=== PATIENT | female | born 1945 | race Caucasian/White ===

== ENCOUNTER 2021-08-21 09:20 | Day surgery (SDC) | payer OTHER ==
[2021-08-21 08:58] LABS: Absolute Lymphocytes (CBC) 2.2 K/uL (0.7-4.9); Basophils % 1.1 % (0-1.3); Hematocrit 39.9 % (36.0-45.0); Lymphocytes % 25.9 % (15.3-44.8); MPV 8.5 fL (7.6-11.3); RBC Red Blood Cell Count 4.46 M/uL (3.86-4.86)
[2021-08-21 09:18] LABS: Potassium 4.3 mmol/L (3.5-5.1)
--- NOTE | 2021-08-21 09:18 | RAD REPORT ---
EXAM DESCRIPTION: RAD - Chest Pa And Lat (2 Views) - 08/21/2021 9:00 am CLINICAL HISTORY: pre-cath procedure COMPARISON: CHEST SINGLE VIEW dated 09/06/2011; CHEST PA AND LAT 2 VIEW dated 12/03/2002 FINDINGS: Lines: None. Lungs: No evidence of edema or pneumonia. Pleural: No significant pleural effusions or pneumothorax. Cardiac: The heart size is within normal limits. Bones: No acute fractures. Other: Atherosclerosis. IMPRESSION: No acute cardiopulmonary disease.
[2021-08-21 09:37] VITALS: TEMP 98
[2021-08-21] MEDS ORDERED: NA CHLORIDE 0.9% 500 ML ONE (10:30)
[2021-08-21] MEDS ORDERED: HEPA 1000U/500MLS 1,000 UNIT/500 ML BAG IV ONE (10:40)
[2021-08-21] MEDS ORDERED: FENTANYL CITR 100 MCG/2 ML ONE (10:45)
[2021-08-21] MEDS ORDERED: MIDAZOLAM HCL 2 MG/2 ML INJ ONE ×2 (10:45→11:23)
[2021-08-21] MEDS ORDERED: ATROPINE SULF 1 MG/10 ML SYR IV ONE (10:45)
--- NOTE | 2021-08-21 11:47 | EKG ---
Test Date: 2021-08-21 Test Time: 07:43:19 Marble Setter Helper: ANUSHKA MEASUREMENT RESULTS: Intervals: Rate: 71 MI: 162 QRSD: 82 QT: 418 QTc: 454 [place]: P: 58 MI: 162 QRS: 28 T: 70 INTERPRETIVE STATEMENTS: Normal sinus rhythm with sinus arrhythmia ST abnormality, possible digitalis effect Abnormal ECG Compared to ECG 09/07/2011 06:51:06 ST (T wave) deviation now present Sinus bradycardia no longer present Electronically Signed On 08-21-21 11:46:00 CDT by Caleb Martell
[2021-08-21 11:56] VITALS: O2SAT 100
[2021-08-21 12:47] VITALS: BP 126/54
--- NOTE | 2021-08-21 15:33 | OP ---
Surgeon: Caleb Martell MD Senior Product Designer: Mr. Juan Gomez. Reason For Admission: Bilateral selective carotid angiograms. Indication: Cerebrovascular disease. Ms. Mckinnon is 76. Has had stents, coronary artery disease, high blood pressure, diabetes, dyslipidemia, abnormal carotid Doppler. Procedure In Detail: Brought to the labor supervisor today as an outpatient, prepped and draped in the routi ne sterile fashion. Given Versed and fentanyl for sedation. A 6-Danish sheath introduced in the rig ht common femoral artery successfully. Angiography there revealed normal common femoral artery and i liac. Angio-Seal was used to close the case. A JR4 catheter was advanced into the carotid. The lef t common carotid and the right common carotid were selected by the JR4. Angiography there showed mod erate plaquing in the left ICA, normal bilateral ECA and CCA. She had an 85% ostial right ICA. Ther e were no complications. Blood Loss: 5 mL. Anesthesia: Total conscious sedation 45 minutes. Postoperative Diagnosis: Severe right ICA stenosis. Plan: For right CEA. The patient will remain in the hospital for 2 hours after bedrest following th e Angio-Seal. She will have a CD with her. I will make an arrangement for her to see a cardiovascular surgeon in [place]. IZABEL/MELLY Voice ID: [id number] Report ID: [id number]
--- NOTE | 2021-08-22 13:15 | EKG ---
Test Date: 2021-08-21 Test Time: 07:43:43 Scrap Picker: ANUSHKA MEASUREMENT RESULTS: Intervals: Rate: 64 IL: 172 QRSD: 82 QT: 408 QTc: 420 [place]: P: 56 IL: 172 QRS: 14 T: 55 INTERPRETIVE STATEMENTS: Normal sinus rhythm Normal ECG Compared to ECG 08/21/2021 07:43:19 Sinus arrhythmia no longer present ST (T wave) deviation no longer present Electronically Signed On 08-22-21 13:10:51 CDT by Caleb Martell
== END 2021-08-21 12:45 | disposition home or self-care (01) ==
LOC: CCL 09:20
DX: I65.23 Occlusion and stenosis of bilateral carotid arteries (principal); I25.10 Atherosclerotic heart disease of native coronary artery without angina pectoris; I34.0 Nonrheumatic mitral (valve) insufficiency; I35.1 Nonrheumatic aortic (valve) insufficiency; I10 Essential (primary) hypertension; I27.21 Secondary pulmonary arterial hypertension; G62.9 Polyneuropathy, unspecified; E78.2 Mixed hyperlipidemia; E11.9 Type 2 diabetes mellitus without complications; E03.9 Hypothyroidism, unspecified; Z95.5 Presence of coronary angioplasty implant and graft; Z87.891 Personal history of nicotine dependence; Z88.6 Allergy status to analgesic agent; Z20.822 Contact with and (suspected) exposure to COVID-19
CPT/HCPCS: 93005; 85025; 80048; 36415; 85610; 85730; 71046; 36222; U0003; C1893; C1760; J2250; J3010; J7040; J1644

== ENCOUNTER 2021-09-16 01:52 | Inpatient (IN) | payer OTHER ==
--- OUTSIDE RECORDS SUMMARY | 2021-09-16 01:55 | XMS REPORT | Continuity of Care Document ---
:1945 Author Organization [facility] t Address [address] [place] [address] Care Team Providers Name Role Phone AMYHAIDERCARROLL Primary Care Physician Unavailable ROBBY NESS Attending Clinician Unavailable JAZIEL MORLEY Attending Clinician Unavailable NOLAN LOPEZ Attending Clinician Unavailable Nurse, Pob Immunization Attending Clinician Unavailable Nolan Lopez DO Attending Clinician Jossie VITAL Attending Clinician Unavailable Juan José NARVAEZ Attending Clinician Unavailable Tete ARGUELLO, L Attending Clinician Dwayne EPSTEIN Attending Clinician Unavailable JAZIEL MORLEY Admitting Clinician Unavailable Payers Payer Name Policy Type Policy Number Effective Date Expiration Date S jorge UNITED MEDICARE HMO [id number] 2020 00:00:00 [facility] [id number] 2020 MEDICARE ADV HMO 00:00:00 Problems This patient has no known problems. Allergies, Adverse Reactions, Alerts Allergy Allergy Status Severity Reaction(s) Onset Inactive Treating Comm ents Source Name Type Date Date Clinician CODEINE Allergy Active N\\T\\V 2020-[address] [facility] OTHER Allergy Active Other 2020-[address] [facility] STATINS- Allergy Active Other 2020-[address] [facility] 10[facility] RED[facility] Medical E 00 Center INHIBITO RS NO KNOWN Drug Active Univers ALLERGIE Class [facility]y of [facility] Social History Social Habit Start Date Stop Date Quantity Comments Source Sex Assigned At [birth year] [facility] 00:00:00 00:00:00 Medical Branch Smoking Status Start Date Stop Date Source Unknown if ever smoked [facility] Medications Ordered Filled Start Stop Current Ordering Indication Dosage Frequency Signature Comments Components Source Medication Medication Date Date Medication? Clinician (SIG) Name Name meloxicam 2020-0 Yes 7.5mg Take 1 Unive rs (MOBIC) 7.5 8-20 tablet by ity of mg tablet 00:00: mouth [place] 00 daily Medical before a Branch meal. MELOXICAM 2020-0 Yes [id number] TAKE 1 Un spencer 7.5 mg 8-20 TABLET BY ity of tablet 00:00: MOUTH ONCE [place] 00 DAILY Medical BEFORE A Branch MEAL FOR 30 DAYS MELOXICAM 2020-0 Yes [id number] TAKE 1 Un spencer 7.5 mg 8-20 TABLET BY ity of tablet 00:00: MOUTH ONCE [place] 00 DAILY Medical BEFORE A Branch MEAL FOR 30 DAYS meloxicam 2020-0 Yes 7.5mg Take 1 Unive rs (MOBIC) 7.5 8-20 tablet by ity of mg tablet 00:00: mouth [place] 00 daily Medical before a Branch meal. meloxicam 2020-0 2020- No 7.5mg Take 1 Univ ers (MOBIC) 7.5 7-23 08-23 tablet by it y of mg tablet 00:00: 04:59 mouth [place] 00 :00 daily Medical before a Branch meal for 30 days. meloxicam 2020-0 2020- No 7.5mg Take 1 Univ ers (MOBIC) 7.5 7-23 08-23 tablet by it y of mg tablet 00:00: 04:59 mouth [place] 00 :00 daily Medical before a Branch meal for 30 days. meloxicam 2020-0 2020- No 7.5mg Take 1 Univ ers (MOBIC) 7.5 7-23 08-23 tablet by it y of mg tablet 00:00: 04:59 mouth [place] 00 :00 daily Medical before a Branch meal for 30 days. meloxicam 2020-0 2020- No 7.5mg Take 1 Univ ers (MOBIC) 7.5 7-23 08-23 tablet by it y of mg tablet 00:00: 04:59 mouth [place] 00 :00 daily Medical before a Branch meal for 30 days. meloxicam 2020-0 2020- No 7.5mg Take 1 Univ ers (MOBIC) 7.5 7- 08-23 tablet by it y of mg tablet 00:00: 04:59 mouth [place] 00 :00 daily Medical before a Branch meal for 30 days. meloxicam 2019-2019- No 7.5mg Take 1 Univ ers (MOBIC) 7.5 7-23 08-23 tablet by it y of mg tablet 00:00: 04:59 mouth [place] 00 :00 daily Medical before a Branch meal for 30 days. meloxicam 2019-2019- No 7.5mg Take 1 Univ ers (MOBIC) 7.5 7- 08-20 tablet by it y of mg tablet 00:00: 00:00 mouth [place] 00 :00 daily Medical before a Branch meal for 30 days. No known No Univers medications [facility] No known No Univers medications [facility] No known No Univers medications [facility] Immunizations Ordered Filled Immunization Date Status Comments [facility] e Immunization Name Name SARS-COV-2 COVID-19 2021-06-29 Completed Unive rsity of MODERNA VACCINE 00:00:00 [facility] SARS-COV-2 COVID-19 2020-11-24 Completed Unive rsity of MODERNA VACCINE 00:00:00 [facility] SARS-COV-2 COVID-19 2020-10-27 Completed Unive rsity of MODERNA VACCINE 00:00:00 [facility] Vital Signs Vital Name Observation Time Observation Value Comments Source HEIGHT 2021-09-03 07:41:00 157.5 cm WEIGHT 2021-09-03 07:41:00 91.7 kg HEIGHT 2021-08-31 10:16:00 157.5 cm WEIGHT 2021-08-31 10:16:00 93.895 kg HEIGHT 2021-09-03 07:41:00 157.5 cm WEIGHT 2021-09-03 07:41:00 91.7 kg HEIGHT 2021-08-31 10:16:00 157.5 cm WEIGHT 2021-08-31 10:16:00 93.895 kg Systolic blood 2020-04-27 13:25:00 156 mm[Hg] Univer sity of pressure [facility] Diastolic blood 2020-04-27 13:25:00 84 mm[Hg] Unive rsity of pressure [facility] Respiratory rate 2020-04-27 13:25:00 18 /min Univ ersity of [facility] Body height 2020-04-27 13:25:00 160 cm [facility] Body weight 2020-04-27 13:25:00 93.895 kg [facility] BMI 2020-04-27 13:25:00 36.67 kg/m2 [facility] Procedures Procedure Date / Time Performed Performing Clinician Sourc e SARS-COV-2 COVID-19 2021-06-29 15:13:39 Doctor Unassigned, No [facility] [place] VACCINE,0.5ML,IM Name [facility] ([facility]) Encounters Start End Encounter Admission Attending Care Care Encounter Source Date/Time Date/Time Type Type Clinicians Facility Department ID 2021-09-03 2021-09-06 Inpatient MIGUEL ESCAMILLA Surgery [id number] [facility] 06:40:00 13:36:00 M[facility] 2021-08-31 2021-08-31 Outpatient [facility] [id number] SLE 10:29:52 23:59:00 2021-06-29 2021-06-29 Outpatient Aiyana LOPEZ [facility] [id number] Univers 10:20:00 10:20:00 BART [facility] 2021-06-29 2021-06-29 Imm/Inj Nurse, Adc Pob Immunization [facility] [id number] Univers 10:12:23 10:12:34 Visit Bart Lopez 350.1.13 .10 [facility] 4.2.7.2.686 [facility] Professio [id number] Mt dical nal [address] 2020-11-24 2020-11-24 Outpatient Aiyana VITAL [facility] [id number] Univers 15:10:00 15:10:00 DAVID [id number] [facility] 2020-11-24 2020-11-24 Outpatient Aiyana VITAL [facility] [id number] Univers 15:10:00 15:10:00 DAVID [facility] 2020-10-27 2020-10-27 Outpatient Aiyana VITAL [facility] [id number] Univers 15:30:00 15:30:00 DAVID [id number] [facility] 2020-10-27 2020-10-27 Outpatient Aiyana AMANUEL [facility] [id number] Univers 15:30:00 15:30:00 DAVID [facility] 2020-10-23 2020-10-23 Outpatient [facility] [id number] [facility] 2020-08-17 2020-08-17 Outpatient [facility] [id number] [facility] 2020-08-10 2020-08-10 Outpatient [facility] [id number] [facility] 2020-08-03 2020-08-03 Outpatient [id number] [facility] 2020-07-19 2020-07-19 Outpatient [facility] [id number] [facility] 2020-07-18 2020-07-18 Outpatient [facility] [id number] [facility] 2020-07-06 2020-07-06 Outpatient [facility] [id number] [facility] 2020-06-12 2020-06-12 Outpatient Aiyana NARVAEZ [facility] [id number] Univers 15:30:00 15:30:00 YUVAL [id number] [facility] 2020-06-12 2020-06-12 Outpatient Aiyana NARVAEZ [facility] [id number] Univers 15:30:00 15:30:00 YUVAL [facility] 2020-06-06 2020-06-06 [facility] [id number] 00:00:00 [facility] [id number] [facility] 4.2.7.2.686 Specialti [id number] es [address] 2020-06-06 2020-06-06 [facility] [id number] 00:00:00 00:00:00 [facility] [id number] Surgical 4.2.7.2.686 Specialti [id number] es [address] 2020-06-06 2020-06-06 [place] [facility] [id number] 00:00:00 00:00:00 [facility] [id number] Surgical 4.2.7.2.686 Specialti [id number] es [address] 2020-06-06 2020-06-06 [facility] [id number] Univers 00:00:00 00:00:00 [facility] [id number] it y of Surgical 4.2.7.2.686 Amandeep as Specialti [id number] Mt dical es 198 [facility] 2020-06-06 2020-06-06 [facility]phone [facility] [id number] Univers 00:00:00 00:00:00 [facility] [id number] it y of Surgical 4.2.7.2.686 Amandeep as Specialti [id number] Mt dical es 198 [facility] 2020-06-06 2020-06-06 [place] [facility] [id number] Univers 00:00:00 00:00:00 [facility] [id number] it y of Surgical 4.2.7.2.686 Amandeep as Specialti [id number] Mt dical es 198 [facility] 2020-06-02 2020-06-02 [facility] [id number] Univers 00:00:00 00:00:00 [facility] [id number] it y of Surgical 4.2.7.2.686 Amandeep as Specialti [id number] Mt dical es 198 [facility] 2020-06-02 2020-06-02 [facility] [id number] 00:00:00 00:00:00 [facility] [id number] Surgical 4.2.7.2.686 Specialti [id number] es [address] 2020-05-26 2020-05-26 [place] [facility] 1.2.840.114 [id number] Univers 00:00:00 00:00:00 [facility] [id number] it y of Surgical 4.2.7.2.686 Amandeep as Specialti [id number] Mt dical es 198 [facility] 2020-05-26 2020-05-26 [place] [facility] [id number] 00:00:00 00:00:00 [facility] [id number] Surgical 4.2.7.2.686 Specialti [id number] es [address] 2020-05-22 2020-05-22 [place] [facility] 1.2.840.114 [id number] Univers 00:00:00 00:00:00 [facility] [id number] it y of Surgical 4.2.7.2.686 Amandeep as Specialti [id number] Mt dical es 198 [facility] 2020-05-22 2020-05-22 [place] [facility] 1.2.840.114 [id number] 00:00:00 00:00:00 [facility] [id number] Surgical 4.2.7.2.686 Specialti [id number] es [address] 2020-05-11 2020-05-11 [place] [facility] 1.2.840.114 [id number] Univers 00:00:00 00:00:00 [facility] [id number] it y of Surgical 4.2.7.2.686 Amandeep as Specialti [id number] Mt dical es 198 [facility] 2020-05-08 2020-05-08 [place] [facility] 1.2.840.114 [id number] Univers 00:00:00 00:00:00 [facility] [id number] it y of Surgical 4.2.7.2.686 Amandeep as Specialti [id number] Me dical es [address] [place] 2020-04-27 2020-04-27 Outpatient R TETE [facility] [id number] Univers 08:45:00 08:45:00 MARTIN lee [facility] 2020-04-27 2020-04-27 Office Tete [facility] [id number] Univers 08:21:06 08:43:58 Visit [facility] [id number] it y of Surgical 4.2.7.2.686 Amandeep as Specialti [id number] Me dical es [address] [place] Results Test Description Test Time Test Comments Results Result Sour e Comments TISSUE EXAM 2021-09-10 Surgical Pathology 18:22:29 Report Case: [id number] Authorizing Provider: Jaret Morley, Collected: 09/03/2021 10:37 AM Ordering Location: [facility] Received: 09/03/2021 01:07 PM PERIOPERATIVE SERVICES Pathologist: David Mabry MD Specimen: Plaque, Right Carotid Plaque ARTERY, LEFT CAROTID, ENDARTERECTOMY:CALCIFI C ATHEROSCLEROTIC PLAQUE Signing Pathologist Direct Phone Line: [phone] ally signed by David Mabry MD on 09/10/2021 at 6:22 [id number]; [id number] stenosis, right PlaqueReceived fresh labeled the patient's name, accession number and "right carotid plaque" is a 3.0 cm in length by 0.5 cm in diameter alexander-yellow, tubular piece of focally calcified plaque. Internal Wholesaler sections are submitted in A1 following decalcification.CINTHYA Gonzalez, HT (ASCP)Performed MAGNESIUM 2021-09-06 05:43:19 Test Item Value Reference Range Interpretation Comme nts MAGNESIUM (BEAKER) (test code = 627) 1.9 mg/dL 1.6-2.6 Extrusion Die Repair Manager ID - VIBHA [id number] 05:43:19 Test Item Value Reference Range Interpretation Comments PHOSPHORUS (BEAKER) (test code = 1.8 mg/dL 2.3-4.7 L 604) Extrusion Die Repair Manager ID - VIBHA MBASIC METABOLIC [id number] 05:43:18 Test Item Value Reference Range Interpretation Comments SODIUM (BEAKER) 139 meq/L 136-145 (test code = 381) POTASSIUM (BEAKER) 4.1 meq/L 3.5-5.1 (test code = 379) CHLORIDE (BEAKER) 106 meq/L 98-107 (test code = 382) CO2 (BEAKER) (test 22 meq/L 22-29 code = 355) BLOOD UREA NITROGEN 17 mg/dL 7-21 (BEAKER) (test code = 354) CREATININE (BEAKER) 0.90 mg/dL 0.57-1.25 (test code = 358) GLUCOSE RANDOM 112 mg/dL 70-105 H (BEAKER) (test code = 652) CALCIUM (BEAKER) 9.8 mg/dL 8.4-10.2 (test code = 697) EGFR (BEAKER) (test 61 mL/min/1.73 ESTIMA RAZIA GFR IS code = 1092) sq m NOT ACCURATE CREATININE CLEARANCE IN PREDICTING GLOMERULAR FILTRATION RATE . ESTIMATED GFR I S NOT APPLICABLE FOR DIALYSIS PATIEN TS. Extrusion Die Repair Manager ID - VIBHA [facility] (HEMOGRAM ONLY)2021-09-06 05:17:48 Test Item Value Reference Range Interpretation Comments WHITE BLOOD CELL COUNT (BEAKER) 11.3 K/ L 3.5-10.5 H (test code = 775) RED BLOOD CELL COUNT (BEAKER) 4.01 M/ L 3.93-5.22 (test code = 761) HEMOGLOBIN (BEAKER) (test code = 11.6 GM/DL 11.2-15.7 410) HEMATOCRIT (BEAKER) (test code = 36.7 % 34.1-44.9 411) MEAN CORPUSCULAR VOLUME (BEAKER) 91.5 fL 79.4-94.8 (test code = 753) MEAN CORPUSCULAR HEMOGLOBIN 28.9 pg 25.6-32.2 (BEAKER) (test code = 751) MEAN CORPUSCULAR HEMOGLOBIN CONC 31.6 GM/DL 32.2-35.5 L (BEAKER) (test code = 752) RED CELL DISTRIBUTION WIDTH 13.8 % 11.7-14.4 (BEAKER) (test code = 412) PLATELET COUNT (BEAKER) (test 258 K/CU MM 150-450 code = 756) MEAN PLATELET VOLUME (BEAKER) 11.2 fL 9.4-12.3 (test code = 754) NUCLEATED RED BLOOD CELLS 0 /100 WBC 0-0 (BEAKER) (test code = 413) BASIC METABOLIC [id number] 05:10:16 Test Item Value Reference Range Interpretation Comments SODIUM (BEAKER) 137 meq/L 136-145 (test code = 381) POTASSIUM (BEAKER) 4.5 meq/L 3.5-5.1 Specimen slightly (test code = 379) hemolyzed CHLORIDE (BEAKER) 105 meq/L 98-107 (test code = 382) CO2 (BEAKER) (test 24 meq/L 22-29 code = 355) BLOOD UREA NITROGEN 22 mg/dL 7-21 H (BEAKER) (test code = 354) CREATININE (BEAKER) 0.95 mg/dL 0.57-1.25 Specimen slightly (test code = 358) hemolyzed GLUCOSE RANDOM 106 mg/dL 70-105 H (BEAKER) (test code = 652) CALCIUM (BEAKER) 9.0 mg/dL 8.4-10.2 (test code = 697) EGFR (BEAKER) (test 57 mL/min/1.73 ESTIMA RAZIA GFR IS code = 1092) sq m NOT ACCURATE CREATININE CLEARANCE IN PREDICTING GLOMERULAR FILTRATION RATE . ESTIMATED GFR I S NOT APPLICABLE FOR DIALYSIS PATIEN TS. Extrusion Die Repair Manager ID - VIBHA [id number] 05:10:15 Test Item Value Reference Range Interpretation Comments MAGNESIUM (BEAKER) 1.8 mg/dL 1.6-2.6 Specimen slightly (test code = 627) hemolyzed Extrusion Die Repair Manager ID - VIBHA [id number] 05:10:15 Test Item Value Reference Range Interpretation Comments PHOSPHORUS (BEAKER) 2.7 mg/dL 2.3-4.7 Specimen slightly (test code = 604) hemolyzed Extrusion Die Repair Manager ID - VIBHA [facility] (HEMOGRAM ONLY)2021-09-05 04:58:52 Test Item Value Reference Range Interpretation Comments WHITE BLOOD CELL COUNT (BEAKER) 9.8 K/ L 3.5-10.5 (test code = 775) RED BLOOD CELL COUNT (BEAKER) 3.60 M/ L 3.93-5.22 L (test code = 761) HEMOGLOBIN (BEAKER) (test code = 10.5 GM/DL 11.2-15.7 L 410) HEMATOCRIT (BEAKER) (test code = 33.6 % 34.1-44.9 L 411) MEAN CORPUSCULAR VOLUME (BEAKER) 93.3 fL 79.4-94.8 (test code = 753) MEAN CORPUSCULAR HEMOGLOBIN 29.2 pg 25.6-32.2 (BEAKER) (test code = 751) MEAN CORPUSCULAR HEMOGLOBIN CONC 31.3 GM/DL 32.2-35.5 L (BEAKER) (test code = 752) RED CELL DISTRIBUTION WIDTH 13.8 % 11.7-14.4 (BEAKER) (test code = 412) PLATELET COUNT (BEAKER) (test 251 K/CU MM 150-450 code = 756) MEAN PLATELET VOLUME (BEAKER) 11.1 fL 9.4-12.3 (test code = 754) NUCLEATED RED BLOOD CELLS 0 /100 WBC 0-0 (BEAKER) (test code = 413) HEMOGLOBIN [id number] 19:10:23 Test Item Value Reference Range Interpretation Comments HEMOGLOBIN A1C (BEAKER) (test code = 6.3 % 4.3-6.1 H 368) [id number] 18:45:54 Test Item Value Reference Range Interpretation Comments THYROID STIMULATING HORMONE 1.192 uIU/mL 0.350-4.940 (BEAKER) (test code = 772) Extrusion Die Repair Manager ID - [id number], [id number] 18:45:53 Test Item Value Reference Range Interpretation Comments FREE T4 (BEAKER) (test code = 655) 1.24 ng/dL 0.70-1.48 Extrusion Die Repair Manager ID - BSB-TYPE NATRIURETIC FACTOR (BNP)2021-09-04 18:31:07 Test Item Value Reference Range Interpretation Comments B-TYPE NATRIURETIC PEPTIDE (BEAKER) 212 pg/mL 0-100 H (test code = 700) Extrusion Die Repair Manager ID - BSLIPID [id number] 18:25:33 Test Item Value Reference Range Interpretation Comments TRIGLYCERIDES (BEAKER) (test code = 106 mg/dL 540) CHOLESTEROL (BEAKER) (test code = 143 mg/dL 631) HDL CHOLESTEROL (BEAKER) (test code 44 mg/dL = 976) LDL CHOLESTEROL CALCULATED (BEAKER) 78 mg/dL (test code = 633) Triglyceride Reference Range: Low Risk <150 Borderline 150-199 High Risk 200-499 Very High Risk >=500Cholesterol Reference Range: Low Risk <200 Borderline 200-239 High Risk >240HDL Cholesterol Reference Range: Low Risk >=60 High Risk <40LDL Cholesterol Reference Range: Optimal <100 Near Optimal 100-129 Borderline 130-159 High 160-189 Very High >=190 Extrusion Die Repair Manager ID - [id number] 06:58:37 Test Item Value Reference Range Interpretation Comments PHOSPHORUS (BEAKER) (test code = 4.6 mg/dL 2.3-4.7 604) Extrusion Die Repair Manager ID - VIBHA MBASIC METABOLIC [id number] 06:58:36 Test Item Value Reference Range Interpretation Comments SODIUM (BEAKER) 138 meq/L 136-145 (test code = 381) POTASSIUM (BEAKER) 4.1 meq/L 3.5-5.1 (test code = 379) CHLORIDE (BEAKER) 104 meq/L 98-107 (test code = 382) CO2 (BEAKER) (test 22 meq/L 22-29 code = 355) BLOOD UREA NITROGEN 26 mg/dL 7-21 H (BEAKER) (test code = 354) CREATININE (BEAKER) 1.24 mg/dL 0.57-1.25 (test code = 358) GLUCOSE RANDOM 103 mg/dL 70-105 (BEAKER) (test code = 652) CALCIUM (BEAKER) 9.4 mg/dL 8.4-10.2 (test code = 697) EGFR (BEAKER) (test 42 mL/min/1.73 ESTIMA RAZIA GFR IS code = 1092) sq m NOT ACCURATE CREATININE CLEARANCE IN PREDICTING GLOMERULAR FILTRATION RATE . ESTIMATED GFR I S NOT APPLICABLE FOR DIALYSIS PATIEN TS. Extrusion Die Repair Manager ID - VIBHA [id number] 06:58:36 Test Item Value Reference Range Interpretation Comments MAGNESIUM (BEAKER) (test code = 1.9 mg/dL 1.6-2.6 627) Extrusion Die Repair Manager ID - VIBHA [facility] (HEMOGRAM ONLY)2021-09-04 06:39:51 Test Item Value Reference Range Interpretation Comments WHITE BLOOD CELL COUNT (BEAKER) 12.9 K/ L 3.5-10.5 H (test code = 775) RED BLOOD CELL COUNT (BEAKER) 3.98 M/ L 3.93-5.22 (test code = 761) HEMOGLOBIN (BEAKER) (test code = 11.7 GM/DL 11.2-15.7 410) HEMATOCRIT (BEAKER) (test code = 38.1 % 34.1-44.9 411) MEAN CORPUSCULAR VOLUME (BEAKER) 95.7 fL 79.4-94.8 H (test code = 753) MEAN CORPUSCULAR HEMOGLOBIN 29.4 pg 25.6-32.2 (BEAKER) (test code = 751) MEAN CORPUSCULAR HEMOGLOBIN CONC 30.7 GM/DL 32.2-35.5 L (BEAKER) (test code = 752) RED CELL DISTRIBUTION WIDTH 13.9 % 11.7-14.4 (BEAKER) (test code = 412) PLATELET COUNT (BEAKER) (test 264 K/CU MM 150-450 code = 756) MEAN PLATELET VOLUME (BEAKER) 11.1 fL 9.4-12.3 (test code = 754) NUCLEATED RED BLOOD CELLS 0 /100 WBC 0-0 (BEAKER) (test code = 413) CALCIUM, [id number] 06:34:10 Test Item Value Reference Range Interpretation Comments CALCIUM IONIZED (BEAKER) (test 1.19 mmol/L 1.12-1.27 code = 698) PH, BLOOD (BEAKER) (test code = 7.30 1810) [id number] 22:06:41 Test Item Value Reference Range Interpretation Comments POTASSIUM (BEAKER) 5.0 meq/L 3.5-5.1 Specimen slightly (test code = 379) hemolyzed Extrusion Die Repair Manager ID - [id number] AND [id number] 21:57:38 Test Item Value Reference Range Interpretation Comments HEMOGLOBIN (BEAKER) (test code = 10.9 GM/DL 11.2-15.7 L 410) HEMATOCRIT (BEAKER) (test code = 34.5 % 34.1-44.9 411) Extrusion Die Repair Manager ID - [id number] METABOLIC [id number] 18:58:49 Test Item Value Reference Range Interpretation Comments SODIUM (BEAKER) 140 meq/L 136-145 (test code = 381) POTASSIUM (BEAKER) 5.2 meq/L 3.5-5.1 H (test code = 379) CHLORIDE (BEAKER) 105 meq/L 98-107 (test code = 382) CO2 (BEAKER) (test 24 meq/L 22-29 code = 355) BLOOD UREA NITROGEN 30 mg/dL 7-21 H (BEAKER) (test code = 354) CREATININE (BEAKER) 1.29 mg/dL 0.57-1.25 H (test code = 358) GLUCOSE RANDOM 122 mg/dL 70-105 H (BEAKER) (test code = 652) CALCIUM (BEAKER) 10.1 mg/dL 8.4-10.2 (test code = 697) EGFR (BEAKER) (test 40 mL/min/1.73 ESTIMA RAZIA GFR IS code = 1092) sq m NOT ACCURATE CREATININE CLEARANCE IN PREDICTING GLOMERULAR FILTRATION RATE . ESTIMATED GFR I S NOT APPLICABLE FOR DIALYSIS PATIEN TS. Extrusion Die Repair Manager ID - [id number] (HEMOGRAM ONLY)2021-09-03 18:29:02 Test Item Value Reference Range Interpretation Comments WHITE BLOOD CELL COUNT (BEAKER) 15.8 K/ L 3.5-10.5 H (test code = 775) RED BLOOD CELL COUNT (BEAKER) 3.84 M/ L 3.93-5.22 L (test code = 761) HEMOGLOBIN (BEAKER) (test code = 11.3 GM/DL 11.2-15.7 410) HEMATOCRIT (BEAKER) (test code = 36.7 % 34.1-44.9 411) MEAN CORPUSCULAR VOLUME (BEAKER) 95.6 fL 79.4-94.8 H (test code = 753) MEAN CORPUSCULAR HEMOGLOBIN 29.4 pg 25.6-32.2 (BEAKER) (test code = 751) MEAN CORPUSCULAR HEMOGLOBIN CONC 30.8 GM/DL 32.2-35.5 L (BEAKER) (test code = 752) RED CELL DISTRIBUTION WIDTH 13.8 % 11.7-14.4 (BEAKER) (test code = 412) PLATELET COUNT (BEAKER) (test 292 K/CU MM 150-450 code = 756) MEAN PLATELET VOLUME (BEAKER) 10.9 fL 9.4-12.3 (test code = 754) NUCLEATED RED BLOOD CELLS 0 /100 WBC 0-0 (BEAKER) (test code = 413) GLUCOSE-STAT [id number] 12:35:04 Test Item Value Reference Range Interpretation Comments GLUCOSE RANDOM (BEAKER) (test code 141 mg/dL 70-110 H = 652) HGB/HCT (H&H) - STAT [id number] 12:34:26 Test Item Value Reference Range Interpretation Comments HEMOGLOBIN (BEAKER) (test code = 12.9 GM/DL 12.0-15.0 410) HEMATOCRIT (BEAKER) (test code = 38.0 % 36.0-45.0 411) SODIUM NA-STAT [id number] 12:34:25 Test Item Value Reference Range Interpretation Comments SODIUM (BEAKER) (test code = 381) 138 meq/L 136-145 POTASSIUM-STAT [id number] 12:34:25 Test Item Value Reference Range Interpretation Comments POTASSIUM (BEAKER) (test code = 3.9 meq/L 3.6-5.5 379) [id number] 11:41:17 Test Item Value Reference Range Interpretation Comments ACTIVATED CLOTTING TIME 131 sec : 74 -137 seconds, (BEAKER) (test code = Baseli ne: TESTED AT 441) [address], [facility] 30: 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 ID = [id number] for BERNIE HUBER [id number] 11:41:16 Test Item Value Reference Range Interpretation Comments ACTIVATED CLOTTING TIME 241 sec : 74 -137 seconds, (BEAKER) (test code = Baseli ne: TESTED AT 441) [address], [facility] 30: 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 ID = [id number] for BERNIE HUBER [employer] [id number] 08:34:00 Test Item Value Reference Range Interpretation Comments SODIUM (BEAKER) 139 meq/L 136-145 (test code = 381) POTASSIUM (BEAKER) 5.0 meq/L 3.5-5.1 (test code = 379) CHLORIDE (BEAKER) 101 meq/L 98-107 (test code = 382) CO2 (BEAKER) (test 27 meq/L 22-29 code = 355) BLOOD UREA NITROGEN 23 mg/dL 7-21 H (BEAKER) (test code = 354) CREATININE (BEAKER) 1.10 mg/dL 0.57-1.25 (test code = 358) GLUCOSE RANDOM 118 mg/dL 70-105 H (BEAKER) (test code = 652) CALCIUM (BEAKER) 10.1 mg/dL 8.4-10.2 (test code = 697) EGFR (BEAKER) (test 48 mL/min/1.73 ESTIMA RAZIA GFR IS code = 1092) sq m NOT ACCURATE CREATININE CLEARANCE IN PREDICTING GLOMERULAR FILTRATION RATE . ESTIMATED GFR I S NOT APPLICABLE FOR DIALYSIS PATIEN TS. [employer] Die Repair Manager ID - [id number] 08:27:18 Test Item Value Reference Range Interpretation Comments PARTIAL THROMBOPLASTIN TIME 34.0 seconds 22.5-36.0 (BEAKER) (test code = 760) PROTHROMBIN TIME/[id number] 08:26:40 Test Item Value Reference Range Interpretation Comments PROTIME (BEAKER) 13.7 seconds 11.9-14.2 (test code = 759) INR (BEAKER) (test 1.06 See_Comment [Automat ed message] code = 370) The system [employer] generated this result transmitted ref erence range: <=5.90. The reference range was not used to int erpret this result as normal/abnormal . RECOMMENDED COUMADIN/WARFARIN INR THERAPY RANGESSTANDARD DOSE: 2.0 - 3.0 Includes: PROPHYLAXIS forvenous thrombosis, systemic embolization; TREATMENT for venous thrombosis and/or pulmonary embolus.HIGH RISK: Target INR is 2.5-3.5 for patients with mechanical heart valves.CBC W/PLT COUNT & AUTO DIFFERENTIAL 2021-09-03 08:16:39 Test Item Value Reference Range Interpretation Comments WHITE BLOOD CELL COUNT (BEAKER) 10.1 K/ L 3.5-10.5 (test code = 775) RED BLOOD CELL COUNT (BEAKER) 4.65 M/ L 3.93-5.22 (test code = 761) HEMOGLOBIN (BEAKER) (test code = 13.7 GM/DL 11.2-15.7 410) HEMATOCRIT (BEAKER) (test code = 42.9 % 34.1-44.9 411) MEAN CORPUSCULAR VOLUME (BEAKER) 92.3 fL 79.4-94.8 (test code = 753) MEAN CORPUSCULAR HEMOGLOBIN 29.5 pg 25.6-32.2 (BEAKER) (test code = 751) MEAN CORPUSCULAR HEMOGLOBIN CONC 31.9 GM/DL 32.2-35.5 L (BEAKER) (test code = 752) RED CELL DISTRIBUTION WIDTH 13.6 % 11.7-14.4 (BEAKER) (test code = 412) PLATELET COUNT (BEAKER) (test 323 K/CU MM 150-450 code = 756) MEAN PLATELET VOLUME (BEAKER) 10.5 fL 9.4-12.3 (test code = 754) NUCLEATED RED BLOOD CELLS 0 /100 WBC 0-0 (BEAKER) (test code = 413) NEUTROPHILS RELATIVE PERCENT 65 % (BEAKER) (test code = 429) LYMPHOCYTES RELATIVE PERCENT 25 % (BEAKER) (test code = 430) MONOCYTES RELATIVE PERCENT 8 % (BEAKER) (test code = 431) EOSINOPHILS RELATIVE PERCENT 1 % (BEAKER) (test code = 432) BASOPHILS RELATIVE PERCENT 1 % (BEAKER) (test code = 437) NEUTROPHILS ABSOLUTE COUNT 6.51 K/ L 1.56-6.13 H (BEAKER) (test code = 670) LYMPHOCYTES ABSOLUTE COUNT 2.51 K/ L 1.18-3.74 (BEAKER) (test code = 414) MONOCYTES ABSOLUTE COUNT (BEAKER) 0.80 K/ L 0.24-0.36 H (test code = 415) EOSINOPHILS ABSOLUTE COUNT 0.14 K/ L 0.04-0.36 (BEAKER) (test code = 416) BASOPHILS ABSOLUTE COUNT (BEAKER) 0.09 K/ L 0.01-0.08 H (test code = 417) IMMATURE GRANULOCYTES-RELATIVE 0 % 0-1 PERCENT (BEAKER) (test code = 6171)
[2021-09-16 02:38] LABS: Absolute Lymphocytes (CBC) 1.9 K/uL (0.7-4.9); Lymphocytes % 15.3 % (15.3-44.8); MPV 9.2 fL (7.6-11.3); RBC Red Blood Cell Count 4.07 M/uL (3.86-4.86)
[2021-09-16 02:39] LABS: Protime INR 1.29
[2021-09-16 02:40] LABS: Arterial Blood Carboxyhemoglob 0.8 % (0-1.5); Blood Gas Oxyhemoglobin 94.6 % (94-97); Blood O2 Saturation 96.9 % (92-98.5)
[2021-09-16] MEDS ORDERED: propofoL 500 MG/50 ML ML IV ONE ×3 (02:40→14:58)
[2021-09-16 02:54] LABS: Urine Blood 1+ (Negative); Urine Glucose Negative (Negative); Urine Protein 3+ (Negative); Urine Specific Gravity >=1.030 (1.005-1.030); Urine pH 5.5 (5.0-7.0)
[2021-09-16 03:03] LABS: Urine Bacteria >50 /HPF (<20); Urine Mucus 3+ /HPF (NONE SEEN)
[2021-09-16 03:05] LABS: ALT/SGPT 107 U/L (12-78); AST/SGOT 47 U/L (15-37); Albumin 3.3 g/dL (3.4-5.0); Alkaline Phosphatase 64 U/L (45-117); BUN Blood Urea Nitrogen 21 mg/dL (7-18); Bicarbonate 23 mmol/L (21-32); Bilirubin Direct < 0.1 mg/dL (0-0.2); Bilirubin Total 0.2 mg/dL (0.2-1.0); Glucose Level 152 mg/dL (74-106); Magnesium 1.8 mg/dL (1.8-2.4); NT PRO-BNP 798 pg/mL (<450); Potassium 4.3 mmol/L (3.5-5.1); Sodium Level 140 mmol/L (136-145); Troponin (Emerg Dept Use Only) < 0.02 ng/mL (0.0-0.045)
[2021-09-16] MEDS ORDERED: MIDAZOLAM HCL 2 MG/2 ML INJ ONE (03:16)
[2021-09-16 03:18] LABS: SARS-COV-2 RT PCR NEGATIVE (NEGATIVE)
[2021-09-16] MEDS ORDERED: NA CHLORIDE 0.9% 500 ML ONE (03:41)
--- NOTE | 2021-09-16 03:48 | ER ---
Nurse's Notes [facility] Name: Elis Mckinnon Age: 76 yrs Sex: Female : 1945 Arrival Date: 09/16/2021 Time: 02:12 Bed 26 Private MD: Diagnosis: Acute pulmonary edema;Acute respiratory failure Presentation: 09/16 02:00 Chief complaint: EMS states: Patient called EMS for respiratory distress that began 2 lp1 hours prior; Denies any hx of CHF; Per EMS, audible crackles, O2 at 80% on RA, RR 30, patient hypertensive 190 systolic. Coronavirus screen: difficulty breathing. Ebola Screen: No symptoms or risks identified at this time. Initial Sepsis Screen: Does the patient meet any 2 criteria? No. Patient's initial sepsis screen is negative. Does the patient have a suspected source of infection? No. Patient's initial sepsis screen is negative. Risk Assessment: Do you want to hurt yourself or someone else? Patient reports no desire to harm self or others. Onset of symptoms was September 16, 2021 at 00:00. Care prior to arrival: Oral intubation, Medication(s) given: 400 mg Ketamine IV, 100 mg Rocuronium IV, Nitro paste to left anterior chest IV initiated. 20 GA, in the right antecubital area. 02:00 Method Of Arrival: EMS: [facility] lp1 02:00 Acuity: JANETTE 1 lp1 Historical: - Allergies: 06:34 Qgdvskz-Rpj-Cju Reductase Inhibitors; lp1 06:34 Codeine; lp1 - Home Meds: 03:24 metoprolol tartrate 25 mg Oral tab 1 tab [Active]; amiodarone 200 mg Oral tab [Active]; lp1 omeprazole 40 mg Oral cpDR [Active]; Eliquis 5 mg oral tab [Active]; losartan 100 mg oral tab [Active]; ezetimibe 10 mg oral tab [Active]; levothyroxine 88 mcg tab [Active]; gabapentin 100 mg oral tab [Active]; - PMHx: 03:24 Unable to Obtain; lp1 - Immunization history:: Adult Immunizations unknown. - Social history:: Smoking status: unknown. Screenin:30 Abuse screen: Denies threats or abuse. Denies injuries from another. Nutritional lp1 screening: No deficits noted. Tuberculosis screening: No symptoms or risk factors identified. Fall Risk Total Junior Fall Scale indicates High Risk Score (45 or more points). Fall prevention measures have been instituted. Side Rails Up X 2 Placed Close to Nursing Station Frequent Obs/Assessments Occuring. Assessment: 03:10 Reassessment: Vent settings of TV 500, PEEP 5, Rate 16, O2 50%. lp1 03:15 Reassessment: Patient opening eyes, moving arms; Provider notified. lp1 03:15 General: Appears in no apparent distress. well groomed, Behavior is Intubated. Pain: lp1 Unable to use pain scale. FLACC scale score is 0 out of 10. Neuro: Level of Consciousness is Intubated . Oriented to none. Cardiovascular: Patient's skin is warm and dry. Respiratory: Airway via oral intubation Respiratory effort is even, Respiratory pattern is symmetrical, Ventilator assessment: HOB > 30 degrees. Breath sounds with crackles bilaterally. Onset: The symptoms/episode began/occurred just prior to arrival. GI: Abdomen is non-distended. : to gravity drainage. EENT: No deficits noted. Derm: Skin is pink, warm \T\ dry. Musculoskeletal: Range of motion: intact in all extremities. 03:45 Reassessment: Nitro paste to left anterior chest removed; Provider aware and at bedside.lp1 04:35 Reassessment: CINTHYA Malone at bedside. lp1 05:10 Reassessment: Patient moving hands, opening eyes, nods to yes/no questions; Able to lp1 write on paper for responses; reports allergy to Codeine and Statins; Demonstrates understanding of intubation and restraints for safety. 05:30 Reassessment: Patient transported to CT with nurse, RT, and sales agent food vending service; Patient awake, lp1 tolerating ETT, nods for awareness of transport to CT for scan. Vital Signs: 02:00 BP 192 / 98; Pulse 75; Resp 16; Pulse Ox 100% on 100% FiO2 ETT vent; lp1 02:30 BP 179 / 91; Pulse 66; Resp 16; Temp 96.5(C); Pulse Ox 100% on 50% FiO2 ETT vent; lp1 02:37 Weight 81.65 kg; lp1 03:00 BP 177 / 86; Pulse 67; Resp 16; Temp 97.4(C); Pulse Ox 100% on 50% FiO2 ETT vent; lp1 03:10 BP 171 / 84; Pulse 66; Resp 14; Temp 97.8(C); Pulse Ox 99% on 50% FiO2 ETT vent; lp1 03:40 BP 69 / 50; Pulse 48; Resp 16; Pulse Ox 96% on 50% FiO2 ETT vent; lp1 03:50 BP 97 / 59; Pulse 47; Resp 20; Temp 97.9(C); Pulse Ox 98% on 50% FiO2 ETT vent; lp1 04:00 BP 132 / 69; Pulse 57; Resp 16; Temp 97.8(C); Pulse Ox 100% on 50% FiO2 ETT vent; lp1 04:20 BP 138 / 66; Pulse 54; Resp 16; Temp 97.8(C); Pulse Ox 100% on 50% FiO2 ETT vent; lp1 04:40 BP 96 / 50; Pulse 47; Resp 16; Temp 97.9(C); Pulse Ox 100% on 50% FiO2 ETT vent; lp1 05:00 BP 119 / 58; Pulse 53; Resp 18; Temp 98.1(C); Pulse Ox 100% on 50% FiO2 ETT vent; lp1 05:50 BP 103 / 86; Pulse 53; Resp 14; Pulse Ox 99% on 45% FiO2 ETT vent; lp1 06:10 BP 149 / 108; Pulse 62; Resp 20; Pulse Ox 97% on 45% FiO2 ETT vent; lp1 ED Course: 02:00 EMS ET tube verified, 7.0 ETT, 24 at the teeth. lp1 02:05 NGT: inserted other orally verified placement of air over stomach, verified return of lp1 gastric contents, Placement verified by X-ray, to intermittent suction. Returned bile. 02:10 Patient has correct armband on for positive identification. Placed in gown. Bed in low lp1 position. Side rails up X2. monitor tech on. Pulse ox on. NIBP on. 02:10 Arm band placed on left wrist. lp1 02:12 Patient arrived in ED. bb 02:12 Geoff Mckeon MD is Attending Physician. 7 02:20 Sandoval cath inserted, using sterile technique, 16 Fr., by tx, balloon inflated, to lp1 gravity drainage, urine specimen collected. 02:37 Afua Emerson RN is Primary Nurse. lp1 02:49 Maintain EMS IV. Dressing intact. Good blood return noted. Site clean \T\ dry. Gauge \T\ lp 1 site: 20g to R AC. 02:54 XRAY Chest (1 view) In Process Unspecified. EDMS 03:24 Triage completed. lp1 03:47 Cem Carroll MD is Hospitalizing Provider. [facility] 04:24 Patient admitted, IV remains in place. lp1 09/19 12:35 Primary Nurse role handed off by Afua Emerson RN bd Restraints: 09/16 04:00 Non-Violent Restraint: Order obtained. Initiated on September 16, 2021 at 04:00 lp1 Restraint Education provided to family/significant other/legally authorized inventory representative. Actions/Behavior observed: has impaired decision making, has decreased level of consciousness, repeated attempts to remove artifical airway/mechanical resp support, Less restrictive alternatives attempted: decrease environmental stimuli, 1:1 patient care, placed near Nurse station, lines/tubes covered, eliminated unnecessary lines/tubes, Alternative interventions: Ineffective. Clinical justification for use: airway protection, line protection, Mental status: confused, Cognition: unable to follow commands, Circulation: Within defined parameters (based on Cardiovascular assessment) Skin integrity: Within defined parameters (based on Integumentary assessment) Signs of injury related to restraint: No injuries noted. Range of Motion (ROM): performed. Elimination/Hygiene: with urinary catheter, Restraint status: Soft wrist restraint (Right) Started. Soft wrist restraint (Left) Started. Administered Medications: 03:01 Drug: Propofol 5 mcg/kg/min Route: IV; Rate: calculated rate; Site: left forearm; lp1 03:20 Follow up: Rate change 30 mcg/kg/min lp1 04:45 Follow up: Rate change 10 mcg/kg/min lp1 04:47 Follow up: Rate change 20 mcg/kg/min lp1 03:20 Drug: Versed (midazolam) 2 mg {Note: Verbal order per Dr. Mckeon.} Route: IVP; Site: lp1 right antecubital; 03:45 Follow up: BP low after administration lp1 03:45 Drug: NS 0.9% 500 ml {Note: Verbal order by Dr. Mckeon for low BP.} Route: IV; Rate: lp1 bolus; Site: left forearm; 06:16 Drug: Lasix (furosemide) 40 mg Route: IVP; Site: right antecubital; lp1 06:35 Follow up: Response: No adverse reaction lp1 Intake: Outcome: 03:47 Decision to Hospitalize by Provider. 7 04:24 critical lp1 04:24 Instructed on the need for admit. 06:20 Admitted to ICU with oxygen, on monitor, with chart, Report called to adri Wells RN 09/20 14:45 Patient left the ED. iw Signatures: Dispatcher [employer] EDMS María Hughes Brenda, RN RN bb Stella Poole RN RN iw Afua Emerson RN RN lp1 Geoff Mckeon MD MD 7 Corrections: (The following items were deleted from the chart) 09/16 03:26 03:24 PSHx: Appendectomy; lp1 lp1 04:21 04:20 Reassessment: Patient opening eyes, moving arms; Provider notified lp1 lp1 06:34 03:24 Allergies: Unable to obtain; lp1 lp1
--- NOTE | 2021-09-16 03:48 | EDPHYS ---
Physician Documentation [facility] Name: Elis Mckinnon Age: 76 yrs Sex: Female : 1945 Arrival Date: 09/16/2021 Time: 02:12 Bed 26 Private MD: ED Physician Geoff Mckeon HPI: 09/16 02:28 This 76 yrs old Female presents to ER via Unassigned with complaints of Shortness of mh7 breath. Respiratory distress. 02:28 The patient has shortness of breath at rest. Onset: The symptoms/episode began/occurred mh7 last night, at 23:00. Duration: The symptoms are continuous, and are unchanged since they started, Currently intubated. The patient's shortness of breath has no apparent modifying factors. Associated signs and symptoms: The patient has no apparent associated signs or symptoms. Severity of symptoms: At their worst the symptoms were severe today, in the emergency department the symptoms have improved markedly. According to EMS patient called to report shortness of breath that had began 1 hour prior to call. EMS states upon arrival patient appeared to be in respiratory distress but stated that shortness of breath has started suddenly prior to her call. Respiratory status worsened and so EMS intubated patient at the scene and placed 7.0 ET tube after sedation.. Historical: - Allergies: 06:34 Vkrqujj-Zre-Dbk Reductase Inhibitors; lp1 06:34 Codeine; lp1 - Home Meds: 03:24 metoprolol tartrate 25 mg Oral tab 1 tab [Active]; amiodarone 200 mg Oral tab [Active]; lp1 omeprazole 40 mg Oral cpDR [Active]; Eliquis 5 mg oral tab [Active]; losartan 100 mg oral tab [Active]; ezetimibe 10 mg oral tab [Active]; levothyroxine 88 mcg tab [Active]; gabapentin 100 mg oral tab [Active]; - PMHx: 03:24 Unable to Obtain; lp1 - Immunization history:: Adult Immunizations unknown. - Social history:: Smoking status: unknown. ROS: 02:28 Unable to obtain ROS due to patient is on ventilator. 7 Exam: 02:28 Head/Face: Normocephalic, atraumatic. mh7 02:28 Neck: Trachea midline, no thyromegaly or masses palpated, and no cervical lymphadenopathy. Supple, full range of motion without nuchal rigidity, or vertebral point tenderness. No Meningismus. Chest/axilla: Normal chest wall appearance and motion. Nontender with no deformity. No lesions are appreciated. Cardiovascular: Regular rate and rhythm with a normal S1 and S2. No gallops, murmurs, or rubs. Normal PMI, no JVD. No pulse deficits. 02:28 Abdomen/GI: Soft, non-tender, with normal bowel sounds. No distension or tympany. No guarding or rebound. No evidence of tenderness throughout. Back: No spinal tenderness. No costovertebral tenderness. Full range of motion. Skin: Warm, dry with normal turgor. Normal color with no rashes, no lesions, and no evidence of cellulitis. MS/ Extremity: Pulses equal, no cyanosis. Neurovascular intact. Full, normal range of motion. 02:28 Constitutional: The patient appears Intubated, sedated 02:28 ENT: ET tube in place. 02:28 Respiratory: Intubated, sedated, Respirations: Intubated, sedated, Breath sounds: rhonchi, that are moderate, are heard diffusely. 02:28 Neuro: Orientation: unable to test, the patient is intubated, Mentation: unable to test, the patient is intubated, Memory: unable to test, the patient is intubated, Cranial nerves: unable to test, the patient is intubated, Cerebellar function: unable to test, the patient is intubated, Motor: unable to test, the patient is intubated, Sensation: unable to test, the patient is intubated, Gait: not tested. seizure activity, is not displayed by the patient, Abnormal movements: there are no abnormal movements. Vital Signs: 02:00 BP 192 / 98; Pulse 75; Resp 16; Pulse Ox 100% on 100% FiO2 ETT vent; lp1 02:30 BP 179 / 91; Pulse 66; Resp 16; Temp 96.5(C); Pulse Ox 100% on 50% FiO2 ETT vent; lp1 02:37 Weight 81.65 kg; lp1 03:00 BP 177 / 86; Pulse 67; Resp 16; Temp 97.4(C); Pulse Ox 100% on 50% FiO2 ETT vent; lp1 03:10 BP 171 / 84; Pulse 66; Resp 14; Temp 97.8(C); Pulse Ox 99% on 50% FiO2 ETT vent; lp1 03:40 BP 69 / 50; Pulse 48; Resp 16; Pulse Ox 96% on 50% FiO2 ETT vent; lp1 03:50 BP 97 / 59; Pulse 47; Resp 20; Temp 97.9(C); Pulse Ox 98% on 50% FiO2 ETT vent; lp1 04:00 BP 132 / 69; Pulse 57; Resp 16; Temp 97.8(C); Pulse Ox 100% on 50% FiO2 ETT vent; lp1 04:20 BP 138 / 66; Pulse 54; Resp 16; Temp 97.8(C); Pulse Ox 100% on 50% FiO2 ETT vent; lp1 04:40 BP 96 / 50; Pulse 47; Resp 16; Temp 97.9(C); Pulse Ox 100% on 50% FiO2 ETT vent; lp1 05:00 BP 119 / 58; Pulse 53; Resp 18; Temp 98.1(C); Pulse Ox 100% on 50% FiO2 ETT vent; lp1 05:50 BP 103 / 86; Pulse 53; Resp 14; Pulse Ox 99% on 45% FiO2 ETT vent; lp1 06:10 BP 149 / 108; Pulse 62; Resp 20; Pulse Ox 97% on 45% FiO2 ETT vent; lp1 MDM: 03:45 Differential diagnosis: Anemia Anxiety Reaction asthma, Bronchitis CHF exacerbation, [facility] Chronic Obstructive Pulmonary Disease Myocardial Infarction pneumonia, Pneumothorax Psychogenic pulmonary edema, Pulmonary Embolism reactive airway disease. Data reviewed: vital signs, nurses notes, EMS record, lab test result(s), cardiac enzymes, CBC, electrolytes, urinalysis, EKG, radiologic studies, plain films. Data interpreted: Pulse oximetry: on room air ventilator is 99 %. Interpretation: acceptable. Response to treatment: the patient's symptoms have markedly improved after treatment. 03:47 Patient medically screened. [facility] 09/16 02:13 Order name: Basic Metabolic Panel [facility] 09/16 02:13 Order name: CBC with Diff [facility] 09/16 02:13 Order name: LFT's; Complete Time: 03:13 [facility] 09/16 02:13 Order name: Magnesium; Complete Time: 03:13 [facility] 09/16 02:13 Order name: NT PRO-BNP; Complete Time: 03:13 [facility] 09/16 02:13 Order name: PT-INR; Complete Time: 03:13 [facility] 09/16 02:13 Order name: Troponin (emerg Dept Use Only); Complete Time: 03:13 [facility] 09/16 02:13 Order name: Blood Culture Adult (2) [facility] 09/16 02:13 Order name: Arterial Blood Gas; Complete Time: 03:13 [facility] 09/16 02:13 Order name: Basic Metabolic Panel; Complete Time: 03:13 [facility] 09/16 02:13 Order name: CBC with Automated Diff; Complete Time: 03:13 [facility] 09/16 02:15 Order name: COVID-19/FLU A+B (Document "Date of Onset" if Symptomatic) [facility] 09/16 02:16 Order name: COVID-19/FLU A+B; Complete Time: 03:33 [facility] 09/16 02:40 Order name: Urine Microscopic Only; Complete Time: 03:13 [facility] 09/16 02:41 Order name: Urine Culture [facility] 09/16 02:42 Order name: Urine Culture [facility] 09/16 02:53 Order name: Urine Dipstick-Ancillary; Complete Time: 03:13 [facility] 09/16 03:17 Order name: Lactate [facility] 09/16 03:17 Order name: Procalcitonin [facility] 09/16 05:48 Order name: CBC with Automated Diff [facility] 09/16 05:58 Order name: Comprehensive Metabolic Panel [facility] 09/16 05:58 Order name: Phosphorus [facility] 09/16 05:58 Order name: Troponin I [facility] 09/16 05:58 Order name: Magnesium [facility] 09/16 12:40 Order name: Glucose, Ancillary Testing [facility] 09/16 13:49 Order name: Troponin I [facility] 09/16 17:12 Order name: Glucose, Ancillary Testing [facility] 09/16 18:39 Order name: Troponin I [facility] 09/17 08:36 Order name: Glucose, Ancillary Testing [facility] 09/17 09:21 Order name: CBC with Automated Diff [facility] 09/16 02:13 Order name: XRAY Chest (1 view) [facility] 09/16 03:15 Order name: CT Chest For PE Angio [facility] 09/16 11:52 Order name: RAD [facility] 09/17 10:57 Order name: Comprehensive Metabolic Panel [facility] 09/17 10:57 Order name: Phosphorus [facility] 09/17 10:57 Order name: Troponin I [facility] 09/17 10:57 Order name: NT PRO-BNP [facility] 09/17 10:57 Order name: Lipid Profile [facility] 09/17 10:57 Order name: T4 Free [facility]MS 09/17 10:57 Order name: Magnesium EDMS 09/17 10:57 Order name: Thyroid Stimulating Hormone EDMS 09/17 12:07 Order name: CT EDMS 09/17 13:03 Order name: RAD EDMS 09/17 17:40 Order name: Glucose, Ancillary Testing [facility] 09/17 21:30 Order name: Glucose, Ancillary Testing [facility] 09/18 04:22 Order name: CBC with Automated Diff [facility] 09/18 04:39 Order name: Comprehensive Metabolic Panel [facility] 09/18 04:39 Order name: Phosphorus EDMS 09/18 04:39 Order name: Troponin I EDMS 09/18 04:39 Order name: Magnesium EDMS 09/18 08:21 Order name: Glucose, Ancillary Testing EDMS 09/18 09:15 Order name: RAD EDMS 09/19 04:43 Order name: CBC with Automated Diff [facility] 09/19 04:55 Order name: Comprehensive Metabolic Panel [facility] 09/19 04:55 Order name: Phosphorus EDMS 09/19 04:55 Order name: Troponin I EDMS 09/19 04:55 Order name: Magnesium EDMS 09/20 04:38 Order name: Comprehensive Metabolic Panel [facility]MS 09/20 04:38 Order name: Phosphorus EDMS 09/20 04:38 Order name: Magnesium EDMS 09/20 04:42 Order name: CBC with Automated Diff [facility] 09/16 02:13 Order name: EKG; Complete Time: 02:14 [facility] 09/16 02:13 Order name: Cardiac monitoring; Complete Time: 02:38 09/16 02:13 Order name: EKG - Nurse/Tech; Complete Time: 02:49 09/16 02:13 Order name: IV Saline Lock; Complete Time: 02:38 09/16 02:13 Order name: Labs collected and sent; Complete Time: 02:38 09/16 02:13 Order name: O2 Per Protocol; Complete Time: 02:38 09/16 02:13 Order name: O2 Sat Monitoring; Complete Time: 02:38 [facility] 09/16 02:13 Order name: Urine Dipstick-Ancillary (obtain specimen); Complete Time: 02:38 [facility] 09/16 02:13 Order name: Sandoval; Complete Time: 02:38 [facility] 09/16 04:04 Order name: CONS Physician Consult [facility] 09/16 04:33 Order name: Restraint:Non-Violent; Complete Time: 04:33 lp1 Administered Medications: 03:01 Drug: Propofol 5 mcg/kg/min Route: IV; Rate: calculated rate; Site: left forearm; lp1 03:20 Follow up: Rate change 30 mcg/kg/min lp1 04:45 Follow up: Rate change 10 mcg/kg/min lp1 04:47 Follow up: Rate change 20 mcg/kg/min lp1 03:20 Drug: Versed (midazolam) 2 mg {Note: Verbal order per Dr. Mckeon.} Route: IVP; Site: lp1 right antecubital; 03:45 Follow up: BP low after administration lp1 03:45 Drug: NS 0.9% 500 ml {Note: Verbal order by Dr. Mckeon for low BP.} Route: IV; Rate: lp1 bolus; Site: left forearm; 06:16 Drug: Lasix (furosemide) 40 mg Route: IVP; Site: right antecubital; lp1 06:35 Follow up: Response: No adverse reaction lp1 Disposition Summary: 09/16/21 03:47 Hospitalization Ordered Hospitalization Status: Inpatient Admission [facility] Provider: Cem Carroll Condition: Critical [facility] Problem: new [facility] Symptoms: have improved [facility] Bed/Room Type: Standard [facility] Location: [facility] ER HOLD(09/16/21 05:07) Room Assignment: ERHOLD-(09/16/21 05:07) Diagnosis - Acute pulmonary edema [facility] - Acute respiratory failure [facility] Forms: - Medication Reconciliation Form [facility] - SBAR form [facility] Signatures: Dispatcher [employer] Afua Bradley RN RN lp1 Ida Hayes RN RN cg Geoff Mckeon MD MD [facility] Corrections: (The following items were deleted from the chart) 03:26 03:24 PSHx: Appendectomy; lp1 lp1 05:07 03:47 [place] [facility] [place] 03:[place] [facility] [place] 03:24 Allergies: Unable to obtain; lp1 lp1
[2021-09-16] MEDS ORDERED: FUROSEMIDE 40 MG/4 ML VIAL ONE (04:39)
--- NOTE | 2021-09-16 05:16 | P.HP ---
Certification for Inpatient Patient admitted to: Inpatient With expected LOS: >2 Midnights Patient will require the following post-hospital care: None Practitioner: I am a practitioner with admitting privileges, knowledge of patient current condition, hospital course, and medical plan of care. Services: Services provided to patient in accordance with Admission requirements found in Title 42 Section 412.3 of the Code of Federal Regulations <Lavell Mei - Last Filed: 09/16/21 05:16> Patient History Date of Service: 09/16/21 Primary Care Provider: Gosia Reason for admission: respiratory distress History of Present Illness: Ms. Mckinnon is a 76 yo F with chronic atrial fibrillation on eliquis, HTN, hypothyroidism brought in by EMS for respiratory distress. EMS states that patient called them for respiratory distress that began 2 hours prior. She said the SOB started suddenly. They heard audible crackles, O2 of 80% on RA, RR 30 and patient hypertensive to 190s systolic. Denied history of CHF. Her respiratory status worsened so EMS intubated her at the scene. She recently had a cardiac cath done on 08/21 revealing severe right ICA stenosis with recommendation to see cardiovascular surgeon in [place]. WBC 12.2 BNP 798. CTPE pending. - Past Medical/Surgical History Diabetic: No Past Medical History: Unable to obtain -: atrial fibrillation -: HTN -: hypothyroid Past Surgical History: Unable to obtain - Family History Family History: Reviewed- Non-Contributory - Social History Smoking Status: Unknown if ever smoked Place of Residence: Home <Lavell Mei - Last Filed: 09/16/21 05:16> Date of Service: 09/16/21 <Arsen Villareal - Last Filed: 09/16/21 14:01> Allergies codeine Allergy (Verified 08/21/21 08:33) Itching/Hives/Rash [id number] Reductase Inhibitor Allergy (Verified 08/21/21 08:33) Itching/Hives/Rash Review of Systems is unable to be obtained <Lavell Mei - Last Filed: 09/16/21 05:16> Physical Examination - Physical Exam General: Other (intubated) HEENT: Atraumatic, PERRLA, Mucous membr. moist/pink, Sclerae nonicteric Neck: Supple, 2+ carotid pulse no bruit, No LAD, Without JVD or thyroid abnormality Respiratory: Diminished, Crackles/rales Cardiovascular: Regular rate/rhythm, Normal S1 S2, Edema Gastrointestinal: Normal bowel sounds, No tenderness Musculoskeletal: No tenderness Integumentary: No rashes Neurological: Normal tone, Sensation intact Lymphatics: No axilla or inguinal lymphadenopathy Urinary: Sandoval catheter - Studies Laboratory Data (last 24 hrs) 09/16/21 02:25: PT 14.9 H, INR 1.29 09/16/21 02:25: WBC 12.20 H, Hgb 11.8 L, Hct 37.0, Plt Count 318 09/16/21 02:25: Sodium 140, Potassium 4.3, BUN 21 H, Creatinine 1.08, Glucose 152 H, Magnesium 1.8, Total Bilirubin 0.2, AST 47 H, ALT 107 H, Alkaline Phosphatase 64 <Lavell Mei - Last Filed: 09/16/21 05:16> - Studies Laboratory Data (last 24 hrs) 09/16/21 02:25: PT 14.9 H, INR 1.29 09/16/21 02:25: WBC 12.20 H, Hgb 11.8 L, Hct 37.0, Plt Count 318 09/16/21 02:25: Sodium 140, Potassium 4.3, BUN 21 H, Creatinine 1.08, Glucose 152 H, Magnesium 1.8, Total Bilirubin 0.2, AST 47 H, ALT 107 H, Alkaline Phosphatase 64 Microbiology Data (last 24 hrs): 09/16/21 02:25 Blood - Blood Anaerobic Blood Culture - Final <Arsen Villareal - Last Filed: 09/16/21 14:01> Assessment and Plan - Problems (Diagnosis) (1) Respiratory distress Current Visit: Yes Status: Acute (2) Volume overload Current Visit: Yes Status: Acute Qualifiers: Hypervolemia type: unspecified Qualified Code(s): E87.70 - Fluid overload, unspecified (3) Chronic a-fib Current Visit: Yes Status: Chronic (4) UTI (urinary tract infection) Current Visit: Yes Status: Acute Qualifiers: Urinary tract infection type: site unspecified Hematuria presence: with hematuria Qualified Code(s): N39.0 - Urinary tract infection, site not specified; R31.9 - Hematuria, unspecified (5) Hypothyroid Current Visit: Yes Status: Chronic Qualifiers: Hypothyroidism type: unspecified Qualified Code(s): E03.9 - Hypothyroidism, unspecified - Plan cardiology consulted, pulmonology consulted, respiratory therapy consulted ventilator protocol CTPE pending, ECHO pending continue IV lasix monitor BP, hydralazine PRN for BP spikes IV ceftriaxone daily DVT ppx Discharge Plan: Home Plan to discharge in: Greater than 2 days - Advance Directives Does patient have a Living Will: No Does patient have a Durable POA for Healthcare: No - Code Status/Comfort Care Code Status Assessed: Yes (full code ) Critical Care: Yes Time Spent Managing Pts Care (In Minutes): 70 <Lavell Mei - Last Filed: 09/16/21 05:16> - Plan Patient seen and examined earlier this morning on rounds. Intubated, awake, answers questions with head nods, follows commands Nursing report no significant change since admission just a few hours ago. Continue empiric antibiotics, decrease dose of Lasix Unclear etiology of sudden onset respiratory failure Possible pneumonia, possible cardiac event, trend troponin Pulmonology consulted, continue mechanical ventilation <Aresn Villareal - Last Filed: 09/16/21 14:01>
[2021-09-16] MEDS ORDERED: HALOPERIDOL LACT 5 MG/ML INJ IV PRN (05:17)
[2021-09-16] MEDS ORDERED: IPRATROPIUM BROM 0.5MG/2.5ML NEB PRN (05:17)
[2021-09-16] MEDS ORDERED: ALBUTEROL 2.5 MG/3 ML NEB SOL NEB PRN (05:17)
[2021-09-16] MEDS ORDERED: HYDRALAZINE HCL 20 MG/ML VIAL IV PRN (05:17)
[2021-09-16] MEDS ORDERED: MIDAZOLAM HCL 2 MG/2 ML INJ IV PRN (05:17)
[2021-09-16] MEDS ORDERED: ONDANSETRON 4 MG/2 ML VIAL IV PRN (05:17)
[2021-09-16] MEDS ORDERED: propofoL 1,000 MG/100 ML VIAL IV PRN (05:17)
[2021-09-16] MEDS ORDERED: LORazepam 2 MG/ML VIAL ONE ×3 (05:20→14:57)
[2021-09-16] MEDS: LORazepam 2 MG/ML VIAL IV PRN ×3 (05:25→15:02)
[2021-09-16 05:42] LABS: Absolute Lymphocytes (CBC) 1.5 K/uL (0.7-4.9); Basophils % 0.9 % (0-1.3); Hematocrit 34.8 % (36.0-45.0); Lymphocytes % 10.3 % (15.3-44.8); MPV 9.1 fL (7.6-11.3); RBC Red Blood Cell Count 3.82 M/uL (3.86-4.86)
[2021-09-16 05:58] LABS: Albumin 3.3 g/dL (3.4-5.0); Bilirubin Total 0.3 mg/dL (0.2-1.0); Magnesium 2.1 mg/dL (1.8-2.4); Phosphorus 3.5 mg/dL (2.5-4.9); Potassium 5.1 mmol/L (3.5-5.1); Protein, Total 6.6 g/dL (6.4-8.2); Troponin I 0.17 ng/mL (0.0-0.045)
[2021-09-16] MEDS: INSULIN -REGULAR HUMAN 50 UNIT/0.5 ML ML SQ SCH ×4 (07:30→20:40)
[2021-09-16] MEDS ORDERED: CEFTRIAXONE 1,000 MG in NA CHLORIDE 0.9% 50 ML IVPB SCH (09:00)
[2021-09-16] MEDS ORDERED: ENOXAPARIN 40 MG/0.4 ML SQ SCH (09:00)
[2021-09-16] MEDS ORDERED: FAMOTIDINE 20 MG/2 ML VIAL IV ONE ×2 (09:56→20:32)
[2021-09-16] MEDS: FAMOTIDINE 20 MG/2 ML VIAL IV SCH ×2 (10:01→20:37)
[2021-09-16] MEDS: CEFTRIAXONE 1,000 MG in NA CHLORIDE 0.9% 50 ML IVPB SCH (10:34)
--- NOTE | 2021-09-16 11:51 | RAD REPORT ---
EXAM DESCRIPTION: RAD - Chest Single View - 09/16/2021 8:31 am CLINICAL HISTORY: verify ett placement, f/u respiratory distress Chest pain. COMPARISON: Chest Single View dated 09/16/2021; Chest Pa And Lat (2 Views) dated 08/21/2021; CHEST SI NGLE VIEW dated 09/06/2011; CHEST PA AND LAT 2 VIEW dated 12/03/2002 FINDINGS: Portable technique limits examination quality. Tip of the endotracheal tube is at level of the inferior margin of the aortic arch and approximately 0.5 cm above the johnathan. Enteric tube coils in the stomach. Bilateral pulmonary opacities are present suggesting mild pulmonary edema or infection.The heart is mildly prominent size. Dr. Alatorre was no tified.
[2021-09-16] MEDS ORDERED: FUROSEMIDE 40 MG/4 ML VIAL IV SCH (12:00)
--- NOTE | 2021-09-16 12:00 | P.CNS ---
Date of Consult: 09/16/21 Reason for Consult: Respiratory failure Primary Care Provider: Gosia Chief Complaint: respiratory distress History of Present Illness: Patient is 76 years of age chronic A. fib, hypertension brought in to the emergency room respiratory distress patient is now intubated sudden onset of shortness of breath very hypoxic currently she is agitated recent cardiac cath shows severe stenosis chest x-ray shows cardiomegaly interstitial prominence patient is anticoagulated at homes. Allergies codeine Allergy (Verified 08/21/21 08:33) Itching/Hives/Rash [id number]-[id number] Reductase Inhibitor Allergy (Verified 08/21/21 08:33) Itching/Hives/Rash - Past Medical/Surgical History Diabetic: No -: atrial fibrillation -: HTN -: hypothyroid - Social History Place of Residence: Home Review of Systems is unable to be obtained Physical Examination Temp Pulse Resp BP Pulse Ox 56 20 136/72 97 09/16/21 06:44 09/16/21 06:44 09/16/21 06:44 09/16/21 06:44 General: Alert, Moderate distress Respiratory: Crackles/rales, Expiratory wheezes Cardiovascular: No edema, Regular rate/rhythm, Normal S1 S2 Gastrointestinal: Normal bowel sounds, Soft and benign Laboratory Data (last 24 hrs) 09/16/21 02:25: PT 14.9 H, INR 1.29 09/16/21 02:25: WBC 12.20 H, Hgb 11.8 L, Hct 37.0, Plt Count 318 09/16/21 02:25: Sodium 140, Potassium 4.3, BUN 21 H, Creatinine 1.08, Glucose 152 H, Magnesium 1.8, Total Bilirubin 0.2, AST 47 H, ALT 107 H, Alkaline Phosphatase 64 - Problems (1) Respiratory failure Current Visit: Yes Status: Acute Plan: Patient is 76 years of age admitted with respiratory distress currently on a ventilator also has severe carotid artery stenosis not sure about her smoking status patient is fully anticoagulated on Eliquis for A. fib chest x-ray shows some cardiomegaly interstitial changes endotracheal tube needs to be pulled out chemistry reviewed reviewed mildly hypoxic and hypercapnic oxygenation satisfactory not sure what the etiology is reduced dose of Lasix for now CT angiogram did not show any evidence of pulmonary embolism some atelectasis left greater than the right Qualifiers: Chronicity: acute Respiratory failure complication: hypoxia and hypercapnia Qualified Code(s): J96.01 - Acute respiratory failure with hypoxia; J96.02 - Acute respiratory failure with hypercapnia
--- NOTE | 2021-09-16 13:52 | RAD REPORT ---
EXAM DESCRIPTION: RAD - Chest Single View - 09/16/2021 2:54 am CLINICAL HISTORY: SOB Chest pain. COMPARISON: Chest Pa And Lat (2 Views) dated 08/21/2021; CHEST SINGLE VIEW dated 09/06/2011; CHEST PA AND LAT 2 VIEW dated 12/03/2002; Chest Single View dated 09/16/2021 FINDINGS: Portable technique limits examination quality. Tip of the ET tube is just above the johnathan. Enteric tube coils in the stomach. Bilateral pulmonary o pacities are noted may represent a viral infection or pulmonary edema.The heart is upper limit normal in size.
--- NOTE | 2021-09-16 14:01 | CON ---
Date of Consultation: 09/16/2021 Reason For Consultation: Congestive heart failure. History Of Present Illness: A 76-year-old female with history of chronic AFib, carotid stenosis, on Eliquis, hypothyroidism, hypertension, presented to the emergency room in respiratory distress, hypox ic with crackles and x-ray suggestive of acute pulmonary edema. The patient was tried on BiPAP and f alana, and then ended up requiring intubation, so by bedside intubated, sedated, very comfortable, no distress, breathing comfortably with a ventilator. Past Medical History: As outlined above in the HPI, hypertension, atrial fibrillation, hypothyroidis m. Medications: Refer to reconciliation sheet for detailed list. Allergies: CODEINE, STATINS. Family History: No mature coronary artery disease or cancer. Social History: She does not smoke or drink. Does not use any drugs. Review of Systems: All systems reviewed and are negative except what mentioned in HPI. Physical Examination: Vital Signs: Reviewed and are stable. Head and Neck: Pupils reactive to light. No JVD. No cervical lymphadenopathy. Lungs: Clear to auscultation bilaterally. No rhonchi, wheezing, or crackles. No distress. Heart: Regular rate and rhythm. No extra sounds. Abdomen: Soft, nontender. Bowel sounds positive. No organomegaly. No masses or hernia. No rigidi ty or rebound. Extremities: No clubbing or cyanosis. Trace edema. Skin: No rash. No nodules. Neuro: Sedated on the vent. Lymph Nodes: No cervical lymphadenopathy. Investigations: Hemoglobin is 11, white blood cell count is 14.3. Sodium 142, BUN 22, creatinine 1. 1. NT-proBNP is 798. Troponin less than 0.02. Chest x-ray, pulmonary edema. Assessment And Recommendations: Acute respiratory failure, likely due to congestive heart failure an d pulmonary edema. She responded very well to diuresis. Continue IV Lasix. Monitor BUN, creatinine , and electrolytes. Please trend 2 more sets of cardiac enzymes and obtain echocardiogram and furthe r recommendations to follow. SR/MODL Voice ID: [id number] Report ID: [id number]
[2021-09-16] MEDS ORDERED: ALBUTEROL 2.5 MG/3 ML NEB SOL ONE ×2 (14:15→20:20)
[2021-09-16] MEDS: ALBUTEROL 2.5 MG/3 ML NEB SOL NEB SCH ×2 (14:20→20:25)
[2021-09-16] MEDS: propofoL 500 MG/50 ML ML IV PRN (15:06)
[2021-09-16] MEDS ORDERED: AMIODARONE HCL 300 MG in D5W 100 ML IV STA (18:38)
[2021-09-16] MEDS ORDERED: AMIODARONE HCL 150 MG/3 ML INJ IV ONE ×2 (18:43→19:01)
[2021-09-16] MEDS ORDERED: D5W 100 ML IV ONE (18:45)
[2021-09-16] MEDS ORDERED: AMIODARONE HCL 450 MG in D5W 241 ML IV SCH (19:00)
[2021-09-16] MEDS ORDERED: AMIODARONE HCL 900 MG in Dextrose 5%-Water 482 ML IV SCH (19:00)
[2021-09-16] MEDS ORDERED: AMIODARONE IN DEXTROSE,ISO-OSM 360 MG/200 ML BAG IV ONE (19:02)
[2021-09-16] MEDS ORDERED: METOPROLOL TARTRATE 5 MG/5 ML INJ IV ONE (19:38)
[2021-09-16] MEDS ORDERED: AMIODARONE HCL IV SCH (20:00)
[2021-09-16] MEDS ORDERED: D5W IV SCH (20:00)
[2021-09-16] MEDS ORDERED: FENTANYL CITR 100 MCG/2 ML ONE (20:03)
[2021-09-16] MEDS: METOPROLOL TARTRATE 5 MG/5 ML INJ IV PRN (20:14)
[2021-09-16] MEDS: FENTANYL CITR 100 MCG/2 ML IV PRN (20:15)
[2021-09-16] MEDS ORDERED: FUROSEMIDE 20 MG/ 2ML VIAL ONE (20:33)
[2021-09-16] MEDS: APIXABAN 5 MG TABLET NG SCH (20:40)
[2021-09-16] MEDS: FUROSEMIDE 20 MG/ 2ML VIAL IV SCH (21:00)
[2021-09-16] MEDS ORDERED: AMIODARONE HCL 200 MG TAB NG SCH (21:00)
[2021-09-17] MEDS ORDERED: propofoL 0 MG/0 ML ML IV ONE (01:33)
[2021-09-17] MEDS: propofoL 500 MG/50 ML ML IV PRN (01:36)
[2021-09-17] MEDS ORDERED: ALBUTEROL 2.5 MG/3 ML NEB SOL ONE ×2 (01:43→09:55)
[2021-09-17] MEDS: ALBUTEROL 2.5 MG/3 ML NEB SOL NEB SCH ×2 (01:45→08:00)
[2021-09-17] MEDS ORDERED: FENTANYL CITR 100 MCG/2 ML ONE (02:06)
[2021-09-17] MEDS: FENTANYL CITR 100 MCG/2 ML IV PRN (02:13)
[2021-09-17] MEDS ORDERED: METOPROLOL TARTRATE 5 MG/5 ML INJ IV ONE ×3 (02:47→16:04)
[2021-09-17] MEDS: METOPROLOL TARTRATE 5 MG/5 ML INJ IV PRN ×3 (02:51→16:06)
[2021-09-17 04:52] VITALS: BMI 34.9
[2021-09-17] MEDS ORDERED: LORazepam 2 MG/ML VIAL ONE (05:36)
[2021-09-17] MEDS: LORazepam 2 MG/ML VIAL IV PRN (05:41)
[2021-09-17] MEDS ORDERED: MIDAZOLAM HCL 2 MG/2 ML INJ ONE (06:18)
[2021-09-17] MEDS: INSULIN -REGULAR HUMAN 50 UNIT/0.5 ML ML SQ SCH ×4 (07:30→21:00)
[2021-09-17] MEDS ORDERED: propofoL 500 MG/50 ML ML IV ONE (07:55)
[2021-09-17 09:18] LABS: Absolute Lymphocytes (CBC) 2.1 K/uL (0.7-4.9); Basophils % 0.7 % (0-1.3); Hematocrit 33.4 % (36.0-45.0); MPV 9.2 fL (7.6-11.3); RBC Red Blood Cell Count 3.75 M/uL (3.86-4.86)
[2021-09-17] MEDS ORDERED: FAMOTIDINE 20 MG/2 ML VIAL IV ONE ×2 (09:40→20:50)
[2021-09-17] MEDS ORDERED: APIXABAN 5 MG TABLET ONE ×2 (09:40→20:49)
[2021-09-17] MEDS ORDERED: FUROSEMIDE 20 MG/ 2ML VIAL ONE (09:40)
[2021-09-17] MEDS: FUROSEMIDE 20 MG/ 2ML VIAL IV SCH ×2 (09:51→21:00)
[2021-09-17] MEDS: APIXABAN 5 MG TABLET NG SCH ×2 (09:52→21:00)
[2021-09-17] MEDS: FAMOTIDINE 20 MG/2 ML VIAL IV SCH ×2 (09:52→21:00)
[2021-09-17] MEDS ORDERED: CEFTRIAXONE 1000 MG/VIAL ONE (10:25)
[2021-09-17] MEDS ORDERED: NA CHLORIDE 0.9% 100 ML ONE (10:25)
[2021-09-17] MEDS: CEFTRIAXONE 1,000 MG in NA CHLORIDE 0.9% 50 ML IVPB SCH (10:27)
[2021-09-17 10:56] LABS: ALT/SGPT 74 U/L (12-78); AST/SGOT 31 U/L (15-37); Albumin 3.4 g/dL (3.4-5.0); Alkaline Phosphatase 52 U/L (45-117); BUN Blood Urea Nitrogen 18 mg/dL (7-18); Bicarbonate 30 mmol/L (21-32); Bilirubin Total 0.5 mg/dL (0.2-1.0); Glucose Level 112 mg/dL (74-106); HDL Cholesterol 55 mg/dL (40-60); LDL Cholesterol, Calculated 75 (<130); NT PRO-BNP 1269 pg/mL (<450); Potassium 3.6 mmol/L (3.5-5.1); Protein, Total 7.4 g/dL (6.4-8.2); Sodium Level 142 mmol/L (136-145); Troponin I < 0.02 ng/mL (0.0-0.045)
--- NOTE | 2021-09-17 11:58 | P.PN ---
Subjective Date of Service: 09/17/21 Primary Care Provider: Gosia Chief Complaint: respiratory distress Subjective: Improving (Patient is doing well was extubated today after a spontaneous breathing trial Discussed with the friend apparently she was in [facility] and had problems with A. fib) Review of Systems is unable to be obtained Physical Examination - Vital Signs Temperature: 98.3 F Blood Pressure: 135/76 Pulse: 82 Respirations: 20 Pulse Ox (%): 99 - Physical Exam General: Alert, Cooperative Neck: Supple Respiratory: Clear to auscultation bilaterally, Friction rub Cardiovascular: Regular rate/rhythm - Studies Microbiology Data (last 24 hrs): 09/16/21 02:25 Blood - Blood Anaerobic Blood Culture - Final Assessment & Plan - Problems (Diagnosis) (1) Respiratory failure Current Visit: Yes Status: Acute Plan: Patient admitted with respiratory failure was successfully extubated this morning white count is mildly elevated cultures negative labs reviewed medicati on list reviewed no change advance diet as tolerated Qualifiers: Chronicity: acute Respiratory failure complication: hypoxia and hypercapnia Qualified Code(s): J96.01 - Acute respiratory failure with hypoxia; J96.02 - Acute respiratory failure with hypercapnia
[2021-09-17] MEDS ORDERED: POTASSIUM 25 MEQ EFFERV TAB PO ONE (12:00)
--- NOTE | 2021-09-17 12:04 | RAD REPORT ---
EXAM DESCRIPTION: CT angiography of the chest was Sex: Female. : 1945. TECHNIQUE: CT angiography of the chest was performed with axial dataset after bolus intravenous inje ction of intravenous contrast including computer-generated multiplanar MIP reformations. Total Dose Length Product: 621. This exam was performed according to our departmental dose-optimization program, which includes autom ated exposure control, adjustment of the mA and/or kV according to patient size and/or use of iterati ve reconstruction technique. Comparison studies: None. Clinical history: SOB. CT Chest: Findings: Pulmonary arteries: Main, right, left pulmonary arteries are opacified without evidence for large, ce ntral or saddle embolus. The branching segmental arteries are normal. No evidence for acute pulmonary embolism. Cardiac: Heart size: Normal. Mild coronary artery calcification. Pericardial effusion: None. Right ventricular strain: None. Left atrial clot: None. Aorta: Mild calcification. No aneurysm. Lungs: *Endotracheal tube is in the right mainstem bronchus. Recommend proximal repositioning by 4 to 5 cm. Airspace opacity in the left lower lobe with air bronchograms is seen from atelectasis or postobstruc tive pneumonia. There is fluid or aspirated material in the left mainstem and lower lobe bronchus see n on series 402 images 55-66. There is mild groundglass infiltrate in the right upper and middle lobes. There is mild compressive atelectasis in the right lower lobe related to pleural effusion. Pleura: There are [id number] bilateral low attenuating pleural effusions. Mediastinum: No mass. Nathaly: No mass. Musculoskeletal: -Bilateral breast augmentation. - Thoracic spondylosis. Upper abdomen: There is a nasogastric tube in the stomach. IMPRESSION: 1. There is no evidence for acute pulmonary embolism. 2. Bilateral pneumonia/atelectasis. Endotracheal aspiration or fluid. 3. Endotracheal tube in the right mainstem bronchus. 4. Bilateral pleural effusions. Electronically signed by: Austin Alvarez MD 09/16/2021 8:02 AM [employer] Due to temporary technical issues with the PACS/Fluency reporting system, reports are being signed by the in house radiologist without review as a courtesy to ensure prompt reporting. The interpreting r adiologist is fully responsible for the content of the report.
[2021-09-17] MEDS ORDERED: POTASSIUM 25 MEQ EFFERV TAB ONE (12:27)
--- NOTE | 2021-09-17 13:00 | RAD REPORT ---
EXAM DESCRIPTION: RAD - Chest Single View - 09/17/2021 12:13 pm CLINICAL HISTORY: Respiratory failure Chest pain. COMPARISON: Chest Single View dated 09/16/2021; Chest Single View dated 09/16/2021; Chest Pa And Lat (2 Views) dated 08/21/2021; CHEST SINGLE VIEW dated 09/06/2011 FINDINGS: Portable technique limits examination quality. The patient's ET tube and enteric tube has been removed. Mild bilateral pulmonary opacities are prese nt, unchanged since yesterday's study. The heart is upper limit of normal in size.
--- NOTE | 2021-09-17 13:07 | P.PN ---
Subjective Date of Service: 09/17/21 Primary Care Provider: Gosia Chief Complaint: respiratory distress Subjective: Improving WILLIS HAD CAROTID SURGERY DONE. SHE DID WELL WITH SURGERY BUT HAD A FIB. SHE WAS CONTROLLED , SENT HOME AND GOT WORSE AFTER A FEW DAYS WITH CHF. SHE GOT INTUBATED AT HOME AND WAS BROUGHT HERE. THEY TRIED TO EXTUBATE HER WITHOUT SUCCESS. I SAW HER THIS AM AND SHE WAS SEDATED SHE TRIED TO GET OUT OF BED THIS AM. Physical Examination - Vital Signs Temperature: 98.3 F Blood Pressure: 141/98 Pulse: 84 Respirations: 19 Pulse Ox (%): 99 - Physical Exam General: Mild distress, Moderate distress, Obese Neck: JVD not distended Respiratory: Diminished Cardiovascular: Normal S1 S2 Gastrointestinal: No tenderness - Studies Microbiology Data (last 24 hrs): 09/16/21 02:25 Blood - Blood Anaerobic Blood Culture - Final Assessment And Plan - Current Problems (Diagnosis) (1) Respiratory failure Current Visit: Yes Status: Acute Plan: SHE IS NOW EXTUBATED. TALKED TO DR. STALLWORTH. CONSULT PT. CONT MEDS. DIURESIS AND KCL. ECHO. SHE HAD PULMONARY EDEMA SP A FIB AT HOME. Qualifiers: Chronicity: acute Respiratory failure complication: hypoxia and hypercapnia Qualified Code(s): J96.01 - Acute respiratory failure with hypoxia; J96.02 - Acute respiratory failure with hypercapnia (2) Chronic a-fib Current Visit: Yes Status: Chronic
--- NOTE | 2021-09-17 14:53 | ECHO ---
HEIGHT: 5 ft 0 in WEIGHT: 179 lb 0 oz DATE OF STUDY: 09/17/[address]: Lavell Mei 2-DIMENSIONAL: YES M.MODE: YES DOPPLER: YES COLOR FLOW: YES TDS: NO PORTABLE: NO DEFINITY: NO BUBBLE STUDY: NO DIAGNOSIS: VOLUME OVERLOAD CARDIAC HISTORY: CATHERIZATION: SURGERY: PROSTHETIC VALVE: PACEMAKER: MEASUREMENTS (cm) DIASTOLIC (NORMALS) SYSTOLIC (NORMALS) IVSd 1.1 (0.6-1.2) LA Diam 3.4 (1.9-4.0) LVEF 55-60% LVIDd 4.2 (3.5-5.7) LVIDs 3.1 (2.0-3.5) %FS 26% LVPWd 1.1 (0.6-1.2) Ao Diam 2.5 (2.0-3.7) 2 DIMENSIONAL ASSESSMENT: RIGHT ATRIUM: NORMAL LEFT ATRIUM: NORMAL RIGHT VENTRICLE: NORMAL LEFT VENTRICLE: NORMAL TRICUSPID VALVE: MITRAL VALVE: MITRAL ANNULAR CALCIFICATION PULMONIC VALVE: NORMAL AORTIC VALVE: PERICARDIAL EFFUSION: NONE AORTIC ROOT: NORMAL LEFT VENTRICULAR WALL MOTION: NORMAL DOPPLER/COLOR FLOW: SEE BELOW COMMENTS: NORMAL LEFT VENTRICULAR EJECTION FRACTION 55-60%. NORMAL WALL MOTION. MILD TRICUSPID AND MITRAL REGURGITATION. MODERATE AORTIC REGURGITATION. TECHNOLOGIST: Raj TERRY
[2021-09-17] MEDS ORDERED: FUROSEMIDE 40 MG/4 ML VIAL ONE (20:50)
[2021-09-18 04:17] LABS: Absolute Lymphocytes (CBC) 2.6 K/uL (0.7-4.9); Basophils % 1.1 % (0-1.3); Hematocrit 37.8 % (36.0-45.0); Lymphocytes % 19.7 % (15.3-44.8); MPV 8.9 fL (7.6-11.3); RBC Red Blood Cell Count 4.22 M/uL (3.86-4.86)
[2021-09-18 04:38] LABS: ALT/SGPT 60 U/L (12-78); AST/SGOT 24 U/L (15-37); Albumin 3.3 g/dL (3.4-5.0); Alkaline Phosphatase 49 U/L (45-117); BUN Blood Urea Nitrogen 19 mg/dL (7-18); Bicarbonate 31 mmol/L (21-32); Bilirubin Total 0.5 mg/dL (0.2-1.0); Glucose Level 111 mg/dL (74-106); Phosphorus 3.2 mg/dL (2.5-4.9); Potassium 4.3 mmol/L (3.5-5.1); Protein, Total 7.4 g/dL (6.4-8.2); Sodium Level 141 mmol/L (136-145); Troponin I < 0.02 ng/mL (0.0-0.045)
[2021-09-18] MEDS: INSULIN -REGULAR HUMAN 50 UNIT/0.5 ML ML SQ SCH ×2 (07:30→11:30)
[2021-09-18] MEDS ORDERED: SOTALOL HCL 80 MG TAB PO ONE (07:36)
[2021-09-18] MEDS ORDERED: APIXABAN 5 MG TABLET ONE ×2 (07:41→21:13)
[2021-09-18] MEDS ORDERED: FUROSEMIDE 20 MG/ 2ML VIAL ONE ×2 (07:41→21:14)
[2021-09-18] MEDS ORDERED: FAMOTIDINE 20 MG/2 ML VIAL IV ONE ×2 (07:41→21:14)
[2021-09-18] MEDS: FAMOTIDINE 20 MG/2 ML VIAL IV SCH ×2 (07:48→21:00)
[2021-09-18] MEDS: APIXABAN 5 MG TABLET NG SCH ×2 (07:48→21:00)
[2021-09-18] MEDS: FUROSEMIDE 20 MG/ 2ML VIAL IV SCH ×2 (07:48→21:00)
[2021-09-18] MEDS ORDERED: ONDANSETRON 4 MG/2 ML VIAL ONE (08:20)
[2021-09-18] MEDS: SPIRONOLACTONE 25 MG TABLET PO SCH (09:00)
--- NOTE | 2021-09-18 09:15 | RAD REPORT ---
EXAM DESCRIPTION: RAD - Chest Single View - 09/18/2021 5:34 am CLINICAL HISTORY: Respiratory failure Chest pain. COMPARISON: Chest Single View dated 09/17/2021; Chest Single View dated 09/16/2021; Chest Single Vie w dated 09/16/2021; Chest Pa And Lat (2 Views) dated 08/21/2021 FINDINGS: Portable technique limits examination quality. The lungs are mildly emphysematous but grossly clear. The heart is normal in size. No displaced fract ures. IMPRESSION: Mild COPD.
[2021-09-18] MEDS ORDERED: ACETAMINOPHEN 325 MG TABLET ONE (11:00)
[2021-09-18] MEDS: ACETAMINOPHEN 325 MG TABLET PO PRN (11:06)
[2021-09-18] MEDS ORDERED: SOTALOL HCL 80 MG TAB ONE (17:43)
[2021-09-18] MEDS: SOTALOL HCL 80 MG TAB PO SCH (17:46)
--- NOTE | 2021-09-18 21:41 | P.PN ---
Subjective Date of Service: 09/18/21 Primary Care Provider: Gosia Chief Complaint: respiratory distress Subjective: Improving WILLIS HAD CAROTID SURGERY DONE. SHE DID WELL WITH SURGERY BUT HAD A FIB. SHE WAS CONTROLLED , SENT HOME AND GOT WORSE AFTER A FEW DAYS WITH CHF. SHE GOT INTUBATED AT HOME AND WAS BROUGHT HERE. THEY TRIED TO EXTUBATE HER WITHOUT SUCCESS. I SAW HER THIS AM AND SHE WAS SEDATED SHE TRIED TO GET OUT OF BED THIS AM. THIS AM SHE STARTS TO HAVE RAPID A FIB AGAIN. DR. HANSEN HAS BEEN CALLED ANE HE MAY CHANGE HER OVER TO [facility]. Physical Examination - Vital Signs Temperature: 96.9 F Blood Pressure: 107/41 Pulse: 66 Respirations: 19 Pulse Ox (%): 94 - Physical Exam General: Oriented x3, Mild distress HEENT: Atraumatic, PERRLA, EOMI Neck: Supple, JVD not distended Respiratory: Clear to auscultation bilaterally, Normal air movement Cardiovascular: Irregular heart rate/rhythm Gastrointestinal: Normal bowel sounds, No tenderness Musculoskeletal: No tenderness Integumentary: No rashes Neurological: Normal speech, Normal tone, Normal affect Lymphatics: No axilla or inguinal lymphadenopathy - Studies Medications List Reviewed: Yes Assessment And Plan - Current Problems (Diagnosis) (1) Respiratory failure Current Visit: Yes Status: Acute Plan: SHE IS NOW EXTUBATED. TALKED TO DR. STALLWORTH. CONSULT PT. CONT MEDS. DIURESIS AND KCL. ECHO. SHE HAD PULMONARY EDEMA SP A FIB AT HOME. Qualifiers: Chronicity: acute Respiratory failure complication: hypoxia and hypercapnia Qualified Code(s): J96.01 - Acute respiratory failure with hypoxia; J96.02 - Acute respiratory failure with hypercapnia (2) Chronic a-fib Current Visit: Yes Status: Chronic Plan: RAPID A FIB THIS AM. BETAPACE PO ALREADY ON ELIQUS MEDICALLY STABLE.
[2021-09-19 04:36] LABS: Absolute Lymphocytes (CBC) 2.3 K/uL (0.7-4.9); Hematocrit 38.9 % (36.0-45.0); Lymphocytes % 17.4 % (15.3-44.8); MPV 9.2 fL (7.6-11.3); RBC Red Blood Cell Count 4.38 M/uL (3.86-4.86)
[2021-09-19 04:54] LABS: ALT/SGPT 49 U/L (12-78); AST/SGOT 18 U/L (15-37); Albumin 3.4 g/dL (3.4-5.0); Alkaline Phosphatase 50 U/L (45-117); BUN Blood Urea Nitrogen 30 mg/dL (7-18); Bicarbonate 31 mmol/L (21-32); Bilirubin Total 0.5 mg/dL (0.2-1.0); Glucose Level 102 mg/dL (74-106); Magnesium 2.1 mg/dL (1.8-2.4); Phosphorus 3.8 mg/dL (2.5-4.9); Potassium 4.1 mmol/L (3.5-5.1); Protein, Total 7.6 g/dL (6.4-8.2); Sodium Level 140 mmol/L (136-145); Troponin I < 0.02 ng/mL (0.0-0.045)
[2021-09-19] MEDS: SOTALOL HCL 80 MG TAB PO SCH ×2 (06:00→17:26)
[2021-09-19] MEDS ORDERED: SOTALOL HCL 80 MG TAB ONE (06:31)
[2021-09-19] MEDS ORDERED: ACETAMINOPHEN 325 MG TABLET ONE (06:31)
[2021-09-19] MEDS: ACETAMINOPHEN 325 MG TABLET PO PRN (06:57)
[2021-09-19] MEDS: FUROSEMIDE 20 MG/ 2ML VIAL IV SCH ×2 (09:00→21:10)
[2021-09-19] MEDS: SPIRONOLACTONE 25 MG TABLET PO SCH (09:00)
[2021-09-19] MEDS ORDERED: FUROSEMIDE 20 MG/ 2ML VIAL ONE ×2 (10:11→21:02)
[2021-09-19] MEDS ORDERED: FAMOTIDINE 20 MG/2 ML VIAL IV ONE ×2 (10:11→21:02)
[2021-09-19] MEDS ORDERED: APIXABAN 5 MG TABLET ONE ×2 (10:12→21:02)
[2021-09-19] MEDS ORDERED: SPIRONOLACTONE 25 MG TABLET ONE (10:13)
[2021-09-19] MEDS: FAMOTIDINE 20 MG/2 ML VIAL IV SCH ×2 (10:21→21:11)
[2021-09-19] MEDS: APIXABAN 5 MG TABLET NG SCH ×2 (10:21→21:09)
[2021-09-19] MEDS: ENSURE ENLIVE 237 ML CAN PO SCH (21:00)
--- NOTE | 2021-09-19 21:34 | P.PN ---
Subjective Date of Service: 09/19/21 Primary Care Provider: Gosia Chief Complaint: respiratory distress Subjective: Improving WILLIS HAD CAROTID SURGERY DONE. SHE DID WELL WITH SURGERY BUT HAD A FIB. SHE WAS CONTROLLED , SENT HOME AND GOT WORSE AFTER A FEW DAYS WITH CHF. SHE GOT INTUBATED AT HOME AND WAS BROUGHT HERE. THEY TRIED TO EXTUBATE HER WITHOUT SUCCESS. I SAW HER THIS AM AND SHE WAS SEDATED SHE TRIED TO GET OUT OF BED THIS AM. THIS AM SHE STARTS TO HAVE RAPID A FIB AGAIN. DR. HANSEN HAS BEEN CALLED ANE HE MAY CHANGE HER OVER TO [facility]. SHE IS WEAK. NOW HR IS CONTROLLED WITH BETAPACE. Review of Systems 10-point ROS is otherwise unremarkable General: Weakness Physical Examination - Vital Signs Temperature: 98 F Blood Pressure: 109/48 Pulse: 61 Respirations: 16 Pulse Ox (%): 95 - Physical Exam General: Oriented x3, Mild distress, Obese HEENT: Atraumatic, PERRLA, EOMI Neck: Supple, JVD not distended Respiratory: Clear to auscultation bilaterally, Normal air movement Cardiovascular: Regular rate/rhythm, Normal S1 S2 Gastrointestinal: Normal bowel sounds, No tenderness Musculoskeletal: No tenderness Integumentary: No rashes Neurological: Normal speech, Normal tone, Normal affect Lymphatics: No axilla or inguinal lymphadenopathy - Studies Medications List Reviewed: Yes Assessment And Plan - Current Problems (Diagnosis) (1) Respiratory failure Current Visit: Yes Status: Acute Plan: SHE IS NOW EXTUBATED. TALKED TO DR. STALLWORTH. CONSULT PT. CONT MEDS. DIURESIS AND KCL. ECHO. SHE HAD PULMONARY EDEMA SP A FIB AT HOME. Qualifiers: Chronicity: acute Respiratory failure complication: hypoxia and hypercapnia Qualified Code(s): J96.01 - Acute respiratory failure with hypoxia; J96.02 - Acute respiratory failure with hypercapnia (2) Chronic a-fib Current Visit: Yes Status: Chronic Plan: RAPID A FIB THIS AM. [facility]AP[facility] PO ALREADY ON ELIQUS MEDICALLY STABLE. [facility] CONVERTED A FIB TO NSR. CONTINUE ELIQUIS. (3) Diastolic CHF, acute Current Visit: Yes Status: Acute Plan: STOP FUROSEMIDE. LAB SHOWS MILD DEHYDRATION. CONT SPIRONOLACTONE.
[2021-09-20] MEDS ORDERED: ACETAMINOPHEN 325 MG TABLET ONE (01:20)
[2021-09-20 04:34] LABS: Albumin 3.3 g/dL (3.4-5.0); Bilirubin Total 0.4 mg/dL (0.2-1.0); Magnesium 2.2 mg/dL (1.8-2.4); Phosphorus 3.6 mg/dL (2.5-4.9)
[2021-09-20 04:39] LABS: Absolute Lymphocytes (CBC) 2.6 K/uL (0.7-4.9); Basophils % 0.9 % (0-1.3); Hematocrit 37.8 % (36.0-45.0); Lymphocytes % 23.7 % (15.3-44.8); MPV 9.4 fL (7.6-11.3); RBC Red Blood Cell Count 4.21 M/uL (3.86-4.86)
[2021-09-20] MEDS ORDERED: SOTALOL HCL 80 MG TAB ONE (06:00)
[2021-09-20] MEDS: SOTALOL HCL 80 MG TAB PO SCH (06:05)
[2021-09-20 07:40] VITALS: TEMP 98
[2021-09-20] MEDS ORDERED: APIXABAN 5 MG TABLET ONE (08:26)
[2021-09-20] MEDS ORDERED: FAMOTIDINE 20 MG/2 ML VIAL IV ONE (08:27)
[2021-09-20] MEDS ORDERED: SPIRONOLACTONE 25 MG TABLET ONE (08:30)
[2021-09-20] MEDS: FAMOTIDINE 20 MG/2 ML VIAL IV SCH (08:32)
[2021-09-20] MEDS: SPIRONOLACTONE 25 MG TABLET PO SCH (08:32)
[2021-09-20] MEDS: APIXABAN 5 MG TABLET NG SCH (08:32)
[2021-09-20] MEDS: ENSURE ENLIVE 237 ML CAN PO SCH (08:33)
[2021-09-20] MEDS ORDERED: FUROSEMIDE 20 MG TABLET PO SCH (09:00)
[2021-09-20 10:33] VITALS: O2SAT 96
[2021-09-20 12:05] VITALS: BP 124/78
--- NOTE | 2021-09-20 12:53 | P.DS ---
Admission Date: 09/16/21 Discharge Date: 09/20/21 Primary Care Provider: Gosia Disposition: ROUTINE DISCHARGE Discharge Condition: FAIR Reason for Admission: respiratory distress - Problems (1) Respiratory failure Current Visit: Yes Status: Acute Qualifiers: Chronicity: acute Respiratory failure complication: hypoxia and hypercapnia Qualified Code(s): J96.01 - Acute respiratory failure with hypoxia; J96.02 - Acute respiratory failure with hypercapnia (2) Chronic a-fib Current Visit: Yes Status: Chronic (3) Diastolic CHF, acute Current Visit: Yes Status: Acute Hospital Course: WILLIS HAD CHF AND RAPID A FIB. AFTER BETAPACE SHE IS NOW BACK IN NSR. ON LASIX SHE OT DEHYDRATION. I CHANGED TO SPIRONOLACTONE AND SHE IS STABLE. WILL FU IN OFFICE IN 10 DAYS. Vital Signs/Physical Exam: Temp Pulse Resp BP Pulse Ox 98.0 F 60 16 124/78 94 09/20/21 07:00 09/20/21 12:00 09/20/21 12:00 09/20/21 12:00 09/20/21 12:00 Laboratory Data at Discharge: WBC Cancelled 09/20/21 05:17 Hgb Cancelled 09/20/21 05:17 Hct Cancelled 09/20/21 05:17 Plt Count Cancelled 09/20/21 05:17 PT 14.9 SECONDS (9.5-12.5) H 09/16/21 02:25 INR 1.29 09/16/21 02:25 Sodium 140 mmol/L (136-145) 09/20/21 03:38 Potassium 4.0 mmol/L (3.5-5.1) 09/20/21 03:38 BUN 32 mg/dL (7-18) H 09/20/21 03:38 Creatinine 1.37 mg/dL (0.55-1.3) H 09/20/21 03:38 Glucose 103 mg/dL (74-106) 09/20/21 03:38 Phosphorus 3.6 mg/dL (2.5-4.9) 09/20/21 03:38 Magnesium 2.2 mg/dL (1.8-2.4) 09/20/21 03:38 Total Bilirubin 0.4 mg/dL (0.2-1.0) 09/20/21 03:38 AST 18 U/L (15-37) 09/20/21 03:38 ALT 42 U/L (12-78) 09/20/21 03:38 Alkaline Phosphatase 47 U/L (45-117) 09/20/21 03:38 Troponin I < 0.02 ng/mL (0.0-0.045) 09/19/21 04:14 Triglycerides 140 mg/dL (<150) 09/17/21 10:14 Cholesterol 158 mg/dL (<200) 09/17/21 10:14 HDL Cholesterol 55 mg/dL (40-60) 09/17/21 10:14 Cholesterol/HDL Ratio 2.87 09/17/21 10:14 Home Medications: Apixaban [Eliquis] 5 mg NG BID #60 tablet 09/20/21 Sotalol HCl [Betapace*] 80 mg PO BID 6AM 6PM #60 tab 09/20/21 Spironolactone 50 mg PO DAILY #90 tablet 09/20/21 New Medications: Sotalol HCl [Betapace*] 80 mg PO BID 6AM 6PM #60 tab Apixaban [Eliquis] 5 mg NG BID #60 tablet Spironolactone 50 mg PO DAILY #90 tablet Followup: NONE,NONE [Primary Care Provider] -
[2021-09-21] MEDS ORDERED: FAMOTIDINE 20 MG TAB PO SCH (09:00)
--- NOTE | 2021-09-24 10:57 | PN ---
Date of Progress Note: 09/18/2021 Ms. Mckinnon had been admitted and seen by Dr. Rodríguez for acute respiratory failure secondary to mariana estive heart failure and pulmonary edema. She has responded very well to diuresis. She had an echoc ardiogram that showed an ejection fraction of 55% to 60% consistent with diastolic congestive heart f ailure. She had moderate aortic regurgitation. Her present regimen includes Eliquis, Lasix, sotalol , spironolactone. She can certainly go home whenever it is okay with Dr. Elise and continue her home medication. In addition, she should be on Lasix. I will see her in the office in the near future. Ms. Mckinnon just had a carotid endarterectomy about 2 weeks ago. IZABEL/MELLY Voice ID: [id number] Report ID: [id number]
== END 2021-09-20 14:00 | disposition home or self-care (01) | DRG 208 ==
LOC: ER 01:52 → ERHOLD 04:32
PROVIDERS: ADMIT Hospitalist; ATTEND Internal Medicine
PROC: 5A1945Z Respiratory Ventilation, 24-96 Consecutive Hours (ICD-10-PCS; principal; 2021-09-16)
PROC: 0BH17EZ Insertion of Endotracheal Airway into Trachea, Via Natural or Artificial Opening (ICD-10-PCS; 2021-09-16)
DX: J96.01 Acute respiratory failure with hypoxia (principal); I50.31 Acute diastolic (congestive) heart failure; I48.20 Chronic atrial fibrillation, unspecified; N39.0 Urinary tract infection, site not specified; J96.02 Acute respiratory failure with hypercapnia; I11.0 Hypertensive heart disease with heart failure; E03.9 Hypothyroidism, unspecified; I65.29 Occlusion and stenosis of unspecified carotid artery; E86.0 Dehydration; E66.9 Obesity, unspecified; R31.9 Hematuria, unspecified; Z68.35 Body mass index [BMI] 35.0-35.9, adult; Z78.1 Physical restraint status; Z88.5 Allergy status to narcotic agent; Z88.8 Allergy status to other drugs, medicaments and biological substances; Z79.01 Long term (current) use of anticoagulants; Z79.890 Hormone replacement therapy; Z79.899 Other long term (current) drug therapy; Z20.822 Contact with and (suspected) exposure to COVID-19
CPT/HCPCS: 0240U; 36415; 51702; 71045; 71275; 80048; 80053; 80061; 80076; 81003; 81015; 82805; 82947; 83605; 83735; 83880; 84100; 84145; 84439; 84443; 84484; 85025; 85610; 87040; 87086; 87088; 92610; 93005; 93306; 94002; 94003; 94640; 97116; 97161; 99291; 99292; J0282; J1940; J2250; J2405; J3010; J7040; J7060; Q9967

== ENCOUNTER 2021-11-07 06:40 | Day surgery (SDC) | payer OTHER ==
[2021-11-06 15:31] LABS: Absolute Lymphocytes (CBC) 2.6 K/uL (0.7-4.9); MPV 8.6 fL (7.6-11.3); RBC Red Blood Cell Count 4.63 M/uL (3.86-4.86)
[2021-11-06 15:33] LABS: Protime INR 1.21
[2021-11-06 15:44] LABS: Potassium 4.2 mmol/L (3.5-5.1)
[2021-11-07] MEDS ORDERED: NA CHLORIDE 0.9% 500 ML ONE (06:50)
== END 2021-11-07 07:38 | disposition home or self-care (01) ==
LOC: CCL 06:40
DX: I48.91 Unspecified atrial fibrillation (principal); Z53.8 Procedure and treatment not carried out for other reasons; Z20.822 Contact with and (suspected) exposure to COVID-19
CPT/HCPCS: 93005; 85025; 80048; 36415; 85610; 85730; U0003; J7040

== ENCOUNTER 2021-11-21 08:06 | Observation (INO) | payer OTHER ==
--- OUTSIDE RECORDS SUMMARY | 2021-11-21 08:09 | XMS REPORT | Continuity of Care Document ---
:1945 Author Organization [facility] t Address [address] [place] [address] Care Team Providers Name Role Phone LINDA REYES Primary Care Physician Unavailable JAZIEL MORLEY Attending Clinician Unavailable ROBBY NESS Attending Clinician Unavailable NOLAN LOPEZ Attending Clinician Unavailable Nurse, Pob Immunization Attending Clinician Unavailable Nolan Lopez DO Attending Clinician Jossie VITAL Attending Clinician Unavailable Juan José NARVAEZ Attending Clinician Unavailable Tete ARGUELLO, L Attending Clinician Dwayne EPSTEIN Attending Clinician Unavailable JAZIEL MORLEY Admitting Clinician Unavailable Payers Payer Name Policy Type Policy Number Effective Date Expiration Date S joreg UNITED MEDICARE HMO [id number] 2020 00:00:00 [facility] [id number] 2020 MEDICARE ADV HMO 00:00:00 Problems This patient has no known problems. Allergies, Adverse Reactions, Alerts Allergy Allergy Status Severity Reaction(s) Onset Inactive Treating Comm ents Source Name Type Date Date Clinician CODEINE Allergy Active N\\T\\V 2020-[address] [facility] OTHER Allergy Active Other 2020-[address] [facility] STATINS- Allergy Active Other 2020-[address] [facility] Medical E 00 Center INHIBITO RS NO KNOWN Drug Active Univers ALLERGIE Class ity of [facility] Social History Social Habit Start Date Stop Date Quantity Comments Source Sex Assigned At [birth year] [facility] 00:00:00 00:00:00 Medical Branch Smoking Status Start Date Stop Date Source Unknown if ever smoked [facility] Medical Branch Medications Ordered Filled Start Stop Current Ordering Indication Dosage Frequency Signature Comments Components Source Medication Medication Date Date Medication? Clinician (SIG) Name Name meloxicam 2020-0 Yes 7.5mg Take 1 Unive rs (MOBIC) 7.5 8-20 tablet by ity of mg tablet 00:00: mouth [place] 00 daily Medical before a Branch meal. MELOXICAM 2020-0 Yes [id number] TAKE 1 Un spencer 7.5 mg 8-20 TABLET BY ity of tablet 00:00: MOUTH ONCE [place] 00 DAILY Medical BEFORE A Branch MEAL FOR 30 DAYS MELOXICAM 2020-0 Yes [id number] TAKE 1 Un spencer 7.5 mg 8-20 [...] 30 days. No known No Univers medications [facility] No known No Univers medications [facility] No known No Univers medications [facility] Immunizations Ordered Filled Immunization Date Status Comments [facility] e Immunization Name Name SARS-COV-2 COVID-19 2021-06-29 Completed Unive rsity of MODERNA VACCINE 00:00:00 [facility] SARS-COV-2 COVID-19 2020-11-24 Completed Unive rsity of MODERNA VACCINE 00:00:00 [facility] SARS-COV-2 COVID-19 2020-10-27 Completed Unive rsity of MODERNA VACCINE 00:00:00 [facility] Vital Signs Vital Name Observation Time Observation Value Comments Source HEIGHT 2021-09-03 07:41:00 157.5 cm WEIGHT 2021-09-03 07:41:00 91.7 kg HEIGHT 2021-08-31 10:16:00 157.5 cm WEIGHT 2021-08-31 10:16:00 93.895 kg HEIGHT 2021-09-03 07:41:00 157.5 cm WEIGHT 2021-09-03 07:41:00 91.7 kg HEIGHT 2021-08-31 10:16:00 157.5 cm WEIGHT 2021-08-31 10:16:00 93.895 kg Systolic blood 2020-04-27 13:25:00 156 mm[Hg] Univer sity of pressure [facility] Diastolic blood 2020-04-27 13:25:00 84 mm[Hg] Unive rsity of pressure [facility] Respiratory rate 2020-04-27 13:25:00 18 /min Univ ersity of [facility] Body height 2020-04-27 13:25:00 160 cm [facility] Body weight 2020-04-27 13:25:00 93.895 kg [facility] BMI 2020-04-27 13:25:00 36.67 kg/m2 [facility] Procedures Procedure Date / Time Performed Performing Clinician Sour e SARS-COV-2 COVID-19 2021-06-29 15:13:39 Doctor Unassigned, No [facility] [place] VACCINE,0.5ML,IM Name [facility] ([facility] Encounters Start End Encounter Admission Attending Care Care Encounter Source Date/Time Date/Time Type Type Clinicians Facility Department ID 2021-11-14 Outpatient [facility]LMLC [facility]C [id number] [facility] 11:46:48 [id number] Elana Terry [facility] 2021-09-03 2021-09-06 Inpatient MIGUEL ESCAMILLA Surgery [id number] [facility] 06:40:00 13:36:00 [facility] 2021-08-31 2021-08-31 Outpatient [facility] [id number] SLE 10:29:52 23:59:00 2021-06-29 2021-06-29 Outpatient Aiyana LOPEZ [facility] [id number] Univers 10:20:00 10:20:[address] [facility] 2021-06-29 2021-06-29 Imm/Inj Nurse, Adc Pob Immunization [facility] [id number] Univers 10:12:23 10:12:34 Visit Bart Lopez 350.1.13 .10 [facility] 4.2.7.2.686 Dany Polanco [id number] Or dical [address] 2020-11-24 2020-11-24 Outpatient Aiyana VITAL [facility] [id number] Univers 15:10:00 15:10:00 DAVID [id number] [facility] 2020-11-24 2020-11-24 Outpatient Aiyana VITAL [facility] [id number] Univers 15:10:00 15:10:00 DAVID [facility] 2020-10-27 2020-10-27 Outpatient Aiyana VITAL [facility] [id number] Univers 15:30:00 15:30:00 DAVID [id number] [facility] 2020-10-27 2020-10-27 Outpatient Aiyana VITAL [facility] [id number] Univers 15:30:00 15:30:00 DAVID [facility] 2020-10-23 2020-10-23 Outpatient [facility] [id number] [facility] 2020-08-17 2020-08-17 Outpatient [facility] [id number] [facility] 2020-08-10 2020-08-10 Outpatient [facility] [id number] [facility] 2020-08-03 2020-08-03 Outpatient [facility] [id number] [facility] 2020-07-19 2020-07-19 Outpatient [facility] [id number] [facility] 2020-07-18 2020-07-18 Outpatient [facility] [id number] [facility] 2020-07-06 2020-07-06 Outpatient [facility] [id number] [facility] 2020-06-12 2020-06-12 Outpatient Aiyana NARVAEZ [facility] [id number] Univers 15:30:00 15:30:00 YUVAL [id number] [facility] 2020-06-12 2020-06-12 Outpatient Aiyana NARVAEZ [facility] [id number] Univers 15:30:00 15:30:00 YUVAL [facility] 2020-06-06 2020-06-06 Ramos Epstein [facility] [id number] 00:00:00 00:00:00 [facility] [id number] [facility] 4.2.7.2.686 Specialti [id number] es [address] [place] 2020-06-06 2020-06-06 [facility] 1.[facility].840.114 [id number] 00:00:00 00:00:00 [facility] 350.1.13.10 Surgical 4.2.7.2.686 Specialti [id number] es [address] [place] 2020-06-06 2020-06-06 [facility] 1.2.840.114 [id number] 00:00:00 00:00:00 [facility] 350.1.13.10 Surgical 4.2.7.2.686 Specialti [id number] es [address] [place] 2020-06-06 2020-06-06 [facility] 1.2.840.114 [id number] Univers 00:00:00 00:00:00 [facility] 350.1.13.10 it y of Surgical 4.2.7.2.686 Amandeep as Specialti [phone] Or dical es 198 [facility] 2020-06-06 2020-06-06 [facility] [id number] [facility] 00:00:00 00:00:00 [facility] 350.1.13.10 it y of Surgical 4.2.7.2.686 Amandeep as Specialti [id number] Or dical es 198 [facility] 2020-06-06 2020-06-06 [facility] 1.2.840.114 [id number] [facility] 00:00:00 00:00:00 [facility] 350.1.13.10 it y of Surgical 4.2.7.2.686 Amandeep as Specialti [id number] Or dical es 198 [facility] 2020-06-02 2020-06-02 [facility] [id number] 00:00:00 00:00:00 [facility] 350.1.13.10 Surgical 4.2.7.2.686 Specialti [id number] es [address] [place] 2020-06-02 2020-06-[address] [facility] [id number] Univers 00:00:00 00:00:00 [facility] 350.1.13.10 it y of Surgical 4.2.7.2.686 Amandeep as Specialti [phone] Or dical es [address] [place] 2020-05-26 2020-05-26 [facility] 1.2.840.114 [id number] Univers 00:00:00 00:00:00 [facility] 350.1.13.10 it y of Surgical 4.2.7.2.686 Amandeep as Specialti [id number] Or dical es [address] [place] 2020-05-26 2020-05-26 [facility] 1.2.840.114 [id number] 00:00:00 00:00:00 [facility] 350.1.13.10 Surgical 4.2.7.2.686 Specialti [id number] es [address] [place] 2020-05-22 2020-05-22 [facility] 1.2.840.114 [id number] Univers 00:00:00 00:00:00 [facility] 350.1.13.10 it y of Surgical 4.2.7.2.686 Amandeep as Specialti [id number] Or dical es [address] [place] 2020-05-22 2020-05-22 [facility] 1.2.840.114 [id number] 00:00:00 00:00:00 [facility] 350.1.13.10 Surgical 4.2.7.2.686 Specialti [id number] es [address] [place] 2020-05-11 2020-05-11 [facility] 1.2.840.114 [id number] Univers 00:00:00 00:00:00 [facility] 350.1.13.10 it y of Surgical 4.2.7.2.686 Amandeep as Specialti [id number] Or dical es [address] [place] 2020-05-08 2020-05-08 Telephone Tete [facility] 1.2.840.114 [id number] Univers 00:00:00 00:00:00 Martin Youssef 350.1.13.10 it y of Surgical 4.2.7.2.686 Amandeep as Specialti [phone] Or dical es [address] [facility] 2020-04-27 2020-04-27 Outpatient R TETE [facility] [id number] Univers 08:45:00 08:45:[address] [facility] 2020-04-27 2020-04-27 [facility] [id number] Univers 08:21:06 08:43:58 Visit [facility] [employer] 350.1.13.10 it y of Surgical 4.2.7.2.686 Amandeep as Specialti [phone] Or dical es 198 [facility] Results Test Description Test Time Test Comments Results Result Sourc e Comments TISSUE EXAM 2021-09-10 Surgical Pathology 18:22:29 Report Case: [id number] Authorizing Provider: Jaret Morley, Collected: 09/03/2021 10:37 AM Ordering Location: [facility] Received: 09/03/2021 01:07 PM [facility]OPER[facility] SERVICES Pathologist: David Mabry MD Specimen: Plaque, Right Carotid Plaque ARTERY, LEFT CAROTID, ENDARTERECTOMY:CALCIFI C ATHEROSCLEROTIC PLAQUE Signing Pathologist Direct Phone Line: [phone] ally signed by David Mabry MD on 09/10/2021 at 6:22 [id number]; [id number] stenosis, right PlaqueReceived fresh labeled the patient's name, accession number and "right carotid plaque" is a 3.0 cm in length by 0.5 cm in diameter alexander-yellow, tubular piece of focally calcified plaque. Blade Aligner sections are submitted in A1 following decalcification.CINTHYA Gonzalez, HT (ASCP)Performed MAGNESIUM 2021-09-06 05:43:19 Test Item Value Reference Range Interpretation Comme nts MAGNESIUM (BEAKER) (test code = 627) 1.9 mg/dL 1.6-2.6 Semiconductor Manufacturing Technician ID - VIBHA [id number] 05:43:19 Test Item Value Reference Range Interpretation Comments PHOSPHORUS (BEAKER) (test code = 1.8 mg/dL 2.3-4.7 L 604) Semiconductor Manufacturing Technician ID - VIBHA MBASIC METABOLIC [id number] 05:43:18 Test Item Value Reference Range Interpretation [...] S NOT APPLICABLE FOR DIALYSIS PATIEN TS. Semiconductor Manufacturing Technician ID - VIBHA MCBC (HEMOGRAM ONLY)2021-09-06 05:17:48 Test Item Value Reference [...] (BEAKER) (test code = 413) BASIC METABOLIC [id number] 05:10:16 Test Item Value Reference Range Interpretation [...] S NOT APPLICABLE FOR DIALYSIS PATIEN TS. Semiconductor Manufacturing Technician ID - VIBHA [id number] 05:10:15 Test Item Value Reference Range Interpretation Comments MAGNESIUM (BEAKER) 1.8 mg/dL 1.6-2.6 Specimen slightly (test code = 627) hemolyzed Semiconductor Manufacturing Technician ID - VIBHA [id number] 05:10:15 Test Item Value Reference Range Interpretation Comments PHOSPHORUS (BEAKER) 2.7 mg/dL 2.3-4.7 Specimen slightly (test code = 604) hemolyzed Semiconductor Manufacturing Technician ID - VIBHA MCBC (HEMOGRAM ONLY)2021-09-05 04:58:52 [...] 0-0 (BEAKER) (test code = 413) HEMOGLOBIN [id number] 19:10:23 Test Item Value Reference Range Interpretation Comments HEMOGLOBIN A1C (BEAKER) (test code = 6.3 % 4.3-6.1 H 368) [id number] 18:45:54 Test Item Value Reference Range Interpretation Comments THYROID STIMULATING HORMONE 1.192 uIU/mL 0.350-4.940 (BEAKER) (test code = 772) Semiconductor Manufacturing Technician ID - BST4, [id number] 18:45:53 Test Item Value Reference Range Interpretation Comments FREE T4 (BEAKER) (test code = 655) 1.24 ng/dL 0.70-1.48 Semiconductor Manufacturing Technician ID - BSB-TYPE NATRIURETIC FACTOR (BNP)2021-09-04 18:31:07 Test Item Value Reference Range Interpretation Comments B-TYPE NATRIURETIC PEPTIDE (BEAKER) 212 pg/mL 0-100 H (test code = 700) Semiconductor Manufacturing Technician ID - BSLIPID [id number] 18:25:33 Test Item Value Reference Range Interpretation [...] Borderline 130-159 High 160-189 Very High >=190 Semiconductor Manufacturing Technician ID - [id number] 06:58:37 Test Item Value Reference Range Interpretation Comments PHOSPHORUS (BEAKER) (test code = 4.6 mg/dL 2.3-4.7 604) Semiconductor Manufacturing Technician ID - VIBHA MBASIC METABOLIC [id number] 06:58:36 Test Item Value Reference Range Interpretation [...] S NOT APPLICABLE FOR DIALYSIS PATIEN TS. Semiconductor Manufacturing Technician ID - VIBHA [id number] 06:58:36 Test Item Value Reference Range Interpretation Comments MAGNESIUM (BEAKER) (test code = 1.9 mg/dL 1.6-2.6 627) Semiconductor Manufacturing Technician ID - VIBHA MCBC (HEMOGRAM ONLY)2021-09-04 06:39:51 [...] 0-0 (BEAKER) (test code = 413) CALCIUM, [id number] 06:34:10 Test Item Value Reference Range Interpretation Comments CALCIUM IONIZED (BEAKER) (test 1.19 mmol/L 1.12-1.27 code = 698) PH, BLOOD (BEAKER) (test code = 7.30 1810) [id number] 22:06:41 Test Item Value Reference Range Interpretation Comments POTASSIUM (BEAKER) 5.0 meq/L 3.5-5.1 Specimen slightly (test code = 379) hemolyzed Semiconductor Manufacturing Technician ID - DBHEMOGLOBIN AND [id number] 21:57:38 Test Item Value Reference Range Interpretation Comments HEMOGLOBIN (BEAKER) (test code = 10.9 GM/DL 11.2-15.7 L 410) HEMATOCRIT (BEAKER) (test code = 34.5 % 34.1-44.9 411) Semiconductor Manufacturing Technician ID - [id number] METABOLIC [id number] 18:58:49 Test Item Value Reference Range Interpretation [...] S NOT APPLICABLE FOR DIALYSIS PATIEN TS. Semiconductor Manufacturing Technician ID - DBCBC (HEMOGRAM ONLY)2021-09-03 18:29:02 Test [...] 0-0 (BEAKER) (test code = 413) GLUCOSE-STAT [id number] 12:35:04 Test Item Value Reference Range Interpretation Comments GLUCOSE RANDOM (BEAKER) (test code 141 mg/dL 70-110 H = 652) HGB/HCT (H&H) - STAT [id number] 12:34:26 Test Item Value Reference Range Interpretation Comments HEMOGLOBIN (BEAKER) (test code = 12.9 GM/DL 12.0-15.0 410) HEMATOCRIT (BEAKER) (test code = 38.0 % 36.0-45.0 411) SODIUM NA-STAT [id number] 12:34:25 Test Item Value Reference Range Interpretation Comments SODIUM (BEAKER) (test code = 381) 138 meq/L 136-145 POTASSIUM-STAT [id number] 12:34:25 Test Item Value Reference Range Interpretation Comments POTASSIUM (BEAKER) (test code = 3.9 meq/L 3.6-5.5 379) [id number] 11:41:17 Test Item Value Reference Range Interpretation Comments ACTIVATED CLOTTING TIME 131 sec : 74 -137 seconds, (BEAKER) (test code = Baseli ne: TESTED AT 441) [facility] [address] [place] [address], [facility] 30: Semiconductor Manufacturing Technician/Techni flip ID = [id number] for BERNIE HUBER [id number] 11:41:16 Test Item Value Reference Range Interpretation Comments ACTIVATED CLOTTING TIME 241 sec : 74 -137 seconds, (BEAKER) (test code = Baseli ne: TESTED AT 441) [facility] [address] [facility], [address] 30: Semiconductor Manufacturing Technician/Techni flip ID = [id number] for ANANT STANLEY RASHIED BASIC METABOLIC [id number] 08:34:00 Test Item Value Reference Range Interpretation [...] S NOT APPLICABLE FOR DIALYSIS PATIEN TS. Semiconductor Manufacturing Technician ID - [id number] 08:27:18 Test Item Value Reference Range Interpretation Comments PARTIAL THROMBOPLASTIN TIME 34.0 seconds 22.5-36.0 (BEAKER) (test code = 760) PROTHROMBIN [id number] 08:26:40 Test Item Value Reference Range Interpretation Comments PROTIME (BEAKER) 13.7 seconds 11.9-14.2 (test code = 759) INR (BEAKER) (test 1.06 See_Comment [Automat ed message] code = 370) The system [employer] generated this result transmitted ref erence range: [...] % 0-1 PERCENT (BEAKER) (test code = 6561)
[2021-11-21] MEDS ORDERED: ASPIRIN 81 MG CHEWABLE TABLET ONE (08:38)
[2021-11-21 09:11] LABS: Protime INR 1.09
[2021-11-21 09:14] LABS: Absolute Lymphocytes (CBC) 2.2 K/uL (0.7-4.9); Hematocrit 42.1 % (36.0-45.0); Lymphocytes % 26.6 % (15.3-44.8); MPV 8.2 fL (7.6-11.3); RBC Red Blood Cell Count 4.75 M/uL (3.86-4.86)
[2021-11-21 09:33] LABS: ALT/SGPT 26 U/L (12-78); AST/SGOT 13 U/L (15-37); Albumin 3.7 g/dL (3.4-5.0); Alkaline Phosphatase 66 U/L (45-117); BUN Blood Urea Nitrogen 21 mg/dL (7-18); Bicarbonate 29 mmol/L (21-32); Bilirubin Direct < 0.1 mg/dL (0-0.2); Bilirubin Total 0.4 mg/dL (0.2-1.0); Glucose Level 107 mg/dL (74-106); NT PRO-BNP 188 pg/mL (<450); Potassium 4.4 mmol/L (3.5-5.1); Protein, Total 7.8 g/dL (6.4-8.2); Sodium Level 138 mmol/L (136-145)
[2021-11-21 10:45] LABS: SARS-COV-2 RT PCR NEGATIVE (NEGATIVE)
--- NOTE | 2021-11-21 11:01 | RAD REPORT ---
EXAM DESCRIPTION: RAD - Chest Single View - 11/21/2021 10:19 am CLINICAL HISTORY: CHEST PAIN COMPARISON: Chest Single View dated 09/18/2021; Chest Single View dated 09/17/2021; Chest Single Vie w dated 09/16/2021; Chest Single View dated 09/16/2021 FINDINGS: Lines: None. Lungs: No evidence of edema or pneumonia. Pleural: No significant pleural effusions or pneumothorax. Cardiac: The heart size is within normal limits. Bones: No acute fractures. Other: IMPRESSION: No acute cardiopulmonary disease.
[2021-11-21] MEDS ORDERED: ACETAMINOPHEN 500 MG TAB ONE (11:13)
--- NOTE | 2021-11-21 11:18 | EDPHYS ---
Physician Documentation [facility] Name: Elis Mckinnon Age: 76 yrs Sex: Female : 1945 Arrival Date: 11/21/2021 Time: 08:12 Bed 7 Private MD: ED Physician Elvia Sterling HPI: 11/21 08:30 This 76 yrs old Female presents to ER via EMS with complaints of Chest Pain. cp 08:30 The patient or guardian reports chest pain that is located primarily in the anterior cp chest wall, bilaterally. Onset: this morning, about 0600 upon awakening. 08:30 The pain does not radiate. Associated signs and symptoms: Pertinent positives: cp shortness of breath, Pertinent negatives: abdominal pain, diaphoresis, lower extremity pain, lower extremity swelling, syncope. The chest pain is described as tightness. Duration: The patient or guardian reports a single episode, that is still ongoing, but improving. Historical: - Allergies: 08:24 Codeine; vg1 08:24 Qrenbas-Wfc-[place] Reductase Inhibitors; vg1 - Home Meds: 08:24 Spironolactone Oral [Active]; sotalol Oral [Active]; levothyroxine 88 mcg tab [Active]; vg1 metoprolol tartrate 25 mg Oral tab 1 tab [Active]; 08:27 gabapentin 100 mg Oral tab [Active]; amlodipine oral [Active]; Aspirin Oral [Active]; vg1 11:15 Eliquis 5 mg Oral tab [Active]; vg1 - PMHx: 08:27 Hypertensive disorder; vg1 11:15 Atrial fibrillation; vg1 - PSHx: 09:06 Stented artery; vg1 - Immunization history:: Client reports receiving the 2nd dose of the Covid vaccine, plus booster. - Social history:: Smoking status: Patient denies any tobacco usage or history of. ROS: 08:35 Constitutional: Negative for body aches, chills, fever, poor PO intake. cp 08:35 Cardiovascular: Positive for chest pain, Negative for edema, palpitations. cp 08:35 Respiratory: Positive for shortness of breath, at rest. Negative for cough, wheezing. cp 08:35 Abdomen/GI: Negative for abdominal pain, nausea, vomiting, and diarrhea. 08:35 Eyes: Negative for injury, pain, redness, and discharge. cp 08:35 ENT: Negative for ear pain, sore throat, difficulty swallowing, difficulty handling secretions. 08:35 Back: Negative for pain at rest, pain with movement. 08:35 : Negative for urinary symptoms. 08:35 Neuro: Negative for altered mental status, dizziness, headache, numbness, syncope, weakness. 08:35 All other systems are negative. Exam: 08:25 ECG was reviewed by the Attending Physician. cp 08:40 Constitutional: The patient appears in no acute distress, alert, awake, cp non-diaphoretic, non-toxic, well developed, well nourished. 08:40 Head/Face: Normocephalic, atraumatic. cp 08:40 Eyes: Periorbital structures: appear normal, Conjunctiva: normal, no exudate, no injection, Sclera: no appreciated abnormality, Lids and lashes: appear normal, bilaterally. 08:40 ENT: External ear(s): are unremarkable, Nose: is normal, Mouth: Lips: moist, Oral mucosa: moist, Posterior pharynx: Airway: no evidence of obstruction, patent. 08:40 Neck: ROM/movement: is normal, is supple, without pain, no range of motions limitations. 08:40 Chest/axilla: Inspection: normal. 08:40 Cardiovascular: Rate: normal, Rhythm: regular, Edema: is not appreciated, JVD: is not appreciated. 08:40 Respiratory: the patient does not display signs of respiratory distress, Respirations: normal, no use of accessory muscles, no retractions, labored breathing, is not present, Breath sounds: are clear throughout, no decreased breath sounds, no stridor, no wheezing. 08:40 Abdomen/GI: Inspection: abdomen appears normal, Bowel sounds: active, all quadrants, Palpation: abdomen is soft and non-tender, in all quadrants. 08:40 Back: pain, is absent, ROM is normal. 08:40 Neuro: Orientation: to person, place \\T\\ time. Mentation: is normal, Motor: moves all fours, strength is normal, Sensation: is normal. Vital Signs: 08:22 BP 152 / 63; Pulse 64; Resp 20; Temp 97.9; Pulse Ox 97% on R/A; Weight 90.72 kg; Height vg1 5 ft. 3 in. (160.02 cm); Pain 9/10; 09:06 BP 156 / 64; Pulse 62; Resp 17; Pulse Ox 97% ; vg1 09:37 BP 160 / 58; Pulse 55; Resp 17; Pulse Ox 97% ; vg1 10:38 BP 129 / 95; Pulse 67; Resp 16; Pulse Ox 98% on R/A; vg1 11:16 BP 123 / 57; Pulse 64; Resp 16; Pulse Ox 100% ; vg1 12:00 BP 144 / 58; Pulse 71; Resp 19; Pulse Ox 97% ; vg1 13:03 BP 142 / 56; Pulse 80; Resp 16; Pulse Ox 98% ; vg1 14:00 BP 131 / 62; Pulse 57; Resp 18; Pulse Ox 96% ; vg1 15:00 BP 159 / 64; Pulse 60; Resp 20; Pulse Ox 98% ; vg1 08:22 Body Mass Index 35.43 (90.72 kg, 160.02 cm) vg1 MDM: 08:23 Patient medically screened. cp 11:15 Data reviewed: vital signs, nurses notes, lab test result(s), EKG, radiologic studies, cp plain films. 11:15 The patient was given aspirin in the Emergency Department. Test interpretation: by ED cp physician or midlevel provider: ECG, plain radiologic studies. Counseling: I had a detailed discussion with the patient and/or guardian regarding: the historical points, exam findings, and any diagnostic results supporting the discharge/admit diagnosis, lab results, radiology results, the need for further work-up and treatment in the hospital. Physician consultation: Sam Elise MD was called at 11:15, was contacted at 11:15, regarding admission, to the telemetry unit. patient's condition. 11/21 08:14 Order name: PT-INR cp 11/21 08:14 Order name: COVID-19/FLU A+B (Document "Date of Onset" if Symptomatic); Complete Time: cp 11:12 / 09:39 Order name: Basic Metabolic Panel; Complete Time: 09:45 EDMS 11/21 09:45 Interpretation: Normal except: GLUC 107; BUN 21; GFR 51. cp 11/21 09:39 Order name: Liver (Hepatic) Function; Complete Time: 09:45 EDMS 11/21 09:39 Order name: Troponin High Sensitivity; Complete Time: 09:45 EDMS 11/21 09:46 Interpretation: Within normal limits. cp 02 09:39 Order name: NT PRO-BNP; Complete Time: 09:45 EDMS 11/21 09:45 Interpretation: Reviewed. cp 02 09:39 Order name: CBC with Automated Diff; Complete Time: 09:45 EDMS 11/21 09:39 Order name: Protime (+INR); Complete Time: 09:45 EDMS 11/21 08:14 Order name: XRAY Chest (1 view); Complete Time: 11:12 cp 11/21 08:14 Order name: EKG; Complete Time: 09:40 cp 11/21 11:34 Order name: Diet Regular; Complete Time: 11:34 cp 11/21 12:33 Order name: Basic Metabolic Panel EDMS 11/21 12:33 Order name: Basic Metabolic Panel EDMS 11/21 12:33 Order name: Troponin High Sensitivity EDMS 11/21 12:33 Order name: Troponin High Sensitivity EDMS 11/21 12:33 Order name: Troponin High Sensitivity EDMS 11/21 12:33 Order name: Troponin High Sensitivity EDMS 11/21 12:34 Order name: EKG Electrocardiogram EDMS 11/21 12:34 Order name: EKG Electrocardiogram EDMS 11/21 12:34 Order name: EKG Electrocardiogram EDMS 11/21 08:14 Order name: Cardiac monitoring; Complete Time: 08:18 cp / 08:14 Order name: EKG - Nurse/Tech; Complete Time: 08:18 cp 11/21 08:14 Order name: IV Saline Lock; Complete Time: 09:32 cp 11/21 08:14 Order name: Labs collected and sent; Complete Time: 08:59 cp 11/21 08:14 Order name: O2 Per Protocol; Complete Time: 08:18 cp 11/21 08:14 Order name: O2 Sat Monitoring; Complete Time: 08:18 cp 11/21 12:34 Order name: EKG Electrocardiogram EDMS 11/21 12:34 Order name: EKG Electrocardiogram EDMS EC:25 Rate is 67 beats/min. Rhythm is regular. MO interval is normal. QRS interval is normal. cp QT interval is normal. T waves are Inverted in lead aVR. Interpreted by me. Reviewed by me. Administered Medications: 08:40 Drug: Aspirin Chewable Tablet 324 mg Route: PO; vg1 12:21 Follow up: Response: No adverse reaction vg1 09:07 Not Given (Patient Refused): morphine 2 mg IVP once; (PAIN>8) RASS on ADMN: Combtv4, vg1 Very Agttd3, Agttd2, Rstlss1, AlertClm0, Drwsy-1, LtSdtn-2, ModSdtn-3, DpSdtn-4, UnArsble-5 x2 09:07 Not Given (Patient Refused): Zofran (Ondansetron) 4 mg IVP once; over 2 minutes vg1 11:15 Drug: Tylenol 1000 mg Route: PO; vg1 12:20 Follow up: Response: No adverse reaction; Marked relief of symptoms vg1 Disposition: 18:58 Co-signature as Attending Physician, Elvia Sterling MD. ma2 Disposition Summary: 11/21/21 11:17 Hospitalization Ordered Hospitalization Status: Observation cp Provider: Sam Elise cp Location: Telemetry/MedSurg (observation) cp Condition: Stable cp Problem: new cp Symptoms: have improved cp Bed/Room Type: Standard cp Room Assignment: 210(11/21/21 15:12) iw Diagnosis - Angina pectoris, unspecified cp Forms: - Medication Reconciliation Form cp - SBAR form cp Signatures: Dispatcher [employer] Stella Vazquez RN RN iw Parrish Mondragon PA PA cp Elvia Sterling MD MD ma2 Opal Hayes RN RN vg1 Corrections: (The following items were deleted from the chart) 08:29 08:27 PMHx: Myocardial infarction; vg1 vg1 12:13 09:40 BASIC METABOLIC PANEL+C.LAB.BRZ ordered. EDMS EDMS 12: 09:40 CBC+H.LAB.BRZ ordered. EDMS EDMS 12: 09:40 HEPATIC FUNCTION+C.LAB.BRZ ordered. EDMS EDMS 12: 09:40 MAGNESIUM+C.LAB.BRZ ordered. EDMS EDMS 12: 09:40 PROBNP+C.LAB.BRZ ordered. EDMS EDMS 12: 09:40 Troponin High Sensitivity+C.LAB.BRZ ordered. EDMS EDMS 15:12 11:17 cp iw
--- NOTE | 2021-11-21 11:18 | ER ---
Nurse's Notes [facility] Name: Elis Mckinnon Age: 76 yrs Sex: Female : 1945 Arrival Date: 11/21/2021 Time: 08:12 Bed 7 Private MD: Diagnosis: Angina pectoris, unspecified Presentation: 11/21 08:22 Chief complaint: Patient states: woke up this morning around 0600 with 'chest tightness vg1 and really bad shortness of breath'. Denies NVD, states headache. Coronavirus screen: Vaccine status: Patient reports receiving the 2nd dose of the covid vaccine. Client denies travel out of the [place] in the last 14 days. Ebola Screen: Patient negative for fever greater than or equal to 101.5 degrees Fahrenheit, and additional compatible Ebola Virus Disease symptoms. Initial Sepsis Screen: Does the patient meet any 2 criteria? No. Patient's initial sepsis screen is negative. Does the patient have a suspected source of infection? No. Patient's initial sepsis screen is negative. Risk Assessment: Do you want to hurt yourself or someone else? Patient reports no desire to harm self or others. Onset of symptoms was November 21, 2021. 08:22 Method Of Arrival: EMS vg1 08:22 Acuity: JANETTE 2 vg1 Triage Assessment: 08:27 General: Appears in no apparent distress. uncomfortable, Behavior is calm, cooperative. vg1 Pain: Complains of pain in chest Pain currently is 9 out of 10 on a pain scale. Quality of pain is described as 'tightness' Pain began 2 hours ago. Also complains of shortness of breath. EENT: No signs and/or symptoms were reported regarding the EENT system. Neuro: Level of Consciousness is awake, alert, obeys commands, Oriented to person, place, time, situation. Cardiovascular: Patient's skin is warm and dry. Respiratory: Reports shortness of breath at rest on exertion Airway is patent Respiratory effort is even, labored. GI: Patient currently denies nausea, vomiting. : No signs and/or symptoms were reported regarding the genitourinary system. Derm: Skin is intact, Skin is pink, warm \T\ dry. Musculoskeletal: Circulation, motion, and sensation intact. Historical: - Allergies: 08:24 Codeine; vg1 08:24 Etvvfdj-Zwu-Msy Reductase Inhibitors; vg1 - Home Meds: 08:24 Spironolactone Oral [Active]; sotalol Oral [Active]; levothyroxine 88 mcg tab [Active]; vg1 metoprolol tartrate 25 mg Oral tab 1 tab [Active]; 08:27 gabapentin 100 mg Oral tab [Active]; amlodipine oral [Active]; Aspirin Oral [Active]; vg1 11:15 Eliquis 5 mg Oral tab [Active]; vg1 - PMHx: 08:27 Hypertensive disorder; vg1 11:15 Atrial fibrillation; vg1 - PSHx: 09:06 Stented artery; vg1 - Immunization history:: Client reports receiving the 2nd dose of the Covid vaccine, plus booster. - Social history:: Smoking status: Patient denies any tobacco usage or history of. Screenin:31 Abuse screen: Denies threats or abuse. Nutritional screening: No deficits noted. vg1 Tuberculosis screening: No symptoms or risk factors identified. Fall Risk No fall in past 12 months (0 pts). No secondary diagnosis (0 pts). IV access (20 points). Ambulatory Aid- None/Bed Rest/Nurse Assist (0 pts). Gait- Normal/Bed Rest/Wheelchair (0 pts) Mental Status- Oriented to own ability (0 pts). Total Junior Fall Scale indicates No Risk (0-24 pts). Assessment: 08:31 Reassessment: SEE TRIAGE. vg1 08:32 Pain: Pain does not radiate. vg1 09:37 Reassessment: Patient appears in no apparent distress at this time. No changes from vg1 previously documented assessment. Patient and/or family updated on plan of care and expected duration. Pain level reassessed. Patient is alert, oriented x 3, equal unlabored respirations, skin warm/dry/pink. Pt states 'I have not taken my blood pressure medications this morning'. 10:38 Reassessment: Patient appears in no apparent distress at this time. No changes from vg1 previously documented assessment. Patient and/or family updated on plan of care and expected duration. Pain level reassessed. Patient is alert, oriented x 3, equal unlabored respirations, skin warm/dry/pink. 11:09 Reassessment: Received VO from Alanna MENDES to administer Tylenol 1 g PO x1. vg1 12:00 Reassessment: Patient appears in no apparent distress at this time. Patient and/or vg1 family updated on plan of care and expected duration. Pain level reassessed. Patient is alert, oriented x 3, equal unlabored respirations, skin warm/dry/pink. Patient denies pain at this time. Patient states feeling better. 13:03 Reassessment: Patient appears in no apparent distress at this time. No changes from vg1 previously documented assessment. Dr Elise at bedside. 14:00 Reassessment: Patient appears in no apparent distress at this time. No changes from vg1 previously documented assessment. Patient denies pain at this time. Vital Signs: 08:22 BP 152 / 63; Pulse 64; Resp 20; Temp 97.9; Pulse Ox 97% on R/A; Weight 90.72 kg; Height vg1 5 ft. 3 in. (160.02 cm); Pain 9/10; 09:06 BP 156 / 64; Pulse 62; Resp 17; Pulse Ox 97% ; vg1 09:37 BP 160 / 58; Pulse 55; Resp 17; Pulse Ox 97% ; vg1 10:38 BP 129 / 95; Pulse 67; Resp 16; Pulse Ox 98% on R/A; vg1 11:16 BP 123 / 57; Pulse 64; Resp 16; Pulse Ox 100% ; vg1 12:00 BP 144 / 58; Pulse 71; Resp 19; Pulse Ox 97% ; vg1 13:03 BP 142 / 56; Pulse 80; Resp 16; Pulse Ox 98% ; vg1 14:00 BP 131 / 62; Pulse 57; Resp 18; Pulse Ox 96% ; vg1 15:00 BP 159 / 64; Pulse 60; Resp 20; Pulse Ox 98% ; vg1 08:22 Body Mass Index 35.43 (90.72 kg, 160.02 cm) vg1 ED Course: 08:12 Patient arrived in ED. ds1 08:12 Opal Hayes, YANELY is Primary Nurse. vg1 08:13 Parrish Mondragon PA is PHCP. cp 08:13 Elvia Sterling MD is Attending Physician. cp 08:24 Triage completed. vg1 08:27 Arm band placed on. EKG completed in triage. Results shown to MD. vg1 08:31 Patient has correct armband on for positive identification. Bed in low position. Call vg1 light in reach. Side rails up X2. linux consultant on. Pulse ox on. NIBP on. 08:31 Patient maintains SpO2 saturation greater than 95% on room air. vg1 09:00 Missed attempt(s): 22 gauge in right antecubital area. vg1 09:32 Inserted saline lock: 22 gauge in right forearm, using aseptic technique. bp 10:19 XRAY Chest (1 view) In Process Unspecified. EDMS 11:16 Sam Elise MD is Hospitalizing Provider. cp 15:15 No provider procedures requiring assistance completed. vg1 15:25 Patient admitted, IV remains in place. vg1 Administered Medications: 08:40 Drug: Aspirin Chewable Tablet 324 mg Route: PO; vg1 12:21 Follow up: Response: No adverse reaction vg1 09:07 Not Given (Patient Refused): morphine 2 mg IVP once; (PAIN>8) RASS on ADMN: Combtv4, vg1 Very Agttd3, Agttd2, Rstlss1, AlertClm0, Drwsy-1, LtSdtn-2, ModSdtn-3, DpSdtn-4, UnArsble-5 x2 09:07 Not Given (Patient Refused): Zofran (Ondansetron) 4 mg IVP once; over 2 minutes vg1 11:15 Drug: Tylenol 1000 mg Route: PO; vg1 12:20 Follow up: Response: No adverse reaction; Marked relief of symptoms vg1 Outcome: 11:17 Decision to Hospitalize by Provider. cp 15:20 Admitted to Tele accompanied by tech, via wheelchair, room 210, with chart, Report vg1 called to receiving nurseJoanna RN 15:25 Condition: good vg1 15:55 Patient left the ED. vg1 Signatures: Dispatcher [employer] EDPR Mary Carmen Mendosa ds1 Parrish Mondragon PA PA cp Tomas Elise, YANELY RN Opal Flores RN RN vg1 Corrections: (The following items were deleted from the chart) 08:29 08:27 PMHx: Myocardial infarction; vg1 vg1
[2021-11-21] MEDS ORDERED: ONDANSETRON 4 MG/2 ML VIAL IV PRN (12:30)
[2021-11-21 17:03] VITALS: BMI 36.6
[2021-11-21] MEDS: SOTALOL HCL 80 MG TAB PO SCH (17:55)
--- NOTE | 2021-11-21 18:10 | P.SSS ---
Patient History Date of Service: 11/21/21 Reason for admission: CHEST HEAVINESS History of Present Illness: HAD CHEST PRESSURE AND SHE CALLED IN AMBULANCE. HER BP WAS 200 SYSTOLIC. SHE IS ALREADY ON MEDS FOR BP AND A FIB. NO A FIB THIS TIME. SHE IS SITTING ON COMMODE AND HAS SOME PRESSURE IN CHEST BUT NOT MUCH. Allergies codeine Allergy (Verified 11/06/21 15:27) Itching/Hives/Rash Ivllrde-YOK-TnY Reductase Inhibitor Allergy (Verified 11/06/21 15:27) Itching/Hives/Rash Home medications list reviewed: Yes Home Medications: Amlodipine [Norvasc*] 2 tab PO DAILY 11/06/21 Apixaban [Eliquis] 5 mg PO BID 11/06/21 Aspirin [Aspirin EC] 1 tab PO DAILY 11/06/21 Calcium Carb, Citrate/Vit D3 [Citracal-D3 ER 600 mg-500 Unit] 1 tab PO DAILY 11/06/21 Ezetimibe [Zetia*] 1 tab PO DAILY 11/06/21 Flaxseed Oil [Flaxseed] 1 cap PO DAILY 11/06/21 Gabapentin 1 tab PO BID 11/06/21 Glucos Sul 2Kcl/MSM/Chond/C/Mn [Glucosamine Chondroitin Cap] 1 tab PO BID 11/06/21 Levothyroxine [Synthroid*] 1 tab PO DAILY 11/06/21 Omeprazole [Prilosec] 1 tab PO DAILY 11/06/21 Sotalol HCl [Betapace*] 40 mg PO BID 6AM 6PM 11/06/21 Spironolactone 50 mg PO BID 11/06/21 - Past Medical/Surgical History Has patient received pneumonia vaccine in the past: Yes Diabetic: No -: atrial fibrillation -: HTN -: hypothyroid -: CHF - Social History Smoking Status: Never smoker Place of Residence: Home Review of Systems 10-point ROS is otherwise unremarkable Physical Examination - Vital Signs Temperature: 97.1 F Blood Pressure: 160/67 Pulse: 56 Respirations: 18 Pulse Ox (%): 97 - Physical Exam General: Mild distress, Obese HEENT: Atraumatic, PERRLA, Mucous membr. moist/pink, EOMI, Sclerae nonicteric Neck: Supple, 2+ carotid pulse no bruit, No LAD, Without JVD or thyroid abnormality Respiratory: Clear to auscultation bilaterally, Normal air movement Cardiovascular: Regular rate/rhythm, Normal S1 S2 Gastrointestinal: Normal bowel sounds, No tenderness Musculoskeletal: No tenderness Integumentary: No rashes Neurological: Normal gait, Normal speech, Normal strength at 5/5 x4 extr, Normal tone, Normal affect Lymphatics: No axilla or inguinal lymphadenopathy - Studies Laboratory Data (last 24 hrs) 11/21/21 08:55: PT 12.6 H, INR 1.09 11/21/21 08:55: WBC 8.30, Hgb 13.9, Hct 42.1, Plt Count 350 11/21/21 08:55: Sodium 138, Potassium 4.4, BUN 21 H, Creatinine 1.04, Glucose 107 H, Total Bilirubin 0.4, AST 13 L, ALT 26, Alkaline Phosphatase 66 11/21/21 08:14: PT Cancelled, INR Cancelled 11/21/21 08:14: WBC Cancelled, Hgb Cancelled, Hct Cancelled, Plt Count Cancelled 11/21/21 08:14: Sodium Cancelled, Potassium Cancelled, BUN Cancelled, Creatinine Cancelled, Glucose Cancelled, Magnesium Cancelled, Total Bilirubin Cancelled, AST Cancelled, ALT Cancelled, Alkaline Phosphatase Cancelled - Diagnosis (Problem(s)) (1) Chest pressure Current Visit: Yes Status: Acute Plan: SHE HAD NEG ST TEST A FEW MONTHS AGO. CE NEG SO FAR DR. WHARTON CONSULTED. ORDER STAT CT DISSECTION PROTOCOL. (2) HTN (hypertension) Current Visit: Yes Status: Chronic Plan: SPIRONOLACTONE IS TO REDUCE EUGENIO ACITVATION. SHE IS ALSO ON SOTALOL THAT WILL HELP BP. BP IS DOWN TO 120 SYSTOLIC THIS AFTERNOON. Qualifiers: Hypertension type: primary hypertension Qualified Code(s): I10 - Essential (primary) hypertension - Disposition Disposition: ROUTINE DISCHARGE
--- NOTE | 2021-11-21 19:33 | RAD REPORT ---
EXAM DESCRIPTION: CT - Angio Aorta For Dissection - 11/21/2021 6:53 pm CLINICAL HISTORY: CHEST AND BACK PAIN. COMPARISON: None. TECHNIQUE: Dynamically enhanced 3 mm thick images of the chest, abdomen, and pelvis were obtained du ring administration of approximately 150mL Isovue 370 IV contrast. Sagittal and coronal reconstructio n images were generated using MIP and reviewed. Exam utilizes a protocol to evaluate entire course of the aorta. All CT scans are performed using dose optimization technique as appropriate and may include automated exposure control or mA/KV adjustment according to patient size. FINDINGS: Aorta is normal in diameter with no dissection or other acute aortic findings. Aortoiliac atherosclerotic calcifications are present with no displaced calcification. Reconstruction images simba w no significant findings. Pulmonary arteries are not optimally opacified on a dissection study. No central embolic disease is p resent. No cardiomegaly, pericardial thickening or pericardial effusion. No mass or infiltrate in the lung parenchyma. No pleural thickening, pleural effusion or pneumothorax . No abnormal mediastinal or hilar mass or lymphadenopathy seen. A few small nonspecific mediastinal ly mph nodes are present. Bilateral breast implants are in place with capsule calcifications. No chest w all mass or abnormal axillary lymphadenopathy. Prominent calcifications are present near the origins of the celiac, superior mesenteric and renal ar teries. Significant stenosis is not confirmed. Solid abdominal viscera and bowel show no significant findings. Atrophic uterus is present. In the left adnexum there is a 3.3 centimeter smooth oval cyst. This is most likely a persistent ovarian or paraovarian cyst. No calcification septation or other ag gressive characteristics. Long-term significance is doubtful. This can be monitored with follow-up im aging in 6 months. No mass or abnormal lymphadenopathy. No free air, free fluid or inflammatory stra nding. No urinary bladder abnormality. No acute bone findings seen. Sclerotic bone of the left ilium near the SI joint is probably incidenta l bone island. No other similar findings seen. Blastic metastatic disease would be unlikely with this single finding. IMPRESSION: Negative CT scan of the aorta for acute or significant finding. No acute CT chest finding noted. Renal and mesenteric artery calcifications are present at the origin of the vessels. Significant sten osis is doubtful. Approximately 3 centimeter left adnexal cyst probably or remnant ovarian or paraovarian cyst. No aggr essive characteristics. Repeat CT or ultrasound imaging in 6 months could be performed to monitor for this finding.
[2021-11-21] MEDS: SPIRONOLACTONE 25 MG TABLET PO SCH (20:02)
[2021-11-21] MEDS: APIXABAN 5 MG TABLET PO SCH (20:02)
[2021-11-21] MEDS: GLUCOS SUL PO SCH (20:03)
[2021-11-21] MEDS: [UNRECOGNIZED DRUG - OTHER] PO SCH (20:03)
[2021-11-21] MEDS: GABAPENTIN 100 MG CAP PO SCH (20:03)
[2021-11-21] MEDS: ACETAMINOPHEN 500 MG TAB PO PRN (20:09)
[2021-11-22 02:15] VITALS: O2SAT 96
[2021-11-22] MEDS: ACETAMINOPHEN 500 MG TAB PO PRN (04:18)
[2021-11-22 05:30] LABS: Potassium 4.4 mmol/L (3.5-5.1)
[2021-11-22 05:34] LABS: Absolute Lymphocytes (CBC) 2.9 K/uL (0.7-4.9); Hematocrit 41.6 % (36.0-45.0); Lymphocytes % 28.3 % (15.3-44.8); RBC Red Blood Cell Count 4.69 M/uL (3.86-4.86)
[2021-11-22] MEDS ORDERED: PANTOPRAZOLE 40MG TABLET PO SCH (06:30)
[2021-11-22] MEDS: SOTALOL HCL 80 MG TAB PO SCH (06:57)
[2021-11-22 08:05] LABS: Blood Morphology Comment NOT SEEN (NOT SEEN); Platelet Estimate ADEQ
[2021-11-22] MEDS ORDERED: EZETIMIBE 10 MG TAB PO SCH (09:00)
[2021-11-22] MEDS: [UNRECOGNIZED DRUG - OTHER] PO SCH (09:00)
[2021-11-22] MEDS ORDERED: ASPIRIN EC 81 MG TAB PO SCH ×2 (09:00)
[2021-11-22] MEDS ORDERED: FLAXSEED OIL 1000 MG PO SCH (09:00)
[2021-11-22] MEDS: GLUCOS SUL PO SCH (09:00)
[2021-11-22] MEDS ORDERED: AMLODIPINE 5 MG TAB PO SCH (09:00)
[2021-11-22] MEDS ORDERED: VIT D3 PO SCH (09:00)
[2021-11-22] MEDS ORDERED: CALCIUM CARB CITRATE PO SCH (09:00)
[2021-11-22] MEDS ORDERED: LEVOTHYROXINE SOD 0.088 MG TAB PO SCH (09:00)
[2021-11-22] MEDS ORDERED: [UNRECOGNIZED DRUG - OTHER] PO SCH (09:00)
[2021-11-22 09:05] VITALS: BP 133/61; TEMP 97.3
[2021-11-22] MEDS: GABAPENTIN 100 MG CAP PO SCH (09:53)
[2021-11-22] MEDS: SPIRONOLACTONE 25 MG TABLET PO SCH (09:54)
[2021-11-22] MEDS: APIXABAN 5 MG TABLET PO SCH (09:54)
== END 2021-11-22 12:12 | disposition home or self-care (01) ==
LOC: ER 08:06 → ERHOLD 12:46 → 2ND 15:26
PROVIDERS: ADMIT Internal Medicine; ATTEND Internal Medicine
DX: R07.89 Other chest pain (principal); I48.91 Unspecified atrial fibrillation; I11.0 Hypertensive heart disease with heart failure; I50.9 Heart failure, unspecified; E03.9 Hypothyroidism, unspecified; Z79.01 Long term (current) use of anticoagulants; Z79.82 Long term (current) use of aspirin; Z79.899 Other long term (current) drug therapy; Z88.6 Allergy status to analgesic agent; Z88.8 Allergy status to other drugs, medicaments and biological substances; Z20.822 Contact with and (suspected) exposure to COVID-19
CPT/HCPCS: 93005 ×2; 85025 ×2; 80048 ×2; 36415; 85610; 80076; 84484 ×4; 83880; 0240U; 71275; 74175; 71045; 99285; Q9967; G0378 ×3

== ENCOUNTER 2021-11-29 17:27 | Emergency (ER) | payer OTHER ==
--- OUTSIDE RECORDS SUMMARY | 2021-11-29 17:31 | XMS REPORT | Continuity of Care Document ---
:1945 Author Organization [facility] [place] t Address [address] [place] [address] Care Team Providers Name Role Phone Pcp, Does Not Have A Primary Care Physician ROBBY NESS Attending Clinician Unavailable JAZIEL MORLEY Attending Clinician Unavailable NOLAN LOPEZ Attending Clinician Unavailable Nurse, Pob Immunization Attending Clinician Unavailable Nolan Lopez DO Attending Clinician Jossie VITAL Attending Clinician Unavailable Juan José NARVAEZ Attending Clinician Unavailable Tete ARGUELLO L Attending Clinician Dwayne EPSTEIN Attending Clinician Unavailable JAZIEL MORLEY Admitting Clinician Unavailable Payers Payer Name Policy Type Policy Number Effective Date Expiration Date S jorge UNITED MEDICARE HMO [id number] 2020 00:00:00 [facility] [id number] 2020 MEDICARE ADV HMO 00:00:00 Problems This patient has no known problems. Allergies, Adverse Reactions, Alerts Allergy Allergy Status Severity Reaction(s) Onset Inactive Treating Comm ents Source Name Type Date Date Clinician CODEINE Allergy Active N\\T\\V 2020-[address] [facility] OTHER Allergy Active Other 2020-[address] [facility] STATINS- Allergy Active Other 2020-[address] [facility]-CO[facility]12 [facility] - REDUCTAS [facility]: Medical E 00 Center INHIBITO RS NO KNOWN Drug Active Univers ALLERGIE Class ity of [facility] Social History Social Habit Start Date Stop Date Quantity Comments Source Sex Assigned At [birth year] [facility] 00:00:00 00:00:00 Medical Branch Smoking Status Start Date Stop Date Source Unknown if ever smoked [facility] Medical Branch Medications Ordered Filled Start Stop Current Ordering Indication Dosage Frequency Signature Comments Components Source Medication Medication Date Date Medication? Clinician (SIG) Name Name meloxicam 2020-0 Yes 7.5mg Take 1 Unive rs (MOBIC) 7.5 8-20 tablet by ity of mg tablet 00:00: mouth [place] 00 daily Medical before a Branch meal. MELOXICAM 2020-0 Yes [id number] TAKE 1 Un spencer 7.5 mg 8-20 TABLET BY ity of tablet 00:00: MOUTH ONCE [place] 00 DAILY Medical BEFORE A Branch MEAL FOR 30 DAYS MELOXICAM 2020-0 Yes [id number] TAKE 1 Un spencer 7.5 mg 8-20 [...] a Branch meal for 30 days. meloxicam 2019- No 7.5mg Take 1 Univ ers (MOBIC) 7.5 7-23 08-23 tablet by it y of mg tablet 00:00: 04:59 mouth [place] 00 :00 daily Medical before a Branch meal for 30 days. meloxicam 2019- No 7.5mg Take 1 Univ ers (MOBIC) 7.5 7- 08-20 tablet by it y of mg tablet 00:00: 00:00 mouth [place] 00 :00 daily Medical before a Branch meal for 30 days. No known No Univers medications [facility] No known No Univers medications [facility] No known No Univers medications [facility] Immunizations Ordered Filled Immunization Date Status Comments [facility] e Immunization Name Name SARS-COV-2 COVID-19 2021-06-29 Completed Unive rsity of MODERNA VACCINE 00:00:00 [facility] SARS-COV-2 COVID-19 2020-11-24 Completed Unive rsity of MODERNA VACCINE 00:00:00 [facility] SARS-COV-2 COVID-19 2020-10-27 Completed Unive rsity of MODERNA VACCINE 00:00:00 [facility] Vital Signs Vital Name Observation Time Observation Value Comments Source HEIGHT 2021-09-03 07:41:00 157.5 cm WEIGHT 2021-09-03 07:41:00 91.7 kg HEIGHT 2021-08-31 10:16:00 157.5 cm WEIGHT 2021-08-31 10:16:00 93.895 kg HEIGHT 2021-09-03 07:41:00 157.5 cm WEIGHT 2021-09-03 07:41:00 91.7 kg HEIGHT 2021-08-31 10:16:00 157.5 cm WEIGHT 2021-08-31 10:16:00 93.895 kg Diastolic blood 2020-04-27 13:25:00 84 mm[Hg] Unive rsity of pressure [facility] Respiratory rate 2020-04-27 13:25:00 18 /[facility] height 2020-04-27 13:25:00 160 cm [facility] Body weight 2020-04-27 13:25:00 93.895 kg [facility] BMI 2020-04-27 13:25:00 36.67 kg/m2 [facility] Systolic blood 2020-04-27 13:25:00 156 mm[Hg] Univer sity of pressure [facility] Procedures Procedure Date / Time Performed Performing Clinician Sour e SARS-COV-2 COVID-19 2021-06-29 15:13:39 [facility],IM Name [facility] ([facility] Encounters Start End Encounter Admission Attending Care Care Encounter Source Date/Time Date/Time Type Type Clinicians Facility Department ID 2021-11-14 Outpatient STLMLC STLMLC [id number] [facility] 11:46:48 [id number] Elana Terry [facility] 2021-09-03 2021-09-06 Inpatient MIGUEL ESCAMILLA Surgery [id number] [facility] 06:40:00 13:36:00 PETER 2021-08-31 2021-08-31 [facility]patient [facility] [id number] SLE 10:29:52 23:59:00 2021-06-29 2021-06-29 Outpatient Aiyana LOPEZ [facility] [id number] Univers 10:20:00 10:20:00 BART lee [facility] 2021-06-29 2021-06-29 Imm/Inj Nurse, Adc Pob Immunization [facility] [id number] Univers 10:12:23 10:12:34 Visit Bart Lopez 350.1.13 .10 [facility] 4.2.7.2.686 Dany Garciaio [id number] Mt dical [address] Building 2020-11-24 2020-11-24 Outpatient Aiyana VITAL [facility] [id number] Univers 15:10:00 15:10:00 DAVID [id number] [facility] 2020-11-24 2020-11-24 Outpatient Aiyana VITAL [facility] [id number] Univers 15:10:00 15:10:00 DAVID [facility] 2020-10-27 2020-10-27 Outpatient Aiyana VITAL [facility] [id number] Univers 15:30:00 15:30:00 DAVID [id number] [facility] 2020-10-27 2020-10-27 Outpatient Aiyana VITAL [facility] [id number] Univers 15:30:00 15:30:00 DAVID [facility] 2020-10-23 2020-10-23 Outpatient [facility] [id number] [facility] 2020-08-17 2020-08-17 Outpatient [facility] [id number] [facility] 2020-08-10 2020-08-10 Outpatient [facility]ML[facility] [id number] [facility] 2020-08-03 2020-08-03 Outpatient [facility] [id number] [facility] 2020-07-19 2020-07-19 Outpatient [facility] [id number] [facility] 2020-07-18 2020-07-18 Outpatient [facility]ML[facility] [id number] [facility] 2020-07-06 2020-07-06 Outpatient [facility]MLC [facility] [id number] [facility] 2020-06-12 2020-06-12 Outpatient Aiyana NARVAEZ [facility] [id number] Univers 15:30:00 15:30:00 YUVAL [id number] [facility] 2020-06-12 2020-06-12 Outpatient Aiyana NARVAEZ [facility] [id number] Univers 15:30:00 15:30:00 YUVAL [facility] 2020-06-06 2020-06-06 [place] Tete, [facility] [id number] 00:00:00 00:00:00 [facility] [id number] [facility] 4.2.7.2.686 Specialti [id number] es [address] 2020-06-06 2020-06-06 [facility] [id number] 00:00:00 00:00:00 [facility] [id number] Surgical 4.2.7.2.686 Specialti [id number] es [address] 2020-06-06 2020-06-06 [place] [facility] [id number] 00:00:00 00:00:00 [facility] [id number] Surgical 4.2.7.2.686 Specialti [id number] es [address] 2020-06-06 2020-06-06 [place] [facility] [id number] Univers 00:00:00 00:00:00 [facility] 350.1.13.10 it y of Surgical 4.2.7.2.686 Amandeep as Specialti [id number] Mt dical es [address] [facility] 2020-06-06 2020-06-06 [place] [facility] [id number] Univers 00:00:00 00:00:00 [facility] [id number] it y of Surgical 4.2.7.2.686 Amandeep as Specialti [id number] Mt dical es [address] [facility] 2020-06-06 2020-06-06 [place] [facility] 1.2.840.114 [id number] Univers 00:00:00 00:00:00 [facility] [id number] it y of Surgical 4.2.7.2.686 Amandeep as Specialti [id number] Mt dical es [address] [facility] 2020-06-02 2020-06-02 [facility] [id number] 00:00:00 00:00:00 [facility] 350.1.13.10 Surgical 4.2.7.2.686 Specialti [id number] es [address] 2020-06-02 2020-06-02 [facility] [id number] Univers 00:00:00 00:00:00 [facility] 350.1.13.10 it y of Surgical 4.2.7.2.686 Amandeep as Specialti [id number] Mt dical es [address] [place] 2020-05-26 2020-05-26 [place] [facility] 1.2.840.114 [id number] 00:00:00 00:00:00 [facility] [id number] Surgical 4.2.7.2.686 Specialti [id number] es [address] 2020-05-26 2020-05-26 [place] [facility] 1.2.840.114 [id number] Univers 00:00:00 00:00:00 [facility] 350.1.13.10 it y of Surgical 4.2.7.2.686 Amandeep as Specialti [id number] Mt dical es [address] [place] 2020-05-22 2020-05-22 [place] [facility] 1.2.840.114 [id number] 00:00:00 00:00:00 [facility] [id number] Surgical 4.2.7.2.686 Specialti [id number] es [address] 2020-05-22 2020-05-22 [place] [facility] 1.2.840.114 [id number] Univers 00:00:00 00:00:00 [facility] 350.1.13.10 it y of Surgical 4.2.7.2.686 Amandeep as Specialti [id number] Mt dical es [address] [place] 2020-05-11 2020-05-11 [place] [facility] 1.2.840.114 [id number] Univers 00:00:00 00:00:00 [facility] 350.1.13.10 it y of Surgical 4.2.7.2.686 Amandeep as Specialti [id number] Mt dical es [address] [place] 2020-05-08 2020-05-08 Telephone [facility] 1.2.840.114 [id number] Univers 00:00:00 00:00:00 [facility] [employer] [id number] it y of Surgical 4.2.7.2.686 Amandeep as Specialti [id number] Mt dical es [address] [facility] 2020-04-27 2020-04-27 [facility] [id number] Univers 08:45:00 08:45:00 MARTIN lee [facility] 2020-04-27 2020-04-27 Office [facility] [id number] Univers 08:21:06 08:43:58 Visit [facility] [employer] 350.1.13.10 it y of Surgical 4.2.7.2.686 Amandeep as Specialti [id number] Mt dical es 198 [facility] Results Test Description Test Time Test Comments Results Result Sourc e Comments TISSUE EXAM 2021-09-10 Surgical Pathology 18:22:29 Report Case: [id number] Authorizing Provider: Jaret Morley, Collected: 09/03/2021 10:37 AM Ordering Location: [facility] Received: 09/03/2021 01:07 PM [facility] Pathologist: David Mabry MD Specimen: Plaque, Right Carotid Plaque ARTERY, LEFT CAROTID, ENDARTERECTOMY:CALCIFI C ATHEROSCLEROTIC PLAQUE Signing Pathologist Direct Phone Line: [phone] ally signed by David Mabry MD on 09/10/2021 at 6:22 [id number]; [id number] stenosis, right PlaqueReceived fresh labeled the patient's name, accession number and "right carotid plaque" is a 3.0 cm in length by 0.5 cm in diameter alexander-yellow, tubular piece of focally calcified plaque. Pyrometer Temperature Regulator sections are submitted in A1 following decalcification.CINTHYA Gonzalez, HT (ASCP)Performed MAGNESIUM 2021-09-06 05:43:19 Test Item Value Reference Range Interpretation Comme nts MAGNESIUM (BEAKER) (test code = 627) 1.9 mg/dL 1.6-2.6 Rag Boiler ID - VIBHA [id number] 05:43:19 Test Item Value Reference Range Interpretation Comments PHOSPHORUS (BEAKER) (test code = 1.8 mg/dL 2.3-4.7 L 604) Rag Boiler LEILA DUNNE MBASIC METABOLIC [id number] 05:43:18 Test Item Value Reference Range Interpretation [...] S NOT APPLICABLE FOR DIALYSIS PATIEN TS. Rag Boiler LEILA DUNNE MCBC (HEMOGRAM ONLY)2021-09-06 05:17:48 Test Item Value [...] (BEAKER) (test code = 413) BASIC METABOLIC [id number] 05:10:16 Test Item Value Reference Range Interpretation [...] S NOT APPLICABLE FOR DIALYSIS PATIEN TS. Rag Boiler ID - VIBHA [id number] 05:10:15 Test Item Value Reference Range Interpretation Comments MAGNESIUM (BEAKER) 1.8 mg/dL 1.6-2.6 Specimen slightly (test code = 627) hemolyzed Rag Boiler ID - VIBHA [id number] 05:10:15 Test Item Value Reference Range Interpretation Comments PHOSPHORUS (BEAKER) 2.7 mg/dL 2.3-4.7 Specimen slightly (test code = 604) hemolyzed Rag Boiler ID - VIBHA MCBC (HEMOGRAM ONLY)2021-09-05 04:58:52 [...] 0-0 (BEAKER) (test code = 413) HEMOGLOBIN [id number] 19:10:23 Test Item Value Reference Range Interpretation Comments HEMOGLOBIN A1C (BEAKER) (test code = 6.3 % 4.3-6.1 H 368) [id number] 18:45:54 Test Item Value Reference Range Interpretation Comments THYROID STIMULATING HORMONE 1.192 uIU/mL 0.350-4.940 (BEAKER) (test code = 772) Rag Boiler ID - BST4, [id number] 18:45:53 Test Item Value Reference Range Interpretation Comments FREE T4 (BEAKER) (test code = 655) 1.24 ng/dL 0.70-1.48 Rag Boiler ID - BSB-TYPE NATRIURETIC FACTOR (BNP)2021-09-04 18:31:07 Test Item Value Reference Range Interpretation Comments B-TYPE NATRIURETIC PEPTIDE (BEAKER) 212 pg/mL 0-100 H (test code = 700) Rag Boiler ID - BSLIPID [id number] 18:25:33 Test Item Value Reference Range Interpretation [...] Borderline 130-159 High 160-189 Very High >=190 Rag Boiler ID - [id number] 06:58:37 Test Item Value Reference Range Interpretation Comments PHOSPHORUS (BEAKER) (test code = 4.6 mg/dL 2.3-4.7 604) Rag Boiler ID - VIBHA MBASIC METABOLIC [id number] 06:58:36 Test Item Value Reference Range Interpretation [...] S NOT APPLICABLE FOR DIALYSIS PATIEN TS. Rag Boiler ID - VIBHA [id number] 06:58:36 Test Item Value Reference Range Interpretation Comments MAGNESIUM (BEAKER) (test code = 1.9 mg/dL 1.6-2.6 627) Rag Boiler ID - VIBHA MCBC (HEMOGRAM ONLY)2021-09-04 06:39:51 [...] 0-0 (BEAKER) (test code = 413) CALCIUM, [id number] 06:34:10 Test Item Value Reference Range Interpretation Comments CALCIUM IONIZED (BEAKER) (test 1.19 mmol/L 1.12-1.27 code = 698) PH, BLOOD (BEAKER) (test code = 7.30 1810) [id number] 22:06:41 Test Item Value Reference Range Interpretation Comments POTASSIUM (BEAKER) 5.0 meq/L 3.5-5.1 Specimen slightly (test code = 379) hemolyzed Rag Boiler ID - DBHEMOGLOBIN AND [id number] 21:57:38 Test Item Value Reference Range Interpretation Comments HEMOGLOBIN (BEAKER) (test code = 10.9 GM/DL 11.2-15.7 L 410) HEMATOCRIT (BEAKER) (test code = 34.5 % 34.1-44.9 411) Rag Boiler ID - 6000BASIC METABOLIC [id number] 18:58:49 Test Item Value Reference Range Interpretation [...] S NOT APPLICABLE FOR DIALYSIS PATIEN TS. Rag Boiler ID - DBCBC (HEMOGRAM ONLY)2021-09-03 18:29:02 Test [...] 0-0 (BEAKER) (test code = 413) GLUCOSE-STAT [id number] 12:35:04 Test Item Value Reference Range Interpretation Comments GLUCOSE RANDOM (BEAKER) (test code 141 mg/dL 70-110 H = 652) HGB/HCT (H&H) - STAT [id number] 12:34:26 Test Item Value Reference Range Interpretation Comments HEMOGLOBIN (BEAKER) (test code = 12.9 GM/DL 12.0-15.0 410) HEMATOCRIT (BEAKER) (test code = 38.0 % 36.0-45.0 411) SODIUM NA-STAT [id number] 12:34:25 Test Item Value Reference Range Interpretation Comments SODIUM (BEAKER) (test code = 381) 138 meq/L 136-145 POTASSIUM-STAT [id number] 12:34:25 Test Item Value Reference Range Interpretation Comments POTASSIUM (BEAKER) (test code = 3.9 meq/L 3.6-5.5 379) [id number] 11:41:17 Test Item Value Reference Range Interpretation Comments ACTIVATED CLOTTING TIME 131 sec : 74 -137 seconds, (BEAKER) (test code = Baseli ne: TESTED AT 441) [facility] [address] [place] [address], [facility] 30: Rag Boiler/Techni flip ID = [id number] for BERNIE HUBER [id number] 11:41:16 Test Item Value Reference Range Interpretation Comments ACTIVATED CLOTTING TIME 241 sec : 74 -137 seconds, (BEAKER) (test code = Baseli ne: TESTED AT 441) [facility] [address] [facility], [facility] 30: Rag Boiler/Techni flip ID = [id number] for BERNIE HUBER BASIC METABOLIC [id number] 08:34:00 Test Item Value Reference Range Interpretation [...] S NOT APPLICABLE FOR DIALYSIS PATIEN TS. Rag Boiler ID - [id number] 08:27:18 Test Item Value Reference Range Interpretation Comments PARTIAL THROMBOPLASTIN TIME 34.0 seconds 22.5-36.0 (BEAKER) (test code = 760) PROTHROMBIN [id number] 08:26:40 Test Item Value Reference Range Interpretation Comments PROTIME (BEAKER) 13.7 seconds 11.9-14.2 (test code = 759) INR (BEAKER) (test 1.06 See_Comment [Automat ed message] code = 370) The system [employer] generated this result transmitted ref erence range: [...] % 0-1 PERCENT (BEAKER) (test code = 2801)
[2021-11-29] MEDS ORDERED: METOPROLOL TARTRATE 5 MG/5 ML INJ IV ONE (17:53)
--- NOTE | 2021-11-29 18:16 | RAD REPORT ---
EXAM DESCRIPTION: RAD - Chest Single View - 11/29/2021 6:08 pm CLINICAL HISTORY: PALPITATIONS COMPARISON: <Comparisons> FINDINGS: Lines: None. Lungs: No evidence of edema or pneumonia. Pleural: No significant pleural effusions or pneumothorax. Cardiac: Mild cardiomegaly. Bones: No acute fractures. Other: IMPRESSION: No acute cardiopulmonary disease.
[2021-11-29 18:17] LABS: Absolute Lymphocytes (CBC) 3.1 K/uL (0.7-4.9); Hematocrit 41.5 % (36.0-45.0); Lymphocytes % 28.9 % (15.3-44.8); MPV 8.9 fL (7.6-11.3); RBC Red Blood Cell Count 4.67 M/uL (3.86-4.86)
[2021-11-29 18:39] LABS: Protime INR 1.07
[2021-11-29 19:29] LABS: ALT/SGPT 26 U/L (12-78); AST/SGOT 11 U/L (15-37); Albumin 3.7 g/dL (3.4-5.0); Alkaline Phosphatase 87 U/L (45-117); BUN Blood Urea Nitrogen 23 mg/dL (7-18); Bicarbonate 26 mmol/L (21-32); Bilirubin Direct < 0.1 mg/dL (0-0.2); Bilirubin Total 0.2 mg/dL (0.2-1.0); Glucose Level 133 mg/dL (74-106); NT PRO-BNP 432 pg/mL (<450); Protein, Total 7.7 g/dL (6.4-8.2); Sodium Level 138 mmol/L (136-145)
--- NOTE | 2021-11-29 20:25 | EDPHYS ---
Physician Documentation [facility] Name: Elis Mckinnon Age: 76 yrs Sex: Female : 1945 Arrival Date: 11/29/2021 Time: 17:28 Bed 4 Private MD: Caleb Martell S; Sam Elise V ED Physician Yun Beal HPI: 11/29 18:07 This 76 yrs old Female presents to ER via Ambulatory with complaints of Chest Pain, sp3 afib. 18:07 76-year-old female with a history of hypertension, hypothyroidism and paroxysmal atrial sp3 fibrillation currently on Eliquis presents again to the ED for atrial fibrillation and chest pain which started after she entered atrial fibrillation. Patient stated that her symptoms started earlier today in the early afternoon approximately 4 to 6 hours prior to arrival. Patient was recently admitted for chest pain, discharged and then presented again a few days ago for atrial fibrillation and was converted and discharged at that time. Patient did not have chest pain while not in atrial fibrillation. Patient denies headache, neck pain, shortness of breath, abdominal pain, nausea, vomiting, diarrhea, jaw pain, left arm pain, syncope, near syncope, focal neuro deficit, any other symptoms on ROS at this time.. Historical: - Allergies: 17:55 Codeine; ap3 17:55 Hzzhzrh-Pld-Nvl Reductase Inhibitors; ap3 - Home Meds: 17:55 amiodarone 200 mg Oral tab [Active]; amlodipine oral [Active]; Aspirin Oral [Active]; ap3 Eliquis 5 mg Oral tab [Active]; ezetimibe 10 mg Oral tab [Active]; gabapentin 100 mg Oral tab [Active]; levothyroxine 88 mcg tab [Active]; losartan 100 mg Oral tab [Active]; metoprolol tartrate 25 mg Oral tab 1 tab [Active]; omeprazole 40 mg Oral cpDR [Active]; sotalol Oral [Active]; Spironolactone Oral [Active]; - PMHx: 17:55 Atrial fibrillation; Hypertensive disorder; Hypothyroidism; ap3 - PSHx: 17:55 Stented artery; ap3 - Immunization history:: Client reports receiving the 2nd dose of the Covid vaccine. - Social history:: Smoking status: Patient denies any tobacco usage or history of. ROS: 18:08 Constitutional: Negative for fever, chills, and weight loss, Eyes: Negative for injury, sp3 pain, redness, and discharge, ENT: Negative for injury, pain, and discharge, Neck: Negative for injury, pain, and swelling, Respiratory: Negative for shortness of breath, cough, wheezing, and pleuritic chest pain, Abdomen/GI: Negative for abdominal pain, nausea, vomiting, diarrhea, and constipation, Back: Negative for injury and pain, MS/Extremity: Negative for injury and deformity, Skin: Negative for injury, rash, and discoloration, Neuro: Negative for headache, weakness, numbness, tingling, and seizure, Psych: Negative for depression, anxiety, suicide ideation, homicidal ideation, and hallucinations, Allergy/Immunology: Negative for hives, rash, and allergies. 18:08 All other systems are negative. Exam: 18:08 Constitutional: This is a well developed, well nourished patient who is awake, alert, sp3 and in no acute distress. Head/Face: Normocephalic, atraumatic. Eyes: Pupils equal round and reactive to light, extra-ocular motions intact. Lids and lashes normal. Conjunctiva and sclera are non-icteric and not injected. Cornea within normal limits. Periorbital areas with no swelling, redness, or edema. ENT: Nares patent. No nasal discharge, no septal abnormalities noted. External auditory canals are clear. Oropharynx with no redness, swelling, or masses, exudates, or evidence of obstruction, uvula midline. Mucous membranes moist. Neck: Trachea midline, no thyromegaly or masses palpated, and no cervical lymphadenopathy. Supple, full range of motion without nuchal rigidity, or vertebral point tenderness. No Meningismus. Chest/axilla: Normal chest wall appearance and motion. Nontender with no deformity. No lesions are appreciated. Respiratory: Lungs have equal breath sounds bilaterally, clear to auscultation and percussion. No rales, rhonchi or wheezes noted. No increased work of breathing, no retractions or nasal flaring. Abdomen/GI: Soft, non-tender, with normal bowel sounds. No distension or tympany. No guarding or rebound. No evidence of tenderness throughout. Back: No spinal tenderness. No costovertebral tenderness. Full range of motion. Skin: Warm, dry with normal turgor. Normal color with no rashes, no lesions, and no evidence of cellulitis. MS/ Extremity: Pulses equal, no cyanosis. Neurovascular intact. Full, normal range of motion. Neuro: Awake and alert, GCS 15, oriented to person, place, time, and situation. Cranial nerves II-XII grossly intact. Motor strength 5/5 in all extremities. Sensory grossly intact. Cerebellar exam normal. Normal gait. Psych: Awake, alert, with orientation to person, place and time. Behavior, mood, and affect are within normal limits. 18:08 Cardiovascular: Initially patient was in atrial fibrillation with rapid ventricular response in the 130s. After metoprolol 5 mg IV was given patient automatically converted to normal sinus rhythm at 75 bpm. Chest pain was fully resolved after the conversion patient currently is back at her baseline status.. Vital Signs: 17:54 Pulse 145; Resp 18; Temp 98.6(TE); Pulse Ox 100% ; ap3 17:57 BP 143 / 73; Pulse 69; Resp 20; Pulse Ox 96% ; ss7 18:39 BP 135 / 56; Pulse 69; Resp 20; Pulse Ox 98% on R/A; ss7 20:12 BP 131 / 53; Pulse 68; Resp 22; Pulse Ox 100% on R/A; sm5 21:04 BP 101 / 41; Pulse 65; Resp 16; Pulse Ox 97% on R/A; Pain 0/10; st1 MDM: 17:40 Patient medically screened. sp3 18:09 Data reviewed: vital signs, nurses notes. ED course: Patient was given 5 mg of sp3 metoprolol and automatically converted back to normal sinus rhythm. All pain and symptoms are now resolved. I am not highly suspicious for acute coronary syndrome or significant myocardial injury from this event. Patient has had multiple events like this in the past. Will obtain lab labs, troponin, repeat EKG, chest x-ray, and observe patient in the ED. If work-up is negative will be able to safely discharge patient home with follow-up with her shrimp peeler.. 18:19 ED course: EKG at 1815 demonstrates normal sinus rhythm at 67 bpm with normal sp3 intervals, normal QRS, normal axis, normal ST/T segments without evidence of ischemia.. 11/29 17:41 Order name: Basic Metabolic Panel sp3 11/29 17:41 Order name: CBC with Diff; Complete Time: 18:26 sp3 11/29 17:41 Order name: LFT's sp3 11/29 17:41 Order name: Magnesium sp3 11/29 17:41 Order name: NT PRO-BNP sp3 11/29 17:41 Order name: PT-INR; Complete Time: 18:40 sp3 11/29 17:41 Order name: Troponin HS sp3 11/29 17:41 Order name: XRAY Chest (1 view); Complete Time: 18:23 sp3 11/29 17:41 Order name: EKG; Complete Time: 17:42 sp3 11/29 17:41 Order name: Cardiac monitoring; Complete Time: 17:57 sp3 11/29 17:41 Order name: EKG - Nurse/Tech; Complete Time: 17:57 sp3 11/29 17:41 Order name: Basic Metabolic Panel [facility] 11/29 17:45 Order name: SARS-COV-2 RT PCR (Document "Date of Onset" if Symptomatic); Complete Time: em1 18:57 11/29 17:41 Order name: IV Saline Lock; Complete Time: 17:57 sp3 11/29 17:41 Order name: Labs collected and sent; Complete Time: 17:57 sp3 11/29 17:41 Order name: O2 Per Protocol; Complete Time: 17:57 sp3 11/29 17:41 Order name: O2 Sat Monitoring; Complete Time: 17:57 sp3 11/29 18:11 Order name: EKG - Nurse/Tech; Complete Time: 18:20 sp3 Administered Medications: 17:56 Drug: Lopressor (metoprolol) 5 mg Route: IVP; Site: right antecubital; ss7 18:20 Follow up: Response: No adverse reaction; Marked relief of symptoms bp Disposition Summary: 11/29/21 20:24 Discharge Ordered Location: Home jm Condition: Stable [facility] Diagnosis - Paroxysmal atrial fibrillation [facility] Followup: sp3 - With: Private Physician - When: Upon discharge from the Emergency Department - Reason: Re-evaluation by your physician Discharge Instructions: - Discharge Summary Sheet sp3 - Atrial Fibrillation sp3 - Chemical Cardioversion sp3 Forms: - Medication Reconciliation Form jm - Thank You Letter jmm - Antibiotic Education jmm - Prescription Opioid Use [facility] Signatures: Dispatcher [employer] EDCayden Chaidez PA PA jmm Prokisch, Amanda, RN RN ap3 Yun Beal MD MD sp3 Kerrie Brown RN RN ss7 Tomas Elise RN bp Corrections: (The following items were deleted from the chart) 18:09 18:07 76-year-old female with a history of hypertension, hypothyroidism and paroxysmal sp3 atrial fibrillation currently on Eliquis presents again to the ED for atrial fibrillation and chest pain which started after she entered atrial fibrillation. Patient was recently admitted for chest pain, discharged and then presented again a few days ago for atrial fibrillation and was converted and discharged at that time. Patient did not have chest pain while not in atrial fibrillation. Patient denies headache, neck pain, shortness of breath, abdominal pain, nausea, vomiting, diarrhea, jaw pain, left arm pain, syncope, near syncope, focal neuro deficit, any other symptoms on ROS at this time.. sp3
--- NOTE | 2021-11-29 20:25 | ER ---
Nurse's Notes [facility] Name: Elis Mckinnon Age: 76 yrs Sex: Female : 1945 Arrival Date: 11/29/2021 Time: 17:28 Bed 4 Private MD: Caleb Martell S; Sam Elise V Diagnosis: Paroxysmal atrial fibrillation Presentation: 11/29 17:54 Chief complaint: Patient states: she feels like she is in A-FIB as she says this ap3 happens often. She reports having chest pain at this time with feelings of heart racing then slowing down. Patient also reports shortness of breath at this time. Coronavirus screen: At this time, the client does not indicate any symptoms associated with coronavirus-19. Ebola Screen: No symptoms or risks identified at this time. Initial Sepsis Screen: Does the patient meet any 2 criteria? No. Patient's initial sepsis screen is negative. Does the patient have a suspected source of infection? No. Patient's initial sepsis screen is negative. Risk Assessment: Do you want to hurt yourself or someone else? Patient reports no desire to harm self or others. Onset of symptoms was November 29, 2021. 17:54 Method Of Arrival: Ambulatory ap3 17:54 Acuity: JANETTE 2 ap3 Triage Assessment: 17:57 General: Appears distressed, Behavior is calm, cooperative. Pain: Complains of pain in ap3 anterior aspect of left upper chest and left breast Pain currently is 7 out of 10 on a pain scale. Pain began suddenly, 3 hours ago. Is intermittent. Neuro: Level of Consciousness is awake, alert, obeys commands, Oriented to person, place, time, situation, Appropriate for age Moves all extremities. Gait is steady, Speech is normal. Cardiovascular: Reports chest pain, shortness of breath, Patient's skin is warm and dry. Rhythm is atrial fibrillation with rapid ventricular response. Respiratory: Airway is patent Respiratory effort is even, unlabored, Respiratory pattern is regular, symmetrical. Historical: - Allergies: 17:55 Codeine; ap3 17:55 Ijqkgru-Ocq-Vka Reductase Inhibitors; ap3 - Home Meds: 17:55 amiodarone 200 mg Oral tab [Active]; amlodipine oral [Active]; Aspirin Oral [Active]; ap3 Eliquis 5 mg Oral tab [Active]; ezetimibe 10 mg Oral tab [Active]; gabapentin 100 mg Oral tab [Active]; levothyroxine 88 mcg tab [Active]; losartan 100 mg Oral tab [Active]; metoprolol tartrate 25 mg Oral tab 1 tab [Active]; omeprazole 40 mg Oral cpDR [Active]; sotalol Oral [Active]; Spironolactone Oral [Active]; - PMHx: 17:55 Atrial fibrillation; Hypertensive disorder; Hypothyroidism; ap3 - PSHx: 17:55 Stented artery; ap3 - Immunization history:: Client reports receiving the 2nd dose of the Covid vaccine. - Social history:: Smoking status: Patient denies any tobacco usage or history of. Screenin:58 Abuse screen: Denies threats or abuse. Nutritional screening: No deficits noted. ap3 Tuberculosis screening: No symptoms or risk factors identified. 17:59 Fall Risk No fall in past 12 months (0 pts). No secondary diagnosis (0 pts). IV access ap3 (20 points). Ambulatory Aid- Crutches/Cane/Walker (15 pts). Gait- Weak (10 pts.). Mental Status- Oriented to own ability (0 pts). Total Junior Fall Scale indicates Low Risk Score (25-44 pts). Fall prevention measures have been instituted. Side Rails Up X 2 Placed close to Nursing Station Frequent Obs/Assesments occuring As available Patient and Family Educated on Fall Prevention Program and strategies. Assessment: 17:59 General: Appears in no apparent distress. obese, well groomed, Behavior is calm, ss7 cooperative, appropriate for age. Pain: Denies pain. Neuro: No deficits noted. Cardiovascular: Reports palpitations, Heart tones S1 S2 Rhythm is atrial fibrillation. Respiratory: No deficits noted. GI: No deficits noted. : No deficits noted. EENT: No deficits noted. Derm: No deficits noted. Musculoskeletal: No deficits noted. 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 SS. ss7 20:13 Reassessment: Patient and/or family updated on plan of care and expected duration. Pain sm5 level reassessed. Patient is alert, oriented x 3, equal unlabored respirations, skin warm/dry/pink. 20:13 Pain: Pain does not radiate. sm5 Vital Signs: 17:54 Pulse 145; Resp 18; Temp 98.6(TE); Pulse Ox 100% ; ap3 17:57 BP 143 / 73; Pulse 69; Resp 20; Pulse Ox 96% ; ss7 18:39 BP 135 / 56; Pulse 69; Resp 20; Pulse Ox 98% on R/A; ss7 20:12 BP 131 / 53; Pulse 68; Resp 22; Pulse Ox 100% on R/A; sm5 21:04 BP 101 / 41; Pulse 65; Resp 16; Pulse Ox 97% on R/A; Pain 0/10; st1 ED Course: 17:28 Patient arrived in ED. as 17:28 Sam Elise MD is Private Physician. as 17:28 Caleb Martell MD is Private Physician. as 17:40 Yun Beal MD is Attending Physician. sp3 17:49 Tomas Elise, YANELY is Primary Nurse. bp 17:55 Triage completed. ap3 17:57 Basic Metabolic Panel Sent. ss7 17:58 Initial lab(s) drawn, by me, sent to lab. EKG done, by ED staff, reviewed by Yun Beal MD COVID swab sent to lab. Inserted saline lock: 22 gauge in right antecubital area, using aseptic technique. Blood collected. Patient maintains SpO2 saturation greater than 95% on room air. 17:58 Arm band placed on right wrist. ap3 17:59 Patient has correct armband on for positive identification. Placed in gown. Bed in low ap3 position. Call light in reach. Side rails up X2. scientific publications editor on. Pulse ox on. NIBP on. 18:07 XRAY Chest (1 view) In Process Unspecified. EDMS 19:01 Cayden Ames PA is PHCP. [facility] 21:03 No provider procedures requiring assistance completed. st1 21:03 IV discontinued, intact, bleeding controlled, No redness/swelling at site. Pressure st1 dressing applied. Administered Medications: 17:56 Drug: Lopressor (metoprolol) 5 mg Route: IVP; Site: right antecubital; ss7 18:20 Follow up: Response: No adverse reaction; Marked relief of symptoms bp Outcome: 20:24 Discharge ordered by . jennifer 21:03 Discharged to home st1 21:03 Condition: good 21:03 Discharge instructions given to patient, Instructed on discharge instructions, follow up and referral plans. Demonstrated understanding of instructions, follow-up care. 21:29 Patient left the ED. ll3 Signatures: Dispatcher [employer] EDMS Cayden Ames PA PA jmm Martinez, Amelia as Peltier, Brian, RN RN bp Donna Zapata RN RN ap3 Yun Beal MD MD sp3 Mariann Alberto RN RN ll3 Asha Givens RN RN sm5 Sadie Licona RN RN st1 Kerrie Brown RN RN ss7 Corrections: (The following items were deleted from the chart) 18:05 17:59 Pain: ap3 bp 20:13 19:00 Reassessment: Patient and/or family updated on plan of care and expected sm5 duration. Pain level reassessed. Patient is alert, oriented x 3, equal unlabored respirations, skin warm/dry/pink. sm5
[2021-11-29 21:45] VITALS: TEMP 98.6
[2021-11-29 21:50] VITALS: BP 101/41; O2SAT 97
[2021-11-29 22:08] LABS: Magnesium 1.6
== END 2021-11-29 21:29 | disposition home or self-care (01) ==
LOC: ER 17:27
DX: I48.0 Paroxysmal atrial fibrillation (principal); Z20.822 Contact with and (suspected) exposure to COVID-19
CPT/HCPCS: 93005 ×2; 85025; 80048; 36415; 83735; 85610; 80076; 84484; 83880; 71045; 96374; 99285; U0003

== ENCOUNTER 2021-12-03 06:50 | Day surgery (SDC) | payer OTHER ==
[2021-12-03] MEDS ORDERED: NA CHLORIDE 0.9% 500 ML ONE (06:56)
[2021-12-03] MEDS ORDERED: LIDOCAINE 1% 20 ML MDV ONE (07:07)
[2021-12-03] MEDS ORDERED: HEPA 1000U/500MLS 1,000 UNIT/500 ML BAG IV ONE (07:07)
[2021-12-03] MEDS ORDERED: MIDAZOLAM HCL 2 MG/2 ML INJ ONE ×2 (07:15→07:33)
[2021-12-03] MEDS ORDERED: ATROPINE SULF 1 MG/10 ML SYR IV ONE (07:15)
[2021-12-03] MEDS ORDERED: FENTANYL CITR 100 MCG/2 ML ONE (07:15)
[2021-12-03] MEDS ORDERED: NITROGLYCERIN 100 MCG/ML SYR (for cath lab use only) IV ONE (07:15)
[2021-12-03] MEDS ORDERED: NA CHLORIDE 0.9% 0 ML ONE (07:16)
[2021-12-03] MEDS ORDERED: NITROGLYCERIN/D5W 25 MG/250 ML BTL IV ONE (07:16)
[2021-12-03 09:48] VITALS: BP 138/64; O2SAT 95
--- NOTE | 2021-12-03 18:46 | OP ---
Date of Procedure: 12/03/2021 Surgeon: Caleb Martell MD Procedures: Left heart catheterization, selective coronary arteriogram, left ventriculogram. Indications: Unstable angina and history of coronary artery disease. History Of Present Illness: Ms. Mckinnon is 76, has had a history of atrial fibrillation, LAD stent, recurrent chest pain normal stress test brought to the open hearth laborer, despite a normal stress test becaus e of recurrent chest pain, recurrent hospital visits for chest pain and intermittent atrial fibrillat ion. She takes sotalol 40 b.i.d. She takes Eliquis. She is also on metoprolol p.r.n. In the open hearth laborer, she was prepped and draped in routine sterile fashion. Given Versed and fentanyl for sedation. A 6-Kittitian sheath was introduced in the right common femoral artery successfully using the Seldinger technique in 10 cc of Xylocaine. Antonino catheter left and right were used to do the heart catheter ization. The right coronary artery was small, nondominant with about a 40% proximal stenosis. The l eft main had a 30% to 40% stenosis with dampening of her pressure. She had a 40% mid LAD stenosis af ter a patent LAD stent in the proximal region. Had a 50% proximal RCA. No complications. Blood Loss: 5 mL. Anesthesia: Total conscious sedation was 45 minutes. Postoperative Diagnosis: Anvxnhoy-zm-rymqzy coronary artery disease. Plan: Plan is for medical therapy. I will probably add Ranexa or Imdur to her regimen. The patient had an Angio-Seal done in the groin. Angiography there was normal. She will be at bedrest for 2 ho urs before she goes home. She will follow up with me in the office in 2 weeks. Electrical Instrumentation Technician was myself and assistant women's tennis coach was Ms. Asha Pereira. IZABEL/MELLY Voice ID: [id number] Report ID: [id number]
== END 2021-12-03 09:45 | disposition home or self-care (01) ==
LOC: CCL 06:50
DX: I25.110 Atherosclerotic heart disease of native coronary artery with unstable angina pectoris (principal); I65.23 Occlusion and stenosis of bilateral carotid arteries; I48.0 Paroxysmal atrial fibrillation; I34.0 Nonrheumatic mitral (valve) insufficiency; I35.1 Nonrheumatic aortic (valve) insufficiency; I10 Essential (primary) hypertension; I27.21 Secondary pulmonary arterial hypertension; E78.2 Mixed hyperlipidemia; E11.40 Type 2 diabetes mellitus with diabetic neuropathy, unspecified; Z95.5 Presence of coronary angioplasty implant and graft; Z79.01 Long term (current) use of anticoagulants; Z87.891 Personal history of nicotine dependence; Z01.810 Encounter for preprocedural cardiovascular examination
CPT/HCPCS: 36415; 85730; 93454; C1893; C1760; J2250; J3010; J7040; J1644; J0583

== ENCOUNTER 2021-12-04 15:12 | Emergency (ER) | payer OTHER ==
--- OUTSIDE RECORDS SUMMARY | 2021-12-04 15:18 | XMS REPORT | Continuity of Care Document ---
:1945 Author Organization [facility] t Address [address] [place] [address] Care Team Providers Name Role Phone LINDA REYES Primary Care Physician Unavailable ROBBY NESS Attending [...] Expiration Date S jorge UNITED MEDICARE HMO [id number] 2020 00:00:00 [facility] [id number] 2020 MEDICARE ADV HMO 00:00:00 Problems This [...] Drug Active Univers ALLERGIE Class ity of [facility] Social History Social Habit Start Date Stop Date Quantity Comments Source Sex Assigned At [birth year] [facility] 00:00:00 00:00:00 Medical Branch Smoking Status Start Date Stop Date Source Unknown if ever smoked [facility] Medical Branch Medications Ordered Filled Start Stop Current Ordering Indication Dosage Frequency Signature Comments Components Source Medication Medication Date Date Medication? Clinician (SIG) Name Name meloxicam 2020-0 Yes 7.5mg Take 1 Unive rs (MOBIC) 7.5 8-20 tablet by ity of mg tablet 00:00: mouth [place] 00 daily Medical before a Branch meal. MELOXICAM 2020-0 Yes [id number] TAKE 1 Un spencer 7.5 mg 8-20 TABLET BY ity of tablet 00:00: MOUTH ONCE [place] 00 DAILY Medical BEFORE A Branch MEAL FOR 30 DAYS MELOXICAM 2020-0 Yes [id number] TAKE 1 Un spencer 7.5 mg 8-20 [...] No known No Univers medications [facility] No known No Univers medications [facility] No known No Univers medications [facility] Immunizations Ordered Filled Immunization Date Status Comments [facility] e Immunization Name Name SARS-COV-2 COVID-19 2021-06-29 Completed Unive rsity of MODERNA VACCINE 00:00:00 [facility] SARS-COV-2 COVID-19 2020-11-24 Completed Unive rsity of MODERNA VACCINE 00:00:00 [facility] SARS-COV-2 COVID-19 2020-10-27 Completed Unive rsity of MODERNA VACCINE 00:00:00 [facility] Vital Signs Vital Name Observation Time Observation Value Comments Source HEIGHT 2021-09-03 07:41:00 157.5 cm WEIGHT 2021-09-03 07:41:00 91.7 kg HEIGHT 2021-08-31 10:16:00 157.5 cm WEIGHT 2021-08-31 10:16:00 93.895 kg HEIGHT 2021-09-03 07:41:00 157.5 cm WEIGHT 2021-09-03 07:41:00 91.7 kg HEIGHT 2021-08-31 10:16:00 157.5 cm WEIGHT 2021-08-31 10:16:00 93.895 kg Systolic blood 2020-04-27 13:25:00 156 mm[Hg] Univer sity of pressure [facility] Diastolic blood 2020-04-27 13:25:00 84 mm[Hg] Unive rsity of pressure [facility] Respiratory rate 2020-04-27 13:25:00 18 /min Univ ersity of [facility] Body height 2020-04-27 13:25:00 160 cm [facility] Body weight 2020-04-27 13:25:00 93.895 kg [facility] BMI 2020-04-27 13:25:00 36.67 kg/m2 [facility] Procedures Procedure Date / Time Performed Performing Clinician Sour e SARS-COV-2 COVID-19 2021-06-29 15:13:39 Doctor Unassigned, No [facility] [place] VACCINE,0.5ML,IM Name [facility] ([facility]) Encounters Start End Encounter Admission Attending Care Care Encounter Source Date/Time Date/Time Type Type Clinicians Facility Department ID 2021-11-14 Outpatient [facility]LMLC ST[facility]MLC [id number] [facility] 11:46:48 [id number] Elana Terry richards [facility] Clinics 2021-09-03 2021-09-06 Inpatient MIGUEL ESCAMILLA Surgery [id number] [facility] 06:40:00 13:36:00 MICH 2021-08-31 2021-08-31 Outpatient [facility] SLE [id number] SLE 10:29:52 23:59:00 2021-06-29 2021-06-29 Outpatient Aiyana LOPEZ [facility] [id number] Univers 10:20:00 10:20:00 BART lee [facility] 2021-06-29 2021-06-29 Imm/Inj Nurse, Adc Pob Immunization [facility] [id number] Univers 10:12:23 10:12:34 Visit Bart Lopez 350.1.13 .10 [facility] 4.2.7.2.686 Dany Polanco [id number] Oh dical [address] 2020-11-24 2020-11-24 Outpatient Aiyana VITAL [facility] [id number] Univers 15:10:00 15:10:00 [id number] 2020-11-24 2020-11-24 Outpatient Aiyana VITAL [facility] [id number] Univers 15:10:00 15:10:00 DAVID [facility] 2020-10-27 2020-10-27 Outpatient Aiyana AMANUEL [facility] [id number] Univers 15:30:00 15:30:00 DAVID [id number] [facility] 2020-10-27 2020-10-27 Outpatient Aiyana AMANUEL [facility] [id number] Univers 15:30:00 15:30:00 DAVID [facility] 2020-10-23 2020-10-23 Outpatient [facility] [id number] [facility] 2020-08-17 2020-08-17 Outpatient [facility] [id number] [facility] 2020-08-10 2020-08-10 Outpatient [facility] [id number] [facility] 2020-08-03 2020-08-03 Outpatient [facility] [id number] [facility] 2020-07-19 2020-07-19 Outpatient [facility] [id number] [facility] 2020-07-18 2020-07-18 Outpatient [facility] [id number] [facility] 2020-07-06 2020-07-06 Outpatient [facility]MLC [facility] [id number] [facility] 2020-06-12 2020-06-12 Outpatient Aiyana NARVAEZ [facility] [id number] Univers 15:30:00 15:30:00 YUVAL [id number] [facility] 2020-06-12 2020-06-12 Outpatient Aiyana NARVAEZ [facility] [id number] Univers 15:30:00 15:30:00 YUVAL [facility] 2020-06-06 2020-06-06 Telephone Tete, [facility] [id number] Univers 00:00:00 00:00:00 [facility] [id number] it y of Surgical 4.2.7.2.686 Amandeep as Specialti [id number] Oh dical es 198 [facility] 2020-06-06 2020-06-06 [facility]phone [facility] [id number] Univers 00:00:00 00:00:00 [facility] [id number] it y of Surgical 4.2.7.2.686 Amandeep as Specialti [id number] Oh dicrichard es 198 [facility] 2020-06-06 2020-06-06 [place] [facility] 1.2.840.114 [id number] [facility] 00:00:00 00:00:00 [facility] 350.1.13.10 it y of Surgical 4.2.7.2.686 Amandeep as Specialti [id number] Oh dicrichard es 198 [facility] 2020-06-06 2020-06-06 [place] [facility] 1.2.840.114 [id number] 00:00:00 00:00:00 [facility] 350.1.13.10 Surgical 4.2.7.2.686 Specialti [id number] es [address] [place] 2020-06-06 2020-06-06 [place] [facility] 1.2.840.114 [id number] 00:00:00 00:00:00 [facility] 350.1.13.10 Surgical 4.2.7.2.686 Specialti [id number] es [address] [place] 2020-06-06 2020-06-06 [place] [facility] 1.2.840.114 [id number] 00:00:00 00:00:00 [facility] 350.1.13.10 Surgical 4.2.7.2.686 Specialti [id number] es [address] [place] 2020-06-02 2020-06-[address] [facility] [id number] Univers 00:00:00 00:00:00 [facility] 350.1.13.10 it y of Surgical 4.2.7.2.686 Amandeep as Specialti [id number] Oh dical es 198 [facility] 2020-06-02 2020-06-[address] [facility] [id number] 00:00:00 00:00:00 [facility] 350.1.13.10 Surgical 4.2.7.2.686 Specialti [id number] es [address] [place] 2020-05-26 2020-05-26 [place] [facility] 1.2.840.114 [id number] Univers 00:00:00 00:00:00 [facility] 350.1.13.10 it y of Surgical 4.2.7.2.686 Amandeep as Specialti [id number] Oh dical es 198 [facility] 2020-05-26 2020-05-26 [facility] 1.2.840.114 [id number] 00:00:00 00:00:00 [facility] 350.1.13.10 Surgical 4.2.7.2.686 Specialti [id number] es [address] [place] 2020-05-22 2020-05-22 [place] [facility] 1.2.840.114 [id number] Univers 00:00:00 00:00:00 [facility] 350.1.13.10 it y of Surgical 4.2.7.2.686 Amandeep as Specialti [id number] Oh dical es 198 [facility] 2020-05-22 2020-05-22 [place] [facility] 1.2.840.114 [id number] 00:00:00 00:00:00 [facility] 350.1.13.10 Surgical 4.2.7.2.686 Specialti [id number] es [address] [place] 2020-05-11 2020-05-11 [place] [facility] 1.2.840.114 [id number] Univers 00:00:00 00:00:00 [facility] 350.1.13.10 it y of Surgical 4.2.7.2.686 Amandeep as Specialti [id number] Oh dical es 198 [facility] 2020-05-08 2020-05-08 [facility] 1.2.840.114 [id number] Univers 00:00:00 00:00:00 Martin Youssef 350.1.13.10 it y of Surgical 4.2.7.2.686 Amandeep as Specialti [id number] Oh dical es 198 [facility] 2020-04-27 2020-04-27 Outpatient [facility] [id number] Univers 08:45:00 08:45:00 MARTIN lee [facility] 2020-04-27 2020-04-27 Office [facility] [id number] Univers 08:21:06 08:43:58 Visit Martin Youssef 350.1.13.10 it y of Surgical 4.2.7.2.686 Amandeep as Specialti [id number] Oh dical es 198 [facility] Results Test Description Test Time Test Comments Results Result Sourc e Comments TISSUE EXAM 2021-09-10 Surgical Pathology 18:22:29 Report Case: [id number] Authorizing Provider: Jaret Morley, Collected: 09/03/2021 10:37 AM Ordering Location: [facility] Received: 09/03/2021 01:07 PM PERIOPERATIVE SERVICES Pathologist: David Mabry MD Specimen: Plaque, Right Carotid Plaque ARTERY, LEFT CAROTID, ENDARTERECTOMY:CALCIFI C ATHEROSCLEROTIC PLAQUE Signing Pathologist Direct Phone Line: [phone] ally signed by David Mabry MD on 09/10/2021 at 6:22 [id number]; [id number] stenosis, right PlaqueReceived fresh labeled the patient's name, accession number and "right carotid plaque" is a 3.0 cm in length by 0.5 cm in diameter alexander-yellow, tubular piece of focally calcified plaque. Autocad Technician sections are submitted in A1 following decalcification.CINTHYA Gonzalez, HT (ASCP)Performed MAGNESIUM 2021-09-06 05:43:19 Test Item Value Reference Range Interpretation Comme nts MAGNESIUM (BEAKER) (test code = 627) 1.9 mg/dL 1.6-2.6 Full Roll Inspector LEILA - VIBHA [id number] 05:43:19 Test Item Value Reference Range Interpretation Comments PHOSPHORUS (BEAKER) (test code = 1.8 mg/dL 2.3-4.7 L 604) Full Roll Inspector LEILA DUNNE MBASIC METABOLIC [id number] 05:43:18 Test Item Value Reference Range Interpretation [...] S NOT APPLICABLE FOR DIALYSIS PATIEN TS. Full Roll Inspector LEILA DUNNE MCBC (HEMOGRAM ONLY)2021-09-06 05:17:48 Test [...] (BEAKER) (test code = 413) BASIC METABOLIC [id number] 05:10:16 Test Item Value Reference Range Interpretation [...] S NOT APPLICABLE FOR DIALYSIS PATIEN TS. Full Roll Inspector ID - VIBHA [id number] 05:10:15 Test Item Value Reference Range Interpretation Comments MAGNESIUM (BEAKER) 1.8 mg/dL 1.6-2.6 Specimen slightly (test code = 627) hemolyzed Full Roll Inspector ID - VIBHA [id number] 05:10:15 Test Item Value Reference Range Interpretation Comments PHOSPHORUS (BEAKER) 2.7 mg/dL 2.3-4.7 Specimen slightly (test code = 604) hemolyzed Full Roll Inspector ID - VIBHA MCBC (HEMOGRAM ONLY)2021-09-05 04:58:52 [...] 0-0 (BEAKER) (test code = 413) HEMOGLOBIN [id number] 19:10:23 Test Item Value Reference Range Interpretation Comments HEMOGLOBIN A1C (BEAKER) (test code = 6.3 % 4.3-6.1 H 368) [id number] 18:45:54 Test Item Value Reference Range Interpretation Comments THYROID STIMULATING HORMONE 1.192 uIU/mL 0.350-4.940 (BEAKER) (test code = 772) Full Roll Inspector ID - BST4, [id number] 18:45:53 Test Item Value Reference Range Interpretation Comments FREE T4 (BEAKER) (test code = 655) 1.24 ng/dL 0.70-1.48 Full Roll Inspector ID - BSB-TYPE NATRIURETIC FACTOR (BNP)2021-09-04 18:31:07 Test Item Value Reference Range Interpretation Comments B-TYPE NATRIURETIC PEPTIDE (BEAKER) 212 pg/mL 0-100 H (test code = 700) Full Roll Inspector ID - BSLIPID [id number] 18:25:33 Test Item Value Reference Range Interpretation [...] Borderline 130-159 High 160-189 Very High >=190 Full Roll Inspector ID - [id number] 06:58:37 Test Item Value Reference Range Interpretation Comments PHOSPHORUS (BEAKER) (test code = 4.6 mg/dL 2.3-4.7 604) Full Roll Inspector ID - VIBHA MBASIC METABOLIC [id number] 06:58:36 Test Item Value Reference Range Interpretation [...] S NOT APPLICABLE FOR DIALYSIS PATIEN TS. Full Roll Inspector ID - VIBHA [id number] 06:58:36 Test Item Value Reference Range Interpretation Comments MAGNESIUM (BEAKER) (test code = 1.9 mg/dL 1.6-2.6 627) Full Roll Inspector ID - VIBHA MCBC (HEMOGRAM ONLY)2021-09-04 06:39:51 [...] 0-0 (BEAKER) (test code = 413) CALCIUM, [id number] 06:34:10 Test Item Value Reference Range Interpretation Comments CALCIUM IONIZED (BEAKER) (test 1.19 mmol/L 1.12-1.27 code = 698) PH, BLOOD (BEAKER) (test code = 7.30 1810) [id number] 22:06:41 Test Item Value Reference Range Interpretation Comments POTASSIUM (BEAKER) 5.0 meq/L 3.5-5.1 Specimen slightly (test code = 379) hemolyzed Full Roll Inspector ID - DBHEMOGLOBIN AND [id number] 21:57:38 Test Item Value Reference Range Interpretation Comments HEMOGLOBIN (BEAKER) (test code = 10.9 GM/DL 11.2-15.7 L 410) HEMATOCRIT (BEAKER) (test code = 34.5 % 34.1-44.9 411) Full Roll Inspector ID - [id number] METABOLIC [id number] 18:58:49 Test Item Value Reference Range Interpretation [...] S NOT APPLICABLE FOR DIALYSIS PATIEN TS. Full Roll Inspector ID - DBCBC (HEMOGRAM ONLY)2021-09-03 18:29:02 Test [...] 0-0 (BEAKER) (test code = 413) GLUCOSE-STAT [id number] 12:35:04 Test Item Value Reference Range Interpretation Comments GLUCOSE RANDOM (BEAKER) (test code 141 mg/dL 70-110 H = 652) HGB/HCT (H&H) - STAT [id number] 12:34:26 Test Item Value Reference Range Interpretation Comments HEMOGLOBIN (BEAKER) (test code = 12.9 GM/DL 12.0-15.0 410) HEMATOCRIT (BEAKER) (test code = 38.0 % 36.0-45.0 411) SODIUM NA-STAT [id number] 12:34:25 Test Item Value Reference Range Interpretation Comments SODIUM (BEAKER) (test code = 381) 138 meq/L 136-145 POTASSIUM-STAT [id number] 12:34:25 Test Item Value Reference Range Interpretation Comments POTASSIUM (BEAKER) (test code = 3.9 meq/L 3.6-5.5 379) [id number] 11:41:17 Test Item Value Reference Range Interpretation Comments ACTIVATED CLOTTING TIME 131 sec : 74 -137 seconds, (BEAKER) (test code = Baseli ne: TESTED AT 441) [facility] [address] [place] [address], [facility] 30: Full Roll Inspector/Techni flip ID = [id number] for BERNIE HUBER [id number] 11:41:16 Test Item Value Reference Range Interpretation Comments ACTIVATED CLOTTING TIME 241 sec : 74 -137 seconds, (BEAKER) (test code = Baseli ne: TESTED AT 441) [facility] [address] [facility], [address] 30: Full Roll Inspector/Techni flip ID = [id number] for BERNIE HUBER BASIC METABOLIC [id number] 08:34:00 Test Item Value Reference Range Interpretation [...] S NOT APPLICABLE FOR DIALYSIS PATIEN TS. Full Roll Inspector ID - [id number] 08:27:18 Test Item Value Reference Range Interpretation Comments PARTIAL THROMBOPLASTIN TIME 34.0 seconds 22.5-36.0 (BEAKER) (test code = 760) PROTHROMBIN [id number] 08:26:40 Test Item Value Reference Range Interpretation Comments PROTIME (BEAKER) 13.7 seconds 11.9-14.2 (test code = 759) INR (BEAKER) (test 1.06 See_Comment [Automat ed message] code = 370) The system [employer] generated this result transmitted ref erence range: [...]
[2021-12-04] MEDS ORDERED: METOPROLOL TARTRATE 5 MG/5 ML INJ IV ONE (15:49)
[2021-12-04 15:55] LABS: Absolute Lymphocytes (CBC) 2.6 K/uL (0.7-4.9); Hematocrit 41.8 % (36.0-45.0); Lymphocytes % 20.8 % (15.3-44.8); MPV 8.5 fL (7.6-11.3); RBC Red Blood Cell Count 4.72 M/uL (3.86-4.86)
[2021-12-04 16:01] LABS: Protime INR 1.13
[2021-12-04 16:14] LABS: Potassium 4.4 mmol/L (3.5-5.1); Troponin High Sensitivity 8.2 pg/mL (<58.9)
[2021-12-04] MEDS ORDERED: MAGNESIUM SULFATE 1 gm IVPB 1 GM/100 ML BAG IV ONE (16:14)
[2021-12-04] MEDS ORDERED: NA CHLORIDE 0.9% 1,000 ML ONE (16:19)
--- NOTE | 2021-12-04 17:22 | RAD REPORT ---
EXAM DESCRIPTION: Neel Single View12/04/2021 4:45 pm CLINICAL HISTORY: Chest pain COMPARISON: November 29, 2021 FINDINGS: The lungs appear clear of acute infiltrate. The heart is normal size IMPRESSION: No acute abnormalities displayed
--- NOTE | 2021-12-04 18:06 | ER ---
Nurse's Notes [facility] Name: Elis Mckinnon Age: 76 yrs Sex: Female : 1945 Arrival Date: 12/04/2021 Time: 15:17 Bed 4 Private MD: Sam Elise V Diagnosis: Paroxysmal atrial fibrillation Presentation: 12/04 15:37 Chief complaint: Patient states: she feels like she is back in A-FIB. However, today ap3 she feels left sided chest pain along with it. Patient reports having a cardiac cath yesterday. Coronavirus screen: At this time, the client does not indicate any symptoms associated with coronavirus-19. Ebola Screen: No symptoms or risks identified at this time. Initial Sepsis Screen: Does the patient meet any 2 criteria? HR > 90 bpm. Does the patient have a suspected source of infection? No. Patient's initial sepsis screen is negative. Risk Assessment: Do you want to hurt yourself or someone else? Patient reports no desire to harm self or others. Onset of symptoms was December 04, 2021. 15:37 Method Of Arrival: Ambulatory ap3 15:37 Acuity: JANETTE 2 ap3 Triage Assessment: 15:40 General: Appears distressed, Behavior is calm, cooperative. Pain: Complains of pain in ap3 anterior aspect of left upper chest Pain began gradually, 2 hours ago. Neuro: Level of Consciousness is awake, alert, obeys commands, Oriented to person, place, time, situation, Appropriate for age Speech is normal. Cardiovascular: Reports chest pain. Respiratory: Airway is patent Respiratory effort is even, unlabored. Historical: - Allergies: 15:38 Codeine; ap3 15:38 Uhphuyt-Ajs-Yef Reductase Inhibitors; ap3 - Home Meds: 15:38 amiodarone 200 mg Oral tab [Active]; amlodipine oral [Active]; Aspirin Oral [Active]; ap3 Eliquis 5 mg Oral tab [Active]; ezetimibe 10 mg Oral tab [Active]; gabapentin 100 mg Oral tab [Active]; levothyroxine 88 mcg tab [Active]; losartan 100 mg Oral tab [Active]; metoprolol tartrate 25 mg Oral tab 1 tab [Active]; omeprazole 40 mg Oral cpDR [Active]; sotalol Oral [Active]; Spironolactone Oral [Active]; - PMHx: 15:38 Atrial fibrillation; Hypertensive disorder; Hypothyroidism; ap3 - PSHx: 15:38 Stented artery; ap3 - Immunization history:: Client reports receiving the 2nd dose of the Covid vaccine. - Social history:: Smoking status: Patient denies any tobacco usage or history of. Smoking status: . - Family history:: not pertinent. - Hospitalizations: : No recent hospitalization is reported. Screenin:40 Abuse screen: Denies threats or abuse. Nutritional screening: No deficits noted. ap3 Tuberculosis screening: No symptoms or risk factors identified. 15:57 Fall Risk None identified. ic1 Assessment: 15:57 General: Appears in no apparent distress. uncomfortable, Behavior is calm, cooperative. ic1 Pain: Complains of pain in chest and left arm Pain radiates to left arm. Neuro: Level of Consciousness is awake, alert, obeys commands, Oriented to person, place, time, situation. Cardiovascular: Reports chest pain, shortness of breath. Respiratory: Reports shortness of breath. GI: No deficits noted. : No deficits noted. EENT: No deficits noted. Derm: No deficits noted. Musculoskeletal: No deficits noted. 18:02 Reassessment: EKG repeated x 2 and given to ED physician. ic1 Vital Signs: 15:37 BP 156 / 104; Pulse 151; Resp 19; Temp 97.6; Pulse Ox 99% on R/A; ap3 15:56 BP 124 / 85; Pulse 99; Resp 16; Pulse Ox 98% on R/A; ic1 16:19 BP 138 / 55; Pulse 73; Resp 16; Pulse Ox 96% ; ic1 18:02 BP 134 / 50; Pulse 78; Resp 16; Pulse Ox 97% on R/A; ic1 Vitals: 18:02 Cardiac Rhythm Assessment Regular Sinus rhythm. ic1 ED Course: 15:17 Patient arrived in ED. mr 15:17 Sam Elise MD is Private Physician. mr 15:31 Jean Pierre Villareal MD is Attending Physician. rn 15:38 Triage completed. ap3 15:40 Arm band placed on right wrist. EKG completed in triage. Results shown to MD. ap3 15:40 Patient has correct armband on for positive identification. Placed in gown. Bed in low ap3 position. Call light in reach. Side rails up X2. conveyor monitor on. Pulse ox on. NIBP on. 15:44 Madison Fountain, RN is Primary Nurse. ic1 15:56 Troponin HS Sent. ic1 15:56 PT-INR Sent. ic1 15:56 NT PRO-BNP Sent. ic1 15:56 CBC with Diff Sent. ic1 15:56 Basic Metabolic Panel Sent. ic1 15:57 No provider procedures requiring assistance completed. Inserted saline lock: 20 gauge ic1 in right hand, using aseptic technique. Blood collected. 16:45 XRAY Chest (1 view) In Process Unspecified. EDMS 18:05 Sam Elise MD is Referral Physician. rn 18:26 IV discontinued, intact, bleeding controlled, No redness/swelling at site. Pressure ic1 dressing applied. Administered Medications: 15:55 Drug: Metoprolol 5 mg Route: IVP; Site: right hand; ic1 16:15 Dru grams of (Magnesium Sulfate 1 grams, NS 0.9% 100 ml) Route: IVPB; Infused Over: ic1 1 hrs; Site: right hand; 16:19 Drug: NS 0.9% 500 ml Route: IV; Rate: bolus; Site: right hand; ic1 Outcome: 18:05 Discharge ordered by . rn 18:26 Discharged to home ambulatory. ic1 18:26 Condition: stable 18:26 Discharge instructions given to patient, Instructed on discharge instructions, follow up and referral plans. Demonstrated understanding of instructions, follow-up care, medications. 18:27 Patient left the ED. ic1 Signatures: Dispatcher [employer] [facility] Violette Smith Roman, MD MD rn Prokisch, Amanda, RN RN ap3 Madison Fountain RN RN ic1
--- NOTE | 2021-12-04 18:06 | EDPHYS ---
Physician Documentation [facility] Name: Elis Mckinnon Age: 76 yrs Sex: Female : 1945 Arrival Date: 12/04/2021 Time: 15:17 Bed 4 Private MD: Sam Elise V ED Physician Jean Pierre Villareal HPI: 12/04 16:30 This 76 yrs old Female presents to ER via Ambulatory with complaints of Afib. rn 16:30 The patient presents with a history of irregular heart beat, heart racing. Onset: The rn symptoms/episode began/occurred 4 hour(s) ago. Duration: The patient or guardian reports a single episode, that is still ongoing. Modifying factors: The symptoms are aggravated by nothing. The symptoms are alleviated by nothing. Severity of symptoms: At their worst the symptoms were mild in the emergency department the symptoms are unchanged. The patient has experienced similar episodes in the past. The patient has been recently seen by a physician:. 16:30 Pt reports atrial fibrillation, fast heart rate for 4 hours, no fever. + chest pain. rn Has had this before when goes into afib. In past, comes in, gets medication, converts, and chest pain resolves. Denies recent illness. Is compliant with medication and anticoagulation.. Historical: - Allergies: 15:38 Codeine; ap3 15:38 [id number] Reductase Inhibitors; ap3 - Home Meds: 15:38 amiodarone 200 mg Oral tab [Active]; amlodipine oral [Active]; Aspirin Oral [Active]; ap3 Eliquis 5 mg Oral tab [Active]; ezetimibe 10 mg Oral tab [Active]; gabapentin 100 mg Oral tab [Active]; levothyroxine 88 mcg tab [Active]; losartan 100 mg Oral tab [Active]; metoprolol tartrate 25 mg Oral tab 1 tab [Active]; omeprazole 40 mg Oral cpDR [Active]; sotalol Oral [Active]; Spironolactone Oral [Active]; - PMHx: 15:38 Atrial fibrillation; Hypertensive disorder; Hypothyroidism; ap3 - PSHx: 15:38 Stented artery; ap3 - Immunization history:: Client reports receiving the 2nd dose of the Covid vaccine. - Social history:: Smoking status: Patient denies any tobacco usage or history of. Smoking status: . - Family history:: not pertinent. - Hospitalizations: : No recent hospitalization is reported. ROS: 16:30 Constitutional: Negative for fever, chills, and weight loss, Eyes: Negative for injury, rn pain, redness, and discharge, Neck: Negative for injury, pain, and swelling, Cardiovascular: + for palpitations Respiratory: Negative for shortness of breath, cough, wheezing, and pleuritic chest pain, Abdomen/GI: Negative for abdominal pain, nausea, vomiting, diarrhea, and constipation, Back: Negative for injury and pain, MS/Extremity: Negative for injury and deformity, Skin: Negative for injury, rash, and discoloration, Neuro: Negative for headache, weakness, numbness, tingling, and seizure. Exam: 16:30 Constitutional: This is a well developed, well nourished patient who is awake, alert, rn and in no acute distress. Head/Face: Normocephalic, atraumatic. Eyes: Periorbital areas with no swelling, redness, or edema. Cardiovascular: Tachycardic, irregular Respiratory: No increased work of breathing, no retractions or nasal flaring. Abdomen/GI: Soft, non-tender Skin: Warm, dry MS/ Extremity: Pulses equal, no cyanosis. Neuro: Awake and alert, GCS 15, oriented to person, place, time, and situation. Vital Signs: 15:37 BP 156 / 104; Pulse 151; Resp 19; Temp 97.6; Pulse Ox 99% on R/A; ap3 15:56 BP 124 / 85; Pulse 99; Resp 16; Pulse Ox 98% on R/A; ic1 16:19 BP 138 / 55; Pulse 73; Resp 16; Pulse Ox 96% ; ic1 18:02 BP 134 / 50; Pulse 78; Resp 16; Pulse Ox 97% on R/A; ic1 MDM: 15:31 Patient medically screened. rn 18:05 ED course: Repeat ECG shows back into sinus rhythm, feels much better, will dc home rn with continuation of medication. . 12/04 15:38 Order name: Basic Metabolic Panel; Complete Time: 16:26 rn 12/04 15:38 Order name: CBC with Diff; Complete Time: 16:26 rn 12/04 15:38 Order name: NT PRO-BNP; Complete Time: 16: rn 12/04 15:38 Order name: PT-INR; Complete Time: 16:26 rn 12/04 15:38 Order name: Troponin HS; Complete Time: 16:26 rn 12/04 15:38 Order name: XRAY Chest (1 view); Complete Time: 17:57 rn 12/04 15:38 Order name: Cardiac monitoring; Complete Time: 15:44 rn 12/04 15:38 Order name: EKG - Nurse/Tech; Complete Time: 15:43 rn 12/04 15:38 Order name: IV Saline Lock; Complete Time: 15:43 rn 12/04 15:38 Order name: Labs collected and sent; Complete Time: 15:56 rn 12/04 15:38 Order name: O2 Per Protocol; Complete Time: 15:43 rn 12/04 15:38 Order name: O2 Sat Monitoring; Complete Time: 15:43 rn Administered Medications: 15:55 Drug: Metoprolol 5 mg Route: IVP; Site: right hand; ic1 16:15 Dru grams of (Magnesium Sulfate 1 grams, NS 0.9% 100 ml) Route: IVPB; Infused Over: ic1 1 hrs; Site: right hand; 16:19 Drug: NS 0.9% 500 ml Route: IV; Rate: bolus; Site: right hand; ic1 Disposition Summary: 12/04/21 18:05 Discharge Ordered Location: Home rn Problem: an ongoing problem rn Symptoms: have improved rn Condition: Stable rn Diagnosis - Paroxysmal atrial fibrillation rn Followup: rn - With: Sam Elise MD - When: As needed - Reason: Recheck today's complaints, Re-evaluation by your physician Discharge Instructions: - Discharge Summary Sheet rn - Atrial Fibrillation rn Forms: - Medication Reconciliation Form rn - Thank You Letter rn - Antibiotic social media intern - Prescription Opioid Use rn Signatures: Dispatcher [employer] Jean Pierre Joseph MD MD rn Prokisch, Amanda, RN RN [id number] Madison Fountain RN RN ic1
[2021-12-04 18:47] VITALS: TEMP 97.6
[2021-12-04 18:51] VITALS: BP 134/50; O2SAT 97
== END 2021-12-04 18:27 | disposition home or self-care (01) ==
LOC: ER 15:12
DX: I48.0 Paroxysmal atrial fibrillation (principal); I10 Essential (primary) hypertension; E03.9 Hypothyroidism, unspecified
CPT/HCPCS: 93005 ×3; 85025; 80048; 36415; 85610; 84484; 83880; 71045; 96375; 96374; 99284; J3475; J7030

== ENCOUNTER 2023-07-24 19:38 | Emergency (ER) | payer OTHER ==
--- OUTSIDE RECORDS SUMMARY | 2023-07-24 19:46 | XMS REPORT | Continuity of Care Document ---
:1945 Author Organization [facility] t Address [address]. [address] [place] [address] Care Team Providers Name Role Phone OSMAR REYES Primary Care Physician UnavailJARET Omer Attending Clinician Unavailable Jaret Mei MD Attending Clinician Doctor Unassigned, [place] Attending Clinician Unavailable Only, Adc Test Attending Clinician Unavailable Pob, Adc Lab Main Attending Clinician Unavailable JARET MORLEY Attending Clinician Unavailable MICH NESS Attending Clinician Unavailable BART LOPEZ Attending Clinician Unavailable Nurse, Adc Pob Immunization Attending Clinician Unavailable Bart Lopez DO Attending Clinician DAVID VITAL Attending Clinician Unavailable YUVAL NARVAEZ Attending Clinician Unavailable Martin Epstein MD Attending Clinician MARTIN EPSTEIN Attending Clinician Unavailable Mich [place] Attending Clinician Benji Sotomayor Attending Clinician Ptaric Onofre II Attending Clinician JARET MEI Admitting Clinician Unavailable Jaret Mei MD Admitting Clinician JARET MORLEY Admitting Clinician Unavailable Payers Payer Name Policy Type Policy Number Effective Date Expiration Date S ource ANAMOSA [id number] 2021 HEALTHCARE 00:00:00 [facility] PPO UNITED MEDICARE [id number] 2020 HMO 00:00:00 [place] [id number] [facility] [place] [id number] [facility] [place] [id number] [facility] [place] [address] [id number] [facility] [place] [address] [id number] [facility] [place] [address] [id number] [facility] Problems Condition Condition Condition Status Onset Resolution Last Treating Co mments Source Name Details Category Date Date Treatment Clinician Date Carotid Carotid Disease Active 2020-[address] stenosis, stenosis, 1-15 [facility] right right 00:00: Medical 00 Center Right Right Disease Active 2020-[address] carotid carotid 1-15 [facility] artery artery 00:00: Medical occlusion occlusion 00 Cent er CORONARY CORONARY Diagnosis Active 2016-102017-08-25 Memoria ARTERY ARTERY 0- 11:23:00 l DISEASE, DISEASE, 00:00: [place] ABNORMAL ABNORMAL 00 NUCLEA NUCLEA Active 08/14/2017 [facility] 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 R92.2 - R92.2 - Diagnosis Active 2015-08-02 [facility]oria INCONCLUSI INCONCLUSI 07-05 09:36:00 l VE VE 00:01: [place] MAMMOGRAM MAMMOGRAM 00 Active 07/05/2015 [place] [id number] Primary Problem Active Comm on osteoarthr Spirit itis of - [facility] right knee [facility] ATHSCL ATHSCL Diagnosis Active 2017-08-25 Mn moria HEART HEART 11:23:00 l DISEASE OF DISEASE OF [place] CORONARY CORONARY Active [facility] ABNORMAL ABNORMAL Diagnosis Active 2017-08-25 Memoria RESULT OF RESULT OF 11:23:00 l OTHER OTHER [place] CARDIOVASC CARDIOVASC ULAR ULAR Active [facility] Hyperlipid Hyperlipi Problem Resolve 2017-08-24 Memoria emia demia d 01:11:42 l (disorder) (disorder) [place] Resolved Problem 08/24/2017 [facility] Hypertensi Hypertens Problem Resolve 2017-08-24 Memoria ve jonny d 01:11:42 l disorder, disorder, Herm vlad systemic systemic arterial arterial (disorder) (disorder) Resolved Problem 08/24/2017 [facility] Allergies, Adverse Reactions, Alerts Allergy Allergy Status Severity Reaction(s) Onset Inactive Treating Comm ents Source Name Type Date Date Clinician STATINS- Drug Active Other-Cmnt Univ ers HMG-COA Class 7- ity of REDUCTAS 00:00: [place] E 00 Medical INHIBITO Branch RS Statins- Propensi Active Other - See Severe U nivers Hmg-Coa ty to comments 04-19 leg ity of [place]uct[place] adverse 00:00: cramps [place] e reaction 00 Medical Inhibito s to Branch rs drug CODEINE DRUG Active Med Other-Cmnt Unive rs INGREDI 04-08 ity of 00:00: [place] 00 Medical Branch Codeine Propensi Active Other - See "makes me Univers ty to comments 04-08 crazy" ity of adverse 00:00: [place] reaction 00 Medical s to Branch drug CODEINE Allergy Active N\\T\\V 2020-[address] 1-12 [facility] 00[facility] Center OTHER Allergy Active Other 2020-[address] 1[facility]12 [facility] 00:[facility]: Medical 00 Center STATINS- Allergy Active Other 2020-[address] HMG-COA -12 [facility] REDUCTAS 00:00: Medical E 00 Center INHIBITO RS Codeine Propensi Active Nausea And 2020-10 "[facility] ty to Vomiting, -12 me [facility] adverse Other (See 00:00: crazy." Medi ksenia reaction Comments) 00 Cente r s Other Propensi Active Other (See 2020-[address] ty to Comments) 1-12 cause: [facility] adverse 00:00: Inner lip Medica l reaction 00 blisters Center s Statins- Propensi Active Other (See 2020-[address] Hmg-Coa ty to Comments) 1-12 pain [facility] [place] adverse 00:00: Medical e reaction 00 Center Inhibito s rs NO KNOWN Drug Active Univers ALLERGIE Class ity of S [facility] codeine codeine Active Unknown [facility] Social History Social Habit Start Date Stop Date Quantity Comments Source History of [facility] - Tobacco Use [facility] History SDOH [facility] Alcohol Std Medical Cente r Drinks History SDOH [facility] Alcohol Binge Medical [address] Exposure to 2022-04-26 2022-05-06 Not sure University of SARS-CoV-2 00:00:00 15:14:00 [facility] (event) Center Tobacco use and 2022-04-08 2022-04-08 Smokeless tobacco Un iversity of exposure 00:00:00 00:00:00 non-user [facility] Alcohol intake 2021-09-04 2021-09-[address] Fatou es 00:00:00 00:00:00 non-drinker Medical Cente r (finding) History SDOH 2021-08-31 2021-08-[address] [facility] Alcohol Frequency 00:00:00 00:00:00 [facility] Sex Assigned At [address] [facility] 00:00:00 00:00:00 [facility] Smoking Status Start Date Stop Date Source Unknown if ever smoked [facility] Former Smoker 2020-10-23 00:00:00 2020-10-23 00:00:00 [facility] Ce nter Social History [facility] Medications Ordered Filled Start Stop Current Ordering Indication Dosage Frequency Signature Comments Components Source Medication Medication Date Date Medication? Clinician (SIG) Name Name neomycin-po 2021- No PRN, Unive rs lymyxin-dex 05-08 Starting ity of amethasone 18:40: 18:50 on [place] (MAXITROL) 00 :31 05/08/22 at Med ical 3.5 1340, Branch mg/g-10,000 Until Fri unit/g-0.1 05/08/22 at % 1350, ophthalmic Routine, ointment Intra-op dexamethaso 2021- No PRN, Unive rs ne 05-08 Starting ity of (DECADRON 18:39: 18:50 on Fri [place] PHOSPHATE) 00 :31 05/08/22 at Med ical injection 1339, Branch Until Fri05/08/22 at 1350, Routine, Intra-op ceFAZolin 2021- No PRN, Univers (ANCEF) 05-08 Starting ity of injection 18:39: 18:50 on Wed [place] 00 :31 22 at Medical 1339, Branch Until 05/08/22 at 1350, PETRONA, Intra-op carbachoL 2021- No PRN, Univers (MIOSTAT) 05-08 Starting ity o f 0.01 % 18:39: 18:50 on Wed [place] intraocular 00 :31 22 at Mn dical injection 1339, Branch Until 05/08/22 at 1350, Routine, Intra-op chondroitin 2021- No PRN, Unive rs sulf-sod 05-08 Starting ity of hyaluronate 18:39: 18:50 on Wed Amandeep as (DUOVISC 00 :31 05/08/22 at Medic al VISCO 1339, Branch ELASTIC) Until Wed intraocular 05/08/22 at injection 1350, Routine, Intra-op sodium 2021- No PRN, Univers chloride 05-08 Starting ity of (NS) 18:37: 18:50 on Wed [place] injection 00 :31 22 at Medi ksenia 1337, Branch Until 05/08/22 at 1350, Routine, Intra-op EPINEPHrine 2021- No PRN, Unive rs 1:1,000 (1 05-08 Starting ity of mg/mL) 18:34: 18:50 on Wed [place] (ADRENALIN) 00 :31 22 at Mn dical injection 1334, Branch Until 05/08/22 at 1350, Routine, Intra-op balanced 2021- No PRN, Univers salt irrig 05-08 Starting ity of soln comb1 18:34: 18:50 on Wed [place] (BSS PLUS) 00 :31 05/08/22 at Med ical ophthalmic 1334, Branch solution Until Wed 500 mL bag 05/08/22 at 1350, Routine, Intra-op water for 2021- No PRN, Univers irrigation 05-08 Starting ity of irrigation 18:30: 18:50 on Wed [place] solution 00 :31 22 at Medic al 1330, Branch Until 05/08/22 at 1350, Routine, Intra-op Hyaluronida 2021- No PRN, Unive rs se, Human 05-08 Starting ity o f Recomb. 18:25: 18:50 on Fri [place] (HYLENEX) 00 :31 05/08/22 at [facility] ksenia injection 1325, Branch Until Fri05/08/22 at 1350, Routine, Intra-op eye block 2021- No PRN, Univers syringe 11 05-08 Starting ity of mL 18:25: 18:50 on Fri [place] 00 :31 05/08/22 at [facility] 1325, Branch Until Fri05/08/22 at 1350, Intra-op cyclopent 2021- No .5mL 0.5 mL, Univ ers 1%-tropic 05-08 Right Eye, ity of 1%-phenyl 17:00: 17:11 ONCE, 1 [place] 2.5%-ketor 00 :00 dose, On Medic al 0.5% Fri Branch (MYDRIATIC 05/08/22 at #5) 1200, ophthalmic Routine, solution DSU Pre-op syringe 0.5 mL lactated 2021- No 1000mL at 42 Unive rs ringers IV 7 07-20 mL/hr, ity of infusion 17:00: 17:12 1,000 mL, Amandeep as 1,000 mL 00 :00 IV Medical Infusion, Branch ONCE, 1 dose, On Fri05/08/22 at 1200, Routine, DSU Pre-op cyclopent 2021- No .5mL 0.5 mL, Univ ers 1%-tropic 05-08 Right Eye, ity of 1%-phenyl 17:00: 17:11 ONCE, 1 [place] 2.5%-ketor 00 :00 dose, On Medic al 0.5% Fri Branch (MYDRIATIC 05/08/22 at #5) 1200, ophthalmic Routine, solution DSU Pre-op syringe 0.5 mL lactated 2021- No 1000mL at 42 Unive rs ringers IV 7-20 07-20 mL/hr, ity of infusion 17:00: 17:12 1,000 mL, Amandeep as 1,000 mL 00 :00 IV Medical Infusion, Branch ONCE, 1 dose, On Fri05/08/22 at 1200, Routine, DSU Pre-op spironolact 0 Yes 50mg Take 50 mg Univers one 50 mg 7-20 by mouth ity of tablet 14:34: daily. [address] Branch apixaban 5 0 Yes 5mg Take 5 mg Un spencer mg tablet 7-20 by mouth 2 ity of 14:34: (two) [place] [address] times Medical daily. Branch ranolazine 0 Yes 500mg Take 500 Un spencer 500 mg 12 7-20 mg by ity of hr tablet 14:34: mouth 2 [place] 46 (two) Medical times Center daily. metoprolol 0 Yes 50mg Take 50 mg U nivers tartrate 50 7-20 by mouth 2 it y of mg tablet 14:34: (two) [place] [address] times Medical daily. Branch levothyroxi 0 Yes 88ug Take 88 Uni vers ne 88 mcg 7-20 mcg by ity of tablet 14:34: mouth [place] 46 every Medical morning. Branch omeprazole 0 Yes 40mg Take 40 mg U nivers 40 mg 7-20 by mouth ity of capsule 14:34: daily. [address] Branch ezetimibe 0 Yes 10mg Take 10 mg Un spencer 10 mg 7-20 by mouth ity of tablet 14:34: daily. [address] Branch gabapentin 0 Yes 100mg Take 100 Un spencer 100 mg 7-20 mg by ity of capsule 14:34: mouth [place] 46 daily. Medical Branch aspirin 81 2021-0 Yes 81mg Take 81 mg U nivers mg EC 7-20 by mouth ity of tablet 14:34: daily. [place] [address] Medical Branch Zinc 50 mg 2021-0 Yes 1{tbl} Take 1 Uni vers Tab 7-20 tablet by ity of 14:34: mouth 2 [place] 46 (two) Medical times Center daily. Cholecalcif 2021-0 Yes 1{tbl} Take 1 Un spencer sera, 7-20 tablet by ity of Vitamin D3, 14:34: mouth [place] 50 mcg 46 daily. Medical (2,000 Branch unit) tablet ascorbic 2021-0 Yes 500mg Take 500 Univ ers acid, 7-20 mg by ity of vitamin C, 14:34: mouth [place] 500 mg 46 daily. Medical tablet Branch glucosam/ch Yes 2{tbl} Take 2 Un spencer ondro/herb 7-20 tablets by ity of 149/hyal 14:34: mouth [place] (GLUCOS 46 daily. Medical CHOND CPLX Branch ADVANCED ORAL) CALCIUM Yes 630mg Take 630 Unive rs CITRATE 7-20 mg by ity of ORAL 14:34: mouth [place] 46 daily. Medical Branch L.acid/B.an Yes 1{capsu Take 1 U nivers imalis,bifi 7-20 le} capsule by it y of dum/FOS 14:34: mouth [place] (PROBIOTIC 46 daily. Medical COMPLEX Branch ORAL) [place]-3 Yes 2{capsu Take 2 Unive rs Fatty Acids 7-20 le} capsules ity of 1,000 mg 14:34: by mouth [place] Cap 46 daily. Medical Branch promethazin Yes 5mL Take 5 mL U nivers e-dextromet 7-20 by mouth 4 it y of horphan 14:34: (four) [place] 6.25-15 46 times Medical mg/5 mL daily as Branch syrup needed for Cough. cloNIDine Yes .1mg Take 0.1 Univ ers 0.1 mg 7-20 mg by ity of tablet 14:34: mouth as [place] 46 needed for Medical Other (HR Branch > 170). Flaxseed Yes 1{capsu Take 1 Univ ers Oil 1,000 7-20 le} capsule by ity of mg Cap 14:34: mouth [place] 46 daily. Medical Branch spironolact Yes 50mg Take 50 mg Univers one 50 mg 7-20 by mouth ity of tablet 14:34: daily. [place] 46 Medical Branch apixaban 5 0 Yes 5mg Take 5 mg Un spencer mg tablet 7-20 by mouth 2 ity of 14:34: (two) [place] 46 times Medical daily. Branch ranolazine Yes 500mg Take 500 Un spencer 500 mg 12 7-20 mg by ity of hr tablet 14:34: mouth 2 [place] 46 (two) Medical times Branch daily. metoprolol Yes 50mg Take 50 mg U nivers tartrate 50 7-20 by mouth 2 it y of mg tablet 14:34: (two) [place] 46 times Medical daily. Branch levothyroxi Yes 88ug Take 88 Uni vers ne 88 mcg 7-20 mcg by ity of tablet 14:34: mouth [place] 46 every Medical morning. Branch omeprazole 0 Yes 40mg Take 40 mg U nivers 40 mg 7-20 by mouth ity of capsule 14:34: daily. [place] [address] Medical Branch ezetimibe 0 Yes 10mg Take 10 mg Un spencer 10 mg 7-20 by mouth ity of tablet 14:34: daily. [place] [address] Medical Branch gabapentin 0 Yes 100mg Take 100 Un spencer 100 mg 7-20 mg by ity of capsule 14:34: mouth [place] 46 daily. Medical Branch aspirin 81 0 Yes 81mg Take 81 mg U nivers mg EC 7-20 by mouth ity of tablet 14:34: daily. [place] [address] Medical Branch Zinc 50 mg 0 Yes 1{tbl} Take 1 Uni vers Tab 7-20 tablet by ity of 14:34: mouth 2 [place] 46 (two) Medical times Branch daily. Cholecalcif Yes 1{tbl} Take 1 Un spencer sera, 7-20 tablet by ity of Vitamin D3, 14:34: mouth [place] 50 mcg 46 daily. Medical (2,000 Branch unit) tablet ascorbic Yes 500mg Take 500 Univ ers acid, 7-20 mg by ity of vitamin C, 14:34: mouth [place] 500 mg 46 daily. Medical tablet Branch glucosam/ch Yes 2{tbl} Take 2 Un spencer ondro/herb 7-20 tablets by ity of 149/hyal 14:34: mouth [place] (GLUCOS 46 daily. Medical CHOND CPLX Branch ADVANCED ORAL) CALCIUM Yes 630mg Take 630 Unive rs CITRATE 7-20 mg by ity of ORAL 14:34: mouth [place] 46 daily. Medical Branch L.acid/B.an Yes 1{capsu Take 1 U nivers imalis,bifi 7-20 le} capsule by it y of dum/FOS 14:34: mouth [place] (PROBIOTIC 46 daily. Medical COMPLEX Branch ORAL) [place]-3 Yes 2{capsu Take 2 Unive rs Fatty Acids 7-20 le} capsules ity of 1,000 mg 14:34: by mouth [place] Cap 46 daily. Medical Branch promethazin 0 Yes 5mL Take 5 mL U nivers e-dextromet 7-20 by mouth 4 it y of horphan 14:34: (four) [place] 6.25-15 46 times Medical mg/5 mL daily as Branch syrup needed for Cough. cloNIDine 0 Yes .1mg Take 0.1 Univ ers 0.1 mg 7-20 mg by ity of tablet 14:34: mouth as [place] 46 needed for Medical Other (HR Branch > 170). Flaxseed Yes 1{capsu Take 1 Univ ers Oil 1,000 7-20 le} capsule by ity of mg Cap 14:34: mouth [place] 46 daily. Medical Branch spironolact 0 Yes 50mg Take 50 mg Univers one 50 mg 7-20 by mouth ity of tablet 14:34: daily. [place] [address] Medical Branch apixaban 5 0 Yes 5mg Take 5 mg Un spencer mg tablet 7-20 by mouth 2 ity of 14:34: (two) [place] 46 times Medical daily. Branch ranolazine Yes 500mg Take 500 Un spencer 500 mg 12 7-20 mg by ity of hr tablet 14:34: mouth 2 [place] 46 (two) Medical times Branch daily. metoprolol 0 Yes 50mg Take 50 mg U nivers tartrate 50 7-20 by mouth 2 it y of mg tablet 14:34: (two) [place] 46 times Medical daily. Branch levothyroxi 0 Yes 88ug Take 88 Uni vers ne 88 mcg 7-20 mcg by ity of tablet 14:34: mouth [place] 46 every Medical morning. Branch omeprazole 0 Yes 40mg Take 40 mg U nivers 40 mg 7-20 by mouth ity of capsule 14:34: daily. [place] [address] Medical Branch ezetimibe 0 Yes 10mg Take 10 mg Un spencer 10 mg 7-20 by mouth ity of tablet 14:34: daily. [place] [address] Medical Branch gabapentin 0 Yes 100mg Take 100 Un spencer 100 mg 7-20 mg by ity of capsule 14:34: mouth [place] 46 daily. Medical Branch aspirin 81 0 Yes 81mg Take 81 mg U nivers mg EC 7-20 by mouth ity of tablet 14:34: daily. [place] 46 Medical Branch Zinc 50 mg Yes 1{tbl} Take 1 Uni vers Tab 7-20 tablet by ity of 14:34: mouth 2 [place] 46 (two) Medical times Branch daily. Cholecalcif Yes 1{tbl} Take 1 Un spencer sera, 7-20 tablet by ity of Vitamin D3, 14:34: mouth [place] 50 mcg 46 daily. Medical (2,000 Branch unit) tablet ascorbic Yes 500mg Take 500 Univ ers acid, 7-20 mg by ity of vitamin C, 14:34: mouth [place] 500 mg 46 daily. Medical tablet Branch glucosam/ch Yes 2{tbl} Take 2 Un spencer ondro/herb 7-20 tablets by ity of 149/hyal 14:34: mouth [place] (GLUCOS 46 daily. Medical CHOND CPLX Branch ADVANCED ORAL) CALCIUM Yes 630mg Take 630 Unive rs CITRATE 7-20 mg by ity of ORAL 14:34: mouth [place] 46 daily. Medical Branch L.acid/B.an Yes 1{capsu Take 1 U nivers imalis,bifi 7-20 le} capsule by it y of dum/FOS 14:34: mouth [place] (PROBIOTIC 46 daily. Medical COMPLEX Branch ORAL) [place]-3 Yes 2{capsu Take 2 Unive rs Fatty Acids 7-20 le} capsules ity of 1,000 mg 14:34: by mouth [place] Cap 46 daily. Medical Branch promethazin Yes 5mL Take 5 mL U nivers e-dextromet 7-20 by mouth 4 it y of horphan 14:34: (four) [place] 6.25-15 46 times Medical mg/5 mL daily as Branch syrup needed for Cough. cloNIDine Yes .1mg Take 0.1 Univ ers 0.1 mg 7-20 mg by ity of tablet 14:34: mouth as [place] 46 needed for Medical Other (HR Branch > 170). Flaxseed Yes 1{capsu Take 1 Univ ers Oil 1,000 7-20 le} capsule by ity of mg Cap 14:34: mouth [place] 46 daily. Medical Branch sodium 2021- No PRN, Univers chloride 04-24 Starting ity of (NS) 18:31: 21:20 on Fri [place] injection 00 :13 04/24/22 at Medic al 1331, Branch Until Fri04/24/22 at 1620, Routine, Intra-op neomycin-po 2021- No PRN, Unive rs lymyxin-dex 04-24 Starting ity of amethasone 18:31: 21:20 on Fri [place] (MAXITROL) 00 :13 04/24/22 at Medi ksenia 3.5 1331, Branch mg/g-10,000 Until Fri unit/g-0.1 04/24/22 at % 1620, ophthalmic Routine, ointment Intra-op dexamethaso 2021- No PRN, Unive rs ne 04-24 Starting ity of (DECADRON 18:31: 21:20 on Fri [place] PHOSPHATE) 00 :13 04/24/22 at Medi ksenia injection 1331, Branch Until Fri04/24/22 at 1620, Routine, Intra-op ceFAZolin 2021- No PRN, Univers (ANCEF) 04-24 Starting ity of injection 18:31: 21:20 on Fri [place] 00 :13 04/24/22 at Medical 1331, Branch Until Fri04/24/22 at 1620, PETRONA, Intra-op carbachoL 2021- No PRN, Univers (MIOSTAT) 04-24 Starting ity o f 0.01 % 18:30: 21:20 on Fri [place] intraocular 00 :13 04/24/22 at Med ical injection 1330, Branch Until Fri04/24/22 at 1620, Routine, Intra-op chondroitin 2021- No PRN, Unive rs sulf-sod 04-24 Starting ity of hyaluronate 18:21: 21:20 on Fri Amandeep as (DUOVISC 00 :13 04/24/22 at Medica l VISCO 1321, Branch ELASTIC) Until Fri intraocular 04/24/22 at injection 1620, Routine, Intra-op EPINEPHrine 2021- No PRN, Unive rs 1:1,000 (1 04-24 Starting ity of mg/mL) 18:20: 21:20 on Fri [place] (ADRENALIN) 00 :13 04/24/22 at Med ical injection 1320, Branch Until Fri04/24/22 at 1620, Routine, Intra-op balanced 2021- No PRN, Univers salt irrig 04-24 Starting ity of soln comb1 18:20: 21:20 on Fri [place] (BSS PLUS) 00 :13 04/24/22 at [facility] ophthalmic 1320, Branch solution Until Fri 500 mL bag 04/24/22 at 1620, Routine, Intra-op water for 2021- No PRN, Univers irrigation 04-24 Starting ity of irrigation 18:14: 21:20 on Fri [place] solution 00 :13 04/24/22 at Medica l 1314, Branch Until Fri04/24/22 at 1620, Routine, Intra-op Hyaluronida 2021- No PRN, Unive rs se, Human 04-24 Starting ity o f Recomb. 18:09: 21:20 on Fri (HYLENEX) 00 :13 04/24/22 at Medic al injection 1309, Branch Until Fri04/24/22 at 1620, Routine, Intra-op eye block 2021- No PRN, Univers syringe 11 04-24 Starting ity of mL 18:09: 21:20 on Fri 00 :13 04/24/22 at Medical 1309, Branch Until Fri04/24/22 at 1620, Intra-op lactated 2021- No 1000mL at 42 Unive rs ringers IV 04-24 mL/hr, ity of infusion 17:00: 16:56 1,000 mL, Amandeep as 1,000 mL 00 :00 IV Medical Infusion, Branch ONCE, 1 dose, On Fri04/24/22 at 1200, Routine, DSU Pre-op cyclopent 2021- No .5mL 0.5 mL, Univ ers 1%-tropic 04-24 Left Eye, ity of 1%-phenyl 17:00: 16:56 ONCE, 1 [place] 2.5%-ketor 00 :00 dose, On Medic al 0.5% Fri04/24/22 Branch (MYDRIATIC at 1200, #5) Routine, ophthalmic DSU Pre-op solution syringe 0.5 mL lactated 2021- No 1000mL at 42 Unive rs ringers IV 7 07-06 mL/hr, ity of infusion 17:00: 16:56 1,000 mL, Amandeep as 1,000 mL 00 :00 IV Medical Infusion, Branch ONCE, 1 dose, On Fri04/24/22 at 1200, Routine, DSU Pre-op cyclopent 2021- No .5mL 0.5 mL, Univ ers 1%-tropic 7 07-06 Left Eye, ity of 1%-phenyl 17:00: 16:56 ONCE, 1 [place] 2.5%-ketor 00 :00 dose, On Medic al 0.5% Fri04/24/22 Branch (MYDRIATIC at 1200, #5) Routine, ophthalmic DSU Pre-op solution syringe 0.5 mL spironolact Yes 50mg Take 50 mg Univers one 50 mg 7-06 by mouth ity of tablet 16:20: daily. [address] apixaban Yes 5mg Take 5 mg Univ ers (ELIQUIS) 5 7-06 by mouth 2 it y of mg tablet 16:20: (two) [place] [address] times Medical daily. Branch ranolazine Yes 500mg Take 500 Un spencer 500 mg 12 7-06 mg by ity of hr tablet 16:20: mouth 2 [place] 56 (two) Medical times Branch daily. metoprolol Yes 50mg Take 50 mg U nivers tartrate 50 7-06 by mouth 2 it y of mg tablet 16:20: (two) [place] [address] times Medical daily. Branch levothyroxi Yes 88ug Take 88 Uni vers ne (LEVO-T) 7-06 mcg by ity of 88 mcg 16:20: mouth [place] tablet 56 every Medical morning. Branch omeprazole Yes 40mg Take 40 mg U nivers 40 mg 7-06 by mouth ity of capsule 16:20: daily. [address] ezetimibe 0 Yes 10mg Take 10 mg Un spencer 10 mg 7-06 by mouth ity of tablet 16:20: daily. [place] 56 Medical Branch gabapentin 0 Yes 100mg Take 100 Un spencer 100 mg 7-06 mg by ity of capsule 16:20: mouth [place] 56 daily. Medical Branch aspirin 81 0 Yes 81mg Take 81 mg U nivers mg EC 7-06 by mouth ity of tablet 16:20: daily. [place] 56 Medical Branch Zinc 50 mg 0 Yes 1{tbl} Take 1 Uni vers Tab 7-06 tablet by ity of 16:20: mouth 2 [place] 56 (two) Medical times Branch daily. Cholecalcif Yes 1{tbl} Take 1 Un spencer sera, 7-06 tablet by ity of Vitamin D3, 16:20: mouth [place] (VITAMIN 56 daily. Medical D3) 50 mcg Branch (2,000 unit) tablet ascorbic Yes 500mg Take 500 Univ ers acid, 7-06 mg by ity of vitamin C, 16:20: mouth [place] (VITAMIN C) 56 daily. Medica l 500 mg Branch tablet glucosam/ch Yes 2{tbl} Take 2 Un spencer ondro/herb 7-06 tablets by ity of 149/hyal 16:20: mouth [place] (GLUCOS 56 daily. Medical CHOND CPLX Branch ADVANCED ORAL) CALCIUM Yes 630mg Take 630 Unive rs CITRATE 7-06 mg by ity of ORAL 16:20: mouth [place] 56 daily. Medical Branch L.acid/B.an Yes 1{capsu Take 1 U nivers imalis,bifi 7-06 le} capsule by it y of dum/FOS 16:20: mouth [place] (PROBIOTIC 56 daily. Medical COMPLEX Branch ORAL) [place]-3 Yes 2{capsu Take 2 Unive rs Fatty Acids 7-06 le} capsules ity of 1,000 mg 16:20: by mouth [place] Cap 56 daily. Medical Branch promethazin Yes 5mL Take 5 mL U nivers e-dextromet 7-06 by mouth 4 it y of horphan 16:20: (four) [place] 6.25-15 56 times Medical mg/5 mL daily as Branch syrup needed for Cough. cloNIDine Yes .1mg Take 0.1 Univ ers 0.1 mg 7-06 mg by ity of tablet 16:20: mouth as [place] needed for Medical Other (HR Branch > 170). Flaxseed 0 Yes 1{capsu Take 1 Univ ers Oil 1,000 7-06 le} capsule by ity of mg Cap 16:20: mouth [place] 56 daily. Medical Branch spironolact 0 Yes 50mg Take 50 mg Univers one 50 mg 7-06 by mouth ity of tablet 16:20: daily. [place] [address] Medical Branch apixaban 0 Yes 5mg Take 5 mg Univ ers (ELIQUIS) 5 7-06 by mouth 2 it y of mg tablet 16:20: (two) [place] [address] times Medical daily. Branch ranolazine 0 Yes 500mg Take 500 Un spencer 500 mg 12 7-06 mg by ity of hr tablet 16:20: mouth 2 [place] [address] (two) Medical times Branch daily. metoprolol 0 Yes 50mg Take 50 mg U nivers tartrate 50 7-06 by mouth 2 it y of mg tablet 16:20: (two) [place] [address] times Medical daily. Branch levothyroxi Yes 88ug Take 88 Uni vers ne (LEVO-T) 7-06 mcg by ity of 88 mcg 16:20: mouth [place] tablet 56 every Medical morning. Branch omeprazole 0 Yes 40mg Take 40 mg U nivers 40 mg 7-06 by mouth ity of capsule 16:20: daily. [place] [address] Medical Branch ezetimibe 0 Yes 10mg Take 10 mg Un spencer 10 mg 7-06 by mouth ity of tablet 16:20: daily. [place] [address] Medical Branch gabapentin 0 Yes 100mg Take 100 Un spencer 100 mg 7-06 mg by ity of capsule 16:20: mouth [place] 56 daily. Medical Branch aspirin 81 0 Yes 81mg Take 81 mg U nivers mg EC 7-06 by mouth ity of tablet 16:20: daily. [place] [address] Medical Branch Zinc 50 mg 2021-0 Yes 1{tbl} Take 1 Uni vers Tab 7-06 tablet by ity of 16:20: mouth 2 [place] [address] (two) Medical times Branch daily. Cholecalcif 2021-0 Yes 1{tbl} Take 1 Un spencer sera, 7-06 tablet by ity of Vitamin D3, 16:20: mouth [place] (VITAMIN 56 daily. Medical D3) 50 mcg Branch (2,000 unit) tablet ascorbic Yes 500mg Take 500 Univ ers acid, 7-06 mg by ity of vitamin C, 16:20: mouth [place] (VITAMIN C) 56 daily. Medica l 500 mg Branch tablet glucosam/ch Yes 2{tbl} Take 2 Un spencer ondro/herb 7-06 tablets by ity of 149/hyal 16:20: mouth [place] (GLUCOS 56 daily. Medical CHOND CPLX Branch ADVANCED ORAL) CALCIUM Yes 630mg Take 630 Unive rs CITRATE 7-06 mg by ity of ORAL 16:20: mouth [place] 56 daily. Medical Branch L.acid/B.an Yes 1{capsu Take 1 U nivers imalis,bifi 7-06 le} capsule by it y of dum/FOS 16:20: mouth [place] (PROBIOTIC 56 daily. Medical COMPLEX Branch ORAL) [place]-3 Yes 2{capsu Take 2 Unive rs Fatty Acids 7-06 le} capsules ity of 1,000 mg 16:20: by mouth [place] Cap 56 daily. Medical Branch promethazin Yes 5mL Take 5 mL U nivers e-dextromet 7-06 by mouth 4 it y of horphan 16:20: (four) [place] 6.25-15 56 times Medical mg/5 mL daily as Branch syrup needed for Cough. cloNIDine Yes .1mg Take 0.1 Univ ers 0.1 mg 7-06 mg by ity of tablet 16:20: mouth as [place] 56 needed for Medical Other (HR Branch > 170). Flaxseed Yes 1{capsu Take 1 Univ ers Oil 1,000 7-06 le} capsule by ity of mg Cap 16:20: mouth [place] 56 daily. Medical Branch spironolact Yes 50mg Take 50 mg [facility] one 50 mg 7-06 by mouth ity of tablet 16:20: daily. [place] 56 Medical Branch apixaban 0 Yes 5mg Take 5 mg Univ ers (ELIQUIS) 5 7-06 by mouth 2 it y of mg tablet 16:20: (two) [place] 56 times Medical daily. Branch ranolazine Yes 500mg Take 500 Un spencer 500 mg 12 7-06 mg by ity of hr tablet 16:20: mouth 2 [place] 56 (two) Medical times Branch daily. metoprolol 0 Yes 50mg Take 50 mg U nivers tartrate 50 7-06 by mouth 2 it y of mg tablet 16:20: (two) [place] [address] times Medical daily. Branch levothyroxi 0 Yes 88ug Take 88 Uni vers ne (LEVO-T) 7-06 mcg by ity of 88 mcg 16:20: mouth [place] tablet 56 every Medical morning. Branch omeprazole 0 Yes 40mg Take 40 mg U nivers 40 mg 7-06 by mouth ity of capsule 16:20: daily. [place] [address] Medical Branch ezetimibe 0 Yes 10mg Take 10 mg Un spencer 10 mg 7-06 by mouth ity of tablet 16:20: daily. [place] [address] Medical Branch gabapentin 0 Yes 100mg Take 100 Un spencer 100 mg 7-06 mg by ity of capsule 16:20: mouth [place] 56 daily. Medical Branch aspirin 81 0 Yes 81mg Take 81 mg U nivers mg EC 7-06 by mouth ity of tablet 16:20: daily. [place] [address] Medical Branch Zinc 50 mg 2021-0 Yes 1{tbl} Take 1 Uni vers Tab 7-06 tablet by ity of 16:20: mouth 2 [place] 56 (two) Medical times Center daily. Cholecalcif 0 Yes 1{tbl} Take 1 Un spencer sera, 7-06 tablet by ity of Vitamin D3, 16:20: mouth [place] (VITAMIN 56 daily. Medical D3) 50 mcg Branch (2,000 unit) tablet ascorbic 0 Yes 500mg Take 500 Univ ers acid, 7-06 mg by ity of vitamin C, 16:20: mouth [place] (VITAMIN C) 56 daily. Medica l 500 mg Branch tablet glucosam/ch 0 Yes 2{tbl} Take 2 Un spencer ondro/herb 7-06 tablets by ity of 149/hyal 16:20: mouth [place] (GLUCOS 56 daily. Medical CHOND CPLX Branch ADVANCED ORAL) CALCIUM 0 Yes 630mg Take 630 Unive rs CITRATE 7-06 mg by ity of ORAL 16:20: mouth [place] 56 daily. Medical Branch L.acid/B.an Yes 1{capsu Take 1 U nivers imalis,bifi 7-06 le} capsule by it y of dum/FOS 16:20: mouth [place] (PROBIOTIC 56 daily. Medical COMPLEX Branch ORAL) [place]-3 Yes 2{capsu Take 2 Unive rs Fatty Acids 7-06 le} capsules ity of 1,000 mg 16:20: by mouth [place] Cap 56 daily. Medical Branch promethazin Yes 5mL Take 5 mL U nivers e-dextromet 7-06 by mouth 4 it y of horphan 16:20: (four) [place] 6.25-15 56 times Medical mg/5 mL daily as Branch syrup needed for Cough. cloNIDine Yes .1mg Take 0.1 [facility] ers 0.1 mg 7-06 mg by ity of tablet 16:20: mouth as [place] 56 needed for Medical Other (HR Branch > 170). Flaxseed Yes 1{capsu Take 1 Univ ers Oil 1,000 7-06 le} capsule by ity of mg Cap 16:20: mouth [place] 56 daily. Medical Branch spironolact Yes 50mg Take 50 mg [facility] one 50 mg 7-06 by mouth ity of tablet 16:20: daily. [place] 56 Medical Branch apixaban 0 Yes 5mg Take 5 mg [facility] ers (ELIQUIS) 5 7-06 by mouth 2 it y of mg tablet 16:20: (two) [place] 56 times Medical daily. Branch ranolazine Yes 500mg Take 500 Un spencer 500 mg 12 7-06 mg by ity of hr tablet 16:20: mouth 2 [place] 56 (two) Medical times Branch daily. metoprolol Yes 50mg Take 50 mg U nivers tartrate 50 7-06 by mouth 2 it y of mg tablet 16:20: (two) [place] 56 times Medical daily. Branch levothyroxi Yes 88ug Take 88 Uni vers ne (LEVO-T) 7-06 mcg by ity of 88 mcg 16:20: mouth [place] tablet 56 every Medical morning. Branch omeprazole Yes 40mg Take 40 mg U nivers 40 mg 7-06 by mouth ity of capsule 16:20: daily. [place] 56 Medical Branch ezetimibe 0 Yes 10mg Take 10 mg Un spencer 10 mg 7-06 by mouth ity of tablet 16:20: daily. [place] 56 Medical Branch gabapentin 0 Yes 100mg Take 100 Un spencer 100 mg 7-06 mg by ity of capsule 16:20: mouth [place] 56 daily. Medical Branch aspirin 81 0 Yes 81mg Take 81 mg U nivers mg EC 7-06 by mouth ity of tablet 16:20: daily. [place] 56 Medical Branch Zinc 50 mg 0 Yes 1{tbl} Take 1 Uni vers Tab 7-06 tablet by ity of 16:20: mouth 2 [place] 56 (two) Medical times Branch daily. Cholecalcif Yes 1{tbl} Take 1 Un spencer sera, 7-06 tablet by ity of Vitamin D3, 16:20: mouth [place] (VITAMIN 56 daily. Medical D3) 50 mcg Branch (2,000 unit) tablet ascorbic Yes 500mg Take 500 Univ ers acid, 7-06 mg by ity of vitamin C, 16:20: mouth [place] (VITAMIN C) 56 daily. Medica l 500 mg Branch tablet glucosam/ch Yes 2{tbl} Take 2 Un spencer ondro/herb 7-06 tablets by ity of 149/hyal 16:20: mouth [place] (GLUCOS 56 daily. Medical CHOND CPLX Branch ADVANCED ORAL) CALCIUM Yes 630mg Take 630 Unive rs CITRATE 7-06 mg by ity of ORAL 16:20: mouth [place] 56 daily. Medical Branch L.acid/B.an Yes 1{capsu Take 1 U nivers imalis,bifi 7-06 le} capsule by it y of dum/FOS 16:20: mouth [place] (PROBIOTIC 56 daily. Medical COMPLEX Branch ORAL) [place]-3 Yes 2{capsu Take 2 Unive rs Fatty Acids 7-06 le} capsules ity of 1,000 mg 16:20: by mouth [place] Cap 56 daily. Medical Branch promethazin Yes 5mL Take 5 mL U nivers e-dextromet 7-06 by mouth 4 it y of horphan 16:20: (four) [place] 6.25-15 56 times Medical mg/5 mL daily as Branch syrup needed for Cough. cloNIDine 0 Yes .1mg Take 0.1 Univ ers 0.1 mg 7-06 mg by ity of tablet 16:20: mouth as [place] 56 needed for Medical Other (HR Branch > 170). Flaxseed 0 Yes 1{capsu Take 1 Univ ers Oil 1,000 7-06 le} capsule by ity of mg Cap 16:20: mouth [place] 56 daily. Medical Branch spironolact 0 Yes 50mg Take 50 mg [facility] one 50 mg 7-06 by mouth ity of tablet 16:20: daily. [place] [address] Medical Branch apixaban 0 Yes 5mg Take 5 mg Univ ers (ELIQUIS) 5 7-06 by mouth 2 it y of mg tablet 16:20: (two) [place] 56 times Medical daily. Branch ranolazine 0 Yes 500mg Take 500 Un spencer 500 mg 12 7-06 mg by ity of hr tablet 16:20: mouth 2 [place] 56 (two) Medical times Branch daily. metoprolol 0 Yes 50mg Take 50 mg U nivers tartrate 50 7-06 by mouth 2 it y of mg tablet 16:20: (two) [place] 56 times Medical daily. Branch levothyroxi 0 Yes 88ug Take 88 Uni vers ne (LEVO-T) 7-06 mcg by ity of 88 mcg 16:20: mouth [place] tablet 56 every Medical morning. Branch omeprazole 0 Yes 40mg Take 40 mg U nivers 40 mg 7-06 by mouth ity of capsule 16:20: daily. [place] [address] Medical Branch ezetimibe 0 Yes 10mg Take 10 mg Un spencer 10 mg 7-06 by mouth ity of tablet 16:20: daily. [place] [address] Medical Branch gabapentin 2021-0 Yes 100mg Take 100 Un spencer 100 mg 7-06 mg by ity of capsule 16:20: mouth [place] 56 daily. Medical Branch aspirin 81 2021-0 Yes 81mg Take 81 mg U nivers mg EC 7-06 by mouth ity of tablet 16:20: daily. [place] [address] Medical Branch Zinc 50 mg 2021-0 Yes 1{tbl} Take 1 Uni vers Tab 7-06 tablet by ity of 16:20: mouth 2 [place] 56 (two) Medical times Branch daily. Cholecalcif Yes 1{tbl} Take 1 Un spencer sera, 7-06 tablet by ity of Vitamin D3, 16:20: mouth [place] (VITAMIN 56 daily. Medical D3) 50 mcg Branch (2,000 unit) tablet ascorbic Yes 500mg Take 500 Univ ers acid, 7-06 mg by ity of vitamin C, 16:20: mouth [place] (VITAMIN C) 56 daily. Medica l 500 mg Branch tablet glucosam/ch Yes 2{tbl} Take 2 Un spencer ondro/herb 7-06 tablets by ity of 149/hyal 16:20: mouth [place] (GLUCOS 56 daily. Medical CHOND CPLX Branch ADVANCED ORAL) CALCIUM Yes 630mg Take 630 Unive rs CITRATE 7-06 mg by ity of ORAL 16:20: mouth [place] 56 daily. Medical Branch L.acid/B.an Yes 1{capsu Take 1 U nivers imalis,bifi 7-06 le} capsule by it y of dum/FOS 16:20: mouth [place] (PROBIOTIC 56 daily. Medical COMPLEX Branch ORAL) [place]-3 Yes 2{capsu Take 2 Unive rs Fatty Acids 7-06 le} capsules ity of 1,000 mg 16:20: by mouth [place] Cap 56 daily. Medical Branch promethazin Yes 5mL Take 5 mL U nivers e-dextromet 7-06 by mouth 4 it y of horphan 16:20: (four) [place] 6.25-15 56 times Medical mg/5 mL daily as Branch syrup needed for Cough. cloNIDine Yes .1mg Take 0.1 Univ ers 0.1 mg 7-06 mg by ity of tablet 16:20: mouth as [place] 56 needed for Medical Other (HR Branch > 170). Flaxseed Yes 1{capsu Take 1 Univ ers Oil 1,000 7-06 le} capsule by ity of mg Cap 16:20: mouth [place] 56 daily. Medical Branch Flaxseed Yes 1{capsu Take 1 Univ ers Oil 1,000 7-01 le} capsule by ity of mg Cap 09:41: mouth [place] 44 daily. Medical Branch spironolact 0 Yes 50mg Take 50 mg [facility] one 50 mg 7-01 by mouth ity of tablet 09:40: daily. [address] Branch apixaban 0 Yes 5mg Take 5 mg Univ ers (ELIQUIS) 5 7-01 by mouth 2 it y of mg tablet 09:40: (two) [place] 50 times Medical daily. Branch ranolazine 2021-0 Yes 500mg Take 500 Un spencer 500 mg 12 7-01 mg by ity of hr tablet 09:40: mouth 2 [place] 50 (two) Medical times Center daily. metoprolol 2021-0 Yes 50mg Take 50 mg U nivers tartrate 50 7-01 by mouth 2 it y of mg tablet 09:40: (two) [place] 50 times Medical daily. Branch levothyroxi 0 Yes 88ug Take 88 Uni vers ne (LEVO-T) 7- mcg by ity of 88 mcg 09:40: mouth [place] tablet 50 every Medical morning. Branch omeprazole 2021-0 Yes 40mg Take 40 mg U nivers 40 mg 7-01 by mouth ity of capsule 09:40: daily. [address] Branch ezetimibe 2021-0 Yes 10mg Take 10 mg Un spencer 10 mg 7-01 by mouth ity of tablet 09:40: daily. [address] gabapentin 2021-0 Yes 100mg Take 100 Un spencer 100 mg 7-01 mg by ity of capsule 09:40: mouth [place] 50 daily. Medical Branch aspirin 81 2021-0 Yes 81mg Take 81 mg U nivers mg EC 7- by mouth ity of tablet 09:40: daily. [address] Zinc 50 mg 2021-0 Yes 1{tbl} Take 1 Uni vers Tab 7-01 tablet by ity of 09:40: mouth 2 [place] 50 (two) Medical times Center daily. Cholecalcif 2021-0 Yes 1{tbl} Take 1 Un spencer sera, 7-01 tablet by ity of Vitamin D3, 09:40: mouth [place] (VITAMIN 50 daily. Medical D3) 50 mcg Branch (2,000 unit) tablet ascorbic 2021-0 Yes 500mg Take 500 Univ ers acid, 7-01 mg by ity of vitamin C, 09:40: mouth [place] (VITAMIN C) 50 daily. Medica l 500 mg Branch tablet glucosam/ch Yes 2{tbl} Take 2 Un spencer ondro/herb 7-01 tablets by ity of 149/hyal 09:40: mouth [place] (GLUCOS 50 daily. Medical CHOND CPLX Branch ADVANCED ORAL) CALCIUM Yes 630mg Take 630 Unive rs CITRATE 7-01 mg by ity of ORAL 09:40: mouth [place] 50 daily. Medical Branch L.acid/B.an Yes 1{capsu Take 1 U nivers imalis,bifi 7-01 le} capsule by it y of dum/FOS 09:40: mouth [place] (PROBIOTIC 50 daily. Medical COMPLEX Branch ORAL) [place]-3 Yes 2{capsu Take 2 Unive rs Fatty Acids 7-01 le} capsules ity of 1,000 mg 09:40: by mouth [place] Cap 50 daily. Medical Branch promethazin Yes 5mL Take 5 mL U nivers e-dextromet 7-01 by mouth 4 it y of horphan 09:40: (four) [place] 6.25-15 50 times Medical mg/5 mL daily as Branch syrup needed for Cough. cloNIDine Yes .1mg Take 0.1 Univ ers 0.1 mg 7-01 mg by ity of tablet 09:40: mouth as [place] 50 needed for Medical Other (HR Branch > 170). Zinc 50 mg Yes 1{tbl} Take 1 Uni vers Tab 6-20 tablet by ity of 16:31: mouth 2 [place] 28 (two) Medical times Branch daily. Cholecalcif Yes 1{tbl} Take 1 Un spencer sera, 6-20 tablet by ity of Vitamin D3, 16:31: mouth [place] (VITAMIN 28 daily. Medical D3) 50 mcg Branch (2,000 unit) tablet ascorbic Yes 500mg Take 500 Univ ers acid, 6-20 mg by ity of vitamin C, 16:31: mouth [place] (VITAMIN C) 28 daily. Medica l 500 mg Branch tablet glucosam/ch Yes 1{tbl} Take 1 Un spencer ondro/herb 6-20 tablet by ity of 149/hyal 16:31: mouth [place] (GLUCOS 28 daily. Medical CHOND CPLX Branch ADVANCED ORAL) CALCIUM Yes 630mg Take 630 Unive rs CITRATE 6-20 mg by ity of ORAL 16:31: mouth [place] 28 daily. Medical Branch L.acid/B.an Yes 1{capsu Take 1 U nivers imalis,bifi 6-20 le} capsule by it y of dum/FOS 16:31: mouth [place] (PROBIOTIC 28 daily. Medical COMPLEX Branch ORAL) [place]-3 Yes 2{capsu Take 2 Unive rs Fatty Acids 6-20 le} capsules ity of 1,000 mg 16:31: by mouth [place] Cap 28 daily. Medical Branch promethazin Yes 5mL Take 5 mL U nivers e-dextromet 6-20 by mouth 4 it y of horphan 16:31: (four) [place] 6.25-15 28 times Medical mg/5 mL daily as Branch syrup needed for Cough. cloNIDine Yes .1mg Take 0.1 Univ ers 0.1 mg 6-20 mg by ity of tablet 16:31: mouth as [place] 28 needed for Medical Other (HR Branch > 170). apixaban Yes 5mg Take 5 mg Univ ers (ELIQUIS) 5 6-20 by mouth 2 it y of mg tablet 16:31: (two) [place] 28 times Medical daily. Branch ranolazine Yes 500mg Take 500 Un spencer 500 mg 12 6-20 mg by ity of hr tablet 16:31: mouth 2 [place] 28 (two) Medical times Branch daily. metoprolol Yes 50mg Take 50 mg U nivers tartrate 50 6-20 by mouth 2 it y of mg tablet 16:31: (two) [place] 28 times Medical daily. Branch levothyroxi Yes 88ug Take 88 Uni vers ne (LEVO-T) 6-20 mcg by ity of 88 mcg 16:31: mouth [place] tablet 28 every Medical morning. Branch omeprazole Yes 40mg Take 40 mg U nivers 40 mg 6-20 by mouth ity of capsule 16:31: daily. Medical Branch ezetimibe Yes 10mg Take 10 mg Un spencer 10 mg 6-20 by mouth ity of tablet 16:31: daily. Medical Branch gabapentin 2022-0 Yes 100mg Take 100 Un spencer 100 mg 6-20 mg by ity of capsule 16:31: mouth [place] 28 daily. Medical Branch aspirin 81 0 Yes 81mg Take 81 mg U nivers mg EC 6-20 by mouth ity of tablet 16:31: daily. [place] 28 Medical Branch Zinc 50 mg 0 Yes 1{tbl} Take 1 Uni vers Tab 6-20 tablet by ity of 16:31: mouth 2 [place] 28 (two) Medical times Branch daily. Cholecalcif 0 Yes 1{tbl} Take 1 Un spencer sera, 6-20 tablet by ity of Vitamin D3, 16:31: mouth [place] (VITAMIN 28 daily. Medical D3) 50 mcg Branch (2,000 unit) tablet ascorbic Yes 500mg Take 500 Univ ers acid, 6-20 mg by ity of vitamin C, 16:31: mouth [place] (VITAMIN C) 28 daily. Medica l 500 mg Branch tablet glucosam/ch Yes 1{tbl} Take 1 Un spencer ondro/herb 6-20 tablet by ity of 149/hyal 16:31: mouth [place] (GLUCOS 28 daily. Medical CHOND CPLX Branch ADVANCED ORAL) CALCIUM Yes 630mg Take 630 Unive rs CITRATE 6-20 mg by ity of ORAL 16:31: mouth [place] 28 daily. Medical Branch L.acid/B.an Yes 1{capsu Take 1 U nivers imalis,bifi 6-20 le} capsule by it y of dum/FOS 16:31: mouth [place] (PROBIOTIC 28 daily. Medical COMPLEX Branch ORAL) [place]-3 Yes 2{capsu Take 2 Unive rs Fatty Acids 6-20 le} capsules ity of 1,000 mg 16:31: by mouth [place] Cap 28 daily. Medical Branch promethazin Yes 5mL Take 5 mL U nivers e-dextromet 6-20 by mouth 4 it y of horphan 16:31: (four) [place] 6.25-15 28 times Medical mg/5 mL daily as Branch syrup needed for Cough. cloNIDine Yes .1mg Take 0.1 Univ ers 0.1 mg 6-20 mg by ity of tablet 16:31: mouth as [place] 28 needed for Medical Other (HR Branch > 170). apixaban Yes 5mg Take 5 mg Univ ers (ELIQUIS) 5 6-20 by mouth 2 it y of mg tablet 16:31: (two) [place] [address] times Medical daily. Branch ranolazine Yes 500mg Take 500 Un spencer 500 mg 12 6-20 mg by ity of hr tablet 16:31: mouth 2 [place] 28 (two) Medical times Branch daily. metoprolol 0 Yes 50mg Take 50 mg U nivers tartrate 50 6-20 by mouth 2 it y of mg tablet 16:31: (two) [place] [address] times Medical daily. Branch levothyroxi Yes 88ug Take 88 Uni vers ne (LEVO-T) 6-20 mcg by ity of 88 mcg 16:31: mouth [place] tablet 28 every Medical morning. Branch omeprazole Yes 40mg Take 40 mg U nivers 40 mg 6-20 by mouth ity of capsule 16:31: daily. [address] Branch ezetimibe Yes 10mg Take 10 mg Un spencer 10 mg 6-20 by mouth ity of tablet 16:31: daily. [address] Branch gabapentin Yes 100mg Take 100 Un spencer 100 mg 6-20 mg by ity of capsule 16:31: mouth [place] [address] daily. Medical Branch aspirin 81 0 Yes 81mg Take 81 mg U nivers mg EC 6-20 by mouth ity of tablet 16:31: daily. [address] spironolact Yes 50mg Take 50 mg [facility] one 50 mg 6-20 by mouth ity of tablet 16:31: daily. [address] spironolact Yes 50mg Take 50 mg [facility] one 50 mg 6-20 by mouth ity of tablet 16:31: daily. [address] ezetimibe 2020-10 Yes 10mg QD Take [address] [facility] (Zetia) 10 1-18 by mouth [facility] tablet 13:36: daily. Medica l 48 [facility] levothyroxi 2020-10 Yes 88ug Take [address] [facility] ne 1-18 mcg by [facility] (SYNTHROID, 13:36: mouth Medic al LEVOTHROID) 48 Every Center 88 MCG morning on tablet an empty stomach. omeprazole 2020-10 Yes 40mg QD Take [address] [facility] (PriLOSEC) 1-18 by mouth [facility] 40 MG 13:36: daily. Medical capsule 48 Center gabapentin 2020-10 Yes 100mg Q.5D Take [address] [facility] (NEURONTIN) 1-18 mg by [facility] 100 MG 13:36: mouth 2 Medical capsule 48 (two) Center times daily. glucosamine 2020-10 Yes 1{tbl} Q.5D Take [address] [facility] -chondroiti 1-18 tablet by [facility] n 500-400 13:36: mouth 2 Medic al mg tablet 48 (two) Center times daily. flaxseed 2020-10 Yes 1{capsu QD Take [address] [facility] oiL 1,000 1-18 le} capsule by [facility] mg Cap 13:36: mouth Medical 48 daily. [place] calcium 2020-10 Yes 1{tbl} QD Take [address] [facility] carb and 1-18 tablet by [facility] citrate-vit 13:36: mouth Medic al D3 600 48 daily. [place] mg-12.5 mcg (500 unit) TbER omega-3 2020-10 Yes 2g QD Take [address] [facility] fatty acids 1-18 by mouth [facility] (Super 13:36: daily. Medical [place]-3) 48 [place] 1,000 mg Cap aspirin 81 2020-10 Yes 81mg QD Take [address] MG EC 1-18 by mouth [facility] tablet 13:36: daily. Medical 48 Center hypertonic 2020-10 Yes 1[drp] QD Place [address] [facility] [address] [facility] ophthalmic 1-18 drop into [facility] solution 13:36: both eyes Medi ksenia (Elijah 128) 48 nightly. Cente r 5 % ophthalmic solution nicotine, 2020-10 Yes 2mg Take [address] [facility] polacrilex, 1-18 by mouth [facility] (NICORETTE) 13:36: as needed M edical 2 mg gum 48 for Center Smoking cessation. apixaban 2020-10 Yes 5mg Q.5D Take [address] [facility] (ELIQUIS) 5 1-18 tablet (5 [facility] mg Tab 00:00: mg total) Medica l tablet 00 by mouth 2 Center (two) times daily. amiodarone 2020-10- No 200mg Q.5D Take [address] [facility] (PACERONE) 1-18 11-18 tablet [facility] 200 MG 00:00: 23:59 (200 mg Medical tablet 00 :00 total) by Center mouth 2 (two) times daily. metoprolol 2020-10- No 25mg Q.5D Take [address] [facility] tartrate 11-06 tablet (25 [facility] (LOPRESSOR) 00:00: 23:59 mg total) Medical 25 MG 00 :00 by mouth 2 Center tablet (two) times daily. MELOXICAM 2019-0 Yes [id number] TAKE 1 Un spencer 7.5 mg 8-20 TABLET BY ity of tablet 00:00: MOUTH ONCE [place] 00 DAILY Medical BEFORE A Branch MEAL FOR 30 DAYS meloxicam 2019-0 Yes 7.5mg Take 1 Unive rs (MOBIC) 7.5 8-20 tablet by ity of mg tablet 00:00: mouth [place] 00 daily Medical before a Branch meal. MELOXICAM 2019-0 Yes [id number] TAKE 1 Un spencer 7.5 mg 8-20 TABLET BY ity of tablet 00:00: MOUTH ONCE [place] 00 DAILY Medical BEFORE A Branch MEAL FOR 30 DAYS meloxicam 2019-0 Yes 7.5mg Take 1 Unive rs (MOBIC) 7.5 8-20 tablet by ity of mg tablet 00:00: mouth [place] 00 daily Medical before a Branch meal. MELOXICAM 2019-0 Yes [id number] TAKE 1 Un spencer 7.5 mg 8-20 TABLET BY ity of tablet 00:00: MOUTH ONCE [place] 00 DAILY Medical BEFORE A Branch MEAL FOR 30 DAYS meloxicam 2019-0 Yes 7.5mg Take 1 Unive rs (MOBIC) 7.5 8-20 tablet by ity of mg tablet 00:00: mouth [place] 00 daily Medical before a Branch meal. MELOXICAM 2020-0 Yes [id number] TAKE 1 Un spencer 7.5 mg 8-20 TABLET BY ity of tablet 00:00: MOUTH ONCE [place] 00 DAILY Medical BEFORE A Branch MEAL FOR 30 DAYS meloxicam 2020-0 Yes 7.5mg Take 1 Unive rs (MOBIC) 7.5 8-20 tablet by ity of mg tablet 00:00: mouth [place] 00 daily Medical before a Branch meal. MELOXICAM 2020-0 Yes [id number] TAKE 1 Un spencer 7.5 mg 8-20 TABLET BY ity of tablet 00:00: MOUTH ONCE [place] 00 DAILY Medical BEFORE A Branch MEAL FOR 30 DAYS meloxicam 2020-0 Yes 7.5mg Take 1 Unive rs (MOBIC) 7.5 8-20 tablet by ity of mg tablet 00:00: mouth 00 daily Medical before a Branch meal. MELOXICAM 2020-0 Yes [id number] TAKE 1 Un spencer 7.5 mg 8-20 TABLET BY ity of tablet 00:00: MOUTH ONCE 00 DAILY Medical BEFORE A Branch MEAL FOR 30 DAYS meloxicam 2020-0 Yes 7.5mg Take 1 Unive rs (MOBIC) 7.5 8-20 tablet by ity of mg tablet 00:00: mouth 00 daily Medical before a Branch meal. MELOXICAM 2020-0 Yes [id number] TAKE 1 [facility] spencer 7.5 mg 8-20 TABLET BY ity of tablet 00:00: MOUTH ONCE 00 DAILY Medical BEFORE A Branch MEAL FOR 30 DAYS meloxicam 2020-0 Yes 7.5mg Take 1 Unive rs (MOBIC) 7.5 8-20 tablet by ity of mg tablet 00:00: mouth 00 daily Medical before a Branch meal. MELOXICAM 2020-0 Yes [id number] TAKE 1 [facility] spencer 7.5 mg 8-20 TABLET BY ity of tablet 00:00: MOUTH ONCE 00 DAILY Medical BEFORE A Branch MEAL FOR 30 DAYS meloxicam 2020-0 Yes 7.5mg Take 1 Unive rs (MOBIC) 7.5 8-20 tablet by ity of mg tablet 00:00: mouth 00 daily Medical before a Branch meal. MELOXICAM 2020-0 Yes [id number] TAKE 1 [facility]encer 7.5 mg 8-20 TABLET BY ity of tablet 00:00: MOUTH ONCE 00 DAILY Medical BEFORE A Branch MEAL FOR 30 DAYS meloxicam 2020-0 Yes 7.5mg Take 1 [facility]ive rs (MOBIC) 7.5 8-20 tablet by ity of mg tablet 00:00: mouth 00 daily Medical before a Branch meal. MELOXICAM 2020-0 Yes [id number] TAKE 1 [facility] spencer 7.5 mg 8-20 TABLET BY ity of tablet 00:00: MOUTH ONCE 00 DAILY Medical BEFORE A Branch MEAL FOR 30 DAYS meloxicam 2020-0 Yes 7.5mg Take 1 [facility]ive rs (MOBIC) 7.5 8-20 tablet by ity of mg tablet 00:00: mouth [place] 00 daily Medical before a Branch meal. meloxicam 2020-0 Yes 7.5mg Take 1 [facility]ive rs (MOBIC) 7.5 8-20 tablet by ity of mg tablet 00:00: mouth [place] 00 daily Medical before a Branch meal. MELOXICAM 2020-0 Yes [id number] TAKE 1 [facility] spencer 7.5 mg 8-20 TABLET BY ity of tablet 00:00: MOUTH ONCE [place] 00 DAILY Medical BEFORE A Branch MEAL FOR 30 DAYS MELOXICAM 2020-0 Yes [id number] TAKE 1 [facility] spencer 7.5 mg 8-20 TABLET BY ity of tablet 00:00: MOUTH ONCE [place] 00 DAILY Medical BEFORE A Branch MEAL FOR 30 DAYS MELOXICAM 2020-0 Yes [id number] TAKE 1 [facility] spencer 7.5 mg 8-20 TABLET BY ity of tablet 00:00: MOUTH ONCE [place] 00 DAILY Medical BEFORE A Branch MEAL FOR 30 DAYS meloxicam 2020-0 Yes 7.5mg Take 1 [facility]ive rs (MOBIC) 7.5 8-20 tablet by ity of mg tablet 00:00: mouth [place] 00 daily Medical before a Branch meal. meloxicam 2020-0 Yes 7.5mg Take 1 Unive [...] 7.5mg Take 1 [facility] ers (MOBIC) 7.5 05-11 tablet by it y of mg tablet 00:00: 04:59 mouth [place] 00 :00 daily Medical before a Branch meal for 30 days. meloxicam 2019- No 7.5mg Take 1 [facility] (MOBIC) 7.5 05-11 tablet by it y of mg tablet 00:00: 04:59 mouth [place] 00 :00 daily Medical before a Branch meal for 30 days. meloxicam 2019- No 7.5mg Take 1 [facility] (MOBIC) 7.5 05-11 tablet by it y of mg tablet 00:00: 00:00 mouth [place] 00 :00 daily Medical before a Branch meal for 30 days. acetaminoph 2016-10 No Notes: Do M [place] en-codeine 10-20 not exceed l #3 20:26: 4gm/day of acetaminop hen. (Same as: Tylenol with Codeine # 3) ondansetron 2016-10 No Notes: Erick dayanna 10-20 (Same as: l 20:26: Zofran) MEDICATION WASTE Product Size: 4 mg Product Wasted: ___ mg acetaminoph 2016-10 No Notes: Do M [facility] en 10-20 not exceed l 20:26: 4 gm/day. [place] (Same as: Tylenol) valsartan 2016-10 Yes 160 mg = 1 Me moria 160 mg oral 10-20 tab, PO, l tablet 17:52: Daily, 0 [place] Refill(s) metoprolol 2016-10 Yes 25 mg = 1 Me moria tartrate 25 10-20 tab, PO, l mg oral 17:52: BID, 0 [place] 00 Refill(s) ezetimibe 2016-10 Yes 10 mg = 1 Mem oria 10 mg oral 10-20 tab, PO, l tablet 17:52: Daily, 0 Chandan Refill(s) gabapentin 2016-10 Yes 300 mg = 3 M emoria 100 mg oral 10-20 cap, PO, l capsule 17:52: TID, 0 Refill(s) aspirin 2016-10 Yes 81 mg, PO, Erick dayanna 10-20 Daily, 0 l 17:52: Refill(s) omeprazole 2016-10 Yes 20 mg, PO, M emoria 10-20 Daily, 0 l 17:52: Refill(s) hydrochloro 2016-10 Yes 12.5 mg, Me moria thiazide 10-20 PO, Daily, l 17:52: 0 [place] 00 Refill(s) Synthroid 2016-10 Yes 75 Memoria 75 mcg 10-20 microgram l (0.075 mg) 17:52: = 1 tab, Her andres oral tablet 00 PO, Daily, 0 Refill(s) Sodium 2016-10 No 250 mL, Memoria Chloride 10-20 250 ml/hr, l 0.9% 17:00: Infuse Chandan (Bolus) IV 00 Over: 1 hr, Route: IV, 250, Drug form: INJ, ONCALL, Priority: Routine, Dosing Weight 90.938 kg, Start date: 08/20/17 12:00:00 CDT, Duration: 1 doses or times sodium 2016-10 No 1,000 mL, Memori a chloride 10-20 Rate: 75 l 0.9% 1000 16:40: ml/hr, Heber n ml INJ 00 Infuse 1,000 mL over: 13.3 hr, Route: IV, Dosing Weight 90.938 kg, Total Volume: 1,000, Start date: 08/20/17 11:40:00 CDT, Duration: 30 day, Stop date: 09/19/17 11:39:00 ROTOPRINTER AZO AZO No AZO Cranberry Cranberry Cranberry Urinary Urinary Urinary Tract Tract Tract Azithromyci Azithromyci No Azithromyc n n in Synthroid Synthroid No Synthroid Azithromyci Azithromyci No Azithromyc n n in Gabapentin Gabapentin No Gabapentin Neomycin-Po Neomycin-Po No Neomycin-P lymyxin-Dex lymyxin-Dex olymyxin-D ameth ameth exameth Glucosamine Glucosamine No Glucosamin e [place] 3-6-9 [place] 3-6-9 No [place] Fatty Acids Fatty Acids 3-6-9 Fatty Acids B12 Folate B12 Folate No B12 Folate Naltrexone Naltrexone No Naltrexone Flax Seed Flax Seed No Flax Seed Oil Oil Oil Gabapentin Gabapentin No Gabapentin Doxycycline Doxycycline No Doxycyclin Monohydrate Monohydrate e Monohydrat e Metoprolol Metoprolol No Metoprolol Succinate Succinate Succinate ER ER ER Doxycycline Doxycycline No Doxycyclin Monohydrate Monohydrate e Monohydrat e Flax Seed Flax Seed No Flax Seed Oil Oil Oil Aspir-81 Aspir-81 No Aspir-81 Vitamin D Vitamin D No Vitamin D [place] 3-6-9 [place] 3-6-9 No [place] Fatty Acids Fatty Acids 3-6-9 Fatty Acids Neomycin-Po Neomycin-Po No Neomycin-P lymyxin-Dex lymyxin-Dex olymyxin-D ameth ameth exameth Magnesium Magnesium No Magnesium Ezetimibe Ezetimibe No Ezetimibe Metoprolol Metoprolol No Metoprolol Succinate Succinate Succinate ER ER ER Losartan Losartan No Losartan Potassium Potassium Potassium B12 Folate B12 Folate No B12 Folate Gabapentin Gabapentin No Gabapentin Omeprazole Omeprazole No Omeprazole Azithromyci Azithromyci No Azithromyc n n in Naltrexone Naltrexone No Naltrexone Hydrochloro Hydrochloro No Hydrochlor thiazide thiazide othiazide Glucosamine Glucosamine No Glucosamin e Meloxicam Meloxicam No Meloxicam Synthroid Synthroid No Synthroid Meloxicam Meloxicam No Meloxicam Calcium Calcium No Calcium AZO AZO No AZO Cranberry Cranberry Cranberry Urinary Urinary Urinary Tract Tract Tract Synthroid Synthroid No Synthroid Ezetimibe Ezetimibe No Ezetimibe Common [facility] Naltrexone Naltrexone No Naltrexone [facility] Valacyclovi Valacyclovi No Valacyclov Common r HCl r HCl ir HCl [facility] Synthroid Synthroid No Synthroid Common [facility] Neomycin-Po Neomycin-Po No Neomycin-P Common lymyxin-Dex lymyxin-Dex olymyxin-D Spirit ameth ameth exameth - [facility] B12 Folate B12 Folate No B12 Folate Gabapentin Gabapentin No Gabapentin Common [facility] [place] 3-6-9 [place] 3-6-9 No [place] Common Fatty Acids Fatty Acids 3-6-9 Spirit Fatty - [facility] Acids [facility] Acyclovir Acyclovir No Acyclovir Common [facility] Meloxicam Meloxicam No Meloxicam Common [facility] Metoprolol Metoprolol No Metoprolol Common Succinate Succinate Succinate Spirit ER ER ER [facility] Vitamin D Vitamin D No Vitamin D [facility] Clotrimazol Clotrimazol No Clotrimazo Common e-Betametha e-Betametha le-Betamet Spirit shade laguerre hasone [facility] Hydrochloro Hydrochloro No Hydrochlor Common thiazide [facility] B12 Folate B12 Folate No B12 Folate [facility] Doxycycline Doxycycline No Doxycyclin Common Monohydrate Monohydrate e S pirit Monohydrat - [facility] e [facility] Aspir-81 Aspir-81 No Aspir-81 Omeprazole Omeprazole No Omeprazole [facility] Losartan Losartan No Losartan Com mon Potassium Potassium Potassium [facility] Azithromyci Azithromyci No Azithromyc Common n n in [facility] Aspir-81 Aspir-81 No Aspir-81 Com mon [facility] AZO AZO No AZO Common Cranberry Cranberry Cranberry [facility] Urinary Urinary Urinary - [facility] Tract Tract Tract [facility] Magnesium Magnesium No Magnesium [facility] Flax Seed Flax Seed No Flax Seed Common Oil Oil Oil [facility] Glucosamine Glucosamine No Glucosamin Common e [facility] Calcium Calcium No Calcium [facility] AZO AZO No AZO Cranberry Cranberry Cranberry Urinary Urinary Urinary Tract Tract Tract Calcium Calcium No Calcium Neomycin-Po Neomycin-Po No Neomycin-P lymyxin-Dex lymyxin-Dex olymyxin-D ameth ameth exameth Omeprazole Omeprazole No Omeprazole Magnesium Magnesium No Magnesium Vitamin D Vitamin D No Vitamin D Glucosamine Glucosamine No Glucosamin e Metoprolol Metoprolol No Metoprolol Succinate Succinate Succinate ER ER ER Doxycycline Doxycycline No Doxycyclin Monohydrate Monohydrate e Monohydrat e Azithromyci Azithromyci No Azithromyc n n in Calcium Calcium No Calcium Glucosamine Glucosamine No Glucosamin e Aspir-81 Aspir-81 No Aspir-81 Omeprazole Omeprazole No Omeprazole Hydrochloro Hydrochloro No Hydrochlor thiazide thiazide othiazide Losartan Losartan No Losartan Potassium Potassium Potassium Neomycin-Po Neomycin-Po No Neomycin-P lymyxin-Dex lymyxin-Dex olymyxin-D ameth ameth exameth B12 Folate B12 Folate No B12 Folate [place] 3-6-9 [place] 3-6-9 No [place] Fatty Acids Fatty Acids 3-6-9 Fatty Acids Magnesium Magnesium No Magnesium Gabapentin Gabapentin No Gabapentin Vitamin D Vitamin D No Vitamin D Ezetimibe Ezetimibe No Ezetimibe Flax Seed Flax Seed No Flax Seed Oil Oil Oil Synthroid Synthroid No Synthroid Meloxicam Meloxicam No Meloxicam AZO AZO No AZO Cranberry Cranberry Cranberry Urinary Urinary Urinary Tract Tract Tract Metoprolol Metoprolol No Metoprolol Succinate Succinate Succinate ER ER ER Doxycycline Doxycycline No Doxycyclin Monohydrate Monohydrate e Monohydrat e Azithromyci Azithromyci No Azithromyc n n in Calcium Calcium No Calcium Glucosamine Glucosamine No Glucosamin e Aspir-81 Aspir-81 No Aspir-81 Omeprazole Omeprazole No Omeprazole Hydrochloro Hydrochloro No Hydrochlor thiazide thiazide othiazide Losartan Losartan No Losartan Potassium Potassium Potassium Neomycin-Po Neomycin-Po No Neomycin-P lymyxin-Dex lymyxin-Dex olymyxin-D ameth ameth exameth B12 Folate B12 Folate No B12 Folate [place] 3-6-9 [place] 3-6-9 No [place] Fatty Acids Fatty Acids 3-6-9 Fatty Acids Magnesium Magnesium No Magnesium Gabapentin Gabapentin No Gabapentin Vitamin D Vitamin D No Vitamin D Hydrochloro Hydrochloro No Hydrochlor thiazide thiazide othiazide Ezetimibe Ezetimibe No Ezetimibe Flax Seed Flax Seed No Flax Seed Oil Oil Oil Synthroid Synthroid No Synthroid Meloxicam Meloxicam No Meloxicam AZO AZO No AZO Cranberry Cranberry Cranberry Urinary Urinary Urinary Tract Tract Tract Azithromyci Azithromyci No Azithromyc n n in AZO AZO No AZO Cranberry Cranberry Cranberry Urinary Urinary Urinary Tract Tract Tract Doxycycline Doxycycline No Doxycyclin Monohydrate Monohydrate e Monohydrat e Flax Seed Flax Seed No Flax Seed Oil Oil Oil Ezetimibe Ezetimibe No Ezetimibe Neomycin-Po Neomycin-Po No Neomycin-P lymyxin-Dex lymyxin-Dex olymyxin-D ameth ameth exameth Synthroid Synthroid No Synthroid Flax Seed Flax Seed No Flax Seed Oil Oil Oil Gabapentin Gabapentin No Gabapentin B12 Folate B12 Folate No B12 Folate Aspir-81 Aspir-81 No Aspir-81 Calcium Calcium No Calcium [place] 3-6-9 [place] 3-6-9 No [place] Fatty Acids Fatty Acids 3-6-9 Fatty Acids Meloxicam Meloxicam No Meloxicam Ezetimibe Ezetimibe No Ezetimibe Metoprolol Metoprolol No Metoprolol Succinate Succinate Succinate ER ER ER Naltrexone Naltrexone No Naltrexone Magnesium Magnesium No Magnesium Omeprazole Omeprazole No Omeprazole Glucosamine Glucosamine No Glucosamin e Hydrochloro Hydrochloro No Hydrochlor thiazide thiazide othiazide Losartan Losartan No Losartan Potassium Potassium Potassium Vitamin D Vitamin D No Vitamin D No known No Univers medications [facility] No known No Univers medications [facility] No known No Univers medications [facility] [place] 3-6-9 [place] 3-6-9 No [place] Fatty Acids Fatty Acids 3-6-9 Fatty Acids Vitamin D Vitamin D No Vitamin D Metoprolol Metoprolol No Metoprolol Succinate Succinate Succinate ER ER ER Losartan Losartan No Losartan Potassium Potassium Potassium Calcium Calcium No Calcium Meloxicam Meloxicam No Meloxicam Omeprazole Omeprazole No Omeprazole Magnesium Magnesium No Magnesium Ezetimibe Ezetimibe No Ezetimibe Aspir-81 Aspir-81 No Aspir-81 Losartan Losartan No Losartan Potassium Potassium Potassium Hydrochloro Hydrochloro No Hydrochlor thiazide thiazide othiazide Doxycycline Doxycycline No Doxycyclin Monohydrate Monohydrate e Monohydrat e Vital Signs Vital Name Observation Time Observation Value Comments Source Heart rate 2022-05-08 19:16:00 60 /min [facility] Respiratory rate 2022-05-08 19:16:00 15 /min [facility] Oxygen saturation in 2022-05-08 19:16:00 98 /min [facility] Arterial blood by [facility] Pulse oximetry Branch Systolic blood 2022-05-08 19:13:00 145 mm[Hg] [facility] Diastolic blood 2022-05-08 19:13:00 58 mm[Hg] [facility] Body temperature 2022-05-08 18:55:00 36.28 Zakiya [facility] Body height 2022-05-02 12:51:00 160 cm [facility] Body weight 2022-05-02 12:51:00 95.3 kg [facility] BMI 2022-05-02 12:51:00 37.23 kg/m2 [facility] Systolic blood 2022-05-08 16:57:00 154 mm[Hg] [facility]iver [facility] Diastolic blood 2022-05-08 16:57:00 67 mm[Hg] Unive rsity of [facility] Heart rate 2022-05-08 16:57:00 56 /min [facility] Body temperature 2022-05-08 16:57:00 36.11 Zakiya [facility] Respiratory rate 2022-05-08 16:57:00 18 /min [facility] Oxygen saturation in 2022-05-08 16:57:00 94 /min [facility] of Arterial blood by [place] [facility] ksenia Pulse oximetry Branch Body height 2022-05-02 12:51:00 160 cm [facility] Body weight 2022-05-02 12:51:00 95.3 kg [facility] BMI 2022-05-02 12:51:00 37.23 kg/m2 [facility] Systolic blood 2022-04-24 19:00:00 163 mm[Hg] Univer [facility]ity [facility] Diastolic blood 2022-04-24 19:00:00 51 mm[Hg] Unive rsity [facility] Oxygen saturation in 2022-04-24 19:00:00 96 /min [facility] Arterial blood by [place] [facility] ksenia Pulse oximetry Branch Heart rate 2022-04-24 18:50:00 51 /min [facility] Respiratory rate 2022-04-24 18:50:00 15 /min [facility] Body temperature 2022-04-24 18:35:00 36.11 Zakiya [facility] Body weight 2022-04-19 14:00:00 95.255 kg [facility] BMI 2022-04-19 14:00:00 37.20 kg/m2 [facility] Systolic blood 2022-04-24 16:47:00 132 mm[Hg] Univer sity of pressure [facility] Diastolic blood 2022-04-24 16:47:00 77 mm[Hg] Unive rsity of pressure [facility] Heart rate 2022-04-24 16:47:00 62 /min Universi [facility] Body temperature 2022-04-24 16:47:00 36.56 Zakiya [facility] Res[facility] rate 2022-04-24 16:47:00 16 /min [facility] Oxygen saturation in 2022-04-24 16:47:00 97 /min [facility] Arterial blood by [facility] Pulse oximetry Center Body weight 2022-04-19 14:00:00 95.255 kg Universi ty [facility] BMI 2022-04-19 14:00:00 37.20 kg/m2 [facility] HEIGHT 2021-09-03 07:41:00 157.5 cm WEIGHT 2021-09-03 07:41:00 91.7 kg HEIGHT 2021-08-31 10:16:00 157.5 cm WEIGHT 2021-08-31 10:16:00 93.895 kg HEIGHT 2021-09-03 07:41:00 157.5 cm WEIGHT 2021-09-03 07:41:00 91.7 kg HEIGHT 2021-08-31 10:16:00 157.5 cm WEIGHT 2021-08-31 10:16:00 93.895 kg height 2020-10-23 10:30:00 61.5 [in_i] [facility] weight 2020-10-23 10:30:00 207 [lb_av] [facility] temperature 2020-10-23 10:30:00 97.5 [degF] [facility] bmi 2020-10-23 10:30:00 38.47 kg/m2 [facility] blood pressure 2020-10-23 10:30:00 142 mm[Hg] [facility] - systolic [facility] blood pressure 2020-10-23 10:30:00 86 mm[Hg] [facility] diastolic [facility] height 2020-08-17 10:30:00 61.5 [in_i] [facility] - [facility] weight 2020-08-17 10:30:00 207 [lb_av] [facility] - [facility] temperature 2020-08-17 10:30:00 97.3 [degF] [facility] - [facility] bmi 2020-08-17 10:30:00 38.47 kg/m2 [facility] - [facility] blood pressure 2020-08-17 10:30:00 134 mm[Hg] [facility] - systolic [facility] blood pressure 2020-08-17 10:30:00 84 mm[Hg] [facility] - diastolic [facility] height 2020-08-10 10:15:00 61.5 [in_i] Common S pirit [facility] weight 2020-08-10 10:15:00 207 [lb_av] Common [facility] - [facility] temperature 2020-08-10 10:15:00 97.7 [degF] Common S [facility] - [facility] bmi 2020-08-10 10:15:00 38.47 kg/m2 Common S [facility] - [facility] blood pressure 2020-08-10 10:15:00 132 mm[Hg] [facility] - systolic [facility] blood pressure 2020-08-10 10:15:00 78 mm[Hg] [facility] - diastolic [facility] height 2020-08-03 14:00:00 61.5 [in_i] Common [facility] - [facility] weight 2020-08-03 14:00:00 207 [lb_av] Common [facility]irit - [facility] bmi 2020-08-03 14:00:00 38.47 kg/m2 Common S pirit - [facility] blood pressure 2020-08-03 14:00:00 118 mm[Hg] [facility] - systolic [facility] blood pressure 2020-08-03 14:00:00 72 mm[Hg] [facility] - diastolic [facility] height 2020-07-06 09:00:00 61.5 [in_i] Common [facility] weight 2020-07-06 09:00:00 209 [lb_av] Common [facility] temperature 2020-07-06 09:00:00 97.1 [degF] [facility] bmi 2020-07-06 09:00:00 38.85 kg/m2 Common S pirit - [facility] blood pressure 2020-07-06 09:00:00 134 mm[Hg] [facility] - systolic [facility] blood pressure 2020-07-06 09:00:00 84 mm[Hg] [facility] - diastolic [facility] Systolic blood 2020-04-27 13:25:00 156 mm[Hg] Univer [facility]ity [facility] Diastolic blood 2020-04-27 13:25:00 84 mm[Hg] Unive rsity [facility] Respiratory rate 2020-04-27 13:25:00 18 /min [facility] Body height 2020-04-27 13:25:00 160 cm [facility] Body weight 2020-04-27 13:25:00 93.895 kg [facility] BMI 2020-04-27 13:25:00 36.67 kg/m2 [facility] Respitory Rate 2017-08-21 12:41:00 Memori al [place] Systolic (mm Hg) 2017-08-21 12:41:00 Erick rial [place] Diastolic (mm Hg) 2017-08-21 12:41:00 Mem orial Chandan Heart Rate 2017-08-21 12:41:00 [facility] Heart Rate 2017-08-21 04:59:00 [facility] Respitory Rate 2017-08-21 04:59:00 Memori al Chandan Systolic (mm Hg) 2017-08-21 04:59:00 Erick rial Chandan Diastolic (mm Hg) 2017-08-21 04:59:00 Mem orial Chandan Respitory Rate 2017-08-21 03:30:00 Memori al Chandan Systolic (mm Hg) 2017-08-21 03:30:00 Erick rial Chandan Diastolic (mm Hg) 2017-08-21 03:30:00 Mem orial Chandan Heart Rate 2017-08-21 03:30:00 Jeremiah Hawley Height 2017-08-20 16:00:00 157.48 cm Jeremiah Hawley Weight 2017-08-20 16:00:00 Jeremiah Hawley BMI Calculated 2017-08-20 16:00:00 Fabrice Morley Procedures Procedure Date / Time Performing Source Performed Clinician PHACOEMULSIFICATION OF 2022-05-08 Jaret Mei [facility] CATARACT WITH INTRAOCULAR 18:14:00 Medica l Branch LENS IMPLANT DAY SURGERY - ADC 2022-05-08 Doctor Unassigned, [facility] 05:01:00 [facility] ASSIGNMENT OF BENEFITS 2022-05-06 Doctor Unassigned, [facility] 16:14:31 [facility] VACCINATIONS - CONSENTS, 2022-05-01 [facility] ELIGIBILITY, HISTORY 05:01:00 [place] [facility] PHACOEMULSIFICATION OF 2022-04-24 Jaret Mei [facility] CATARACT WITH INTRAOCULAR 17:58:00 Medica l Branch LENS IMPLANT ASSIGNMENT OF BENEFITS 2022-04-15 Doctor Unassigned, [facility] 21:31:11 [facility] SARS-COV-2 COVID-19 2021-06-29 Doctor Unassigned, [facility] VACCINE,0.5ML,IM (MODERNA) 15:13:39 [place] [facility] Plan of Care Planned Activity Planned Date Details Comments Source Future Scheduled 2023-06-20 Influenza Vaccine (#1) [facility] 00:00:00 [code = Influenza Medical Ce nter Vaccine (#1)] Future Scheduled 2022-10-[address] [facility] 00:00:00 (12+) [code = Medical Center DEPRESSION SCREENING (12+)] Future Scheduled 2022-10-20 FALLS RISK SCREENING [facility] 00:00:00 [code = FALLS RISK Medical C enter SCREENING] Future Scheduled 2022-09-[address] [facility] 00:00:00 Counseling and Medical Cente r Screening (12+) [code = Tobacco Cessation Counseling and Screening (12+)] Future Scheduled 2021-10-[address] [facility] [facility] 00:00:00 WELLNESS (YEAR 2 or Medical Center FIRST YEAR if no IPPE) [code = MEDICARE ANNUAL WELLNESS (YEAR 2 or FIRST YEAR if no IPPE)] Future Scheduled 2021-08-24 COVID-19 VACCINE (4 - [facility] 00:00:00 Booster for Moderna Medical Center series) [code = COVID-19 VACCINE (4 - Booster for Moderna series)] Future Scheduled 2009-01-02 PNEUMOCOCCAL 65+ YRS [facility] 00:00:00 (1 - PCV) [code = Medical Ce nter PNEUMOCOCCAL 65+ YRS (1 - PCV)] Future Scheduled 1994-01-02 SHINGLES VACCINES ([address] [facility] 00:00:00 of 2) [code = SHINGLES Medic al Center VACCINES (1 of 2)] Future Scheduled 1963-01-02 DTAP/TDAP/TD VACCINES [facility] 00:00:00 (1 - Tdap) [code = Medical C enter DTAP/TDAP/TD VACCINES (1 - Tdap)] Future Scheduled 1962-01-02 HEPATITIS C SCREENING [facility] 00:00:00 [code = HEPATITIS C Medical Center SCREENING] Future Scheduled 1944 DXA SCAN [code = DXA [facility] 00:00:00 SCAN] [facility] Encounters Start End Encounter Admission Attending Care Care Encounter Source Date/Time Date/Time Type Type Clinicians Facility Department ID 2022-03-26 [id number] Univers 14:02:43 JARET [facility] 2021-11-14 Outpatient [facility] [id number] Common 11:46:48 [id number] [facility] 2022-05-08 2022-05-08 [facility] [id number] Univers 11:45:00 14:21:00 JARET [facility] 2022-05-08 2022-05-08 [facility] [id number] Univers 11:45:00 14:21:00 Encounter Jaret AMAYA [id number] [id number] [id number] [place] [id number] Branch 2022-05-08 2022-05-08 [facility] [id number] Univers 12:18:00 12:52:00 Jaret AMAYA [id number] [place]y [id number] [id number] [facility] 020 Branch 2022-05-08 2022-05-08 Orders Doctor LLAMAS [id number] Univers 00:00:00 00:00:00 Only Unassigned, YUNIEL [id number] ity of [place] [facility] [id number] Amandeep as [id number] [facility] 009 Center 2022-05-07 2022-05-07 Outpatient R [facility] [id number] Univers 09:30:00 09:30:00 ity of [facility] 2022-05-06 2022-05-06 Laboratory Only, Adc Test RUST [id number]. [id number] Univers 13:45:00 14:00:00 Only Jaret Mei 350.1.13.1 0 [place] [id number] [facility] 353 Branch 2022-05-06 2022-05-06 [facility] [id number] Univers 13:45:00 13:45:00 JARET itromero [facility] 2022-05-06 2022-05-06 Orders Doctor LLAMAS [id number] Univers 00:00:00 00:00:00 Only Unassigned, YUNIEL [id number] ity of [place] [facility] [id number] Amandeep as [id number] [facility] 009 Center 2022-05-01 2022-05-01 Orders Doctor LLAMAS [id number] Univers 00:00:00 00:00:00 Only Unassigned, YUNIEL [id number] ity of [place] [facility] [id number] Amandeep as [id number] [facility] 009 Center 2022-04-24 2022-04-24 [facility] [id number] Univers 11:42:00 14:15:00 JARET ity [facility] 2022-04-24 2022-04-24 Hospital [facility] [id number] Univers 11:42:00 14:15:00 Encounter Jaret Lara JOSE LUIS [id number] [place] [id number] [facility] 071 Branch 2022-04-24 2022-04-24 Surgery [facility] [id number] Univers 11:47:00 12:19:00 Jaret Lara JOSE LUIS [id number] [place] [id number] [facility] 020 Branch 2022-04-23 2022-04-23 Laboratory Only, Adc Test RUST 1.2.840. 114 [id number] Univers 11:30:00 11:45:00 Only SigifredoJaret 350.1.13.1 0 [place] [id number] [facility] 353 Center 2022-04-23 2022-04-23 Outpatient R SIGIFREDO [facility] [id number] Univers 11:30:00 11:30:00 JARET rosa [facility] 2022-04-15 2022-04-15 Workforce Management Consultant Carlito, Adc Lab Main RUST [id number] Univers 16:45:00 17:00:00 Visit Jaret Mei 350.1.13.1 0 [place] [id number] [facility] 353 Branch [facility] 2022-04-15 2022-04-15 Outpatient R SIGIFREDO [facility] [id number] Univers 16:45:00 16:45:00 JARET lee [facility] 2022-04-15 2022-04-15 Orders Doctor LLAMAS [id number] Univers 00:00:00 00:00:00 Only Unassigned, YUNIEL 350.1.13.10 ity of [place] [facility] 4.2.7.2.686 Amandeep as [id number] [address] 2022-04-12 2022-04-12 Outpatient Aiyana MEI [facility] [id number] Univers 11:45:00 11:45:00 JARET [facility] 2021-09-03 2021-09-[address] [facility] [facility] Surgery [id number] SLE 06:40:00 13:36:00 MICH 2021-08-31 2021-08-[address] [facility] SLE [id number] SLE 10:29:52 23:59:00 2021-06-29 2021-06-29 Outpatient Aiyana LOPEZ [facility] [id number] Univers 10:20:00 10:20:00 BART [facility] 2021-06-29 2021-06-29 Imm/Inj Nurse, Adc Pob Immunization RUST [id number] Univers 10:12:23 10:12:34 Visit Bart Lopez 350.1.13 .10 [facility] 4.2.7.2.686 [place] [phone] [place] dical [address] 2020-11-24 2020-11-24 Outpatient Aiyana VITAL [facility] [id number] Univers 15:10:00 15:10:00 DAVID [facility] 2020-10-27 2020-10-27 Outpatient Aiyana VITAL [facility] [id number] Univers 15:30:00 15:30:00 DAVID [facility] 2020-10-23 2020-10-23 OFFICE STLMLC STLMLC [id number] Co mmon 00:00:00 00:00:00 VISIT [facility] ESTAB PT - CHI LEVEL 4 [facility] 2020-08-17 2020-08-17 (IN/ASP) STLMLC STLMLC [id number] C ommon 00:00:00 00:00:00 INJ ASP [facility] 2020-08-10 2020-08-10 (IN/ASP) STLMLC STLMLC [id number] C ommon 00:00:00 00:00:00 INJ [facility] 2020-08-03 2020-08-03 (IN/ASP) STLMLC STLMLC [id number] C ommon 00:00:00 00:00:00 INJ ASP [facility] 2020-07-19 2020-07-19 (TEL) STLMLC STLMLC [id number] Co mmon 00:00:00 00:00:00 [facility] 2020-07-18 2020-07-18 (TEL) STLMLC STLMLC [id number] Co mmon 00:00:00 00:00:00 [facility] 2020-07-06 2020-07-06 OFFICE STLMLC STLMLC [id number] Co mmon 00:00:00 00:00:00 VISIT [facility] it PT LEVEL [address] [place] [address] 2020-06-12 2020-06-12 Outpatient Aiyana NARVAEZ [facility] [id number] Univers 15:30:00 15:30:00 YUVAL lee [facility] 2020-06-06 2020-06-06 Telephone [facility] 1.2.840.114 [id number] 00:00:00 00:00:00 [facility] 350.1.13.10 Surgical 4.2.7.2.686 Specialti [phone] es [address] 2020-06-06 2020-06-06 Telephone [facility] 1.2.840.114 [id number] 00:00:00 00:00:00 [facility] 350.1.13.10 Surgical 4.2.7.2.686 Specialti [id number] es [address] 2020-06-06 2020-06-06 Telephone [facility] 1.2.840.114 [id number] 00:00:00 00:00:00 [facility] 350.1.13.10 Surgical 4.2.7.2.686 Specialti [id number] es [address] 2020-06-06 2020-06-06 Telephone [facility] 1.2.840.114 [id number] [facility] 00:00:00 00:00:00 [facility] 350.1.13.10 it y of Surgical 4.2.7.2.686 Amandeep as Specialti [id number] Mn dical es 198 [facility] 2020-06-06 2020-06-06 [facility] 1.2.840.114 [id number] Univers 00:00:00 00:00:00 [facility] 350.1.13.10 it y of Surgical 4.2.7.2.686 Amandeep as Specialti [id number] Mn dical es 198 [facility] 2020-06-06 2020-06-06 Telephone [facility] 1.2.840.114 [id number] Univers 00:00:00 00:00:00 [facility] 350.1.13.10 it y of Surgical 4.2.7.2.686 Amandeep as Specialti [phone] Mn dical es 198 [facility] 2020-06-02 2020-06-02 [facility] [id number] 00:00:00 00:00:00 [facility] 350.1.13.10 Surgical 4.2.7.2.686 Specialti [id number] es [address] 2020-06-02 2020-06-02 [facility] [id number] Univers 00:00:00 00:00:00 [facility] 350.1.13.10 it y of Surgical 4.2.7.2.686 Amandeep as Specialti [id number] Mn dical es 198 [facility] 2020-05-26 2020-05-26 [facility] 1.2.840.114 [id number] 00:00:00 00:00:00 [facility] 350.1.13.10 Surgical 4.2.7.2.686 Specialti [id number] es [address] 2020-05-26 2020-05-26 [facility] 1.2.840.114 [id number] Univers 00:00:00 00:00:00 [facility] 350.1.13.10 it y of Surgical 4.2.7.2.686 Amandeep as Specialti [phone] Mn dical es 198 [facility] 2020-05-22 2020-05-22 [facility] 1.2.840.114 [id number] 00:00:00 00:00:00 [facility] 350.1.13.10 Surgical 4.2.7.2.686 Specialti [id number] es Tejinder [address] 2020-05-22 2020-05-22 [facility]phone [facility] 1.2.840.114 [id number] Univers 00:00:00 00:00:00 [facility] 350.1.13.10 it y of Surgical 4.2.7.2.686 Amandeep as Specialti [phone] Me dical es 198 [facility] 2020-05-11 2020-05-11 [place] [facility] 1.2.840.114 [id number] Univers 00:00:00 00:00:00 [facility] 350.1.13.10 it y of Surgical 4.2.7.2.686 Amandeep as Specialti [id number] Mn dical es Tejinder [facility] 2020-05-08 2020-05-08 [place] [facility] 1.2.840.114 [id number] Univers 00:00:00 00:00:00 [facility] 350.1.13.10 it y of Surgical 4.2.7.2.686 Amandeep as Specialti [phone] Mn dical es 198 [facility] 2020-04-27 2020-04-27 [facility] [id number] [facility] 08:45:00 08:45:[address] [facility] [place] [place] 2020-04-27 2020-04-27 Office [facility] [id number] [facility] 08:21:06 08:43:58 Visit Martin Youssef 350.1.13.10 it y of Surgical 4.2.7.2.686 Amandeep as Specialti [id number] Mn dical es 198 [facility] 2017-08-20 2017-08-21 Observatio [facility] [id number] Memoria 15:51:00 16:28:00 n aiyana Hawley 00 l [facility] 2017-08-20 2017-08-21 Outpatient Mp [facility] [id number] 10:51:00 11:28:00 Peter 00 2016-10-04 2016-10-05 Outpt Diag nullFlavo [facility] [id number] Memoria 17:06:00 05:59:00 Services r Outpatient 04 l Imaging - Heber Velazquez 2016-10-04 2016-10-04 Outpatient Benji Sotomayor HOIP HOIP [id number] 11:06:00 23:59:00 B 2016-10-03 2016-10-04 Outpt Diag nullFlavo [facility] [id number] Memoria 16:26:00 05:59:00 Services r Outpatient 03 l Imaging Chandan Payan 2016-10-03 2016-10-03 Outpatient Benji Sotomayor OIP OIP [id number] 10:26:00 23:59:00 B 2015-08-02 2015-08-03 Outpt Diag nullFlavo [facility] [id number] Memoria 14:25:00 04:59:00 Services r Outpatient 02 l Imaging Chandan Payan 2015-08-02 2015-08-02 Outpatient [place] OIP [facility] [id number] 09:25:00 23:59:00 Patric B 02 Results Test Description Test Time Test Comments Results Result Sourc e Comments TISSUE EXAM 2021-09-10 Surgical Pathology 18:22:29 Report Case: [id number] Authorizing Provider: Jaret Morley, Collected: 09/03/2021 10:37 AM Ordering Location: [facility] Received: 09/03/2021 01:07 PM PERIOPERATIVE SERVICES Pathologist: David Mabry MD Specimen: Plaque, Right Carotid Plaque ARTERY, LEFT CAROTID, ENDARTERECTOMY:CALCIFI C ATHEROSCLEROTIC PLAQUE Signing Pathologist Direct Phone Line: [phone] ally signed by David Mabry MD on 09/10/2021 at 6:22 [id number]; [id number] stenosis, right PlaqueReceived fresh labeled the patient's name, accession number and "right carotid plaque" is a 3.0 cm in length by 0.5 cm in diameter alexander-yellow, tubular piece of focally calcified plaque. Coal Miner sections are submitted in A1 following decalcification.CINTHYA Gonzalez, HT (ASCP)Performed MAGNESIUM 2021-09-06 05:43:19 Test Item Value Reference Range Interpretation Comme nts MAGNESIUM (BEAKER) (test code = 627) 1.9 mg/dL 1.6-2.6 B2B Account Executive LEILA DUNNE [id number] 05:43:19 Test Item Value Reference Range Interpretation Comments PHOSPHORUS (BEAKER) (test code = 1.8 mg/dL 2.3-4.7 L 604) B2B Account Executive LEILA Cuca DUNNE MBASIC METABOLIC [id number] 05:43:18 Test Item Value Reference Range Interpretation [...] S NOT APPLICABLE FOR DIALYSIS PATIEN TS. B2B Account Executive LEILA DUNNE MCBC (HEMOGRAM ONLY)2021-09-06 05:17:48 Test [...] (BEAKER) (test code = 413) BASIC METABOLIC [id number] 05:10:16 Test Item Value Reference Range Interpretation [...] S NOT APPLICABLE FOR DIALYSIS PATIEN TS. B2B Account Executive ID - VIBHA [id number] 05:10:15 Test Item Value Reference Range Interpretation Comments MAGNESIUM (BEAKER) 1.8 mg/dL 1.6-2.6 Specimen slightly (test code = 627) hemolyzed B2B Account Executive ID - VIBHA [id number] 05:10:15 Test Item Value Reference Range Interpretation Comments PHOSPHORUS (BEAKER) 2.7 mg/dL 2.3-4.7 Specimen slightly (test code = 604) hemolyzed B2B Account Executive ID - VIBHA MCBC (HEMOGRAM ONLY)2021-09-05 04:58:52 [...] 0-0 (BEAKER) (test code = 413) HEMOGLOBIN [id number] 19:10:23 Test Item Value Reference Range Interpretation Comments HEMOGLOBIN A1C (BEAKER) (test code = 6.3 % 4.3-6.1 H 368) [id number] 18:45:54 Test Item Value Reference Range Interpretation Comments THYROID STIMULATING HORMONE 1.192 uIU/mL 0.350-4.940 (BEAKER) (test code = 772) B2B Account Executive ID - BST4, [id number] 18:45:53 Test Item Value Reference Range Interpretation Comments FREE T4 (BEAKER) (test code = 655) 1.24 ng/dL 0.70-1.48 B2B Account Executive ID - BSB-TYPE NATRIURETIC FACTOR (BNP)2021-09-04 18:31:07 Test Item Value Reference Range Interpretation Comments B-TYPE NATRIURETIC PEPTIDE (BEAKER) 212 pg/mL 0-100 H (test code = 700) B2B Account Executive ID - BSLIPID [id number] 18:25:33 Test Item Value Reference Range Interpretation Comments TRIGLYCERIDES (BEAKER) (test code = 106 mg/dL 540) CHOLESTEROL (BEAKER) (test code = 143 mg/dL 631) HDL CHOLESTEROL (BEAKER) (test code 44 mg/dL = 976) LDL CHOLESTEROL CALCULATED (BEAKER) 78 mg/dL (test code = 633) Triglyceride Reference Range: Low Risk <150 Borderline 150-199 High Risk 200- 499 Very High Risk >=500Cholesterol Reference Range: Low Risk <200 Borderline 200-239 High Risk >240HDL Cholesterol Reference Range: Low Risk >=60 High Risk <40LDL Cholesterol Reference Range: Optimal <100 Near Optimal 100-129 Borderline 130-159 High 160-189 Very High >=190 B2B Account Executive ID - [id number] 06:58:37 Test Item Value Reference Range Interpretation Comments PHOSPHORUS (BEAKER) (test code = 4.6 mg/dL 2.3-4.7 604) B2B Account Executive ID - VIBHA MBASIC METABOLIC [id number] 06:58:36 Test Item Value Reference Range Interpretation [...] S NOT APPLICABLE FOR DIALYSIS PATIEN TS. B2B Account Executive ID - VIBHA [id number] 06:58:36 Test Item Value Reference Range Interpretation Comments MAGNESIUM (BEAKER) (test code = 1.9 mg/dL 1.6-2.6 627) B2B Account Executive ID - VIBHA MCBC (HEMOGRAM ONLY)2021-09-04 06:39:51 [...] 0-0 (BEAKER) (test code = 413) CALCIUM, [id number] 06:34:10 Test Item Value Reference Range Interpretation Comments CALCIUM IONIZED (BEAKER) (test 1.19 mmol/L 1.12-1.27 code = 698) PH, BLOOD (BEAKER) (test code = 7.30 1810) [id number] 22:06:41 Test Item Value Reference Range Interpretation Comments POTASSIUM (BEAKER) 5.0 meq/L 3.5-5.1 Specimen slightly (test code = 379) hemolyzed B2B Account Executive ID - DBHEMOGLOBIN AND [id number] 21:57:38 Test Item Value Reference Range Interpretation Comments HEMOGLOBIN (BEAKER) (test code = 10.9 GM/DL 11.2-15.7 L 410) HEMATOCRIT (BEAKER) (test code = 34.5 % 34.1-44.9 411) B2B Account Executive ID - 6000BASIC METABOLIC [id number] 18:58:49 Test Item Value Reference Range Interpretation [...] S NOT APPLICABLE FOR DIALYSIS PATIEN TS. B2B Account Executive ID - DBCBC (HEMOGRAM ONLY)2021-09-03 18:29:02 Test [...] 0-0 (BEAKER) (test code = 413) GLUCOSE-STAT [id number] 12:35:04 Test Item Value Reference Range Interpretation Comments GLUCOSE RANDOM (BEAKER) (test code 141 mg/dL 70-110 H = 652) HGB/HCT (H&H) - STAT [id number] 12:34:26 Test Item Value Reference Range Interpretation Comments HEMOGLOBIN (BEAKER) (test code = 12.9 GM/DL 12.0-15.0 410) HEMATOCRIT (BEAKER) (test code = 38.0 % 36.0-45.0 411) SODIUM NA-STAT [id number] 12:34:25 Test Item Value Reference Range Interpretation Comments SODIUM (BEAKER) (test code = 381) 138 meq/L 136-145 POTASSIUM-STAT [id number] 12:34:25 Test Item Value Reference Range Interpretation Comments POTASSIUM (BEAKER) (test code = 3.9 meq/L 3.6-5.5 379) [id number] 11:41:17 Test Item Value Reference Range Interpretation Comments ACTIVATED CLOTTING TIME 131 sec : 74 -137 seconds, (BEAKER) (test code = Baseli ne: TESTED AT 441) [facility] [address] [facility], [address] 30: B2B Account Executive/Techni flip ID = [id number] for MO JADEN, RASHIED [id number] 11:41:16 Test Item Value Reference Range Interpretation Comments ACTIVATED CLOTTING TIME 241 sec : 74 -137 seconds, (BEAKER) (test code = Baseli ne: TESTED AT 441) [facility] [address] [facility], 770 30: B2B Account Executive/Techni flip ID = [id number] for MO JADEN, RASHIED BASIC METABOLIC [id number] 08:34:00 Test Item Value Reference Range Interpretation [...] S NOT APPLICABLE FOR DIALYSIS PATIEN TS. B2B Account Executive ID - [id number] 08:27:18 Test Item Value Reference Range Interpretation Comments PARTIAL THROMBOPLASTIN TIME 34.0 seconds 22.5-36.0 (BEAKER) (test code = 760) PROTHROMBIN [id number] 08:26:40 Test Item Value Reference Range Interpretation Comments PROTIME (BEAKER) 13.7 seconds 11.9-14.2 (test code = 759) INR (BEAKER) (test 1.06 See_Comment [Automat ed message] code = 370) The system [employer] generated this result transmitted ref erence range: <=5.90. The reference range was not used to int erpret this result as normal/abnormal . RECOMMENDED COUMADIN/WARFARIN INR THERAPY RANGESSTANDARD DOSE: 2.0 - 3.0 Includes: PROPHYLAXIS for venous thrombosis, systemic embolization; TREATMENT for venous thrombosis and/or pulmonary embolus.HIGH RISK: Target INR is 2.5-3.5 for patients with mechanical heart valves.CBC W/PLT COUNT & AUTO [id number] 08:16:39 Test Item Value Reference Range Interpretation [...] 0-1 PERCENT (BEAKER) (test code = 2801) CHEM [id number] 17:21:00 Test Item Value Reference Range Interpretation Comments eGFR (test code = eGFR) 73 [facility]2017-11-01 17:21:00 Test Item Value Reference Range Interpretation Comments POC AGAP (test code = POC AGAP) 18.0 10.0-20.0 [facility]2017-11-01 17:21:00 Test Item Value Reference Range Interpretation Comments POC Ion Ca (test code = POC Ion Ca) 1.23 1.05-1.25 [facility]2017-11-01 17:21:00 Test Item Value Reference Range Interpretation Comments POC Creatinine (test code = POC 0.8 0.5-1.4 Creatinine) [facility]2017-11-01 17:21:00 Test Item Value Reference Range Interpretation Comments POC Hematocrit (test code = POC 45.0 36.0-48.0 Hematocrit) [facility]2017-11-01 17:21:00 Test Item Value Reference Range Interpretation Comments POC Hemoglobin (test code = POC 15.3 12.0-16.0 Hemoglobin) [facility]2017-11-01 17:21:00 Test Item Value Reference Range Interpretation Comments POC Chloride (test code = POC Chloride) 100 95-109 [facility]2017-11-01 17:21:00 Test Item Value Reference Range Interpretation Comments POC Carbon Dioxide (test code = POC 27 24-32 Carbon Dioxide) [facility]2017-11-01 17:21:00 Test Item Value Reference Range Interpretation Comments POC BUN (test code = POC BUN) 22 7-22 [facility]2017-11-01 17:21:00 Test Item Value Reference Range Interpretation Comments POC Glucose (test code = POC Glucose) 96 70-99 [facility]2017-11-01 17:21:00 Test Item Value Reference Range Interpretation Comments POC Potassium (test code = POC 4.4 3.5-5.1 Potassium) [facility]2017-11-01 17:21:00 Test Item Value Reference Range Interpretation Comments POC Sodium (test code = POC Sodium) 140 135-145 [facility]
[2023-07-24 20:21] LABS: Absolute Lymphocytes (CBC) 3.2 K/uL (0.7-4.9); Hematocrit 38.1 % (36.0-45.0); Lymphocytes % 24.7 % (15.3-44.8); MCV 90.8 fL (80-100); MPV 8.4 fL (7.6-11.3); Platelets 314 thou/uL (152-406)
[2023-07-24 20:28] LABS: Protime INR 1.21
[2023-07-24] MEDS ORDERED: ASPIRIN 81 MG CHEWABLE TABLET ONE (20:29)
[2023-07-24 20:42] LABS: ALT/SGPT 25 U/L (13-56); AST/SGOT 10 U/L (15-37); Albumin 3.6 g/dL (3.4-5.0); Alkaline Phosphatase 49 U/L (45-117); BUN Blood Urea Nitrogen 27 mg/dL (7-18); Bicarbonate 28 mEq/L (21-32); Bilirubin Total 0.2 mg/dL (0.2-1.0); Glomerular Filtration Rate 34 ml/min (=/>90); Glucose Level 119 mg/dL (74-106); Magnesium 1.7 mg/dL (1.6-2.4); NT PRO-BNP 439 pg/mL (<450); Potassium 4.5 mEq/L (3.5-5.1); Protein, Total 7.4 g/dL (6.4-8.2); Sodium Level 137 mEq/L (136-145); Troponin High Sensitivity 13.1 pg/mL (<58.9)
[2023-07-24 20:45] LABS: Bilirubin Direct < 0.1 mg/dL (0-0.2); Bilirubin Indirect, Calculated ND mg/dL (0.2-0.8)
--- NOTE | 2023-07-24 21:19 | RAD REPORT ---
EXAM DESCRIPTION: RAD - Chest Single View - 07/24/2023 9:09 pm CLINICAL HISTORY: CHEST PAIN Chest pain. COMPARISON: Chest Single View dated 12/04/2021; Chest Single View dated 11/29/2021; Chest Single View dated 11/27/2021; Chest Single View dated 11/21/2021 FINDINGS: Portable technique limits examination quality. The lungs are grossly clear. The heart is normal in size. No displaced fractures. IMPRESSION: No acute intrathoracic process suspected.
--- NOTE | 2023-07-24 21:29 | EDPHYS ---
Physician Documentation [facility] Name: Elis Mckinnon Age: 78 yrs Sex: Female : 1945 Arrival Date: 07/24/2023 Time: 19:38 Bed 20 Private MD: ED Physician Parrish Suero HPI: 07/24 20:05 This 78 yrs old Female presents to ER via Ambulatory with complaints of Chest Pain. sb4 20:05 Patient reports intermittent chest pain x4 days. She states the pain feels like a sharp sb4 pain in the right side of her chest. It does not radiate. She denies any shortness of breath, diaphoresis, nausea, vomiting. It is not reproducible with palpation. She denies any recent changes in medication and reports compliance with her current regimen. States she had a cardiac cath about 1 year ago that was normal. She follows with her PCP and pie filler regularly. Historical: - Allergies: 19:54 Codeine; cm10 19:54 Lpmjbrb-Ihr-Kuw Reductase Inhibitors; cm10 - PMHx: 19:54 Atrial fibrillation; Hypertensive disorder; Hypothyroidism; cm10 - PSHx: 19:54 Stented artery; cm10 - Immunization history:: Adult Immunizations unknown. - Social history:: Smoking status: Patient denies any tobacco usage or history of. ROS: 20:05 Constitutional: Negative for fever, chills, and weight loss, sb4 20:05 Cardiovascular: Positive for chest pain, 20:05 All other systems are negative, Exam: 20:05 Constitutional: This is a well developed, well nourished patient who is awake, alert, sb4 and in no acute distress. Head/Face: Normocephalic, atraumatic. Eyes: Extra-ocular motions intact. Periorbital areas with no swelling, redness, or edema. ENT: Mucous membranes moist. Cardiovascular: Regular rate and rhythm with a normal S1 and S2. Respiratory: Lungs have equal breath sounds bilaterally, clear to auscultation and percussion. No rales, rhonchi or wheezes noted. No increased work of breathing, no retractions or nasal flaring. Abdomen/GI: Soft, non-tender, no distension. Back: No spinal tenderness. No costovertebral tenderness. Full range of motion. Skin: Warm, dry with normal turgor. Normal color with no rashes, no lesions, and no evidence of cellulitis. MS/ Extremity: Pulses equal, no cyanosis. Neurovascular intact. Full, normal range of motion. Neuro: Awake and alert, GCS 15, oriented to person, place, time, and situation. Motor strength 5/5 in all extremities. Sensory grossly intact. Vital Signs: 19:53 BP 161 / 62; Pulse 91; Resp 18 S; Temp 98(A); Pulse Ox 96% on R/A; Weight 90.72 kg (R); cm10 Height 5 ft. 0 in. (R); Pain 4/10; 20:45 BP 135 / 60; Pulse 71; Resp 17; Pulse Ox 100% ; Pain 2/10; jj7 21:34 BP 122 / 62; Pulse 69; Resp 20; Pulse Ox 98% ; Pain 0/10; jj7 19:53 Body Mass Index 39.06 (90.72 kg, 152.4 cm) cm10 19:53 Pain Scale: Adult cm10 20:45 Pain Scale: Adult jj7 21:34 Pain Scale: Adult jj7 MDM: 19:45 Patient medically screened. sb4 20:05 Differential diagnosis: ACS, A-fib RVR, unstable angina, angina, PE, costochondritis, sb4 pleurisy. 21:27 Data reviewed: vital signs, nurses notes, lab test result(s), EKG, radiologic studies, sb4 and as a result, I will discharge patient. Consideration of Admission/Observation Escalation of care including admission/observation considered. Care significantly affected by the following chronic conditions: Hypertension. Counseling: I had a detailed discussion with the patient and/or guardian regarding the historical points, exam findings, and any diagnostic results supporting the discharge/admit diagnosis, lab results, radiology results, to return to the emergency department if symptoms worsen or persist or if there are any questions or concerns that arise at home. Special discussion: Based on the patient's history, exam, and Dx evaluation, there is no indication for emergent intervention or inpatient Tx. It is understood by the patient/guardian that if the Sx's persist or worsen they need to return immediately for re-evaluation. 07/24 19:52 Order name: Basic Metabolic Panel; Complete Time: 20:48 sb4 07/24 19:52 Order name: CBC with Diff; Complete Time: 20:22 sb4 07/24 19:52 Order name: LFT's; Complete Time: 20:48 sb4 07/24 19:52 Order name: Magnesium; Complete Time: 20:48 sb4 07/24 19:52 Order name: NT PRO-BNP; Complete Time: 20:48 sb4 07/24 19:52 Order name: PT-INR; Complete Time: 20:29 sb4 07/24 19:52 Order name: Troponin HS; Complete Time: 20:48 sb4 07/24 19:52 Order name: XRAY Chest (1 view); Complete Time: 21:22 sb4 07/24 19:52 Order name: EKG; Complete Time: 19:53 sb4 07/24 19:52 Order name: Cardiac monitoring; Complete Time: 20:08 sb4 07/24 19:52 Order name: EKG - Nurse/Tech; Complete Time: 20:08 sb4 07/24 19:52 Order name: IV Saline Lock; Complete Time: 20:15 sb4 07/24 19:52 Order name: Labs collected and sent; Complete Time: 20:15 sb4 07/24 19:52 Order name: O2 Per Protocol; Complete Time: 20:15 sb4 07/24 19:52 Order name: O2 Sat Monitoring; Complete Time: 20:15 sb4 EC:02 Rate is 84 beats/min. Rhythm is regular, Normal Sinus Rhythm. SD interval is normal at sb4 174 msec. QRS interval is normal at 80 msec. QT interval is normal at 354 msec. No Q waves. T waves are Normal. No ST changes noted. Clinical impression: No evidence of ischemia. Interpreted by me. Reviewed by me. Administered Medications: 20:17 CANCELLED (Physician Discretion): aspirinchewable tablet 324 mg PO once; 81 mg tablets sb4 x 4 20:20 Drug: Aspirin PO Chewable Tablet 324 mg PO once; 81 mg tablets x 4 Route: PO; jj7 21:36 Follow up: Response: No adverse reaction jj7 Disposition Summary: 07/24/23 21:28 Discharge Ordered Notes: Location: Home sb4 Problem: an ongoing problem sb4 Symptoms: are unchanged sb4 Condition: Stable sb4 Diagnosis - Chest pain, unspecified sb4 Followup: sb4 - With: Cesar Rodríguez MD - When: As needed - Reason: Discharge Instructions: - Discharge Summary Sheet sb4 - Chest Wall Pain sb4 Forms: - Medication Reconciliation Form sb4 - Thank You Letter sb4 - Antibiotic Education sb4 - Prescription Opioid Use sb4 - Patient Portal Instructions sb4 - Leadership Thank You Letter sb4 Signatures: Dispatcher [employer] Ge Stearns RN RN jj7 Jennifer Hazel PA-C PAMendoza sb4 Yi Jacques RN RN cm10 Corrections: (The following items were deleted from the chart) 20:17 19:52 Aspirin PO Chewable Tablet 324 mg PO once; 81 mg tablets x 4 ordered. sb4 sb4
--- NOTE | 2023-07-24 21:29 | ER ---
Nurse's Notes [facility] Name: Elis Mckinnon Age: 78 yrs Sex: Female : 1945 Arrival Date: 07/24/2023 Time: 19:38 Bed 20 Private MD: Diagnosis: Chest pain, unspecified Presentation: 07/24 19:53 Chief complaint: Patient states: right sided chest pain onset tonight. Pt describes the cm10 pain as sharp and does not radiate. Pt states having chest pain on Friday and it resolving after taking meds. Coronavirus screen: Client denies travel out of the [place] in the last 14 days. Ebola Screen: Patient denies travel to an Ebola-affected area in the 21 days before illness onset. No symptoms or risks identified at this time. Initial Sepsis Screen: Does the patient meet any 2 criteria? No. Patient's initial sepsis screen is negative. Does the patient have a suspected source of infection? No. Patient's initial sepsis screen is negative. Risk Assessment: Do you want to hurt yourself or someone else? Patient reports no desire to harm self or others. Onset of symptoms. 19:53 Method Of Arrival: Ambulatory cm10 19:53 Acuity: JANETTE 2 cm10 Triage Assessment: 21:35 General: Appears in no apparent distress. comfortable, Behavior is calm, cooperative, jj7 appropriate for age. Historical: - Allergies: 19:54 Codeine; cm10 19:54 Toudvsd-Dcu-Cww Reductase Inhibitors; cm10 - PMHx: 19:54 Atrial fibrillation; Hypertensive disorder; Hypothyroidism; cm10 - PSHx: 19:54 Stented artery; cm10 - Immunization history:: Adult Immunizations unknown. - Social history:: Smoking status: Patient denies any tobacco usage or history of. Screenin:51 [facility] ED Fall Risk Assessment (Adult) History of falling in the last 3 months, jj7 including since admission No falls in past 3 months (0 pts) Confusion or Disorientation No (0 pts) Intoxicated or Sedated No (0 pts) Impaired Gait No (0 pts) Mobility Assist Device Used No (0 pt) Altered Elimination No (0 pt) Score/Fall Risk Level 0 - 2 = Low Risk Oriented to surroundings, Maintained a safe environment. Abuse screen: Denies threats or abuse. Nutritional screening: No deficits noted. Tuberculosis screening: No symptoms or risk factors identified. Assessment: 19:51 Pain: Complains of pain in anterior aspect of right upper chest and right breast Pain jj7 does not radiate. Pain began 5 DAYS AGO. Cardiovascular: Heart tones present Capillary refill < 3 seconds is brisk Patient's skin is warm and dry. Rhythm is sinus rhythm. Vital Signs: 19:53 BP 161 / 62; Pulse 91; Resp 18 S; Temp 98(A); Pulse Ox 96% on R/A; Weight 90.72 kg (R); cm10 Height 5 ft. 0 in. (R); Pain 4/10; 20:45 BP 135 / 60; Pulse 71; Resp 17; Pulse Ox 100% ; Pain 2/10; jj7 21:34 BP 122 / 62; Pulse 69; Resp 20; Pulse Ox 98% ; Pain 0/10; jj7 19:53 Body Mass Index 39.06 (90.72 kg, 152.4 cm) cm10 19:53 Pain Scale: Adult cm10 20:45 Pain Scale: Adult jj7 21:34 Pain Scale: Adult jj7 ED Course: 19:44 Patient arrived in ED. jj6 19:44 [facility] sb4 19:44 Parrish Suero MD is Attending Physician. sb4 19:51 Ge Mei, RN is Primary Nurse. jj7 19:51 Patient has correct armband on for positive identification. Placed in gown. Bed in low jj7 position. Call light in reach. Side rails up X 1. Adult w/ patient. Client placed on continuous cardiac and pulse oximetry monitoring. NIBP monitoring applied. music theory teacher on. Pulse ox on. NIBP on. Warm blanket given. 19:54 Triage completed. cm10 19:54 Arm band placed on Patient placed in an exam room, on a stretcher, on manager reporting, cm10 on pulse oximetry. EKG completed in triage. Results shown to . 21:11 XRAY Chest (1 view) In Process Unspecified. EDMS 21:28 Cesar Rodríguez MD is Referral Physician. sb4 21:34 Provided Education on: F/U WITH PLANT PROPAGATOR. jj7 21:34 No provider procedures requiring assistance completed. IV discontinued, intact, jj7 bleeding controlled, No redness/swelling at site. Pressure dressing applied. Administered Medications: 20:17 CANCELLED (Physician Discretion): aspirinchewable tablet 324 mg PO once; 81 mg tablets sb4 x 4 20:20 Drug: Aspirin PO Chewable Tablet 324 mg PO once; 81 mg tablets x 4 Route: PO; jj7 21:36 Follow up: Response: No adverse reaction jj7 Medication: 19:51 VIS not applicable for this client. jj7 Outcome: 21:28 Discharge ordered by MD. baez 21:34 Discharged to home ambulatory, via wheelchair, jj7 21:34 Condition: improved 21:34 Discharge instructions given to patient, Instructed on discharge instructions, follow up and referral plans. Demonstrated understanding of instructions, follow-up care, 21:36 Patient left the ED. jj7 Signatures: Dispatcher [employer] EDMS Keeley Haro jj6 Ge Mei RN RN jj7 Jennifer Hazel, PA-C PA-C [email or web address] Yi Jacques RN RN cm10
--- NOTE | 2023-07-25 12:22 | EKG ---
Test Date: 2023-07-24 Test Time: 19:49:30 Fur Pointer: ALP MEASUREMENT RESULTS: Intervals: Rate: 84 CA: 174 QRSD: 80 QT: 354 QTc: 418 [place]: P: 69 CA: 174 QRS: 53 T: 73 INTERPRETIVE STATEMENTS: Normal sinus rhythm Possible Left atrial enlargement Borderline ECG Compared to ECG 12/04/2021 18:00:29 Atrial premature complex(es) no longer present Electronically Signed On 07-25-23 12:20:12 CDT by Cesar Rodríguez
== END 2023-07-24 21:36 | disposition home or self-care (01) ==
LOC: ER 19:38
DX: R07.9 Chest pain, unspecified (principal); I10 Essential (primary) hypertension; I48.91 Unspecified atrial fibrillation; Z88.5 Allergy status to narcotic agent; Z88.8 Allergy status to other drugs, medicaments and biological substances
CPT/HCPCS: 36415; 71045; 80048; 80076; 83735; 83880; 84484; 85025; 85610; 93005; 99284

== ENCOUNTER 2024-02-26 11:26 | Emergency (ER) | payer OTHER ==
[2024-02-26] MEDS ORDERED: NA CHLORIDE 0.9% 1,000 ML ONE (11:43)
[2024-02-26] MEDS ORDERED: FOLIC ACID 5 MG/ML VIAL ONE (11:43)
[2024-02-26 11:50] LABS: Absolute Basophils 0.1 K/uL (0-0.5); Absolute Eosinophils 0.1 K/uL (0-0.5); Absolute Lymphocytes (CBC) 1.9 K/uL (0.7-4.9); Absolute Neutrophil 8.7 K/uL (1.8-8.0); Eosinophils % 1.2 % (0-4.4); Hematocrit 37.3 % (36.0-45.0); Hemoglobin 11.7 g/dL (12.0-15.0); Lymphocytes % 16.3 % (15.3-44.8); MCH 26.8 pg (27.0-35.0); MCHC 31.3 g/dL (32.0-36.0); MCV 85.7 fL (80-100); MPV 8.4 fL (7.6-11.3); Monocytes % 8.3 % (3.3-12.3); Neutrophils % 73.2 % (41.7-73.7); Platelets 417 thou/uL (152-406); RBC Red Blood Cell Count 4.35 M/uL (3.86-4.86); Red Cell Distribution Width 16.5 % (12.1-15.2)
[2024-02-26 11:53] LABS: Protime INR 1.66
[2024-02-26 12:10] LABS: ALT/SGPT 22 U/L (13-56); Albumin 3.6 g/dL (3.4-5.0); Albumin/Globulin Ratio 0.9 (1.1-1.8); Alkaline Phosphatase 42 U/L (45-117); Anion Gap 8.1 mEq/L (5.0-15.0); BUN Blood Urea Nitrogen 21 mg/dL (7-18); Bicarbonate 29 mEq/L (21-32); Bilirubin Total 0.3 mg/dL (0.2-1.0); Globulin 3.9 g/dL (2.3-3.5); Glomerular Filtration Rate 36 ml/min (=/>90); Glucose Level 125 mg/dL (74-106); Lipase 34 U/L (13-75); Magnesium 1.8 mg/dL (1.6-2.4); NT PRO-BNP 2166 pg/mL (<450); Potassium 5.1 mEq/L (3.5-5.1); Protein, Total 7.5 g/dL (6.4-8.2); Sodium Level 135 mEq/L (136-145); Troponin High Sensitivity 9.6 pg/mL (<58.9)
[2024-02-26 12:15] LABS: AST/SGOT < 10 U/L (15-37); Bilirubin Direct < 0.2 mg/dL (0-0.2); Bilirubin Indirect, Calculated 0.1 mg/dL (0.2-0.8)
--- NOTE | 2024-02-26 12:44 | RAD REPORT ---
EXAM DESCRIPTION: USCarotid Artery Bilateral02/26/2024 12:27 pm CLINICAL HISTORY: Dizziness COMPARISON: None FINDINGS: The velocity of the right internal carotid artery equals 94 cm/sec. The right ICA/CCA rati o normal The velocity of the left internal carotid artery equals 139 cm/sec. The left ICA/CCA ratio normal Moderate plaque left internal carotid artery. Mild plaque in remainder common and internal carotid ar teries. Moderate grade stenosis right external carotid artery The vertebral arteries demonstrate antegrade flow IMPRESSION: Moderate plaque left internal carotid artery resulting in approximately 50% stenosis NASCET criteria used. Mild 0-49% stenosis Moderate 50-69% stenosis Severe 70-99% stenosis
--- NOTE | 2024-02-26 14:11 | RAD REPORT ---
EXAM DESCRIPTION: RADChest Single View02/26/2024 1:15 pm CLINICAL HISTORY: COUGH COMPARISON: Chest Single View dated 07/24/2023; Chest Single View dated 12/04/2021; Chest Single View dated 11/29/2021; Chest Single View dated 11/27/2021 TECHNIQUE: Portable AP view of the chest. FINDINGS: The lungs are clear. No pneumothorax or effusion. The cardiomediastinal contours are unre markable. IMPRESSION: No acute cardiopulmonary process.
--- NOTE | 2024-02-26 14:16 | RAD REPORT ---
EXAM DESCRIPTION: MRI - Brain Wo Cont - 02/26/2024 12:51 pm CLINICAL HISTORY: DIZZINESS COMPARISON: None available TECHNIQUE: Multiplanar multisequence MRI of the brain performed without IV contrast. FINDINGS: No evidence of acute infarct or other diffusion signal abnormality. No evidence of acute intracranial hemorrhage or abnormal extra-axial fluid collections. Mild diffuse parenchymal volume loss. Ventricular caliber otherwise within normal for age. Midline st ructures are unremarkable. Mild periventricular and and deep white matter T2/FLAIR hyperintensities, nonspecific, but suggestive of chronic small vessel ischemic changes. No mass effect or midline shift. Major vascular flow voids are preserved. Mastoid air cells and paranasal sinuses are clear. IMPRESSION: No acute intracranial process. Chronic findings as above.
--- NOTE | 2024-02-26 15:37 | ER ---
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 Pt recently started taking Amlodipine and says it's what is making her dizzy.". Coronavirus screen: Vaccine status: Patient reports receiving the 2nd dose of the covid vaccine. Ebola Screen: No symptoms or risks identified at this time. Initial Sepsis Screen: Does the patient meet any 2 criteria? No. Patient's initial sepsis screen is negative. Does the patient have a suspected source of infection? No. Patient's initial sepsis screen is negative. Risk Assessment: Do you want to hurt yourself or someone else? Patient reports no desire to harm self or others. Onset of symptoms was February 26, 2024. 11:31 Method Of Arrival: EMS: [facility] mb9 11:31 Acuity: JANETTE 3 mb9 Triage Assessment: 11:33 General: Appears in no apparent distress. Behavior is calm, cooperative, appropriate mb9 for age. Pain: Denies pain. EENT: No signs and/or symptoms were reported regarding the EENT system. Neuro: Miguel Agitation-Sedation Scale (RASS): 0 - Alert and Calm Level of Consciousness is awake, alert, obeys commands, Oriented to person, place, time, situation, Appropriate for age. Neuro: Reports dizziness. Cardiovascular: Heart tones S1 S2 present Patient's skin is warm and dry. Respiratory: Airway is patent Respiratory effort is even, unlabored, Respiratory pattern is regular, symmetrical, Breath sounds are clear bilaterally. GI: Abdomen is round non-distended, Bowel sounds present X 4 quads. Abd is soft and non tender X 4 quads. : No signs and/or symptoms were reported regarding the genitourinary system. Derm: Skin is pink, warm \\T\\ dry. Musculoskeletal: Range of motion: intact in all extremities. Historical: - Allergies: 11:29 Codeine; mb9 11:29 Wcwlnlo-Lhl-Qsy Reductase Inhibitors; mb9 - Home Meds: 11:29 amiodarone 200 mg Oral tab [Active]; amlodipine oral [Active]; Eliquis 5 mg Oral tab mb9 [Active]; gabapentin 100 mg Oral tab [Active]; metoprolol tartrate 25 mg Oral tab 1 tab [Active]; omeprazole 40 mg Oral cpDR [Active]; losartan 100 mg Oral tab [Active]; levothyroxine 88 mcg tab [Active]; ezetimibe 10 mg Oral tab [Active]; Aspirin Oral [Active]; Spironolactone Oral [Active]; sotalol Oral [Active]; - PMHx: 11:29 Atrial fibrillation; Hypertensive disorder; Hypothyroidism; mb9 - PSHx: 11:29 Stented artery; mb9 - Immunization history:: Adult Immunizations up to date. - Infectious Disease History:: Denies. - Social history:: Smoking status: Patient denies any tobacco usage or history of. - Family history:: not pertinent. Screenin:34 [facility] ED Fall Risk Assessment (Adult) History of falling in the last 3 months, mb9 including since admission No falls in past 3 months (0 pts) Confusion or Disorientation No (0 pts) Intoxicated or Sedated No (0 pts) Impaired Gait No (0 pts) Mobility Assist Device Used No (0 pt) Altered Elimination No (0 pt) Score/Fall Risk Level 0 - 2 = Low Risk Oriented to surroundings, Maintained a safe environment, Educated pt \\T\\ family on fall prevention, incl call for assistance when getting out of bed, Assessed \\T\\ reinforced patient's understanding of fall precautions. Abuse screen: Denies threats or abuse. Nutritional screening: No deficits noted. Tuberculosis screening: No symptoms or risk factors identified. Assessment: 11:35 Reassessment: see triage assessment. mb9 13:07 Reassessment: No changes from previously documented assessment. Patient and/or family mb9 updated on plan of care and expected duration. Pain level reassessed. Patient is alert, oriented x 3, equal unlabored respirations, skin warm/dry/pink. 14:34 Reassessment: No changes from previously documented assessment. Patient and/or family ld1 updated on plan of care and expected duration. Pain level reassessed. Patient is alert, oriented x 3, equal unlabored respirations, skin warm/dry/pink. 15:45 Reassessment: discharge pending completion of urine results. mb9 15:52 Reassessment: No changes from previously documented assessment. Patient and/or family mb9 updated on plan of care and expected duration. Pain level reassessed. Patient is alert, oriented x 3, equal unlabored respirations, skin warm/dry/pink. Vital Signs: 11:31 BP 144 / 71; Pulse 60; Resp 18; Temp 97.7; Pulse Ox 100% ; Weight 95.25 kg; Height 5 mb9 ft. 2 in. ; Pain 0/10; 13:38 BP 122 / 84; Pulse 62; Resp 18; Pulse Ox 100% on R/A; mb9 14:34 BP 133 / 65; Pulse 65; Resp 18; Pulse Ox 100% on R/A; ld1 15:45 BP 128 / 70 Supine; Pulse 69; mb9 15:48 BP 117 / 77 Sitting; Pulse 75; mb9 15:51 BP 114 / 92 Standing; Pulse 73; mb9 11:31 Body Mass Index 38.41 (95.25 kg, 157.48 cm) mb9 11:31 Pain Scale: Adult mb9 ED Course: 11:29 Patient arrived in ED. mb9 11:29 Violette Kelly, YANELY is Primary Nurse. mb9 11:29 Arm band placed on. mb9 11:33 Triage completed. mb9 11:33 Parrish Suero MD is Attending Physician. [facility] 11:34 Placed in gown. Bed in low position. Call light in reach. Side rails up X 1. Provided mb9 Education on: press call light if needing anything. Client placed on continuous cardiac and pulse oximetry monitoring. NIBP monitoring applied. helmet coverer on. Door closed. Noise minimized. Warm blanket given. 11:34 Initial lab(s) drawn, by me, sent to lab. EKG done, by ED staff, reviewed by Parrish Suero MD. Inserted saline lock: 20 gauge in right antecubital area, using aseptic technique. Blood collected. 11:40 Basic Metabolic Panel Sent. mb9 11:40 CBC with Diff Sent. mb9 11:40 LFT's Sent. mb9 11:40 Magnesium Sent. mb9 11:40 NT PRO-BNP Sent. mb9 11:40 PT-INR Sent. mb9 11:40 Troponin HS Sent. mb9 11:40 No provider procedures requiring assistance completed. mb9 11:[address] via wheelchair. mb9 11:59 CT Head Brain wo Cont In Process Unspecified. EDMS 12:29 US Carotid Artery Bilateral In Process Unspecified. EDMS 12:38 Brain Wo Cont In Process Unspecified. EDMS 13:17 XRAY Chest (1 view) In Process Unspecified. EDMS 15:34 Urinalysis w/ reflexes Sent. mb9 15:34 Urine collected: clean catch specimen, clear. mb9 15:36 Sam Elise MD is Referral Physician. pedro 16:12 IV discontinued, intact, bleeding controlled, No redness/swelling at site. Pressure mb9 dressing applied. Administered Medications: 11:46 Drug: foLIC Acid IVPB 1 mg IVPB once Route: IVPB; Site: right antecubital; mb9 11:46 Drug: NS 0.9% IV 1000 ml IV at 1 bolus Per protocol; 1000 mL bolus Route: IV; Rate: 1 mb9 bolus; Site: right antecubital; 14:01 Follow up: Response: No adverse reaction; IV Status: Completed infusion mb9 Medication: 11:35 VIS not applicable for this client. mb9 Outcome: 15:37 Discharge ordered by . pedro 16:12 Discharged to home via wheelchair, mb9 16:12 Condition: stable 16:12 Discharge instructions given to patient, family, Instructed on discharge instructions, follow up and referral plans. Demonstrated understanding of instructions, follow-up care, 16:12 Patient left the ED. mb9 Signatures: Dispatcher [employer] Parrish Emerson MD MD cha Sims, Lauren, RN RN ld1 Violette Kelly RN RN mb9
--- NOTE | 2024-02-26 15:37 | EDPHYS ---
Physician Documentation [facility] Name: Elis Mckinnon Age: 79 yrs Sex: Female : 1945 Arrival Date: 02/26/2024 Time: 11: Bed 8 Private MD: ED Physician Parrish Suero HPI: 02/25 15:26 This 79 yrs old Female presents to ER via EMS with complaints of Dizziness. pedro 15:26 The patient presents with dizziness. Onset: The symptoms/episode began/occurred today. pedro Context: occurred at an unknown location. Modifying factors: The symptoms are alleviated by nothing, the symptoms are aggravated by nothing. Associated signs and symptoms: Pertinent positives:. Severity of symptoms: At their worst the symptoms were mild in the emergency department the symptoms are unchanged. Patient's baseline: Neuro: alert and fully oriented. The patient has experienced similar episodes in the past, a few times. Historical: - Allergies: 11:29 Codeine; mb9 11:29 Ejvjtmg-Gps-Ncd Reductase Inhibitors; mb9 - Home Meds: 11:29 amiodarone 200 mg Oral tab [Active]; amlodipine oral [Active]; Eliquis 5 mg Oral tab mb9 [Active]; gabapentin 100 mg Oral tab [Active]; metoprolol tartrate 25 mg Oral tab 1 tab [Active]; omeprazole 40 mg Oral cpDR [Active]; losartan 100 mg Oral tab [Active]; levothyroxine 88 mcg tab [Active]; ezetimibe 10 mg Oral tab [Active]; Aspirin Oral [Active]; Spironolactone Oral [Active]; sotalol Oral [Active]; - PMHx: 11:29 Atrial fibrillation; Hypertensive disorder; Hypothyroidism; mb9 - PSHx: 11:29 Stented artery; mb9 - Immunization history:: Adult Immunizations up to date. - Infectious Disease History:: Denies. - Social history:: Smoking status: Patient denies any tobacco usage or history of. - Family history:: not pertinent. ROS: 15:26 Constitutional: Negative for fever, chills, and weight loss, Eyes: Negative for injury, pedro pain, redness, and discharge, ENT: Negative for injury, pain, and discharge, Neck: Negative for injury, pain, and swelling, Cardiovascular: Negative for chest pain, palpitations, and edema, Respiratory: Negative for shortness of breath, cough, wheezing, and pleuritic chest pain, Abdomen/GI: Negative for abdominal pain, nausea, vomiting, diarrhea, and constipation, Back: Negative for injury and pain, : Negative for injury, bleeding, discharge, and swelling, MS/Extremity: Negative for injury and deformity, Skin: Negative for injury, rash, and discoloration, Psych: Negative for depression, anxiety, suicide ideation, homicidal ideation, and hallucinations, Allergy/Immunology: Negative for hives, rash, and allergies, Endocrine: Negative for neck swelling, polydipsia, polyuria, polyphagia, and marked weight changes, Hematologic/Lymphatic: Negative for swollen nodes, abnormal bleeding, and unusual bruising, 15:26 Neuro: Positive for dizziness, 15:36 : Negative for urinary symptoms, urinary frequency, hematuria, burning with pedro urination, difficulty urinating, foul smelling urine, Exam: 15:26 Constitutional: This is a well developed, well nourished patient who is awake, alert, pedro and in no acute distress. Head/Face: Normocephalic, atraumatic. Eyes: Pupils equal round and reactive to light, extra-ocular motions intact. Lids and lashes normal. Conjunctiva and sclera are non-icteric and not injected. Cornea within normal limits. Periorbital areas with no swelling, redness, or edema. ENT: Nares patent. No nasal discharge, no septal abnormalities noted. Tympanic membranes are normal and external auditory canals are clear. Oropharynx with no redness, swelling, or masses, exudates, or evidence of obstruction, uvula midline. Mucous membranes moist. Neck: Trachea midline, no thyromegaly or masses palpated, and no cervical lymphadenopathy. Supple, full range of motion without nuchal rigidity, or vertebral point tenderness. No Meningismus. Chest/axilla: Normal chest wall appearance and motion. Nontender with no deformity. No lesions are appreciated. Cardiovascular: Regular rate and rhythm with a normal S1 and S2. No gallops, murmurs, or rubs. Normal PMI, no JVD. No pulse deficits. Respiratory: Lungs have equal breath sounds bilaterally, clear to auscultation and percussion. No rales, rhonchi or wheezes noted. No increased work of breathing, no retractions or nasal flaring. Abdomen/GI: Soft, non-tender, with normal bowel sounds. No distension or tympany. No guarding or rebound. No evidence of tenderness throughout. Back: No spinal tenderness. No costovertebral tenderness. Full range of motion. Female : Normal external genitalia. Skin: Warm, dry with normal turgor. Normal color with no rashes, no lesions, and no evidence of cellulitis. MS/ Extremity: Pulses equal, no cyanosis. Neurovascular intact. Full, normal range of motion. Neuro: Awake and alert, GCS 15, oriented to person, place, time, and situation. Cranial nerves II-XII grossly intact. Motor strength 5/5 in all extremities. Sensory grossly intact. Cerebellar exam normal. Normal gait. Psych: Awake, alert, with orientation to person, place and time. Behavior, mood, and affect are within normal limits. 15:26 ECG was reviewed by the Attending Physician. 15:26 : CVA tenderness, is absent, Vital Signs: 11:31 BP 144 / 71; Pulse 60; Resp 18; Temp 97.7; Pulse Ox 100% ; Weight 95.25 kg; Height 5 mb9 ft. 2 in. ; Pain 0/10; 13:38 BP 122 / 84; Pulse 62; Resp 18; Pulse Ox 100% on R/A; mb9 14:34 BP 133 / 65; Pulse 65; Resp 18; Pulse Ox 100% on R/A; ld1 15:45 BP 128 / 70 Supine; Pulse 69; mb9 15:48 BP 117 / 77 Sitting; Pulse 75; mb9 15:51 BP 114 / 92 Standing; Pulse 73; mb9 11:31 Body Mass Index 38.41 (95.25 kg, 157.48 cm) mb9 11:31 Pain Scale: Adult mb9 MDM: 11:33 Patient medically screened. pedro 15:33 Differential diagnosis: cardiac arrhythmia, CVA, generalized weakness, GI bleed, pedro hypovolemia, idiopathic dizziness, near-syncope, TIA. Data reviewed: vital signs, nurses notes, EMS record, lab test result(s), EKG, radiologic studies, CT scan, MRI, plain films. Consideration of Admission/Observation Patient was admitted/placed on observation. Escalation of care including admission/observation considered. I considered the following discharge prescriptions or medication management in the emergency department Medications were administered in the Emergency Department. See MAR. Independent interpretation of the following test(s) in the Emergency Department EKG: See my EKG interpretation above. Test considered but Not performed: Labs: LIPID PANEL. Historians other than the Patient: Friend: FRIEND WELL INFORMED. Care significantly affected by the following chronic conditions: Hypertension, Obesity, A FIB. 02/25 11:35 Order name: Basic Metabolic Panel; Complete Time: 15:12 [facility] 02/25 11:35 Order name: CBC with Diff; Complete Time: 15:12 [facility] 02/25 11:35 Order name: LFT's; Complete Time: 15:12 [facility] 02/25 11:35 Order name: Magnesium; Complete Time: 15:12 [facility] 02/25 11:35 Order name: NT PRO-BNP; Complete Time: 15:12 [facility] 02/25 11:35 Order name: PT-INR; Complete Time: 15:12 [facility] 02/25 11:35 Order name: Troponin HS; Complete Time: 15:12 [facility] 02/25 11:35 Order name: Lipase; Complete Time: 15:12 [facility] 02/25 13:45 Order name: CREATININE WHOLE BLOOD; Complete Time: 15:12 [facility] 02/25 13:46 Order name: CREATININE WHOLE BLOOD [facility] 02/25 15:24 Order name: Urinalysis w/ reflexes; Complete Time: 16:00 [facility] 02/25 11:35 Order name: XRAY Chest (1 view); Complete Time: 15:12 [facility] 02/25 11:35 Order name: CT Head Brain wo Cont [facility] 02/25 11:53 Order name: US Carotid Artery Bilateral; Complete Time: 15:12 [facility] 02/25 12:25 Order name: Brain Wo Cont; Complete Time: 15:12 [facility] 02/25 11:35 Order name: Cardiac monitoring; Complete Time: 11:38 [facility] 02/25 11:35 Order name: EKG - Nurse/Tech; Complete Time: 11:38 [facility] 02/25 11:35 Order name: IV Saline Lock; Complete Time: 11:38 [facility] 02/25 11:35 Order name: Labs collected and sent; Complete Time: 11:40 [facility] 02/25 11:35 Order name: O2 Per Protocol; Complete Time: 11:36 [facility] 02/25 11:35 Order name: O2 Sat Monitoring; Complete Time: 11:36 [facility] 02/25 15:25 Order name: Orthostatics; Complete Time: 15:35 pedro EC:26 Rate is 58 beats/min. Rhythm is regular. QRS [place] is Normal. UT interval is normal. QRS pedro interval is normal. QT interval is normal. No Q waves. T waves are Normal. No ST changes noted. Clinical impression: Sinus bradycardia and No evidence of ischemia. Interpreted by me. Reviewed by me. 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 pedro Followup: pedro - With: Private Physician - When: 2 - 3 days - Reason: Recheck today's complaints, Continuance of care, Re-evaluation by your physician Followup: pedro - With: Sam Elise MD - When: 2 - 3 days - Reason: Recheck today's complaints, Continuance of care, Re-evaluation by your physician Discharge Instructions: - Discharge Summary Sheet pedro - Dizziness pedro - Hypertension, Adult pedro - Hypertension, Adult, [id number] pedro - How to Take Your Blood Pressure, [id number]-[id number] pedro - Managing Your Hypertension pedro Forms: - Medication Reconciliation Form pedro - Antibiotic Education pedro - Prescription Opioid Use pedro - Patient Portal Instructions pedro - Leadership Thank You Letter pedro Signatures: Dispatcher [employer] Parrish Emerson MD MD cha Breneman, Mary Beth RN RN mb9 Corrections: (The following items were deleted from the chart) 11:36 11:36 BASIC METABOLIC PANEL+C.LAB.BRZ ordered. EDMS EDMS 11:36 11:36 CBC+H.LAB.BRZ ordered. EDMS EDMS 11:36 11:36 HEPATIC FUNCTION+C.LAB.BRZ ordered. EDMS EDMS 11:36 11:36 MAGNESIUM+C.LAB.BRZ ordered. EDMS EDMS 11:36 11:36 PROBNP+C.LAB.BRZ ordered. EDMS EDMS 11:36 11:36 PROTIME (+INR)+COAG.LAB.BRZ ordered. EDMS EDMS 11:36 11:36 Troponin High Sensitivity+C.LAB.BRZ ordered. EDMS EDMS 11:36 11:36 LIPASE+C.LAB.BRZ ordered. EDMS EDMS 11:36 11:36 Head Brain Wo Cont+CT.RAD.BRZ ordered. EDMS EDMS 11:36 11:36 Head Angio+CT.RAD.BRZ ordered. EDMS EDMS 11:36 11:36 Neck Angio+CT.RAD.BRZ ordered. EDMS EDMS 11:36 11:36 MR STROKE PROTOCOL+MRI.RAD.BRZ ordered. EDMS EDMS 11:54 11:54 Carotid Artery Bilateral+US.RAD.BRZ ordered. EDMS EDMS
[2024-02-26 15:56] LABS: Sqamous Epithelial <5 /HPF (None Seen); Urine Bacteria None Seen /HPF (<20); Urine Clarity Clear (Clear); Urine Color Yellow (Yellow); Urine Culture Reflex Order NOT NEEDED; Urine Microscopic Reflex YN ORDER UMIC; Urine RBC <5 /HPF (None Seen)
[2024-02-26 15:57] LABS: Urine Bilirubin Negative (Negative); Urine Blood Negative (Negative); Urine Glucose Negative (Negative); Urine Ketones Negative (Negative); Urine Nitrite Negative (Negative); Urine Protein Negative (Negative); Urine Urobilinogen Normal (Normal)
[2024-02-26 16:54] VITALS: BP 114/92; TEMP 97.7; O2SAT 100
--- NOTE | 2024-03-01 13:32 | EKG ---
Test Date: 2024-02-26 Test Time: 11:33:46 Bricklayer'S Assistant: GRACIE MEASUREMENT RESULTS: Intervals: Rate: 58 ID: [id number] QRSD: 86 QT: 432 QTc: 424 [place]: P: 76 ID: [id number] QRS: 53 T: 70 INTERPRETIVE STATEMENTS: Sinus bradycardia Otherwise normal ECG Compared to ECG 07/24/2023 19:49:30 Sinus rhythm no longer present Electronically Signed On 03-01-24 13:20:29 CDT by Cesar Rodríguez
== END 2024-02-26 16:12 | disposition home or self-care (01) ==
LOC: ER 11:26
DX: R42 Dizziness and giddiness (principal); I10 Essential (primary) hypertension; Z79.01 Long term (current) use of anticoagulants; I48.91 Unspecified atrial fibrillation; E03.9 Hypothyroidism, unspecified; Z88.5 Allergy status to narcotic agent; Z88.8 Allergy status to other drugs, medicaments and biological substances
CPT/HCPCS: 96361; 85025; 81001; 80048; 36415; 83735; 85610; 82565; 80076; 84484; 83690; 83880; 70450; 71045; 93880; 70551; 96374; 99285; J7030; 93005

== ENCOUNTER 2024-04-05 10:38 | Inpatient (IN) | payer OTHER ==
[2024-04-05] MEDS ORDERED: METOPROLOL TARTRATE 5 MG/5 ML INJ IV ONE (10:59)
[2024-04-05] MEDS ORDERED: METOPROLOL TAR 25 MG TAB ONE (10:59)
[2024-04-05] MEDS ORDERED: MAGNESIUM SULFATE 1 gm IVPB 1 GM/100 ML BAG IV ONE (11:00)
[2024-04-05 11:18] LABS: Absolute Basophils 0.1 K/uL (0-0.5); Absolute Eosinophils 0.1 K/uL (0-0.5); Absolute Lymphocytes (CBC) 1.6 K/uL (0.7-4.9); Absolute Monocytes 0.9 K/uL (0.1-1.3); Absolute Neutrophil 9.7 K/uL (1.8-8.0); Basophils % 0.7 % (0-1.3); Eosinophils % 0.9 % (0-4.4); Hemoglobin 11.9 g/dL (12.0-15.0); Lymphocytes % 12.6 % (15.3-44.8); MCH 26.2 pg (27.0-35.0); MCHC 31.5 g/dL (32.0-36.0); MCV 83.3 fL (80-100); MPV 8.1 fL (7.6-11.3); Monocytes % 7.2 % (3.3-12.3); Neutrophils % 78.6 % (41.7-73.7); Platelets 460 thou/uL (152-406); RBC Red Blood Cell Count 4.56 M/uL (3.86-4.86); Red Cell Distribution Width 16.8 % (12.1-15.2)
[2024-04-05 11:19] LABS: PT Prothrombin Time 21.7 SECONDS (9.5-12.5); Protime INR 2.01
--- NOTE | 2024-04-05 11:22 | RAD REPORT ---
EXAM DESCRIPTION: RAD - Chest Single View - 04/05/2024 11:15 am CLINICAL HISTORY: DYSPNEA Chest pain. COMPARISON: Chest Single View dated 02/26/2024; Chest Single View dated 07/24/2023; Chest Single View d ated 12/04/2021; Chest Single View dated 11/29/2021 FINDINGS: Portable technique limits examination quality. Mild interstitial pulmonary edema. The heart is mildly prominent size No displaced fractures. IMPRESSION: Mild CHF is possibility.
[2024-04-05] MEDS ORDERED: FUROSEMIDE 20 MG/ 2ML VIAL ONE (11:33)
[2024-04-05 11:34] LABS: Anion Gap 11.4 mEq/L (5.0-15.0); Potassium 4.4 mEq/L (3.5-5.1); Troponin High Sensitivity 20.8 pg/mL (<58.9)
--- NOTE | 2024-04-05 12:14 | EDPHYS ---
Physician Documentation [facility] Name: Elis Mckinnon Age: 79 yrs Sex: Female : 1945 Arrival Date: 04/05/2024 Time: 10:38 Bed 7 Private MD: ED Physician Jean Pierre Villareal HPI: 04/05 11:00 This 79 yrs old Female presents to ER via Wheelchair with complaints of sob, Sent by rn and . 11:00 The patient has shortness of breath at rest, with light activity. Onset: The rn symptoms/episode began/occurred 1 week(s) ago. Duration: The symptoms are intermittent. The patient's shortness of breath is aggravated by exertion, light activity. Associated signs and symptoms: Pertinent positives: This patient does not have any pertinent positive signs or symptoms associated with shortness of breath. Pertinent negatives: chest pain, non-productive cough, productive cough, fever, hemoptysis. Severity of symptoms: At their worst the symptoms were moderate in the emergency department the symptoms are unchanged. The patient has experienced similar episodes in the past. The patient has been recently seen by a physician:. Patient reports at Dr. Elise's office today, sent in for evaluation for shortness of breath, over the last week, most likely secondary to atrial fibrillation with rapid ventricular rate. States compliant with her medication. Does not feel ill. No fever. No productive cough. No chest pain.. Historical: - Allergies: 10:47 Codeine; ld1 10:47 Rdtzhxq-Ftg-Qjg Reductase Inhibitors; ld1 - Home Meds: 10:56 spironolactone 50 mg Oral tablet once [Active]; Eliquis 5 mg oral tablet 2 times per aa5 day [Active]; metoprolol tartrate 50 mg Oral tablet 2 times per day [Active]; Synthroid 88 mcg Oral tablet once [Active]; gabapentin 100 mg oral capsule once [Active]; Zetia 10 mg Oral tablet daily [Active]; 11:02 ranolazine 500 mg oral Tablet, Extended Release 12 hr 2 times per day [Active]; Prolia aa5 60 mg/mL subcutaneous Syringe [Active]; - PMHx: 10:47 Atrial fibrillation; Hypothyroidism; Hypertensive disorder; ld1 - PSHx: 10:47 Stented artery; ld1 - Immunization history:: Adult Immunizations up to date. - Infectious Disease History:: Denies. - Social history:: Smoking status: Patient denies any tobacco usage or history of. - Family history:: not pertinent. - Hospitalizations: : No recent hospitalization is reported. ROS: 11:00 Constitutional: Negative for fever, chills, and weight loss, Cardiovascular: Negative rn for chest pain Respiratory: Positive for shortness of breath Abdomen/GI: Negative for abdominal pain, nausea, vomiting, diarrhea, and constipation, MS/Extremity: Negative for injury and deformity, Skin: Negative for injury, rash, and discoloration, Neuro: Positive for generalized weakness and dizziness Exam: 11:00 Constitutional: This is a well developed, well nourished patient who is awake, alert, rn and in no acute distress. Head/Face: Normocephalic, atraumatic. Cardiovascular: Tachycardic, irregular. Respiratory: Mild tachypnea, diminished breath sounds at bases. Abdomen/GI: Soft, non-tender MS/ Extremity: Pulses equal, no cyanosis. Neuro: Awake and alert, GCS 15 11:00 ECG was reviewed by the Attending Physician. Vital Signs: 10:42 BP 166 / 114; Pulse 120; Resp 26 S; Temp 97.6(O); Pulse Ox 96% on R/A; Weight 93.44 kg aa5 (R); Height 5 ft. 0 in. (R); 11:07 Pulse 127; Resp 20; Pulse Ox 95% on R/A; ld1 12:13 BP 156 / 80; Pulse 102; Resp 18; Pulse Ox 96% on R/A; ld1 10:42 Body Mass Index 40.23 (93.44 kg, 152.4 cm) aa5 MDM: 10:42 Patient medically screened. rn 12:11 Differential diagnosis: CHF exacerbation, atrial fibrillation. Data reviewed: vital rn signs, nurses notes, lab test result(s), EKG, radiologic studies, plain films, and as a result, I will admit patient. Consideration of Admission/Observation Patient was admitted/placed on observation. Escalation of care including admission/observation considered. Care significantly affected by the following chronic conditions: Congestive Heart Failure, Atrial fibrillation. Counseling: I had a detailed discussion with the patient and/or guardian regarding the historical points, exam findings, and any diagnostic results supporting the discharge/admit diagnosis, lab results, radiology results, the need for further work-up and treatment in the hospital. ED course: Patient with atrial fibrillation and rapid ventricular rate, given IV metoprolol/magnesium/p.o. metoprolol. Has shown some improvement but still tachycardic. Chest x-ray shows pulmonary edema. Will admit to Dr. Elise with cardiology consultation.. ED course: I personally spent 35 minutes engaged in work directly related to the individual patient's care. This does not include any time spent performing procedures. The patient has been deemed critically ill because atrial fibrillation with rapid ventricular rate requiring IV and p.o. medication as well as IV magnesium for stabilization.. 04/05 10:52 Order name: Basic Metabolic Panel; Complete Time: 04/05 10:52 Order name: CBC with Diff; Complete Time: 04/05 10:52 Order name: NT PRO-BNP; Complete Time: 04/05 10:52 Order name: PT-INR; Complete Time: 04/05 10:52 Order name: Troponin HS; Complete Time: 04/05 10:52 Order name: XRAY Chest (1 view); Complete Time: 04/05 10:52 Order name: Cardiac monitoring; Complete Time: 04/05 10:52 Order name: EKG - Nurse/Tech; Complete Time: 04/05 10:52 Order name: IV Saline Lock; Complete Time: 04/05 10:52 Order name: Labs collected and sent; Complete Time: 04/05 10:52 Order name: O2 Per Protocol; Complete Time: 04/05 10:52 Order name: O2 Sat Monitoring; Complete Time: 10:54 rn EC:00 Rate is 106 beats/min. Rhythm is irregularly irregular. QRS [place] is Normal. QRS rn interval is normal. QT interval is normal. No Q waves. T waves are Normal. No ST changes noted. Clinical impression: Atrial Fibrillation. Reviewed by me. Administered Medications: 11: Drug: Metoprolol IVP 5 mg IVP once; Hold for SBP <100 or HR <60. Route: IVP; Site: ld1 right antecubital; 11:06 Drug: Metoprolol PO 25 mg PO once Route: PO; ld1 11:06 Drug: Magnesium Sulfate IVPB 1 grams IVPB once over 1 hrs Route: IVPB; Infused Over: 1 ld1 hrs; Site: right antecubital; 11:35 Drug: Furosemide IVP 20 mg IVP once; give over 2 minutes Route: IVP; Site: right ld1 antecubital; Disposition: 12:11 Critical Care:. rn Disposition Summary: 04/05/24 12:13 Hospitalization Ordered Notes: Hospitalization Status: Inpatient Admission rn Provider: Sam Elise rn Location: Telemetry/[facility] (Inpatient) rn Condition: Stable rn Problem: new rn Symptoms: have improved rn Bed/Room Type: Standard rn Room Assignment: 414(04/05/24 13:13) bd Diagnosis - Persistent atrial fibrillation rn - Dyspnea, unspecified rn - Acute pulmonary edema rn Forms: - Medication Reconciliation Form rn - SBAR form rn - Leadership Thank You Letter enamel burner time excluding procedures: 12:11 Critical care time: Bedside Care: 35 minutes. Total time: 35 minutes rn Signatures: Dispatcher [employer] EDMaría Duron Roman, MD MD rn Calderon, Audri RN RN aa5 Emelia Garza RN RN ld1 Corrections: (The following items were deleted from the chart) 10:52 10:52 Chest Single View+RAD.RAD.BRZ ordered. EDMN EDMS 13:13 12:13 rn bd
--- NOTE | 2024-04-05 12:14 | ER ---
Nurse's Notes [facility] Name: Elis Mckinnon Age: 79 yrs Sex: Female : 1945 Arrival Date: 04/05/2024 Time: 10:38 Bed 7 Private MD: Diagnosis: Persistent atrial fibrillation;Dyspnea, unspecified;Acute pulmonary edema Presentation: 04/05 10:42 Chief complaint: Patient states: increased SOB x 1 week ago, reports being sent here by [facility] Dr. Elise. 10:42 Onset of symptoms was April 05, 2024. [facility] 10:42 Acuity: JANETTE 2 aa 10:42 Method Of Arrival: Wheelchair aa 10:42 Coronavirus screen: shortness of breath. Ebola Screen: Patient denies travel to an [facility] Ebola-affected area in the 21 days before illness onset. Initial Sepsis Screen: Does the patient meet any 2 criteria? HR > 90 bpm. Does the patient have a suspected source of infection? No. Patient's initial sepsis screen is negative. Risk Assessment: Do you want to hurt yourself or someone else? Patient reports no desire to harm self or others. Historical: - Allergies: 10:47 Codeine; ld1 10:47 Liwqzds-Wgx-Dsf Reductase Inhibitors; ld1 - Home Meds: 10:56 spironolactone 50 mg Oral tablet once [Active]; Eliquis 5 mg oral tablet 2 times per aa5 day [Active]; metoprolol tartrate 50 mg Oral tablet 2 times per day [Active]; Synthroid 88 mcg Oral tablet once [Active]; gabapentin 100 mg oral capsule once [Active]; Zetia 10 mg Oral tablet daily [Active]; 11:02 ranolazine 500 mg oral Tablet, Extended Release 12 hr 2 times per day [Active]; Prolia aa5 60 mg/mL subcutaneous Syringe [Active]; - PMHx: 10:47 Atrial fibrillation; Hypothyroidism; Hypertensive disorder; ld1 - PSHx: 10:47 Stented artery; ld1 - Immunization history:: Adult Immunizations up to date. - Infectious Disease History:: Denies. - Social history:: Smoking status: Patient denies any tobacco usage or history of. - Family history:: not pertinent. - Hospitalizations: : No recent hospitalization is reported. Screenin:10 [facility] ED Fall Risk Assessment (Adult) History of falling in the last 3 months, ld1 including since admission No falls in past 3 months (0 pts). Abuse screen: Denies threats or abuse. Denies injuries from another. Nutritional screening: No deficits noted. Tuberculosis screening: No symptoms or risk factors identified. Assessment: 11:07 General: Appears in no apparent distress. comfortable, Behavior is calm, cooperative, ld1 appropriate for age. Pain: Denies pain. Neuro: Level of Consciousness is awake, alert, obeys commands, Oriented to person, place, time, situation. Cardiovascular: Capillary refill < 3 seconds Patient's skin is warm and dry. Rhythm is irregular. Respiratory: Airway is patent Respiratory effort is even, unlabored. GI: Abdomen is round non-distended. : No signs and/or symptoms were reported regarding the genitourinary system. EENT: No signs and/or symptoms were reported regarding the EENT system. Derm: No signs and/or symptoms reported regarding the dermatologic system. Musculoskeletal: No signs and/or symptoms reported regarding the musculoskeletal system. Vital Signs: 10:42 BP 166 / 114; Pulse 120; Resp 26 S; Temp 97.6(O); Pulse Ox 96% on R/A; Weight 93.44 kg aa5 (R); Height 5 ft. 0 in. (R); 11:07 Pulse 127; Resp 20; Pulse Ox 95% on R/A; ld1 12:13 BP 156 / 80; Pulse 102; Resp 18; Pulse Ox 96% on R/A; ld1 10:42 Body Mass Index 40.23 (93.44 kg, 152.4 cm) aa5 ED Course: 10:41 Patient arrived in ED. im 10:42 Jean Pierre Villareal MD is Attending Physician. rn 10:42 Arm band placed on Patient placed in an exam room, on a stretcher. aa5 10:55 Triage completed. aa5 11:04 Initial lab(s) drawn, by me, sent to lab. Inserted saline lock: 20 gauge in right iw antecubital area, using aseptic technique. Blood collected. 11:06 Emelia Garza, YANELY is Primary Nurse. ld1 11:10 Patient has correct armband on for positive identification. Placed in gown. Bed in low ld1 position. Call light in reach. Side rails up X2. clinical research monitor on. Pulse ox on. NIBP on. Door closed. Noise minimized. Warm blanket given. 11:10 No provider procedures requiring assistance completed. ld1 11:17 XRAY Chest (1 view) In Process Unspecified. EDMS 12:13 Sam Elise MD is Hospitalizing Provider. rn Administered Medications: 11:06 Drug: Metoprolol IVP 5 mg IVP once; Hold for SBP <100 or HR <60. Route: IVP; Site: ld1 right antecubital; 11:06 Drug: Metoprolol PO 25 mg PO once Route: PO; ld1 11:06 Drug: Magnesium Sulfate IVPB 1 grams IVPB once over 1 hrs Route: IVPB; Infused Over: 1 ld1 hrs; Site: right antecubital; 11:35 Drug: Furosemide IVP 20 mg IVP once; give over 2 minutes Route: IVP; Site: right ld1 antecubital; Outcome: 12:13 Decision to Hospitalize by Provider. rn 13:54 Admitted to Med/surg accompanied by tech, via wheelchair, iw 13:54 Condition: good 13:54 Discharge instructions given to patient, Instructed on the need for admit, Demonstrated understanding of instructions, 13:54 Patient left the ED. iw Signatures: Dispatcher [employer] EDMS Stella Poole RN RN iw Jean Pierre Villareal MD MD rn Calderon, Audri, RN RN aa5 Emelia Garza RN RN ld1 June Lo Corrections: (The following items were deleted from the chart) 10:55 10:52 Arm band placed on Patient placed in an exam room, on a stretcher, jonathan castillo
[2024-04-05 14:35] VITALS: BMI 40.2
[2024-04-05] MEDS ORDERED: METOPROLOL TAR 25 MG TAB PO SCH (18:00)
--- NOTE | 2024-04-05 18:12 | P.HP ---
Certification for Inpatient Patient admitted to: Inpatient With expected LOS: >2 Midnights Practitioner: I am a practitioner with admitting privileges, knowledge of patient current condition, hospital course, and medical plan of care. Services: Services provided to patient in accordance with Admission requirements found in Title 42 Section 412.3 of the Code of Federal Regulations Patient History Date of Service: 04/05/24 Reason for admission: DYSPNEA. A FIB. History of Present Illness: WILLIS HAS HAD A FIB AN DIASTOLIC HEART FAILURE BEFORE. SHE IS ON METOPROLOL AND ELIQUIS. SHE IS NOT CONTROLLED ANY LONGER. ON ADMISSION I CHANGED TO SOTALOL AND LASIX DRIP. Allergies codeine Allergy (Verified 11/30/21 13:41) Itching/Hives/Rash Irclcjw-CUC-LmV Reductase Inhibitor Allergy (Verified 11/30/21 13:41) Itching/Hives/Rash Home Medications: Apixaban [Eliquis] 5 mg PO BID 11/06/21 Calcium Carb, Citrate/Vit D3 [Citracal-D3 ER 600 mg-500 Unit] 1 tab PO DAILY 11/06/21 Ezetimibe [Zetia*] 1 tab PO DAILY 11/06/21 Gabapentin 1 tab PO DAILY 11/06/21 Levothyroxine [Synthroid*] 1 tab PO DAILY 11/06/21 Omeprazole [Prilosec] 1 tab PO DAILY 11/06/21 Spironolactone 50 mg PO BID 11/06/21 Metoprolol Tartrate [Lopressor] 50 mg PO BID 04/05/24 Ranolazine [Ranolazine ER] 500 mg PO BID 04/05/24 - Past Medical/Surgical History Has patient received pneumonia vaccine in the past: No Diabetic: No -: atrial fibrillation -: HTN -: hypothyroid -: CHF - Social History Smoking Status: Former smoker Alcohol use: No CD- Drugs: No Caffeine use: Yes Place of Residence: Home Review of Systems 10-point ROS is otherwise unremarkable General: Weakness Physical Examination - Vital Signs Temperature: 97.2 F Blood Pressure: 148/72 Pulse: 113 Respirations: 17 Pulse Ox (%): 96 - Physical Exam General: Oriented x3 HEENT: Atraumatic, PERRLA, Mucous membr. moist/pink, EOMI, Sclerae nonicteric Neck: Supple, 2+ carotid pulse no bruit, No LAD, Without JVD or thyroid abnormality Respiratory: Clear to auscultation bilaterally, Normal air movement Cardiovascular: Abnormal S1 S2 Gastrointestinal: Normal bowel sounds, No tenderness Musculoskeletal: No tenderness Integumentary: No rashes Neurological: Normal gait, Normal speech, Normal strength at 5/5 x4 extr, Normal tone, Normal affect Lymphatics: No axilla or inguinal lymphadenopathy - Studies Laboratory Data (last 24 hrs) 04/05/24 04/05/24 04/05/24 11:02 11:02 11:02 WBC 12.30 H Hgb 11.9 L Hct 38.0 Plt Count 460 H PT 21.7 H INR 2.01 Sodium 135 L Potassium 4.4 BUN 25 H Creatinine 1.49 H Glucose 137 H Assessment and Plan - Problems (Diagnosis) (1) Rapid atrial fibrillation Current Visit: Yes Status: Acute Plan: START SOTALOL STOP METORPOLOL. (2) Diastolic CHF, acute Current Visit: No Status: Acute Plan: LASIX DRIP BP IS MILD LOW (3) Chronic a-fib Current Visit: No Status: Chronic - Advance Directives Does patient have a Living Will: No Does patient have a Durable POA for Healthcare: No
[2024-04-05] MEDS: SOTALOL HCL 80 MG TAB PO SCH (19:31)
[2024-04-05] MEDS: FUROSEMIDE 100 MG in NA CHLORIDE 0.9% 90 ML IV SCH (19:49)
[2024-04-05] MEDS: APIXABAN 5 MG TABLET PO SCH (20:27)
[2024-04-05] MEDS: SPIRONOLACTONE 25 MG TABLET PO SCH (20:28)
[2024-04-05] MEDS ORDERED: HOME MED 1 EA UNK (Spironolactone [Spironolactone] 25 MG) PO SCH (21:00)
[2024-04-05] MEDS ORDERED: HOME MED 1 EA UNK (Spironolactone [Spironolactone] 50 MG Tablet) PO SCH (21:00)
[2024-04-05] MEDS ORDERED: METOPROLOL TAR 50 MG TAB PO SCH (21:00)
[2024-04-05] MEDS: ONDANSETRON 4 MG/2 ML VIAL IV PRN (22:47)
[2024-04-06] MEDS: LEVOTHYROXINE SOD 0.088 MG TAB PO SCH (06:02)
[2024-04-06] MEDS ORDERED: HOME MED 1 EA UNK (Omeprazole [Prilosec] 40 MG Capsule.Dr) PO SCH (09:00)
[2024-04-06] MEDS: SPIRONOLACTONE 25 MG TABLET PO SCH (09:36)
[2024-04-06] MEDS: GABAPENTIN 100 MG CAP PO SCH (09:37)
[2024-04-06] MEDS: PANTOPRAZOLE 40MG TABLET PO SCH (09:37)
[2024-04-06] MEDS: EZETIMIBE 10 MG TAB PO SCH (09:37)
[2024-04-06 11:31] VITALS: O2SAT 97
--- NOTE | 2024-04-06 11:40 | P.CNS ---
Date of Consult: 04/06/24 Chief Complaint: DYSPNEA. A FIB. History of Present Illness: Patient with PMH of atrial fibrillation, diastolic heart failure presented with worsening SOB and lower extremity swelling assocaited with palpitations, denies any other cardiac symptoms. Allergies codeine Allergy (Verified 11/30/21 13:41) Itching/Hives/Rash Dvplhgx-TOH-LzP Reductase Inhibitor Allergy (Verified 11/30/21 13:41) Itching/Hives/Rash Home Medications: Apixaban [Eliquis] 5 mg PO BID 11/06/21 Calcium Carb, Citrate/Vit D3 [Citracal-D3 ER 600 mg-500 Unit] 1 tab PO DAILY 11/06/21 Ezetimibe [Zetia*] 1 tab PO DAILY 11/06/21 Gabapentin 1 tab PO DAILY 11/06/21 Levothyroxine [Synthroid*] 1 tab PO DAILY 11/06/21 Omeprazole [Prilosec] 1 tab PO DAILY 11/06/21 Spironolactone 50 mg PO BID 11/06/21 Metoprolol Tartrate [Lopressor] 50 mg PO BID 04/05/24 Ranolazine [Ranolazine ER] 500 mg PO BID 04/05/24 - Past Medical/Surgical History Diabetic: No -: atrial fibrillation -: HTN -: hypothyroid -: CHF - Social History Smoking Status: Unknown if ever smoked Alcohol use: No CD- Drugs: No Caffeine use: Yes Place of Residence: Home Review of Systems 10-point ROS is otherwise unremarkable Physical Examination Temp Pulse Resp BP Pulse Ox 97.2 F 69 18 128/60 93 04/06/24 08:00 04/06/24 09:36 04/06/24 08:00 04/06/24 09:36 04/06/24 08:00 General: Alert, In no apparent distress HEENT: Atraumatic, PERRLA, Mucous membr. moist/pink, EOMI, Sclerae nonicteric Neck: Supple, 2+ carotid pulse no bruit, No LAD, Without JVD or thyroid abnormality Respiratory: Clear to auscultation bilaterally, Normal air movement Cardiovascular: Regular rate/rhythm, Normal S1 S2 Gastrointestinal: Normal bowel sounds, No tenderness Musculoskeletal: No tenderness Integumentary: No rashes Neurological: Normal gait, Normal speech, Normal tone, Normal affect Lymphatics: No axilla or inguinal lymphadenopathy - Problems (1) Diastolic CHF, acute Current Visit: No Status: Acute Plan: Patient on Lasiz drip 10 mg/hr, diuresing well and feels better, may switch drip to 40 mg po BID on discharge for 1 week then continue 40 mg daily Monitor input and output. monitor and correct electrolytes. (2) Chronic a-fib Current Visit: No Status: Chronic Plan: presented with RVR, started on Sotalol 80 mg po BID, currently in sinus rhythm, repeat EKG after 3rd dose. continue Eliquis 5 mg po BID (3) HTN (hypertension) Current Visit: No Status: Chronic Plan: Continue Spirnolactone 25 mg daily Qualifiers: Hypertension type: primary hypertension Qualified Code(s): I10 - Essential (primary) hypertension
--- NOTE | 2024-04-06 14:18 | EKG ---
Test Date: 2024-04-05 Test Time: 11:02:24 Ecommerce Marketing Manager: SUSAN MEASUREMENT RESULTS: Intervals: Rate: 106 [place]: QRSD: 80 QT: 342 QTc: 454 [place]: P: TX: QRS: 62 T: 70 INTERPRETIVE STATEMENTS: Atrial fibrillation with rapid ventricular response Nonspecific ST and T wave abnormality Abnormal ECG Compared to ECG 02/26/2024 11:33:46 ST (T wave) deviation now present Sinus bradycardia no longer present Electronically Signed On 04-06-24 14:13:02 CDT by Cesar Rodríguez
--- NOTE | 2024-04-06 19:19 | P.DS ---
Admission Date: 04/05/24 Discharge Date: 04/06/24 Disposition: ROUTINE DISCHARGE Discharge Condition: FAIR Reason for Admission: DYSPNEA. A FIB. - Problems (1) Rapid atrial fibrillation Current Visit: Yes Status: Acute (2) Diastolic CHF, acute Current Visit: No Status: Acute (3) Chronic a-fib Current Visit: No Status: Chronic Brief History of Present Illness: WILLIS HAS HAD A FIB AN DIASTOLIC HEART FAILURE BEFORE. SHE IS ON METOPROLOL AND ELIQUIS. SHE IS NOT CONTROLLED ANY LONGER. ON ADMISSION I CHANGED TO SOTALOL AND LASIX DRIP. Hospital Course: WILLIS CAME WITH DYSPNEA AND RAPID A FIB AT OFFICE. SENT TO ER. THEY DID NOT DO MUCH. I STARED ON SOTALOL AND STOPPED METOPROLOL. GAVE LASIX DRIP AND SHE DID WELL. SHE IS STABLE TO GO HOME LONG QT INTERVAL IS GOOD ON SOTALOL. Vital Signs/Physical Exam: Temp Pulse Resp BP Pulse Ox 97.3 F 69 18 115/56 L 98 04/06/24 16:00 04/06/24 16:00 04/06/24 16:00 04/06/24 16:00 04/06/24 16:00 Laboratory Data at Discharge: WBC 12.30 thou/uL (4.3-10.9) H 04/05/24 11:02 Hgb 11.9 g/dL (12.0-15.0) L 04/05/24 11:02 Hct 38.0 % (36.0-45.0) 04/05/24 11:02 Plt Count 460 thou/uL (152-406) H 04/05/24 11:02 PT 21.7 SECONDS (9.5-12.5) H 04/05/24 11:02 INR 2.01 04/05/24 11:02 Sodium 135 mEq/L (136-145) L 04/05/24 11:02 Potassium 4.4 mEq/L (3.5-5.1) 04/05/24 11:02 BUN 25 mg/dL (7-18) H 04/05/24 11:02 Creatinine 1.49 mg/dL (0.55-1.02) H 04/05/24 11:02 Glucose 137 mg/dL (74-106) H 04/05/24 11:02 Home Medications: Apixaban [Eliquis] 5 mg PO BID 11/06/21 Ezetimibe [Zetia*] 1 tab PO DAILY 11/06/21 Gabapentin 1 tab PO DAILY 11/06/21 Levothyroxine [Synthroid*] 1 tab PO DAILY 11/06/21 Omeprazole [Prilosec] 1 tab PO DAILY 11/06/21 Ranolazine [Ranolazine ER] 500 mg PO BID 04/05/24 Furosemide 20 mg PO DAILY #90 04/06/24 Sotalol HCl [Betapace*] 80 mg PO BID 6AM 6PM #60 tab 04/06/24 Spironolactone [Aldactone*] 25 mg PO DAILY tab 04/06/24 New Medications: Sotalol HCl [Betapace*] 80 mg PO BID 6AM 6PM #60 tab Furosemide 20 mg PO DAILY #90 Followup: Sam Elise MD [Primary Care Provider] -
[2024-04-06] MEDS: ONDANSETRON 4 MG (ODT) TAB PO ONE (20:21)
[2024-04-06 21:10] VITALS: BP 137/61; TEMP 98.1
[2024-04-07] MEDS ORDERED: FAMOTIDINE 20 MG TAB PO SCH (09:00)
== END 2024-04-06 20:40 | disposition home or self-care (01) | DRG 291 ==
LOC: ER 10:38 → ERHOLD 13:02 → 4TH 13:24
PROVIDERS: ADMIT Internal Medicine; ATTEND Internal Medicine
DX: I11.0 Hypertensive heart disease with heart failure (principal); I50.31 Acute diastolic (congestive) heart failure; I48.19 Other persistent atrial fibrillation; E03.9 Hypothyroidism, unspecified; Z88.5 Allergy status to narcotic agent; Z88.8 Allergy status to other drugs, medicaments and biological substances; Z79.01 Long term (current) use of anticoagulants; Z79.890 Hormone replacement therapy; Z79.899 Other long term (current) drug therapy; Z87.891 Personal history of nicotine dependence
CPT/HCPCS: 36415; 71045; 80048; 83880; 84484; 85025; 85610; 93005; 96374; 96375; 99285; J1940; J2405; J3475